=== PATIENT | female | born 1940 | race Caucasian/White ===

== ENCOUNTER → 2018-08-28 13:03 | Outpatient (CLI) | payer MEDICARE, OTHER, SELFPAY ==
--- NOTE | 2018-08-28 13:07 | CDU_ITS ---
Reason For Study: Carotid stenosis Rt. Velocities/BP Lt. Velocities/BP Prox CCA 117.0/12.3 cm/sec. Prox CCA 101.0/19.3 cm/sec. Mid CCA 93.8/12.3 cm/sec. Mid CCA 93.8/16.4 cm/sec. Dist CCA 95.0/16.4 cm/sec. Dist CCA 89.7/12.9 cm/sec. Prox ICA 122.0/19.9 cm/sec. Prox ICA 112.0/18.9 cm/sec. Mid ICA 104.0/21.1 cm/sec. Mid ICA 193.0/35.4 cm/sec. Dist ICA 95.0/15.8 cm/sec. Dist ICA 166.0/28.5 cm/sec. Rt. ICA/CCA = 1.3. Lt. ICA/CCA = 2.1. Prox ECA 105.0/7.0 cm/sec. Prox ECA 166.0/12.8 cm/sec. Lt. Vert. 68.0/14.1 cm/sec. Right Extracranial There is heterogeneous, irregular atherosclerotic plaque noted in the right common carotid artery. There is heterogeneous, irregular atherosclerotic plaque noted in the right internal carotid artery. There is heterogeneous, irregular atherosclerotic plaque noted in the right external carotid artery. Flow could not be demonstrated in the right vertebral artery. Left Extracranial There is heterogeneous, irregular atherosclerotic plaque noted in the left common carotid artery. There is heterogeneous, irregular atherosclerotic plaque noted in the left internal carotid artery. The atherosclerotic plaque causes acoustic shadowing. There is heterogeneous, irregular atherosclerotic plaque noted in the left external carotid artery. Interpretation Summary Irregular calcific plague right common carotid Post operative changes right carotid bulb and proximal internal carotid with <50% stenosis but close to this range. Normal flow right external carotid No flow identified within the right vertebral Irregular calcific plague left common carotid Irregular calcific plague proximal internal carotid with 50-69% stenosis. Irregular calcific plague left proximal external carotid with <50% stenosis Patent and antegrade left vertebral No change on the left from 04/23/2010 with improvement noted on the right Ordering Physician: Ze Goff Referring Physician: Ze Goff Performed By: Sarah Solares RVT
--- NOTE | 2018-08-28 13:07 | ART_ITS ---
Reason For Study: PVD Procedure A bilateral lower extremity continuous wave Doppler with analog waveform analysis,segmental pressures,and ankle brachial indexes without exercise. Left Segmental Pressures Left brachial= 188mmHg. Left posterior tibial artery = 182mmHg. Left dorsalis pedis artery = 164mmHg. Left digit = 110 mmHg. The left dorsalis pedis waveforms are triphasic. The left posterior tibial artery waveforms are triphasic. Right Segmental Pressures Right brachial= 190mmHg. Right posterior tibial artery = 171mmHg. Right dorsalis pedis artery = 156mmHg. Right digit = 112 mmHg. The right dorsalis pedis waveforms are triphasic. The right posterior tibial artery waveforms are triphasic. Indices The right ankle brachial index by the dorsalis pedis is .82. The right ankle brachial index by the posterior tibial artery is .90. The right digital-brachial index is .59. The left ankle brachial index by the posterior tibial artery is .96. The left ankle brachial index by the dorsalis pedis is .86. The left digital-brachial index is .58. Interpretation Summary Abnormal resting ABIs bilaterally in the range of vascular claudication. Triphasic DP and PT doppler waveforms bilaterally Digital volume pulse recordings slightly dampened but maintained. Critical ischemia is not identified. Ordering Physician: Ze Goff Referring Physician: Sg Brown Performed By: Sarah Solares Justice
--- NOTE | 2018-08-28 13:15 | LEAS_ITS ---
Reason For Study: PVD Fem-Fem bypass graft Right Velocities Left Velocities Supf Femoral Artery, prox = 172 cm./sec. Supf. Femoral Artery, prox = 164 cm./sec. Supf Femoral Artery, mid = 109 cm./sec. Supf. Femoral Artery, mid = 135 cm./sec. Supf Femoral Artery, dist. = 70.9 cm./sec. Supf. Femoral Artery, dist = 126 cm./sec. Profunda Femoral Artery = 62.7 cm./sec. Popliteal Artery, proximal, = 60.9 cm./sec. Popliteal Artery, prox. = 71.5 cm./sec. Popliteal Artery, mid = 57 cm./sec. Popliteal Artery, mid = 61.0 cm./sec. Popliteal Artery, distal = 57.4 cm./sec. Popliteal Artery, dist = 64.5 cm./sec. Post. Tibial Artery, prox = 64 cm./sec. Post. Tibial Artery, prox = 59.8 cm./sec. Post Tibial Artery, mid = 65.1 cm./sec. Post. Tibial Artery, mid = 87.9 cm./sec. Post Tibial Artery, dist. = 58.0 cm./sec. Post. Tibial Artery, dist = 82.1 cm./sec. Peroneal Artery,dist. = 58 cm./sec. Peroneal Artery,dist = 49.2 cm./sec. Ant.Tibial Artery, prox = 47.5 cm./sec. Ant. Tibial Artery, prox = 56.3 cm./sec. Ant Tibial Artery, mid = 51 cm./sec. Ant. Tibial Artery, mid = 56.9 cm./sec. Ant. Tibial Artery, distal = 58.6 cm./sec. Ant. Tibial Artery, dist = 66.8 cm./sec. GRAFT Rt [place] artery - 186 cm/s Rt Anastomosis -200 cm/s Prox graft - 85 cm/s Mid graft - 67.4 cm/s Lt anastomosis - 53.9 cm/s Lt [place] artery- 147 cm/s. Procedure Exam performed in department. Interpretation Summary Patient with patent femoral-femoral crossover graft Possible >50% stenosis [place] vessel graft anastomosis on the left at origin of superficial femoral artery as well--possible graft related flow changes. Patent bilateral lower extremity SFA, popliteal, and infrageniculate arteries. Ordering Physician: Ze Goff Referring Physician: Sg Brown Performed By: Sarah Solares RVT
== END ==
PROVIDERS: Family Provider Family Medicine; PCP Family Medicine; Referring Provider Surgery; Visit Provider Surgery
DX: I65.23 Occlusion and stenosis of bilateral carotid arteries (principal); I73.9 Peripheral vascular disease, unspecified
CPT/HCPCS: 93880; 93923; 93925

== ENCOUNTER → 2019-07-24 14:45 | Outpatient (CLI) | payer OTHER, SELFPAY ==
[2017-07-19 15:13] VITALS: BMI 32.2
--- NOTE | 2019-07-24 14:57 | CT_ITS ---
STUDY: CT ABDOMEN WITH AND WITHOUT CONTRAST REASON FOR EXAM: Female, 78 years old. SCREEN FOR HEPATITIS RADIATION DOSAGE (If Supplied By Facility): CTDIvol = ( 14.95 ) mGy, DLP = ( 1504.70 ) mGycm TECHNIQUE: Transaxial images were obtained pre and post I.V. administration of IV 100mL Isovue-300, and with oral contrast. Sagittal and coronal images were reconstructed. Individualized dose optimization techniques were used for this CT. COMPARISON: None. FINDINGS: The visualized lung bases are unremarkable. Prosthetic mitral valve. Dual chamber pacemaker is seen. Normal liver. There are surgical clips in the gallbladder fossa consistent with a prior cholecystectomy. Normal spleen. Normal pancreas. Normal bilateral adrenal glands. Normal right kidney. Normal left kidney. There is a small hiatal hernia. Normal small intestine. Normal colon. The appendix is visualized and appears normal. There is diffuse atherosclerotic calcification of the abdominal aorta, without a demonstrated aneurysm. Normal inferior vena cava. Normal retroperitoneum. Normal abdominal wall. There are diffuse degenerative changes of the visualized lumbar spine. CT/Abdomen W/WO IV Contrast IMPRESSION: Status post cholecystectomy. Electronically Signed: Shukri Benavidez, at 11:19 EST , Service support ,
[2019-07-25 07:12] LABS: EGFR FINGERSTICK 51 mL/min (>60)
== END ==
PROVIDERS: PCP Family Medicine
DX: K75.4 Autoimmune hepatitis (principal)
CPT/HCPCS: 74170; Q9967

== ENCOUNTER → 2019-08-24 12:47 | Outpatient (CLI) | payer MEDICARE, OTHER, SELFPAY ==
[2019-08-20 13:30] VITALS: BMI 32.2
--- NOTE | 2019-08-24 12:54 | CDU_ITS ---
Reason For Study: BILAT CAROTID STENOSIS Rt. Velocities/BP Lt. Velocities/BP Prox CCA 77/12 cm/sec. Prox CCA 67/13 cm/sec. Mid CCA 80/14 cm/sec. Mid CCA 151/25 cm/sec. Dist CCA 62/13 cm/sec. Dist CCA 129/16 cm/sec. Prox ICA 94/23 cm/sec. Prox ICA 155/34 cm/sec. Mid ICA 78/25 cm/sec. Mid ICA 251/38 cm/sec. Dist ICA 92/23 cm/sec. Dist ICA 238/34 cm/sec. Rt. ICA/CCA = 1.2. Lt. ICA/CCA = 1.7. Prox ECA 78/9 cm/sec. Prox ECA 175/0 cm/sec. Rt. Vert. 39/0 cm/sec. Lt. Vert. 99/18 cm/sec. Right Extracranial There is heterogeneous, irregular atherosclerotic plaque noted in the right common carotid artery. The right common carotid artery is tortuous. There is heterogeneous, irregular atherosclerotic plaque noted in the right internal carotid artery. There is heterogeneous, irregular atherosclerotic plaque noted in the right external carotid artery. Antegrade flow is noted in the right vertebral artery. Left Extracranial There is heterogeneous, irregular atherosclerotic plaque noted in the left common carotid artery. There is heterogeneous, irregular atherosclerotic plaque noted in the left internal carotid artery. There is heterogeneous, irregular atherosclerotic plaque noted in the left external carotid artery. Antegrade flow is noted in the left vertebral artery. Procedure Carotid Duplex [id number]. Exam performed in department. Interpretation Summary Minimal carotid plague right common carotid Smooth plague at the proximal right internal carotid with <50% stenosis <50% stenosis right external carotid Significant echophytic irregular plague at the distal left common carotid. Large plague at the proximal left internal carotid with >70% stenosis <50% stenosis left external carotid Patent, antegrade bilateral vertebrals Progression of stenosis left internal carotid since 08/28/18 Ordering Physician: Ze Goff Referring Physician: YARELIS MARISCAL Performed By: Najma Fuentes, SALAZAR, RVT
== END ==
PROVIDERS: PCP Family Medicine; Referring Provider Surgery; Visit Provider Surgery
DX: I65.23 Occlusion and stenosis of bilateral carotid arteries (principal)
CPT/HCPCS: 93880

== ENCOUNTER → 2019-09-13 10:13 | Outpatient (CLI) | payer OTHER, SELFPAY ==
[2019-09-07 14:29] VITALS: BMI 32.2
[2019-09-13 10:33] LABS: Absolute Lymphocyte Count 1.24 X10^3/uL (0.83-4.51); Absolute Neutrophil Count 4.6 X10^3/uL (2.0-7.7); Basophil# 0.02 X10^3/uL; Basophil% 0.3 % (0-1); Eosinophil# 0.08 X10^3/uL; Eosinophils% 1.2 % (0-5); Hematocrit 35.3 % (37-47); Hemoglobin 10.9 g/dL (12.0-15.0); Lymphocyte # 1.24 X10^3/ul (4.0); Lymphocyte % 19.1 % (19-41); Mean Corp Hgb Conc 30.9 g/dL (32-36); Mean Corpuscular Hgb 25.8 pg (27.0-32.0); Mean Corpuscular Volume 83.5 fL (81-99); Mean Platelet Vol. 9.5 fl (6.2-12.0); Monocyte# 0.57 X10^3/uL; Monocyte% 8.8 % (0-10); NRBC Flagged by Analyzer 0 % (0-5); Neutrophil # 4.55 X10^3/uL (2.7-7.7); Neutrophil % 70.1 % (47-70); Platelet Count 136 K/mm3 (150-450); RBC Distribution Width CV 15.8 % (11.6-14.6); RBC Distribution Width SD 47.5 fl (35.1-43.9); Red Blood Count 4.23 M/mm3 (4.2-5.4); White Blood Count 6.5 K/mm3 (4.4-11.0)
== END ==
PROVIDERS: PCP Family Medicine; Referring Provider Surgery; Visit Provider Surgery
DX: D64.9 Anemia, unspecified (principal)
CPT/HCPCS: 36415; 85025

== ENCOUNTER 2020-01-01 07:31 | Day surgery (SDC) | payer MEDICARE, OTHER, SELFPAY ==
--- NOTE | 2019-08-20 03:48 | HP_ITS ---
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 Is patient in pain?: No Allergies Sulfa (Sulfonamide Antibiotics) Allergy (Verified 08/20/19 13:29) Unknown Rgreobk-Qwc-Zha Reductase Inhibitor Adverse Reaction (Intermediate, Verified 08/20/19 13:29) Unknown Medications Ferrous Sulfate 325 mg PO DAILY@0800 04/17/15 [History Confirmed 08/20/19] Lisinopril [Zestril] 20 mg PO BID 04/17/15 [History Confirmed 08/20/19] Clopidogrel Bisulfate [Plavix] 75 mg PO DAILY #90 tab 08/16/15 [Rx Confirmed 08/20/19] cholecalciferol (vitamin D3) 125 mcg (5,000 unit) capsule 5,000 unit PO ONCE 07/19/17 [History Confirmed 08/20/19] hydrochlorothiazide 25 mg tablet 12.5 mg PO DAILY tab 07/19/17 [History Confirmed 08/20/19] metoprolol tartrate 50 mg tablet 100 mg PO BID tab 07/19/17 [History Confirmed 08/20/19] nitroglycerin 0.4 mg sublingual tablet 0.4 mg SUBLINGUAL Q5M PRN 07/19/17 [History Confirmed 08/20/19] amlodipine 10 mg tablet 10 mg PO DAILY 09/07/18 [History Confirmed 08/20/19] budesonide 3 mg capsule,delayed,extended release 3 mg PO BID ea 09/07/18 [History Confirmed 08/20/19] [facility] Medical History (Updated 08/20/19 @ 15:[address] 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 Ze Goff MD) Smoking Status: Former smoker second hand exposure: No alcohol intake: current alcohol intake frequency: holidays/special occasions only substance use type: does not use caffeine: Yes what type of physical activity do you participate in: none frequency: does not exercise seatbelt use: always HPI HPI HPI: MIKE MENDOZA, is a 78 F who presents to the office today for HPI HPI Surgical H&P: Yes HPI: MIKE MENDOZA, is a 78 F who presents to the office today for surgical consultation regarding undiagnosed anemia. The patient shares her primary care visit via Dr. Brown and [facility] Salma Dickens. It is of note that at the [facility] on July 24, [address] scan of the abdomen with and without contrast. This showed a small hiatal hernia. Evidence of previous cholecystectomy. As of June 12, 2019 her hemoglobin was 10.8 with a hematocrit of 35.7 and a platelet count of 163,000. Previously on April 26, 2019 her hemoglobin was 11.9 and hematocrit 37.7 with a platelet count of 166,000. I had previously assisted her May 2007 with an anal fissurectomy. It is likely that her colonoscopy was around that time but we do not have records of it. She does have medical comorbidities. She has had history of coronary bypass grafting. Bilateral carotid endarterectomies. Femoral-femoral crossover graft. Aortic valve replacement with a bioprosthetic valve. She currently is denying any chest pain. No shortness of breath. She always has dark stools but she says that she is on iron supplementation. She has not any bright red blood per rectum. Her most recent carotid duplex exam was August 2018. She was awaiting our contact to reschedule further update. ROS General General: No weight change, appetite, fatigue, colon cancer, breast cancer or weakness HEENT HEENT: No difficulty swallowing, eye injury, eye surgery, swollen glands or hoarseness Endo Endocrine: No thyroid disease, diabetes mellitus, thyroid cancer, Hair loss, heat intolerance or cold intolerance Skin Skin: No rash or changing moles Breast Breast: No left breast lump, right breast lump, nipple discharge, breast pain, abnormal mammogram, abnormal US or breast enlargement Musc Musculoskeletal: Yes arthritis and rheumatoid arthritis; no back problems, gout or joint pain Cardio Cardiovascular: Yes heart disease and high blood pressure; no murmur, pacemaker, atrial fibrillation, heart attack, heart stent, palpitations, shortness of breat with exertion or chest pain Psych Psychiatric: No depression, anxiety or hearing voices Resp Respiratory: No shortness of breath, Yes sleep apnea, No cough, No COPD, No asthma, No emphysema, No wheezing Gastro Gastrointestinal: No abdominal pain, No nausea or vomiting, No diarrhea, No constipation, No blood in stool, No acid reflux, No hemorrhoids, No ulcers, No gallbladder problem, No black,tarry stools Giuliano Hematologic: Yes blood thinners, No blood disorders, No bleeding, Yes anemia, No blood clots Neuro Neurologic: No system reviewed and no additional complaints, except as docu, No as per HPI, No abnormal walking, No abnormal hearing, No abnormal movements, No abnormal speech, No behavioral changes, No burning sensations, No confusion, No seizure-like activity, No unsteadiness, No dizziness, No localized weakness, No frequent falls, No headache(s), No lack of coordination, No loss of vision, No memory loss, No numbness, No other visual disturbances, No radiating pain, No restless legs, No sensory deficit, No fainting, No tingling, No tremor(s), No weakness, No other Exam Const General: cooperative Nutritional Appearance: average body habitus Orientation: alert, awake Chest Breast Palpation: No nipple discharge Resp Effort & Inspection: normal respiratory effort Auscultation: clear to auscultation bilaterally Cardio Rate: regular rate Rhythm: regular rhythm Heart Sounds: no murmurs GI Palpation: soft, no hepatosplenomegaly Auscultation: normal bowel sounds Neuro General: alert Extrem General: no calf tenderness bilaterally Psych Affect: normal affect Assessment & Plan Problems 1. Iron deficiency anemia, unspecified iron deficiency anemia type D50.9 Plan Unspecified iron deficiency anemia. I propose for the patient a esophagogastroduodenoscopy with possible biopsy as well as colonoscopy with possible biopsy or polypectomy as indicated. She is aware of the technique, benefit, risk, alternatives. She has had an opportunity to ask and have questions answered. I will provide antibiotic coverage because of her bioprosthetic aortic valve. We will provide monitored anesthesia care as she is higher risk. We will continue the patient's clopidogrel therapy. She has had an opportunity to ask and have questions answered. Great care will be taken to pursuing her endoscopic evaluation. I very much appreciate the kind opportunity of assisting with her surgical care. Prior to proceeding with endoscopy we will recheck bilateral carotid duplex imaging. Cc: Dr. Sg Brown and Dr.Christine Chrissie Goff M.D., F.A.C.S. Orders Orders: Carotid Duplex Ultrasound Today I77.9 Coding Level of Care Code 98541 Diagnoses Iron deficiency anemia, unspecified iron deficiency anemia type D50.9 ??Anemia type: iron deficiency ??Iron deficiency anemia type: unspecified iron deficiency 08/20/19 1548 <Electronically signed by Ze cole MD> Date _ Ze Goff MD As a result of the September 04, 2019 order by the [facility] director Becca Palafox MD to cancel nonessential surgeries that would use PPE, and less special criteria are met, I have reviewed the clinical record for this patient and have determined that the schedule procedure does not meet criteria to go forward and should be canceled pursuant to director Javy's order. The procedure will be rescheduled as soon as possible after the September 04, 2019 emergency order has been lifted
[2019-08-20 13:30] VITALS: BMI 32.2
[2019-09-07 14:29] VITALS: BMI 32.2
[2020-01-01] VITALS (8 sets, daily range): BP systolic 109–158; BP diastolic 41–54; PULSE 55–71; RESP 14–16; TEMP 36.4–36.9; O2SAT 95–98; BMI 30.9
--- NOTE | 2020-01-01 07:54 | HP.PCM_ITS ---
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: No Is patient in pain?: No Allergies Sulfa (Sulfonamide Antibiotics) Allergy (Verified 09/07/19 14:29) Unknown Ygjwtxz-Neh-Kfu Reductase Inhibitor Adverse Reaction (Intermediate, Verified 09/07/19 14:29) Unknown Is last menstrual period known: No Post menopausal: Yes Patient : No PFSH Medical History Anemia (Acute) Carotid art occ w/o infarc (Acute) Cholecystitis (Acute) Autoimmune hepatitis (Acute) Coronary artery disease (Chronic) Hypertension (Chronic) Hyperlipidemia (Chronic) Diplopia (Acute) 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 Ze Goff MD) Smoking Status: Former smoker second hand exposure: No alcohol intake: current alcohol intake frequency: holidays/special occasions only substance use type: does not use caffeine: Yes what type of physical activity do you participate in: none frequency: does not exercise seatbelt use: always HPI HPI HPI: MIKE MENDOZA, is a 78 F who presents to the office today for ongoing surgical consultation regarding seemingly progressive stenosis of her left extracranial internal carotid. I just saw her August 20, 2019. That point I was asked to evaluated her for anemia. We had anticipated doing an upper and lower endoscopy. However the Covid19 pandemic has caused cancellation of on non- murmur emergency procedures. Because the patient has bilateral extracranial carotid artery occlusive disease and has had bilateral carotid endarterectomies on August 24, 2019 I did pursue a bilateral carotid duplex exam. The right side is not remarkable with less than 50% stenosis. The left side has elevation of velocities in the left mid common carotid at 151 cm/s and within the left mid internal carotid at 251 cm/s peak systolic flow with an end-diastolic velocity of 38 cm/s. This was felt to be greater than 70% stenosis of the left internal carotid with plaque noted. This was felt to have progressed from the previous examination of August 28, 2018. Curiously at that time the peak systolic velocity within the right internal carotid was 122 cm/s flow it is now less. The previous peak systolic velocity within the left mid internal carotid was 193 cm/s now 251. Fortunately the patient remains asymptomatic. No visual changes. No motor or sensory loss. No orthostasis. HPI HPI HPI: MKIE MENDOZA, is a 78 F who presents to the office today for Exam Neck Other: Well-healed bilateral carotid incisions. 3+ bilateral carotid pulses. 2/6 bilateral carotid bruits. Neuro Cognition: normal cognition Psych Affect: normal affect Assessment & Plan Problems 1. Bilateral carotid artery stenosis I65.23 Plan 78-year-old female. She is asymptomatic from an extracranial carotid standpoint. Neurologic status remains stable. She does seem to have progression of disease now into the category of greater than 70% stenosis of her left internal carotid. She is previously had bilateral carotid endarterectomies. It is of note that she is maintained on antihypertensive and clopidogrel. She is intolerant to statin medications. Because of the pandemic we are not able to proceed with investigation of her anemia at this standpoint. I believe from her carotid occlusive disease this would be reasonable to pursue once we may resume elective procedures. The patient has been placed on a waiting list. She also has been instructed to recontact us when feasible. I anticipate a future esophagogastroduodenoscopy and colonoscopy and evaluation of her iron deficiency anemia. I anticipate a future carotid duplex imaging exam in 1 year. I appreciate the ongoing opportunity of assisting with surgical care. Cc: Dr. Sg Goff M.D., F.A.C.S. Coding Level of Care Code Off vis,est,level 2 Diagnoses Bilateral carotid artery stenosis I65.23 ??Carotid artery disease type: stenosis Since her office visit she otherwise has had a stable feeling of wellbeing. As far she is aware she has not been exposed to anyone with COVID-19. She always has dark stools. She is not had any updated laboratory by primary care since her visit to me. She currently denies any chest pain or shortness of breath no productive cough no loss of taste. Her chest today was clear to auscultation. Her cardiac exam was regular. She does have 1+ bilateral extremity pitting edema. Her abdomen was soft and nontender. I propose for her a combined esophagogastroduodenoscopy and colonoscopy with possible biopsy or polypectomy is indicated. She is aware of the technique, benefit, risk, alternatives. She has remained on her clopidogrel therapy. She will need antibiotic coverage for her aortic valve. She has had an opportunity to ask and have questions answered. We will proceed as noted. She states that she is to have blood work drawn tomorrow by Dr. Brown. Ze Goff M.D., F.A.C.S. Procedure Criteria Procedure Type: Elective COVID Risk Discussion: The surgeon/proceduralist and patient have discussed in detail the risk of exposure to and/or potential harm posed by the COVID-19 virus with having a surgery/procedure at this time versus the risk of delaying the surgery/procedure. It is not possible to know either the risk of delaying the surgery or procedure or chance of getting an infection with perfect accuracy, but a joint decision was made between the patient and the surgeon/proceduralist to proceed at this time with the scheduled surgery/procedure as indicated on the consent form.
[2020-01-01] MEDS: Lactated Ringers 1,000 ML 100 ML IV (08:30)
--- NOTE | 2020-01-01 08:45 | EGD_PTH ---
PATIENT: MIKE MENDOZA LOC: EN U#:[id number] AGE/SX: 79/F ROOM: RE01/01/[address]: Dr. Ze Goff MD : 1940 BED: DIS: 01/01/2020 SPEC #: [id number] RECD: 01/01/20 12:25 STATUS: CLOVIS PABLO #: [id number] AYDIN: 01/01/20 08:[address]: Ze Goff DEPT: SURGICAL PATHOLOGY RECD BY: Hilda Burnette ENTERED: 01/01/20 13:24 SP TYPE: EGD BIOPSY OT DR: Dr. Sg Brown MD Tissues: A - Duodenum, NOS B - Gastric mucous membrane C - Esophagus, NOS D - Rectum, NOS Procedures: Surgery Specimen Level IV HEADER OPERATION: Colonoscopy, EGD ([facility] [place]) PRE-OP DIAGNOSIS: Iron deficiency anemia TISSUE SUBMITTED: A - Duodenum biopsy, B - Antrum biopsy for histo and H. pylori, C - Distal esophagus biopsy, D - Rectum polyp biopsy MICROSCOPIC DIAGNOSIS A. Duodenum, biopsy: Mild Angel's gland hyperplasia. B. Gastric antrum, biopsy: Mild chronic gastritis. C. Distal esophagus, biopsy: Fragment of benign squamous mucosa with no evidence of inflammation. D. Rectal polyp, biopsy: Hyperplastic polyp. AM:denae 01/02/20 COMMENT B. The results of immunohistochemistry for Helicobacter pylori will be reported separately ([id number]). MICROSCOPIC DESCRIPTION Slides are reviewed. GROSS DESCRIPTION A - Received in fixative is one container labeled with the patient's name and designated duodenum biopsy. The specimen consists of multiple irregular fragments of light hoyt soft tissue that in aggregate measure 0.5 x 0.3 x 0.1 cm. The specimen is totally submitted in one cassette. B - Received in fixative is one container labeled with the patient's name and designated antrum biopsy. The specimen consists of one irregular fragment of light hoyt soft tissue that measures 0.7 x 0.3 x 0.1 cm. The specimen is totally submitted in one cassette. C - Received in fixative is one container labeled with the patient's name and designated distal esophagus biopsy. The specimen consists of two irregular fragments of light hoyt soft tissue that in aggregate measure 0.5 x 0.3 x 0.1 cm. The specimen is totally submitted in one cassette. D - Received in fixative is one container labeled with the patient's name and designated rectum polyp biopsy. The specimen consists of one irregular fragment of light hoyt soft tissue that measures 0.4 x 0.2 x 0.1 cm. The specimen is totally submitted in one cassette. / SJ:rg 01/01/20 TC:3 CPT: 62896 x4
--- NOTE | 2020-01-01 08:45 | IMM_PTH ---
PATIENT: MIKE MENDOZA LOC: EN U#:[id number] AGE/SX: 79/F ROOM: RE01/01/[address]: Dr. Ze Goff MD : 1940 BED: DIS: 01/01/2020 SPEC #: [id number] RECD: 01/01/20 14:17 STATUS: CLOVIS REQ #: [id number] AYDIN: 01/01/20 08:[address]: Ze Goff DEPT: IMMUNOHISTOCHEMISTRY RECD BY: Claire Rivera ENTERED: 01/01/20 14:17 SP TYPE: IMMUNO OTHR DR: Dr. Sg Brown MD Tissues: B - Stomach, NOS Procedures: H Pylori (initial) PHYSICIAN & INSTITUTION [place] [id number] SPECIMEN INFORMATION: Tissue Source: B - Antrum biopsy Clinical Info: Iron deficiency anemia Specimen Number: [id number] CPT code: 95856 METHODOLOGY: Deparaffinized sections of prefer/formalin-fixed tissue or PAP/DQ stained slides are incubated with monoclonal/polyclonal antibodies/oligonucleotide probes. Localization is made via biotin free immunoperoxidase method. Appropriate controls are performed and reacted as expected. Results on target cell population are indicated in the following table: RESULTS: ANTIBODY / CLONE RESULT Block B H Pylori (polyclonal) negative These tests were developed and their performance characteristics determined by [facility]. They may not have been cleared or approved by the U.S. Food and Drug Administration. The FDA has determined that such clearance or approval is not necessary. INTERPRETATION: B. Antrum biopsy: Negative for Helicobacter pylori organisms. AM:denae 01/02/20
--- NOTE | 2020-01-01 09:43 | OP.CCLET_ITS ---
01/01/2020 Sg Brown Re : Upper GI endoscopy procedure for Anita Ramirez Dear Kevin This procedure was performed on Wednesday, January 01, 2020. My impressions and recommendations are as follows: Impressions : - Medium-sized hiatal hernia. - Z-line variable, 37 cm from the incisors. Biopsied. - Acute chronic gastritis. Biopsied. - Erythematous duodenopathy. Biopsied. Active gastritis is likely source of blood loss anemia and will initiate [id number] Recommendations : - Discharge patient to home. - Resume previous diet. - Continue present medications. - Use Pepcid (famotidine) 20 mg PO daily. - Telephone my office for pathology results in 1 week. My findings are described in the full procedure note, which is enclosed. If I can be of further assistance, please feel free to contact me at Doctor phone number(s): Work: . Sincerely, Ze Goff MD 01/01/2020 9:42:52 AM This report has been signed electronically.
--- NOTE | 2020-01-01 09:43 | OP.EGD_ITS ---
Patient Name: Anita Ramirez Procedure Date: 01/01/2020 9:05 AM Date of : 1940 Age: 79 Procedure: Upper GI endoscopy Indications: Iron deficiency anemia Providers: Ze Goff MD Referring MD: Sg Brown Medicines: See the Anesthesia note for documentation of the administered medications Complications: No immediate complications. Procedure: Pre-Anesthesia Assessment: - Prior to the procedure, a History and Physical was performed, and patient medications and allergies were reviewed. The patient's tolerance of previous anesthesia was also reviewed. The risks and benefits of the procedure and the sedation options and risks were discussed with the patient. All questions were answered, and informed consent was obtained. Prior Anticoagulants: The patient has taken Plavix (clopidogrel). ASA Grade Assessment: III - A patient with severe systemic disease. After reviewing the risks and benefits, the patient was deemed in satisfactory condition to undergo the procedure. After obtaining informed consent, the endoscope was passed under direct vision. Throughout the procedure, the patient's blood pressure, pulse, and oxygen saturations were monitored continuously. The gastroscope was introduced through the mouth, and advanced to the second part of duodenum. The upper GI endoscopy was accomplished with ease. The patient tolerated the procedure well. Scope In: 9:15:53 AM Scope Out: 9:19:39 AM Total Procedure Duration Time 0 hours 3 minutes 46 seconds Findings: A medium-sized hiatal hernia was present. The Z-line was variable and was found 37 cm from the incisors. Biopsies were taken with a cold forceps for histology. Diffuse moderate inflammation characterized by erosions was found in the gastric antrum. Biopsies were taken with a cold forceps for histology. Diffuse mildly erythematous mucosa without active bleeding and with no stigmata of bleeding was found in the duodenal bulb. Biopsies were taken with a cold forceps for histology. Impression: - Medium-sized hiatal hernia. - Z-line variable, 37 cm from the incisors. Biopsied. - Acute chronic gastritis. Biopsied. - Erythematous duodenopathy. Biopsied. Active gastritis is likely source of blood loss anemia and will initiate [id number] Recommendation: - Discharge patient to home. - Resume previous diet. - Continue present medications. - Use Pepcid (famotidine) 20 mg PO daily. - Telephone my office for pathology results in 1 week. Procedure Code(s): --- Professional --- 31037, Esophagogastroduodenoscopy, flexible, transoral; with biopsy, single or multiple Diagnosis Code(s): --- Professional --- K44.9, Diaphragmatic hernia without obstruction or gangrene K22.8, Other specified diseases of esophagus K29.00, Acute gastritis without bleeding K29.50, Unspecified chronic gastritis without bleeding K31.89, Other diseases of stomach and duodenum D50.9, Iron deficiency anemia, unspecified CPT copyright 2017 [employer]. All rights reserved. The codes documented in this report are preliminary and upon police captain review may be revised to meet current compliance requirements. Ze Goff MD 01/01/2020 9:42:52 AM This report has been signed electronically. Number of Addenda: 0 Note Initiated On: 01/01/2020 9:05 AM
--- NOTE | 2020-01-01 09:46 | OP.COLON_ITS ---
Patient Name: Anita Ramirez Procedure Date: 01/01/2020 9:20 AM Date of : 1940 Age: 79 Procedure: Colonoscopy Indications: Iron deficiency anemia Providers: Ze Goff MD Referring MD: Sg Brown Medicines: See the Anesthesia note for documentation of the administered medications Patient Profile: Last Colonoscopy: 2006. Complications: No immediate complications. Procedure: Pre-Anesthesia Assessment: - Prior to the procedure, a History and Physical was performed, and patient medications and allergies were reviewed. The patient's tolerance of previous anesthesia was also reviewed. The risks and benefits of the procedure and the sedation options and risks were discussed with the patient. All questions were answered, and informed consent was obtained. Prior Anticoagulants: The patient has taken Plavix (clopidogrel). ASA Grade Assessment: III - A patient with severe systemic disease. After reviewing the risks and benefits, the patient was deemed in satisfactory condition to undergo the procedure. After I obtained informed consent, the scope was passed under direct vision. Throughout the procedure, the patient's blood pressure, pulse, and oxygen saturations were monitored continuously. The Colonoscope was introduced through the anus and advanced to the cecum, identified by appendiceal orifice and ileocecal valve. The colonoscopy was performed without difficulty. The patient tolerated the procedure well. The quality of the bowel preparation was adequate to identify polyps. The ileocecal valve and the appendiceal orifice were photographed. Scope In: 9:22:17 AM Scope Withdrawal Time 0 hours 6 minutes 31 seconds Scope Out: 9:33:55 AM Total Procedure Duration Time 0 hours 11 minutes 38 seconds Findings: The digital rectal exam findings include non-thrombosed external hemorrhoids, non-thrombosed internal hemorrhoids and internal hemorrhoids that prolapse with straining, but spontaneously regress to the resting position (Grade II). Multiple diverticula were found in the sigmoid colon and descending colon. The exam was otherwise without abnormality. A 7 mm polyp was found in the rectum. The polyp was sessile. The polyp was removed with a cold biopsy forceps. Resection and retrieval were complete. Impression: - Non-thrombosed external hemorrhoids, non-thrombosed internal hemorrhoids and internal hemorrhoids that prolapse with straining, but spontaneously regress to the resting position (Grade II) found on digital rectal exam. - Diverticulosis in the sigmoid colon and in the descending colon. - The examination was otherwise normal. - No specimens collected. Recommendation: - Discharge patient to home. - Resume previous diet. - Continue present medications. - Repeat colonoscopy is not recommended due to current age (66 years or older) for screening purposes. Procedure Code(s): --- Professional --- 47879, Colonoscopy, flexible; with biopsy, single or multiple Diagnosis Code(s): --- Professional --- K64.1, Second degree hemorrhoids K64.4, Residual hemorrhoidal skin tags D50.9, Iron deficiency anemia, unspecified K57.30, Diverticulosis of large intestine without perforation or abscess without bleeding CPT copyright 2017 [employer]. All rights reserved. The codes documented in this report are preliminary and upon qa tech review may be revised to meet current compliance requirements. Ze Goff MD 01/01/2020 9:46:43 AM This report has been signed electronically. Number of Addenda: 0 Note Initiated On: 01/01/2020 9:20 AM
--- NOTE | 2020-01-01 09:47 | OP.CCLET_ITS ---
01/01/2020 Sg Brown Re : Colonoscopy procedure for Anita Ramirez Dear Kevin This procedure was performed on Wednesday, January 01, 2020. My impressions and recommendations are as follows: Impressions : - Non-thrombosed external hemorrhoids, non-thrombosed internal hemorrhoids and internal hemorrhoids that prolapse with straining, but spontaneously regress to the resting position (Grade II) found on digital rectal exam. - Diverticulosis in the sigmoid colon and in the descending colon. - The examination was otherwise normal. - No specimens collected. Recommendations : - Discharge patient to home. - Resume previous diet. - Continue present medications. - Repeat colonoscopy is not recommended due to current age (66 years or older) for screening purposes. My findings are described in the full procedure note, which is enclosed. If I can be of further assistance, please feel free to contact me at Doctor phone number(s): Work: . Sincerely, Ze Goff MD 01/01/2020 9:46:43 AM This report has been signed electronically.
== END 2020-01-01 10:57 | disposition home or self-care (01) ==
LOC: EN 07:39 → AC 07:40
PROVIDERS: Anesthesiology; PCP Family Medicine; Referring Provider Family Medicine; Visit Provider Surgery
PROC: 0DJD8ZZ Inspection of Lower Intestinal Tract, Via Natural or Artificial Opening Endoscopic (ICD-10-PCS; CPT 45378; principal; 2020-01-01 08:40)
DX: K29.50 Unspecified chronic gastritis without bleeding (principal); K44.9 Diaphragmatic hernia without obstruction or gangrene; D50.9 Iron deficiency anemia, unspecified; K64.1 Second degree hemorrhoids; K62.1 Rectal polyp; K64.4 Residual hemorrhoidal skin tags; K57.30 Diverticulosis of large intestine without perforation or abscess without bleeding; Z11.59 Encounter for screening for other viral diseases; I10 Essential (primary) hypertension; G47.30 Sleep apnea, unspecified; E78.00 Pure hypercholesterolemia, unspecified; I25.10 Atherosclerotic heart disease of native coronary artery without angina pectoris; I65.23 Occlusion and stenosis of bilateral carotid arteries; Z78.0 Asymptomatic menopausal state; Z87.442 Personal history of urinary calculi; Z95.1 Presence of aortocoronary bypass graft; Z79.02 Long term (current) use of antithrombotics/antiplatelets; Z79.899 Other long term (current) drug therapy; Z87.891 Personal history of nicotine dependence
CPT/HCPCS: 43239; 45380; 87635; 88305; 88342; G2023; J7120; J2405; U0003

== ENCOUNTER → 2020-03-19 09:56 | Outpatient (CLI) | payer OTHER, MEDICARE, SELFPAY ==
[2020-01-01 08:08] VITALS: BMI 30.9
--- NOTE | 2020-03-19 10:05 | US_ITS ---
STUDY: ABDOMINAL ULTRASOUND - RIGHT UPPER QUADRANT REASON FOR VISIT: Female, 79 years old AUTOIMMUNE HEPATITIS TECHNIQUE: Ultrasound evaluation of the right upper quadrant was performed with real-time and static rivera-scale imaging. TECHNICAL QUALITY: Adequate. COMPARISON: Comparison is made with prior study dated 04/22/2010. FINDINGS: Liver: The liver measures 15.7 cm. There is a heterogeneous echogenicity of the liver. The bile ducts are within normal limits. There is hepatic color flow. The direction of portal flow is hepatopetal. There is no demonstrated mass lesion. Gallbladder: The patient is status post cholecystectomy. Common Bile Duct (C.B.D.): The common bile duct measures 4.0 mm. Pancreas: Normal size of the head, body and tail of the pancreas. There is normal echogenicity of the pancreas. There is no demonstrated pancreatic mass or cyst. Right Kidney: Normal size of the right kidney. The right kidney measures 8.8 cm x 4 cm x 3.9 cm. Normal renal cortex. The right cortex measures 1.1 cm. There is no demonstrated renal mass or cyst. There is no right hydronephrosis. US/Liver IMPRESSION: Heterogeneous echotexture of the hepatic parenchyma. The patient is status post cholecystectomy. Electronically Signed: Shukri Benavidez, at 15:24 EDT , Service support ,
--- NOTE | 2020-03-19 13:04 | ADU_ITS ---
Reason For Study: PVD, Fem-Fem bypass graft Right Velocities Left Velocities Supf Femoral Artery, prox = 144.9 cm./sec. Supf. Femoral Artery, prox = 175 cm./sec. Supf Femoral Artery, mid = 149.1 cm./sec. Supf. Femoral Artery, mid = 190.6 cm./sec. Supf Femoral Artery, dist. = 110.3 cm./sec. Supf. Femoral Artery, dist = 113.3 cm./sec. Profunda Femoral Artery = 75.6 cm./sec. Profunda Femoral Artery = 54.4 cm./sec. Popliteal Artery, prox. = 81.5 cm./sec. Popliteal Artery, proximal, = 104.5 cm./sec. Popliteal Artery, mid = 77.8 cm./sec. Popliteal Artery, mid = 88.8 cm./sec. Popliteal Artery, dist = 85.1 cm./sec. Popliteal Artery, distal = 72.3 cm./sec. Post. Tibial Artery, prox = 68.8 cm./sec. Post. Tibial Artery, prox = 77.8 cm./sec. Post. Tibial Artery, mid = 128.6 cm./sec. Post Tibial Artery, mid = 99.7 cm./sec. Post. Tibial Artery, dist = 85.1 cm./sec. Post Tibial Artery, dist. = 63.1 cm./sec. Peroneal Artery, prox = 47.9 cm./sec. Peroneal Artery, prox = 67.7 cm./sec. Peroneal Artery, mid = 79.8 cm./sec. Peroneal Artery, mid = 50.1 cm./sec. Peroneal Artery,dist = 31.1 cm./sec. Peroneal Artery,dist. = 43.5 cm./sec. Ant. Tibial Artery, prox = 63.3 cm./sec. Ant.Tibial Artery, prox = 67.7 cm./sec. Ant. Tibial Artery, mid = 112.5 cm./sec. Ant Tibial Artery, mid = 94.1 cm./sec. Ant. Tibial Artery, dist = 85.1 cm./sec. Ant. Tibial Artery, distal = 85.5 cm./sec. GRAFT Rt [place] artery, 228.3 cm/sec. Rt Anastomosis, 202.3 cm/sec. Prox graft, 65.8 cm/sec. Mid graft, 63.4 cm/sec. Distal graft, 52.3 cm/sec. Lt anastomosis, 81.8 cm/sec. Lt [place] artery, 63.4 cm/sec. Procedure Exam performed in department. Interpretation Summary Patient with patent femoral-femoral crossover graft Increased velocity and turbulant flow noted at the right common femoral to femoral-femoral bypass graft anastomosis. Bilateral superficial femoral and popliteal and posterior tibial and peroneal and anterior tibial arteries appear patent Ordering Physician: Ze Goff Referring Physician: Sg Brown Performed By: Ritu Basilio RVT
--- NOTE | 2020-03-19 13:04 | ART_ITS ---
Reason For Study: PVD Procedure A bilateral lower extremity continuous wave Doppler with analog waveform analysis,segmental pressures,and ankle brachial indexes with exercise. Left Segmental Pressures Left brachial= 182mmHg. Left posterior tibial artery = 175mmHg. Left dorsalis pedis artery = 110mmHg. The left dorsalis pedis waveforms are triphasic. The left posterior tibial artery waveforms are triphasic. Right Segmental Pressures Right brachial= 133mmHg. Right posterior tibial artery = 169mmHg. Right dorsalis pedis artery = 150mmHg. Right digit = 122 mmHg. The right dorsalis pedis waveforms are triphasic. The right posterior tibial artery waveforms are triphasic. Indices The right ankle brachial index by the dorsalis pedis is 0.82. The right ankle brachial index by the posterior tibial artery is 0.93. The right digital-brachial index is 0.67. The right post exercise ankle brachial index is 0.96. The left ankle brachial index by the dorsalis pedis is 1.02. The left ankle brachial index by the posterior tibial artery is 0.96. The left digital-brachial index is 0.60. The left post exercise ankle brachial index is 1.02. 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 Abnormal right digital brachial index at rest. Mild left lower extremity arterial occlusive disease. Abnormal left digital brachial index at rest. Normal exercise indices response bilaterally No significant change from August 28, 2018 Ordering Physician: Ze Goff Referring Physician: Sg Brown Performed By: Ritu Basilio RVT and Student
== END ==
PROVIDERS: PCP Family Medicine
DX: K75.4 Autoimmune hepatitis (principal); I73.9 Peripheral vascular disease, unspecified
CPT/HCPCS: 76705; 93924; 93925

== ENCOUNTER → 2020-07-23 13:27 | Outpatient (CLI) | payer MEDICARE, OTHER, SELFPAY ==
--- NOTE | 2020-07-23 13:37 | VDLE_ITS ---
Reason For Study: Edema Procedure LEFT This is a venous duplex using B-mode, color GSV is normal. flow and spectral Doppler. CFV is compressible, spontaneous, phasic, Exam performed in department. competent, and demonstrates normal A preliminary report was called and/or faxed augmentation. to Kevin. FV is patent, visualized with color only, pt unable to tolerate compression. Normal venous flow noted. POP V is compressible, spontaneous, phasic, competent and demonstrates normal augmentation. T/P Trunk is compressible. PTV is compressible. LT PerV is compressible. Interpretation Summary There is no evidence of left lower extremity deep vein thrombosis. Left great saphenous vein appears patent and compressible segmentally. Patient was unable to tolerate compression of the left femoral vein but normal venous flow was noted. Ordering Physician: Sg Brown Referring Physician: Sg Brown Performed By: Ritu Basilio RVT
== END ==
PROVIDERS: PCP Family Medicine; Referring Provider Family Medicine; Visit Provider Family Medicine
DX: R60.0 Localized edema (principal)
CPT/HCPCS: 93971

== ENCOUNTER → 2020-09-10 13:37 | Outpatient (CLI) | payer MEDICARE, OTHER, SELFPAY ==
[2020-01-01 08:08] VITALS: BMI 30.9
--- NOTE | 2020-09-10 13:41 | CDU_ITS ---
Reason For Study: CAROTID STENOSIS Rt. Velocities/BP Lt. Velocities/BP Prox CCA 37.0/14.4 cm/sec. Prox CCA 160.4/17.9 cm/sec. Mid CCA 35.1/14.4 cm/sec. Mid CCA 137.1/10.1 cm/sec. Dist CCA 33.3./14.4 cm/sec. Dist CCA 142.2/12.7 cm/sec. Prox ICA 45.3/24.5 cm/sec. Prox ICA 181.1/23.1 cm/sec. Mid ICA 40.5/16.9 cm/sec. Mid ICA 234.8/31.0 cm/sec. Dist ICA 46.2/16.0 cm/sec. Dist ICA 218.5/14.9 cm/sec. Rt. ICA/CCA = 46.2/35.1=1.3. Lt. ICA/CCA = 234.8/137.1=1.7. Prox ECA 24.8/0.0 cm/sec. Prox ECA 175.9/0.0 cm/sec. Rt. Vert. 28.5/0.0 cm/sec. Lt. Vert. 102.1/25.4 cm/sec. Right Extracranial There is heterogeneous, irregular atherosclerotic plaque noted in the right common carotid artery. The right common carotid artery is tortuous. There is heterogeneous, irregular atherosclerotic plaque noted in the right internal carotid artery. There is heterogeneous, irregular atherosclerotic plaque noted in the right external carotid artery. Antegrade flow is noted in the right vertebral artery. Left Extracranial There is heterogeneous, irregular atherosclerotic plaque noted in the left common carotid artery. There is heterogeneous, irregular atherosclerotic plaque noted in the left internal carotid artery. There is heterogeneous, irregular atherosclerotic plaque noted in the left external carotid artery. Antegrade flow is noted in the left vertebral artery. Procedure Carotid Duplex 22158. The study was technically difficult. Exam performed in department. Interpretation Summary Low flow throughout the right common carotid internal and external carotid arteries with <50% stenosis.Plague noted. 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 <50% stenosis left external carotid Antegrade bilateral vertebrals No change from 08/24/19 Ordering Physician: Ze Goff Referring Physician: Sg Brown Performed By: Cuca Benoit, SALAZAR, RVT
== END ==
PROVIDERS: PCP Family Medicine; Referring Provider Surgery; Visit Provider Surgery
DX: H53.2 Diplopia (principal)
CPT/HCPCS: 93880

== ENCOUNTER → 2020-10-15 08:26 | Outpatient (CLI) | payer OTHER, SELFPAY ==
--- NOTE | 2020-10-15 08:31 | US_ITS ---
STUDY: ABDOMINAL ULTRASOUND - RIGHT UPPER QUADRANT REASON FOR VISIT: Female, 79 years old H/O AUTOIMMUNE HEPATITIS TECHNIQUE: Ultrasound evaluation of the right upper quadrant was performed with real-time and static rivera-scale imaging. TECHNICAL QUALITY: Adequate. COMPARISON: Comparison is made with prior study dated 03/19/2020 and 04/22/2010. FINDINGS: Liver: The liver measures 15.6 cm. There is a heterogeneous echogenicity of the liver. The bile ducts are within normal limits. There is hepatic color flow. The direction of portal flow is hepatopetal. There is no demonstrated mass lesion. Gallbladder: The patient is status post cholecystectomy. Common Bile Duct (C.B.D.): The common bile duct measures 4 mm. Pancreas: Normal size of the head, body and tail of the pancreas. There is normal echogenicity of the pancreas. There is no demonstrated pancreatic mass or cyst. Right Kidney: Normal size of the right kidney. The right kidney measures 8.4 cm x 3.7 cm x 3.3 cm. There is thinning of the renal cortex. The right cortex measures 1 cm. There is no demonstrated renal mass or cyst. There is no right hydronephrosis. US/Abdomen Limited IMPRESSION: Heterogeneous appearance of the hepatic parenchyma. This is unchanged. Electronically Signed: Shukri Benavidez MD at 13:38 EDT , Service support ,
== END ==
PROVIDERS: PCP Family Medicine
DX: K75.4 Autoimmune hepatitis (principal)
CPT/HCPCS: 76705

== ENCOUNTER → 2021-03-17 08:43 | Outpatient (CLI) | payer OTHER, MEDICARE, SELFPAY ==
--- NOTE | 2021-03-17 08:47 | US_ITS ---
STUDY: ABDOMINAL ULTRASOUND - RIGHT UPPER QUADRANT REASON FOR VISIT: Female, 80 years old autoimmune hepatitis. TECHNIQUE: Ultrasound evaluation of the right upper quadrant was performed with real-time and static rivera-scale imaging. TECHNICAL QUALITY: Adequate. COMPARISON: Comparison is made with prior sonogram dated 10/15/2020. FINDINGS: Liver: The liver measures 16.2 cm. There is a heterogeneous echogenicity of the liver. The bile ducts are within normal limits. There is hepatic color flow. The direction of portal flow is hepatopetal. There is no demonstrated mass lesion. Gallbladder: The patient is status post cholecystectomy. Common Bile Duct (C.B.D.): The common bile duct measures 3.6 mm. Pancreas: Normal size of the head, body and tail of the pancreas. There is normal echogenicity of the pancreas. There is no demonstrated pancreatic mass or cyst. Right Kidney: Normal size of the right kidney. The right kidney measures 8.2 cm x 3.9 cm x 3.6 cm. There is thinning of the renal cortex. The right cortex measures 0.9 cm. There is no demonstrated renal mass or cyst. There is no right hydronephrosis. US/Liver IMPRESSION: Heterogeneous echotexture of the liver. This is unchanged. Mild right cortical thinning. Electronically Signed: Shukri Benavidez MD at 11:15 EDT , Service support ,
== END ==
PROVIDERS: PCP Family Medicine
DX: K75.4 Autoimmune hepatitis (principal)
CPT/HCPCS: 76705

== ENCOUNTER → 2021-04-21 12:41 | Outpatient (CLI) | payer MEDICARE, OTHER, SELFPAY ==
--- NOTE | 2021-04-21 12:44 | ART_ITS ---
Reason For Study: PVD Procedure A bilateral lower extremity continuous wave Doppler with analog waveform analysis,segmental pressures,and ankle brachial indexes without exercise. Left Segmental Pressures Left brachial= 171mmHg. Left digit = 89 mmHg. AIRPORT OPERATIONS SUPERVISOR and DPA are noncompressible. Right Segmental Pressures Right brachial= 46mmHg. Right dorsalis pedis artery = 143mmHg. Right digit = 101 mmHg. The right dorsalis pedis waveforms are triphasic. The right posterior tibial artery waveforms are triphasic. AIRPORT OPERATIONS SUPERVISOR is noncompressible. Indices The right ankle brachial index by the dorsalis pedis is .84. The right digital-brachial index is .59. AIRPORT OPERATIONS SUPERVISOR is noncompressible. The left digital-brachial index is .52. AIRPORT OPERATIONS SUPERVISOR and DP A are noncompressible. VL/Lower Ext Art Exam w/ Exercise Interpretation Summary Noncalculable right PT ankle-brachial index Abnormal right DP ankle-brachial index consistent with moderately severe diseas e Right posterior tibial and dorsalis pedis Doppler waveforms however are triphas ic suggesting a closer to normal flow pattern. Left PT and DP ankle-brachial indices are not calculable due to noncompressibil ity Left PT and DP Doppler waveforms are triphasic suggesting a more normal pattern Bilateral digital brachial indices are abnormal suggesting possible distal smal l vessel disease Ordering Physician: Ze Goff Performed By: Omer Flowers RVJustice
== END ==
PROVIDERS: PCP Family Medicine; Referring Provider Surgery; Visit Provider Surgery
DX: I73.9 Peripheral vascular disease, unspecified (principal)
CPT/HCPCS: 93924

== ENCOUNTER 2021-09-14 12:42 | Outpatient (CLI) | payer MEDICARE, OTHER, SELFPAY ==
--- NOTE | 2021-09-14 12:45 | CDU_ITS ---
Reason For Study: CAROTID STENOSIS Rt. Velocities/BP Lt. Velocities/BP Prox CCA 27.0/8.5 cm/sec. Prox CCA 166.3/23.8 cm/sec. Mid CCA 28.4/7.0 cm/sec. Mid CCA 174.1/18.6 cm/sec. Dist CCA 29.8/8.5 cm/sec. Dist CCA 234.6/14.9 cm/sec. Prox ICA 48.1/21.1 cm/sec. Prox ICA 174.3/25.5 cm/sec. Mid ICA 49.4/18.7 cm/sec. Mid ICA 209.9/38.5 cm/sec. Dist ICA 45.7/17.4 cm/sec. Dist ICA 313.4/46.7 cm/sec. Rt. ICA/CCA = 49.4/28.4=1.7. Lt. ICA/CCA = 313.4/174.1=1.8. Prox ECA 133.6/19.5 cm/sec. Prox ECA 183.9/0.0 cm/sec. Rt. Vert. 38.3/10.1 cm/sec. Lt. Vert. 127.7/30.9 cm/sec. Right Extracranial There is heterogeneous, irregular atherosclerotic plaque noted in the right common carotid artery. There is heterogeneous, irregular atherosclerotic plaque noted in the right internal carotid artery. There is heterogeneous, irregular atherosclerotic plaque noted in the right external carotid artery. Antegrade flow is noted in the right vertebral artery. Left Extracranial There is heterogeneous, irregular atherosclerotic plaque noted in the left common carotid artery. There is heterogeneous, irregular atherosclerotic plaque noted in the left internal carotid artery. There is heterogeneous, irregular atherosclerotic plaque noted in the left external carotid artery. Antegrade flow is noted in the left vertebral artery. Procedure Carotid Duplex [id number]. This is a Carotid Duplex examination using B-mode, color flow and specral Doppler. The study was technically difficult. Exam performed in department. VL/Carotid Duplex Ultrasound Interpretation Summary Irregular calcific plague bilateral internal carotids with <50% stenosis on the right and >70% stenosis on the left <50% stenosis bilateral external carotids Patent, antegrade vertebrals bilaterally with >70% stenosis on the left Ordering Physician: Ze Goff Referring Physician: Sg Brown Performed By: Cuca Benoit RDCS, RVT
== END 2021-09-14 23:59 | disposition home or self-care (01) ==
LOC: CVS 12:44
PROVIDERS: PCP Family Medicine; Referring Provider Surgery; Visit Provider Surgery
DX: H53.2 Diplopia (principal); I77.9 Disorder of arteries and arterioles, unspecified
CPT/HCPCS: 93880

== ENCOUNTER → 2021-12-31 | Outpatient (CLI) | payer OTHER, SELFPAY ==
--- NOTE | 2021-12-31 08:36 | US_ITS ---
STUDY: ABDOMINAL ULTRASOUND - RIGHT UPPER QUADRANT REASON FOR VISIT: Female, 81 years old auto immune hepatitis TECHNIQUE: Ultrasound evaluation of the right upper quadrant was performed with real-time and static rivera-scale imaging. TECHNICAL QUALITY: Adequate. COMPARISON: Comparison is made with prior study dated 03/17/2012 FINDINGS: Liver: The liver measures 13.3 cm. There is a heterogeneous echogenicity of the liver. The bile ducts are within normal limits. There is hepatic color flow. The direction of portal flow is hepatopetal. There is no demonstrated mass lesion. Gallbladder: The patient is status post cholecystectomy. Common Bile Duct (C.B.D.): The common bile duct measures 5.6 mm. Pancreas: Normal size of the head, body and tail of the pancreas. There is normal echogenicity of the pancreas. There is no demonstrated pancreatic mass or cyst. Right Kidney: There is atrophy of the right kidney. The right kidney measures 7 cm x 3.7 cm x 4 cm. There is thinning of the renal cortex. The right cortex measures 0.9 cm. There is no demonstrated renal mass or cyst. There is no right hydronephrosis. US/Abdomen Limited IMPRESSION: Heterogeneous echotexture of the liver. This is unchanged. Stable right renal atrophy. Electronically Signed: Shukri Benavidez MD at 10:08 EDT ,
== END | disposition home or self-care (01) ==
LOC: US 08:33
PROVIDERS: PCP Family Medicine
DX: K75.4 Autoimmune hepatitis (principal)
CPT/HCPCS: 76705

== ENCOUNTER → 2022-03-17 | Outpatient (CLI) | payer MEDICARE, OTHER, SELFPAY ==
--- NOTE | 2022-03-17 13:01 | CDU_ITS ---
Reason For Study: CAROTID STENOSIS Rt. Velocities/BP Lt. Velocities/BP Prox CCA 20.1/11.5 cm/sec. Prox CCA 164.4/21.7 cm/sec. Mid CCA 14.2/8.3 cm/sec. Mid CCA 168.8/15.1 cm/sec. Dist CCA 14.4/9.4 cm/sec. Dist CCA 186.4/8.6 cm/sec. Prox ICA 38.0/14.4 cm/sec. Prox ICA 133.7/17.3 cm/sec. Mid ICA 35.1/13.4 cm/sec. Mid ICA 263.8/37.5 cm/sec. Dist ICA 35.1/12.5 cm/sec. Dist ICA 247.6/40.7 cm/sec. Rt. ICA/CCA = 38.0/20.8=1.8. Lt. ICA/CCA = 263.8/168.8=1.6. Prox ECA 85.6/13.1 cm/sec. Prox ECA 283.2/0.0 cm/sec. Rt. Vert. 51.2/8.7 cm/sec. Lt. Vert. 130.8/32.0 cm/sec. Right Extracranial There is heterogeneous, irregular atherosclerotic plaque noted in the right common carotid artery. There is heterogeneous, irregular atherosclerotic plaque noted in the right internal carotid artery. The atherosclerotic plaque causes acoustic shadowing. There is heterogeneous, irregular atherosclerotic plaque noted in the right external carotid artery. Antegrade flow is noted in the right vertebral artery. Left Extracranial There is heterogeneous, irregular atherosclerotic plaque noted in the left common carotid artery. There is heterogeneous, irregular atherosclerotic plaque noted in the left internal carotid artery. The atherosclerotic plaque causes acoustic shadowing. There is heterogeneous, irregular atherosclerotic plaque noted in the left external carotid artery. Procedure Carotid Duplex [id number]. This is a Carotid Duplex examination using B-mode, color flow and specral Doppler. The study was technically difficult. Exam performed in department. VL/Carotid Duplex Ultrasound Interpretation Summary Irregular calcific plaque with shadowing at the proximal right internal carotid artery with notably diminished flow rates within the distal right common carotid artery with less t hernandez 50% stenosis of the right proximal internal carotid artery based upon flow. Less than 50% stenosis right external carotid artery Irregular calcific plaque within the left common carotid artery and internal ca rotid artery with increased velocities noted within the left proximal mid and distal common carot id artery. Velocities elevated within the left mid internal carotid artery consistent with greater than 70% stenosis Greater than 70% stenosis left external carotid artery Patent and antegrade right vertebral Greater than 50% stenosis left vertebral Findings appear to be similar to the previous examination of September 14, 2021 Ordering Physician: Ze Goff Referring Physician: Sg Brown Performed By: Cuca Benoit, SALAZAR, RVT
== END | disposition home or self-care (01) ==
LOC: CVS 13:00
PROVIDERS: PCP Family Medicine; Referring Provider Surgery; Visit Provider Surgery
DX: I65.23 Occlusion and stenosis of bilateral carotid arteries (principal)
CPT/HCPCS: 93880

== ENCOUNTER → 2022-04-27 | Outpatient (CLI) | payer MEDICARE, OTHER, SELFPAY ==
--- NOTE | 2022-04-27 10:50 | ART_ITS ---
Reason For Study: PVD Procedure A bilateral lower extremity continuous wave Doppler with analog waveform analysis,segmental pressures,and ankle brachial indexes without exercise. Left Segmental Pressures Left brachial= 151mmHg. Left posterior tibial artery = >254mmHg. Left dorsalis pedis artery = 211mmHg. Left digit = 103 mmHg. The left dorsalis pedis waveforms are triphasic. The left posterior tibial artery waveforms are triphasic. Right Segmental Pressures Right brachial= 43mmHg. Right posterior tibial artery = 209mmHg. Right dorsalis pedis artery = 154mmHg. Right digit = 125 mmHg. The right dorsalis pedis waveforms are triphasic. The right posterior tibial artery waveforms are triphasic. Indices The right ankle brachial index by the dorsalis pedis is 1.02. The right ankle brachial index by the posterior tibial artery is 1.38. The right digital-brachial index is 0.83. The left ankle brachial index by the dorsalis pedis is 1.40. The left ankle brachial index by the posterior tibial artery is NC. The left digital-brachial index is 0.68. VL/Lower Ext Art Exam w/o Exercis Interpretation Summary Normal right lower extremity PT and DP ankle-brachial index at rest of 1.38 and 1.02 respectively with triphasic Doppler waveforms. Normal right digital brachial index of 0.83 Normal left lower extremity DP ankle-brachial index of 1.4 with a 9 calculable left PT index. Normal triphasic Doppler waveforms from the left posterior tibial and dorsalis pedis. Abnormal left digital brachial index of 0.68 consistent with small vessel disease. Clinical correlati on would be appropriate Endings seem improved from the previous study of April 21, 2021 Ordering Physician: Ze Goff Referring Physician: Sg Brown Performed By: Ritu Basilio RVT
== END | disposition home or self-care (01) ==
LOC: CVS 10:49
PROVIDERS: PCP Family Medicine; Referring Provider Surgery; Visit Provider Surgery
DX: I73.9 Peripheral vascular disease, unspecified (principal)
CPT/HCPCS: 93923

== ENCOUNTER 2022-10-20 15:10 | Inpatient (IN) | payer MEDICARE, SELFPAY ==
[2022-10-20] VITALS (9 sets, daily range): BP systolic 119–154; BP diastolic 59–90; PULSE 111–134; RESP 16–25; TEMP 36.2–36.5; O2SAT 94–100; BMI 26.6; BMI 27.4
--- NOTE | 2022-10-20 15:27 | VDLE_ITS ---
Reason For Study: Swelling RIGHT CFV is compressible, spontaneous, competent and demonstrates pulsatile venous flow. FV is compressible, spontaneous, competent and demonstrates pulsatile venous flow. POP V is compressible, spontaneous, competent and demonstrates pulsatile venous flow. T/P Trunk is compressible. PTV is compressible. RT PerV is compressible. Procedure This is a venous duplex using B-mode, color flow and spectral Doppler. Exam performed portable in ED. The exam was diagnostic. A preliminary report was called and/or faxed to Dr. Toth. VL/Venous Duplex US, Unilateral Interpretation Summary There is no evidence of right lower extremity deep vein thrombosis. Right great saphenous vein appears patent and compressible segmentally. Pulsatile venous flow is noted inv olving the right lower extremity consistent with proximal venous hypertension or obstruction. Cl inical correlation would be appropriate. Ordering Physician: Carmen Toth Referring Physician: Sg Brown Performed By: Stew Dillard RVT
--- NOTE | 2022-10-20 15:29 | EX.ED.DYSGE1 ---
HPI History of Present Illness Chief Complaint: Edema Detail of Chief Complaint: Right leg edema Informant: patient Onset/Context/Timing Onset: Days (3 days) Context: Gradual Onset Timing: Waxes and wanes Current Severity: Moderate Maximum Severity: Moderate Narrative Narrative: Patient presents secondary to right leg edema. She states she noted her right leg swelling about 3 days ago. She recently moved and states last evening she was in the garage arranging some boxes. She developed pain to the lateral portion of her right calf. She came in and elevated her leg and the pain subsided. When she got this morning she still had some edema and called her PCP who referred her to the ER. She denies chest pain or shortness of breath. It was noted that the patient's heart rate was 134 on arrival to triage. She believes this was secondary to walking up the hill from the parking area to get into the ER. She denies history of blood clot and is not currently on blood thinners. She does report a history of autoimmune hepatitis. [facility] Medical History (Updated 10/20/22 @ 19:[address] 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 Anemia Autoimmune hepatitis Carotid art occ w/o infarc Cholecystitis Coronary artery disease Diplopia Hyperlipidemia Hypertension Home Medications lisinopril 20 mg tablet 20 mg PO BID 04/17/15 [History Last Taken 01/01/20 06:00 20 MG] clopidogrel 75 mg tablet 75 mg PO DAILY #90 tabs 08/16/15 [Rx Last Taken 01/01/20 06:00 75 MG] cholecalciferol (vitamin D3) 125 mcg (5,000 unit) capsule 5,000 unit PO ONCE 07/19/17 [History Last Taken Unknown] hydrochlorothiazide 25 mg tablet 12.5 mg PO QODAY 07/19/17 [History Last Taken Unknown] metoprolol tartrate 50 mg tablet 100 mg PO BID 07/19/17 [History Last Taken 01/01/20 06:00 100 MG] amlodipine 10 mg tablet 10 mg PO DAILY 09/07/18 [History Last Taken Unknown] budesonide 3 mg capsule,delayed,extended release 3 mg PO BID 09/07/18 [History Last Taken 01/01/20 06:00 3 MG] famotidine 20 mg tablet (Pepcid) 20 mg PO DAILY 10/22/20 [History Last Taken Unknown] atorvastatin 20 mg tablet 20 mg PO DAILY 04/30/22 [History Last Taken Unknown] ferrous sulfate 325 mg (65 mg iron) tablet 325 mg PO QODAY 10/20/22 [History Last Taken Unknown] Allergy/AdvReac Type Severity Reaction Status Date / Time Sulfa (Sulfonamide Allergy Unknown Verified 10/20/22 15:14 Antibiotics) Family History Father Prostate cancer Mother CVA (cerebral vascular accident) Breast cancer Heart disease Surgical History Bilateral carotid artery disease History of aortic valve replacement with bioprosthetic valve Peripheral vascular disease S/P anal fissurectomy S/P cholecystectomy S/P colonoscopy S/P lumpectomy, left breast Status post coronary artery bypass graft Social History Smoking Status: Former smoker second hand exposure: No alcohol intake: current alcohol intake frequency: holidays/special occasions only substance use type: does not use caffeine: Yes what type of physical activity do you participate in: none frequency: does not exercise seatbelt use: always ROS ROS ED Constitutional Constitutional ED: Denies chills or fever(s) Eyes Eyes: Denies change in vision or discharge from eye(s) ENT ENT ED: Denies discharge from eye(s), rhinorrhea or sore throat Cardiovascular Cardiovascular: Denies chest pain or palpitations Respiratory/Chest Respiratory/Chest: Denies cough or dyspnea Gastrointestinal Gastrointestinal: Denies abdominal pain, nausea or vomiting Genitourinary Genitourinary ED: Denies dysuria Musculoskeletal Musculoskeletal: Reports extremity pain; Denies back pain Integumentary Denies Abrasions or rash Neurologic Neurologic: Denies headache(s) or weakness Psychiatric Psychiatric: Denies anxiety or depression Allergic/Immunologic Allergic/Immunologic ED: Denies lip swelling or urticaria EXAM Physical Exam Const Vital Signs: 10/20/22 15:11 10/20/22 15:36 10/20/22 18:47 Temperature 97.2 F L Temperature Source Temporal Pulse Rate 134 H 131 H Respiratory Rate 16 18 Respiratory Effort Normal Non-Labored Respiratory Pattern Normal Blood Pressure 119/59 L 150/79 H Blood Pressure Mean 79 102 Pulse Ox 94 Oxygen Delivery Method Room Air Room Air Positive well nourished and well developed General Appearance ED: well developed HEENT Reports normocephalic and head/scalp atraumatic Eyes PERRL and EOMs intact bilaterally Neck supple Chest Wall inspection of chest normal and palpation of chest normal Resp normal respiratory effort and clear to auscultation bilaterally Cardio Rate: tachycardic GI normal to inspection, nondistended, normoactive bowel sounds Palpation: soft Extremity Extremity Narrative: Bilateral lower extremity edema, 3-4+. No focal calf tenderness in either leg. Neuro oriented x3 and no sensory deficits noted Sensorium / Orientation: alert Motor Exam: strength 5/5 throughout Psych mental status grossly normal Skin no rashes or lesions noted MDM MDM MDM Narrative Medical decision making narrative: Given the patient's tachycardia on arrival she is placed on environmental monitoring specialist. EKG obtained to evaluate for cardiac arrhythmia/ischemia. Labwork obtained to evaluate for leukocytosis, anemia, and electrolyte derangement. Chest x-ray obtained to evaluate for acute lung pathology, cardiac size, or mediastinal abnormality. Venous ultrasound of the right lower extremity obtained to evaluate for DVT. Lab Data Attestation: I reviewed the patient's lab results. Labs: Laboratory Results - last 24 hr 10/20/22 10/20/22 10/20/22 15:55 15:55 15:55 WBC 8.5 RBC 3.89 L Hgb 10.1 L Hct 33.7 L MCV 86.6 MCH 26.0 L MCHC 30.0 L RDW Std Deviation 51.9 H RDW Coeff of Gypsy 16.6 H Plt Count 210 MPV 10.4 Immature Gran % (Auto) 0.500 Neut % (Auto) 83.0 H Lymph % (Auto) 8.8 L [place]on % (Auto) 5.9 Eos % (Auto) 1.3 Baso % (Auto) 0.5 Absolute Neuts (auto) 7.1 Absolute Lymphs (auto) 0.75 L Nucleated RBC % 0 PT Cancelled INR Cancelled APTT Cancelled D-Dimer Quant (PE/DVT) Cancelled Sodium 142 Potassium 4.7 Chloride 111 H Carbon Dioxide 22.0 Anion Gap 9 BUN 36 H Creatinine 1.71 H Estim Creat Clear Calc 20.06 Est GFR (MDRD) Af Amer 37 L Est GFR (MDRD) Non-Af 30 L BUN/Creatinine Ratio 21.1 H Glucose 124 H Calcium 9.0 Total Bilirubin 0.50 Direct Bilirubin 0.08 AST 63 H ALT 50 Alkaline Phosphatase 77 Troponin I High Sens 66 H Total Protein 7.2 Albumin 3.5 Globulin 3.7 10/20/22 10/20/22 16:30 18:10 WBC RBC Hgb Hct MCV MCH MCHC RDW Std Deviation RDW Coeff of Gypsy Plt Count MPV Immature Gran % (Auto) Neut % (Auto) Lymph % (Auto) [place] % (Auto) Eos % (Auto) Baso % (Auto) Absolute Neuts (auto) Absolute Lymphs (auto) Nucleated RBC % PT 14.2 INR 1.1 APTT 27.7 D-Dimer Quant (PE/DVT) 2.37 H* Sodium Potassium Chloride Carbon Dioxide Anion Gap BUN Creatinine Estim Creat Clear Calc Est GFR (MDRD) Af Amer Est GFR (MDRD) Non-Af BUN/Creatinine Ratio Glucose Calcium Total Bilirubin Direct Bilirubin AST ALT Alkaline Phosphatase Troponin I High Sens 56 H Total Protein Albumin Globulin Radiography Chest X-Ray - ED: 1 View, Read by ED Physician and Chronic Changes Diagnostic Testing: Clinical Impression(s) from Imaging Studies Chest X-Ray 10/20/22 16:06 IMPRESSION: No acute cardiopulmonary disease or major interval change. Electronically Signed: Diego Fox DO at 16:17 EDT Reading Location ID and State: [address] [place] [address] Tel [phone], Service support , EKG Initial EKG: Attestation: I personally reviewed and interpreted this EKG as follows: Interpretation: Atrial Fibrillation (A-fib RVR with ventricular rate of 125.) Treatment and Re-Evaluation :: EKG reveals A-fib RVR. Patient has no known history of atrial fibrillation. She is on metoprolol at baseline so 5 mg of IV metoprolol are ordered to help control heart rate. CBC reveals normal white count 8.5 with a hemoglobin of 10.1. Chemistry studies reveal a BUN of 36 and a creatinine of 1.71. Glucose is 124. LFTs significant for an AST of 66. PT and PTT are normal. Initial troponin is 66 with 2-hour repeat 56. D-dimer is slightly elevated at 2.37. Venous ultrasound of the right lower extremity reveals no evidence of DVT. Patient's creatinine clearance is not high enough to undergo a CTA of the chest, and given her new onset atrial fibrillation will likely require anticoagulation anyway. After being given metoprolol heart rate remained elevated in the 120s. She is given a dose of Cardizem and heart rate is currently around 105-110. She is given a dose of Lovenox. Given she has new onset atrial fibrillation with elevated heart rate I will speak with hospitalist regarding admission for medication adjustment and further evaluation. Discharge Plan Triage Chief Complaint: Edema ED Provider: Carmen Toth Dx/Rx/DC Orders Clinical Impression: Atrial fibrillation, new onset, Atrial fibrillation with rapid ventricular response Prescriptions: No Action metoprolol tartrate 50 MG tablet 100 mg PO BID Label Comments: heart rate/blood pressure cholecalciferol (vitamin D3) 5,000 unit capsule 5,000 unit PO ONCE amlodipine 10 mg tablet 10 mg PO DAILY budesonide 3 mg capsule,delayed,extend.release 3 mg PO BID Label Comments: FOR LIVER PROBLEM-PER PT famotidine [Pepcid] 20 mg tablet 20 mg PO DAILY atorvastatin 20 mg tablet 20 mg PO DAILY lisinopril 20 MG tablet 20 mg PO BID Label Comments: blood pressure clopidogrel 75 MG tablet 75 mg PO DAILY Qty: 90 0RF Label Comments: blood thinner hydrochlorothiazide 25 MG tablet 12.5 mg PO QODAY ferrous sulfate 325 mg (65 mg iron) tablet 325 mg PO QODAY Label Comments: TAKE ONE TABLET BY MOUTH TWICE DAILY Primary Care Provider: Sg Brown Referrals: Sg Brown MD [Primary Care Provider] - Disposition Disposition: Acute Care Hospital [facility]
--- NOTE | 2022-10-20 16:06 | RAD_ITS ---
STUDY: X-RAY CHEST REASON FOR EXAM: Female, 81 years old. Shortness of breath. Increased swelling of the right knee and lower leg over several days. Patient on Plavix and Lasix. No pain but had pain last night. TECHNIQUE: Single AP portable view of the chest. COMPARISON: August 15, 2015. FINDINGS: The lungs are clear and expanded. There is no demonstrated pleural abnormality. Sternal cerclage wires are present from a prior sternotomy. The heart is normal in size. Normal mediastinum and dulce. Normal visualized pulmonary arteries. There is atherosclerotic calcification of the aortic arch with tortuosity. No osseous changes. There is no demonstrated abnormality of the visualized soft tissue structures of the upper abdomen. RAD/Chest 1 View (Portable) IMPRESSION: No acute cardiopulmonary disease or major interval change. Electronically Signed: Diego Fox DO at 16:17 EDT ,
[2022-10-20 16:11] LABS: Absolute Lymphocyte Count 0.75 X10^3/uL (0.83-4.51); Absolute Neutrophil Count 7.1 X10^3/uL (2.0-7.7); Basophil# 0.04 X10^3/uL; Basophil% 0.5 % (0-1); Eosinophil# 0.11 X10^3/uL; Eosinophils% 1.3 % (0-5); Hematocrit 33.7 % (37-47); Hemoglobin 10.1 g/dL (12.0-15.0); Lymphocyte # 0.75 X10^3/ul (0.83-4.51); Lymphocyte % 8.8 % (19-41); Mean Corpuscular Volume 86.6 fL (81-99); Mean Platelet Vol. 10.4 fl (6.2-12.0); Monocyte% 5.9 % (0-10); NRBC Flagged by Analyzer 0 % (0-5); Neutrophil # 7.09 X10^3/uL (2.7-7.7); Platelet Count 210 K/mm3 (150-450); RBC Distribution Width CV 16.6 % (11.6-14.6); RBC Distribution Width SD 51.9 fl (35.1-43.9); Red Blood Count 3.89 M/mm3 (4.2-5.4); White Blood Count 8.5 K/mm3 (4.4-11.0)
--- NOTE | 2022-10-20 16:16 | NURSING ---
PT,PTT NOT FULL ENOUGH. NEEDS REDRAWN
[2022-10-20] MEDS: Metoprolol Tartrate 5 MG/5 ML Vial IV (16:28)
[2022-10-20 16:32] LABS: AST(SGOT) 63 U/L (15-37); Alanine Aminotransfer ALT/SGPT 50 U/L (13-56); Albumin, Serum 3.5 g/dL (3.2-5.0); Alkaline Phosphatase 77 U/L (45-117); Anion Gap 9 (5-15); BUN 36 mg/dL (7-18); BUN/Creat Ratio 21.1 RATIO (10-20); Bilirubin, Direct 0.08 mg/dL (0.00-0.30); Chloride 111 mmol/L (98-107); Creatinine, Serum 1.71 mg/dL (0.55-1.02); EST Glomerular Filtration Rate 30 mL/min (>60); Est Glom Filt Rate - Afr Amer 37 mL/min (>60); Estimated Creatinine Clearance 20.06 ml/min; Globulin 3.7 g/dL (2.2-4.2); Glucose 124 mg/dL (74-106); Potassium 4.7 mmol/L (3.5-5.1); Protein, Total 7.2 g/dL (6.4-8.2); Sodium Level 142 mmol/L (136-145); Troponin-I HS 66 pg/mL (3.0-54.0)
[2022-10-20 17:11] LABS: International Normalized Ratio 1.1; Prothrombin Time (Protime)PT. 14.2 SECONDS (11.7-14.9)
[2022-10-20 17:12] LABS: Partial Thromboplast Time 27.7 Seconds (24.1-36.2)
[2022-10-20 17:40] LABS: D-Dimer Quantitative (DVT/PE) 2.37 FEU/ug/m (0.27-0.49)
[2022-10-20 18:39] LABS: Troponin-I HS 56 pg/mL (3.0-54.0)
[2022-10-20] MEDS: dilTIAZem 25 MG/5 ML Vial 10 MG IV BOLUS (18:48)
[2022-10-20] MEDS: Heparin Injection (Vial) 5,000 UNIT/ML VIAL 4500 UNIT IV (20:12)
[2022-10-20] MEDS: HEPARIN/D5w 25,000 UNITS 25,000 UNITS/250 ML IV.SOLN. 10 UNITS CONT INF (20:26)
--- NOTE | 2022-10-20 20:47 | PCM.HP.STD ---
HPI - General General Date of Admission: 10/20/22 Date of Service: 10/20/22 Chief Complaint: BL LE edema. HPI Narrative The patient is an 81 y/o F w/ PMHx: Carotid disease, Valvular Heart Disease s/p AVR bioprosthetic, PVD/PAD s/p carotid BL CEA and BL common femoral artery endarterectomies with a right to left femoral-femoral crossover graft, Chronic normocytic anemia/iron deficiency anemia, Hx Autoimmune hepatitis, HTN, HLD, Former tobacco use who presents to the [facility] ED on 10/20/22 with history of increased lower extremity swelling more so over right lower extremity over the last 3 days reportedly recently moving in the evening prior was in the garage arranging boxes with onset of discomfort to the lateral portion of her right calf prompting her to go in and elevate her leg with improvement of the pain however on morning reassessment she had some swelling prompting PCP evaluation who recommended ER evaluation with no recent associated chest discomfort or marked dyspnea however upon ED arrival heart rate was in the 130s with no specific palpitation report. Patient does report that she has bilateral lower extremity chronic swelling and her right is worse than her left since her valvular heart intervention work-up in the ED included T97.2, heart rate 134, BP 119/59, respiratory rate 16, 94% on room air, CBC with WBC 8.5, hemoglobin 10.1, MCV 86.6, platelet 210 with lymphopenia, coags with PT 14.2, INR 1.1, PTT 27.7, D-dimer 2.37, chloride 111, BUN/creatinine 36/1.71, glucose 124, hepatic profile with AST 63 otherwise not marked appearing, troponin initial 66 with most recent repeat 56, EKG with new onset atrial fibrillation with RVR. In the ED patient administered metoprolol 5 mg IV x 1 without effect, administered cardizem 10 mg IV x 1, heparin bolus with drip and eventually placed on cardizem drip. COUNT INCLUDES THE [facility] Medical History (Updated 10/20/22 @ 20:[address] 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 Anemia Autoimmune hepatitis Carotid art occ w/o infarc Cholecystitis Coronary artery disease Diplopia Hyperlipidemia Hypertension PAD (peripheral artery disease) Home Medications lisinopril 20 mg tablet 20 mg PO BID 04/17/15 [History Last Taken 01/01/20 06:00 20 MG] clopidogrel 75 mg tablet 75 mg PO DAILY #90 tabs 08/16/15 [Rx Last Taken 01/01/20 06:00 75 MG] cholecalciferol (vitamin D3) 125 mcg (5,000 unit) capsule 5,000 unit PO ONCE 07/19/17 [History Last Taken Unknown] hydrochlorothiazide 25 mg tablet 12.5 mg PO QODAY 07/19/17 [History Last Taken Unknown] metoprolol tartrate 50 mg tablet 100 mg PO BID 07/19/17 [History Last Taken 01/01/20 06:00 100 MG] amlodipine 10 mg tablet 10 mg PO DAILY 09/07/18 [History Last Taken Unknown] budesonide 3 mg capsule,delayed,extended release 3 mg PO BID 09/07/18 [History Last Taken 01/01/20 06:00 3 MG] famotidine 20 mg tablet (Pepcid) 20 mg PO DAILY 04/10/20 [History Last Taken Unknown] atorvastatin 20 mg tablet 20 mg PO DAILY 04/30/22 [History Last Taken Unknown] ferrous sulfate 325 mg (65 mg iron) tablet 325 mg PO QODAY 10/20/22 [History Last Taken Unknown] Allergy/AdvReac Type Severity Reaction Status Date / Time Sulfa (Sulfonamide Allergy Unknown Verified 10/20/22 15:14 Antibiotics) Family History Father Prostate cancer Mother CVA (cerebral vascular accident) Breast cancer Heart disease Surgical History Bilateral carotid artery disease History of aortic valve replacement with bioprosthetic valve History of vascular surgery Peripheral vascular disease S/P anal fissurectomy S/P cholecystectomy S/P colonoscopy S/P lumpectomy, left breast Status post coronary artery bypass graft Social History Smoking Status: Former smoker second hand exposure: No alcohol intake: current alcohol intake frequency: holidays/special occasions only substance use type: does not use caffeine: Yes what type of physical activity do you participate in: none frequency: does not exercise seatbelt use: always ROS ROS Narrative Admission Review of Systems: CONSTITUTIONAL: No weight loss, fever, + chills, weakness or fatigue. HEENT: Eyes: No visual loss, blurred vision, double vision or yellow sclerae. Ears, Nose, Throat: No hearing loss, sneezing, congestion, runny nose or sore throat. SKIN: No rash or itching, lesions, wounds. CARDIOVASCULAR: + Edema. No chest pain, chest pressure or chest discomfort, palpitations, orthopnea, syncopal events. RESPIRATORY: No shortness of breath, cough or sputum, wheezing, hemoptysis. GASTROINTESTINAL: No anorexia, nausea, vomiting or diarrhea, abdominal pain, melena, BRBPR. GENITOURINARY: No dysuria, frequency, urgency or retention. NEUROLOGICAL: No headache, dizziness, syncope, paralysis, ataxia, numbness or tingling in the extremities, focal weakness, change in bowel or bladder control, seizure. MUSCULOSKELETAL: + muscle, back pain, joint pain or stiffness. HEMATOLOGIC: + anemia, bleeding or bruising. LYMPHATICS: No enlarged nodes. No history of splenectomy. PSYCHIATRIC: No history of depression or anxiety. ENDOCRINOLOGIC: + reports of sweating, cold or heat intolerance. No polyuria or polydipsia. ALLERGIES: No history of asthma, hives, eczema or rhinitis. Vital Signs Vital Signs Vital Signs: 10/20/22 15:11 10/20/22 15:36 10/20/22 18:47 Temperature 97.2 F L Temperature Source Temporal Pulse Rate 134 H 131 H Respiratory Rate 16 18 Respiratory Effort Normal Non-Labored Respiratory Pattern Normal Blood Pressure 119/59 L 150/79 H Blood Pressure Mean 79 102 Pulse Ox 94 Oxygen Delivery Method Room Air Room Air 10/20/22 19:30 Temperature Temperature Source Pulse Rate 111 H Respiratory Rate Respiratory Effort Respiratory Pattern Blood Pressure 148/82 H Blood Pressure Mean 104 Pulse Ox Oxygen Delivery Method Weight Weight: 145 lb 9.6 oz Body Mass Index (BMI) 26.6 Physical Exam Narrative Physical Examination: General: Awake, alert, oriented x 3 and cooperative, seated upright in the ED bed in no apparent distress but fatigued appearing. Skin: Normal color, normal turgor, no icterus, no cyanosis except occasional staged ecchymoses especially to the upper extremities and hands. HEENT: AT/NC, EOMI, PERRLA, MMM, no carotid bruits or JVD noted. Lungs: Diminished, greater bases, proper effort, no rales, ronchi or wheezing. Heart: Irregular irregular; no gallop, rub audible, + SM status post AVR. Abdomen: Soft, NTTP, ND, hyperactive BS, no HSM. Extremities: No cyanosis, no clubbing, significant bilateral lower extremity pedal to mid alba 2-3+ pitting edema which she reports is chronic, right greater than left which is also baseline and she notes this is been since she had her heart valve. Neurological: Patient awake, alert, oriented as noted, cognitive function intact; pupils equally reactive to light and accommodation, cranial nerves grossly normal, moving all 4 extremities, no focal deficits, strength moderately to severely global decrease secondary to acute presentation. Psychiatric: Affect appears fatigued, no acute evidence of depressive or anxiety feelings. Results Lab / Micro Data Result Diagrams: 10/20/22 15:55 10/20/22 15:55 Labs: Laboratory Results - last 24 hr 10/20/22 15:55: WBC 8.5, RBC 3.89 L, Hgb 10.1 L, Hct 33.7 L, MCV 86.6, MCH 26.0 L, MCHC 30.0 L, RDW Std Deviation 51.9 H, RDW Coeff of Gypsy 16.6 H, Plt Count 210, MPV 10.4, Immature Gran % (Auto) 0.500, Neut % (Auto) 83.0 H, Lymph % (Auto) 8.8 L, [place] % (Auto) 5.9, Eos % (Auto) 1.3, Baso % (Auto) 0.5, Absolute Neuts (auto) 7.1, Absolute Lymphs (auto) 0.75 L, Nucleated RBC % 0 10/20/22 15:55: PT Cancelled, INR Cancelled, APTT Cancelled, D-Dimer Quant (PE/DVT) Cancelled 10/20/22 15:55: Sodium 142, Potassium 4.7, Chloride 111 H, Carbon Dioxide 22.0, Anion Gap 9, BUN 36 H, Creatinine 1.71 H, Estim Creat Clear Calc 20.06, Est GFR (MDRD) Af Amer 37 L, Est GFR (MDRD) Non-Af 30 L, BUN/Creatinine Ratio 21.1 H, Glucose 124 H, Calcium 9.0, Total Bilirubin 0.50, Direct Bilirubin 0.08, AST 63 H, ALT 50, Alkaline Phosphatase 77, Troponin I High Sens 66 H, Total Protein 7.2, Albumin 3.5, Globulin 3.7 10/20/22 16:30: PT 14.2, INR 1.1, APTT 27.7, D-Dimer Quant (PE/DVT) 2.37 H* 10/20/22 18:10: Troponin I High Sens 56 H Radiology Impression Chest X-Ray 10/20/22 16:06 IMPRESSION: No acute cardiopulmonary disease or major interval change. Electronically Signed: Diego Fox, at 16:17 EDT Reading Location ID and State: [facility] / [place] Tel [phone], Service support , Assessment & Plan Assessment/Plan (1) Atrial fibrillation, new onset: PLAN: Plan The patient is an 81 y/o F w/ PMHx: Carotid disease, Valvular Heart Disease s/p AVR bioprosthetic, PVD/PAD s/p carotid BL CEA and BL common femoral artery endarterectomies with a right to left femoral-femoral crossover graft, Chronic normocytic anemia/iron deficiency anemia, Hx Autoimmune hepatitis, HTN, HLD, Former tobacco use who presents to the [facility] ED on 10/20/22 with history of increased lower extremity swelling more so over right lower extremity over the last 3 days reportedly recently moving in the evening prior was in the garage arranging boxes with onset of discomfort to the lateral portion of her right calf prompting her to go in and elevate her leg with improvement of the pain however on morning reassessment she had some swelling prompting PCP evaluation who recommended ER evaluation with no recent associated chest discomfort or marked dyspnea however upon ED arrival heart rate was in the 130s with no specific palpitation report. #1. New onset, Paroxsymal atrial fibrillation: EKG in ED w/ atrial fibrillation w/ RVR. Patient administered Cardizem in ED. she of note was also given a dose of therapeutic Lovenox but given her renal function plan to transition to Eliquis dose at next dose due. Will admit to PCU, maintain on telemetry, obtain cardiac enzyme serial set, obtain magnesium level, obtain ECHO, obtain TSH level. CHADs scoring appropriate for anticoagulation start at this time w/ start on heparin drip with bolus in case of intervention needs with oral anticoagulation investigation with case management/social work in the interim. Patient currently on metoprolol 50 mg twice daily. Improved in the ED with Cardizem bolus however rate did increase again up to the 120-130s therefore per discussion with ED physician initiated on Cardizem drip which will be continued at this time. Cardizem regimen or addition of this given good response. Cardiology consultation requested per discussion with patient and family #2. Elevated D-dimer with right lower extremity swelling and associated pain, initially concern for acute DVT however ruled out: DVT ultrasound in the ED with no acute DVT per venous ultrasound, given renal function unable to pursue any CTPA at this time but given no marked findings in the legs lower suspicion, as noted given atrial fibrillation presentation however regardless placing on heparin drip in the interim pending insurance investigation for oral options. #3. Possible ARIAN versus progressed chronic kidney disease stage III, unclear subtype: Admission BUN/creatinine 36/1.71 however last creatinine noted since 04/26/2016 1.08 with baseline at that time primarily 0.9-1.2, given unclear if acute or chronic component will hold nephrotoxic regimen as able, given chronic BL LE edema loathe to aggressive hydrate especially given #1, will very judiciously hydrate, obtain urine FeNa, renal US and if worsening further low threshold to involve nephrology. #4. PAD: s/p prior BL LE bypass interventions but known to Dr. Goff, common femoral artery endarterectomies with a right to left femoral-femoral crossover graft 02/18/2016, will continue Plavix, heparin drip initiated as noted as well, continue hypertensive regimen with adjustments as needed, continue statin therapy. #5. Carotid disease: s/p BL CEA 2002, 2010, will continue Plavix, heparin drip initiated as noted as well, continue hypertensive regimen with adjustments as needed, continue statin therapy. #6. Valvular heart disease: No recent echocardiogram noted in the system although patient does report that this was recently done, given presentation #1 echocardiogram requested. Patient per report does have history of AVR bioprosthetic. #7. Chronic anemia, normocytic/iron deficiency anemia: Admission hemoglobin 10.1, MCV 86.6, baseline more recently since 2016 appears 10 range, stable, continue to trend, continue iron supplementation. #8. History of autoimmune hepatitis: Admission CMP with only notable hepatic profile finding AST 63 otherwise unremarkable, most recent previous to this 04/25/2015 AST 33, will repeat CMP in AM, following with [facility], continue home oral budesonide regimen. #9. Hypertension: We will continue home metoprolol with further adjustments as noted, amlodipine, holding both hydrochlorothiazide and lisinopril given possible ARIAN as noted, resume if appropriate, as needed IV hydralazine in interim. #10. Hyperlipidemia: Continue home statin regimen. AM FLP. #11. Former tobacco use: Encourage continued tobacco cessation. #12. DVT prophylaxis: Heparin bolus with drip being initiated in the ED. #13. CODE status: Patient notes that her healthcare power of attorneys are her daughter she believes and living will is currently in place but it is been sometime since she is reviewed this and she recently moved it is unsure where these items are. Encouraged her to strongly review these items and also discussed CODE STATUS as this is never been discussed either. Discussed CODE status at length including difference between FULL code, DNR-CCA and DNR-CC status. Following discussions about the differences in these status, requested Full Code status at this time but she is unsure and plans to review these items and discuss it with her daughters. Advanced Care Planning Face to Face Time: 16 minutes. Admission Evaluation Time spent evaluating chart, patient history, patient evaluation, care planning and discussion with specialists: 75 minutes. Charges/Coding Visit Charges Inpatient E&M: 96764 Init Hosp L3 Procedures Hospitalists Procedures: 10255 Advncd Care Plan 30 Min
[2022-10-20 20:56] LABS: Magnesium 2.3 mg/dL (1.6-2.6)
[2022-10-20] MEDS: 0.9% Normal Saline 1,000 ML 75 ML IV (23:00)
[2022-10-20] MEDS: Budesonide 3 MG CAPSULE.EC PO (23:37)
[2022-10-20] MEDS: Metoprolol Tartrate 100 MG Tablet PO (23:37)
[2022-10-20 23:51] LABS: Troponin-I HS 52 pg/mL (3.0-54.0)
[2022-10-21] VITALS (30 sets, daily range): BP systolic 113–148; BP diastolic 52–92; PULSE 78–120; RESP 15–28; TEMP 36.6–37.1; O2SAT 21–96; BMI 27.7
[2022-10-21 02:45] LABS: Absolute Lymphocyte Count 0.89 X10^3/uL (0.83-4.51); Absolute Neutrophil Count 4.2 X10^3/uL (2.0-7.7); Basophil# 0.03 X10^3/uL; Basophil% 0.5 % (0-1); Eosinophil# 0.06 X10^3/uL; Eosinophils% 1.1 % (0-5); Hematocrit 29.5 % (37-47); Lymphocyte # 0.89 X10^3/ul (0.83-4.51); Lymphocyte % 16.1 % (19-41); Mean Corp Hgb Conc 30.5 g/dL (32-36); Mean Corpuscular Hgb 25.9 pg (27.0-32.0); Mean Platelet Vol. 9.6 fl (6.2-12.0); Monocyte# 0.34 X10^3/uL; Monocyte% 6.2 % (0-10); NRBC Flagged by Analyzer 0 % (0-5); Neutrophil # 4.17 X10^3/uL (2.7-7.7); Neutrophil % 75.6 % (47-70); Platelet Count 142 K/mm3 (150-450); RBC Distribution Width CV 16.6 % (11.6-14.6); Red Blood Count 3.47 M/mm3 (4.2-5.4); White Blood Count 5.5 K/mm3 (4.4-11.0)
[2022-10-21 02:58] LABS: Partial Thromboplast Time 186.2 Seconds (24.1-36.2)
[2022-10-21 03:16] LABS: BUN 33 mg/dL (7-18); EST Glomerular Filtration Rate 38 mL/min (>60); Estimated Creatinine Clearance 22.25 ml/min; Glucose 94 mg/dL (74-106)
[2022-10-21 03:17] LABS: ALB/GLOB Ratio 0.9 RATIO (0.9-2.4); AST(SGOT) 42 U/L (15-37); Alanine Aminotransfer ALT/SGPT 42 U/L (13-56); Alkaline Phosphatase 65 U/L (45-117); Anion Gap 8 (5-15); BUN/Creat Ratio 23.6 RATIO (10-20); Calcium,Total 8.7 mg/dL (8.5-10.1); Chloride 112 mmol/L (98-107); Cholesterol 110 mg/dL (200); Est Glom Filt Rate - Afr Amer 46 mL/min (>60); Globulin 3.3 g/dL (2.2-4.2); High Density Lipoprotein 46 mg/dL; Potassium 3.8 mmol/L (3.5-5.1); Protein, Total 6.3 g/dL (6.4-8.2); Sodium Level 143 mmol/L (136-145); Thyroid Stim Hormone (TSH) 3.08 uIU/mL (0.358-3.74); Triglycerides 47 mg/dL; Very Low Density Lipoprotein 9 mg/dL (5-40)
--- NOTE | 2022-10-21 05:55 | US_ITS ---
STUDY: RENAL ULTRASOUND - COMPLETE REASON FOR EXAM: Female, 81 years old. ? ARIAN versus progressed renal disease TECHNIQUE: Ultrasound evaluation of the kidneys was performed with real-time and static arriola-scale imaging. COMPARISON: None. FINDINGS: RIGHT KIDNEY: with mild renal atrophy. The right kidney measures 6.9 cm x 4.17 x 3.5 cm. There is diffuse thinning of the renal cortex. The renal cortex measures 0.7 cm. There is no right renal mass or cyst. There are no right renal calculi. There is no right hydronephrosis. DISTAL RIGHT URETER: There is non-visualization of the distal right ureter. There is no demonstrated right ureterovesical junction calculus. There is a visualized right ureteral jet. LEFT KIDNEY: Normal location of the left kidney, which is normal in size. The left kidney measures 9 cm x 3.9 cm x 4 cm. There is diffuse thinning of the renal cortex. The renal cortex measures 0.8 cm. There is a 0.9 cm x 0.9 cm x 1 cm cyst. There are no left renal calculi. There is no left hydronephrosis. DISTAL LEFT URETER: There is non-visualization of the distal left ureter. There is no demonstrated left ureterovesical junction calculus. There is a visualized left ureteral jet. BLADDER: The distended urinary bladder has a volume of 111 ml. There is a normal wall thickness of the distended urinary bladder. There is no demonstrated mass within the urinary bladder. There are no demonstrated bladder calculi. US/Kidney and Bladder IMPRESSION: Mild atrophy of the right kidney. Small left renal cyst. Electronically Signed: Shukri Benavidez MD at 15:13 EDT ,
[2022-10-21] MEDS: 0.9% Saline Lock 10 ML Syringe IV (10:28)
[2022-10-21] MEDS: Clopidogrel Bisulfate 75 MG Tablet PO (10:29)
[2022-10-21] MEDS: Budesonide 3 MG CAPSULE.EC PO ×2 (10:29→22:12)
[2022-10-21] MEDS: Famotidine 20 MG Tablet PO (10:29)
[2022-10-21] MEDS: amLODIPine 10 MG Tablet PO (10:29)
[2022-10-21] MEDS: Metoprolol Tartrate 100 MG Tablet PO ×2 (10:43→22:13)
--- NOTE | 2022-10-21 11:06 | CON.PCM.CA_ITS ---
Assessment & Plan Assessment/Plan (1) Atrial fibrillation with rapid ventricular response: PLAN: Chronic oral anticoagulation discussed with patient. Risks and benefits explained. She understands these and wishes to proceed. Start on Eliquis. Continue metoprolol. Continue diltiazem for rate control. Switch to p.o. Check 2D echo with Doppler. (2) History of aortic valve replacement with bioprosthetic valve: PLAN: Check echo as noted above. (3) Carotid artery disease: PLAN: Follows with vascular surgery. (4) Hypertension: PLAN: Controlled. (5) Lower extremity edema: PLAN: Check 2D echocardiogram with Doppler. Check BNP. Stop amlodipine. Start on furosemide (6) Anemia: QUALIFIERS: Anemia type: iron deficiency Iron deficiency anemia type: unspecified iron deficiency Qualified Code(s): D50.9 - Iron deficiency anemia, unspecified PLAN: Monitor. Follow as per internal medicine. HPI Consult Data Date of Consult: 10/21/22 HPI Narrative Reason for Consultation: Atrial fibrillation HPI Narrative: Patient has past medical history significant for aortic valve disease status post aortic valve replacement with a bioprosthetic valve in 2011. She also has history of carotid artery disease status post bilateral carotid endarterectomy. History of peripheral arterial disease. She presented to the emergency room with complaints of swelling and tenderness of her lower extremities. No orthopnea. No PND. No chest pain or tightness. In the emergency room, she was noted to be in atrial fibrillation with rapid ventricular response. Doppler examination of lower extremity is negative for DVT. [facility] Medical History (Updated 10/21/22 @ 11:[address] 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 Anemia Autoimmune hepatitis Carotid art occ w/o infarc Cholecystitis Coronary artery disease Diplopia Hyperlipidemia Hypertension PAD (peripheral artery disease) Home Medications lisinopril 20 mg tablet 20 mg PO BID 04/17/15 [History Last Taken 01/01/20 06:00 20 MG] clopidogrel 75 mg tablet 75 mg PO DAILY #90 tabs 08/16/15 [Rx Last Taken 01/01/20 06:00 75 MG] cholecalciferol (vitamin D3) 125 mcg (5,000 unit) capsule 5,000 unit PO ONCE 07/19/17 [History Last Taken Unknown] hydrochlorothiazide 25 mg tablet 12.5 mg PO QODAY 07/19/17 [History Last Taken Unknown] metoprolol tartrate 50 mg tablet 100 mg PO BID 07/19/17 [History Last Taken 01/01/20 06:00 100 MG] amlodipine 10 mg tablet 10 mg PO DAILY 09/07/18 [History Last Taken Unknown] budesonide 3 mg capsule,delayed,extended release 3 mg PO BID 09/07/18 [History Last Taken 01/01/20 06:00 3 MG] famotidine 20 mg tablet (Pepcid) 20 mg PO DAILY 04/10/20 [History Last Taken Unknown] atorvastatin 20 mg tablet 20 mg PO DAILY 04/30/22 [History Last Taken Unknown] ferrous sulfate 325 mg (65 mg iron) tablet 325 mg PO QODAY 10/20/22 [History Last Taken Unknown] Allergy/AdvReac Type Severity Reaction Status Date / Time Sulfa (Sulfonamide Allergy Unknown Verified 10/20/22 15:14 Antibiotics) Family History Father Prostate cancer Mother CVA (cerebral vascular accident) Breast cancer Heart disease Surgical History Bilateral carotid artery disease History of aortic valve replacement with bioprosthetic valve History of vascular surgery Peripheral vascular disease S/P anal fissurectomy S/P cholecystectomy S/P colonoscopy S/P lumpectomy, left breast Status post coronary artery bypass graft Social History (Updated 10/20/22 @ 22:24 by Caprice Mendoza) housing: apartment Smoking Status: Former smoker second hand exposure: No alcohol intake: current alcohol intake frequency: holidays/special occasions only substance use type: does not use caffeine: Yes what type of physical activity do you participate in: none frequency: does not exercise seatbelt use: always Physical Exam Narrative Comfortable. No apparent distress. Left carotid bruit. Heart sounds 1 and 2 are noted. Irregularly irregular. Chest is clear to auscultation bilaterally. Abdomen soft. Alert oriented x3. 2+ bilateral ankle edema is noted. Risk Stratification Risk Stratification Applicable: No Objective Data Vital Signs: Vital Signs Temp Pulse Resp BP Pulse Ox O2 Del Method 97.9 F 101 H 19 H 138/75 H 93 Room Air 10/21/22 05:55 10/21/22 10:43 10/21/22 07:00 10/21/22 10:43 10/21/22 09:30 10/21/22 09:30 Oxygen Delivery Method Room Air Weight: 141 lb 1.533 oz Body Mass Index (BMI) 27.7 Intake & Output: Intake and Output for Last 24 Hours 10/19/22 10/20/22 10/21/22 23:59 23:59 23:59 Intake Total 34.08 / 39.08 303.91 / 303.91 Balance 34.08 / 39.08 303.91 / 303.91 Lab / Micro Data Result Diagrams: 10/21/22 02:35 10/21/22 02:35 Labs: Laboratory Results - last 24 hr 10/20/22 15:55: WBC 8.5, RBC 3.89 L, Hgb 10.1 L, Hct 33.7 L, MCV 86.6, MCH 26.0 L, MCHC 30.0 L, RDW Std Deviation 51.9 H, RDW Coeff of Gypsy 16.6 H, Plt Count 210, MPV 10.4, Immature Gran % (Auto) 0.500, Neut % (Auto) 83.0 H, Lymph % (Auto) 8.8 L, [place] % (Auto) 5.9, Eos % (Auto) 1.3, Baso % (Auto) 0.5, Absolute Neuts (auto) 7.1, Absolute Lymphs (auto) 0.75 L, Nucleated RBC % 0 10/20/22 15:55: PT Cancelled, INR Cancelled, APTT Cancelled, D-Dimer Quant (PE/DVT) Cancelled 10/20/22 15:55: Sodium 142, Potassium 4.7, Chloride 111 H, Carbon Dioxide 22.0, Anion Gap 9, BUN 36 H, Creatinine 1.71 H, Estim Creat Clear Calc 20.06, Est GFR (MDRD) Af Amer 37 L, Est GFR (MDRD) Non-Af 30 L, BUN/Creatinine Ratio 21.1 H, Glucose 124 H, Calcium 9.0, Total Bilirubin 0.50, Direct Bilirubin 0.08, AST 63 H, ALT 50, Alkaline Phosphatase 77, Troponin I High Sens 66 H, Total Protein 7.2, Albumin 3.5, Globulin 3.7 10/20/22 16:30: PT 14.2, INR 1.1, APTT 27.7, D-Dimer Quant (PE/DVT) 2.37 H* 10/20/22 18:10: Troponin I High Sens 56 H 10/20/22 18:10: Magnesium 2.3 10/20/22 23:11: Troponin I High Sens 52 10/21/22 02:35: WBC 5.5, RBC 3.47 L, Hgb 9.0 L, Hct 29.5 L, MCV 85.0, MCH 25.9 L , MCHC 30.5 L, RDW Std Deviation 52.0 H, RDW Coeff of Gypsy 16.6 H, Plt Count 142 L, MPV 9.6, Immature Gran % (Auto) 0.500, Neut % (Auto) 75.6 H, Lymph % (Auto) 16.1 L, [place] % (Auto) 6.2, Eos % (Auto) 1.1, Baso % (Auto) 0.5, Absolute Neuts (auto) 4.2, Absolute Lymphs (auto) 0.89, Nucleated RBC % 0 10/21/22 02:35: Sodium 143, Potassium 3.8, Chloride 112 H, Carbon Dioxide 23.0, Anion Gap 8, BUN 33 H, Creatinine 1.40 H, Estim Creat Clear Calc 22.25, Est GFR (MDRD) Af Amer 46 L, Est GFR (MDRD) Non-Af 38 L, BUN/Creatinine Ratio 23.6 H, Glucose 94, Calcium 8.7, Total Bilirubin 0.40, AST 42 H, ALT 42, Alkaline Phosphatase 65, Total Protein 6.3 L, Albumin 3.0 L, Globulin 3.3, Albumin/Globulin Ratio 0.9, Triglycerides 47, Cholesterol 110, LDL Cholesterol 55, VLDL Cholesterol 9, HDL Cholesterol 46, TSH 3.08 10/21/22 02:35: APTT 186.2 H* Cardiology Labs/Tests 10/20/22 15:55: WBC 8.5, RBC 3.89 L, Hgb 10.1 L, Hct 33.7 L, MCV 86.6, MCH 26.0 L, MCHC 30.0 L, Plt Count 210, MPV 10.4, Immature Gran % (Auto) 0.500, Neut % (Auto) 83.0 H, Lymph % (Auto) 8.8 L, [place] % (Auto) 5.9, Eos % (Auto) 1.3, Baso % (Auto) 0.5, Absolute Neuts (auto) 7.1, Nucleated RBC % 0 10/20/22 15:55: PT Cancelled, INR Cancelled, APTT Cancelled, D-Dimer Quant (PE/DVT) Cancelled 10/20/22 15:55: Sodium 142, Potassium 4.7, Chloride 111 H, Carbon Dioxide 22.0, Anion Gap 9, BUN 36 H, Creatinine 1.71 H, Est GFR (MDRD) Af Amer 37 L, Est GFR (MDRD) Non-Af 30 L, BUN/Creatinine Ratio 21.1 H, Glucose 124 H, Calcium 9.0, Total Bilirubin 0.50, Direct Bilirubin 0.08 10/20/22 16:30: PT 14.2, INR 1.1, APTT 27.7, D-Dimer Quant (PE/DVT) 2.37 H* 10/20/22 18:10: Magnesium 2.3 10/21/22 02:35: WBC 5.5, RBC 3.47 L, Hgb 9.0 L, Hct 29.5 L, MCV 85.0, MCH 25.9 L , MCHC 30.5 L, Plt Count 142 L, MPV 9.6, Immature Gran % (Auto) 0.500, Neut % (A uto) 75.6 H, Lymph % (Auto) 16.1 L, [place] % (Auto) 6.2, Eos % (Auto) 1.1, Baso % (Auto) 0.5, Absolute Neuts (auto) 4.2, Nucleated RBC % 0 10/21/22 02:35: Sodium 143, Potassium 3.8, Chloride 112 H, Carbon Dioxide 23.0, Anion Gap 8, BUN 33 H, Creatinine 1.40 H, Est GFR (MDRD) Af Amer 46 L, Est GFR (MDRD) Non-Af 38 L, BUN/Creatinine Ratio 23.6 H, Glucose 94, Calcium 8.7, Total Bilirubin 0.40, Triglycerides 47, Cholesterol 110, LDL Cholesterol 55, VLDL Cholesterol 9, HDL Cholesterol 46 10/21/22 02:35: APTT 186.2 H* Rhythm: EKG: ECHO: Stress Test: Cardiac Cath: PCI: CT Surgery: Holter monitor: EPS: PPM: CXR: Chest CT Scan: Radiography Diagnostic Testing: Radiology Impression Venous Doppler Study 10/20/22 15:27 Interpretation Summary There is no evidence of right lower extremity deep vein thrombosis. Right great saphenous vein appears patent and compressible segmentally. Pulsatile venous flow is noted i nvolving the right lower extremity consistent with proximal venous hypertension or obstruction. Clinical correlation would be appropriate. Ordering Physician: Carmen Toth Referring Physician: Sg Brown Performed By: Stew Dillard Justice Chest X-Ray 10/20/22 16:06 IMPRESSION: No acute cardiopulmonary disease or major interval change. Electronically Signed: Diego Fox DO at 16:17 EDT ,
--- NOTE | 2022-10-21 11:40 | CASEMGMT ---
RN CM Face to Face with patient for initial transition planning/care coordination assessment. RN CM introduced self and role at [facility]. Patient lying in bed, alert and oriented. Patient willing to participate in assessment and is able to answer all questions appropriately. Care providers, pharmacy, and demographics verified. Patient wishes to discharge home, denies need for home health at this time. Patient states he has no further needs or concerns at this time. CM to follow for discharge planning needs that may arise. PCP: Kevin Specialists: Liver specialitst at [facility] Preferred Pharmacy: [facility] Insurance: [facility] Prescription Benefit: yes Living Will/HPOA: yes, both nieces Cecilia and Susi LNOK: nieces Living Arrangements: Patient lives alone in a first floor apartment with no step to enter. Patient states she is independent at home. Transportation: self, nieces DME/HHC: Patient has raised toilet, cane, and grab bars at home. No previous HHC. Patient has been to [facility] in the past. Disposition Plan: Patient to discharge home with family support and follow-up plans in place. Ritu DOSHI, RN, CM
[2022-10-21 11:41] LABS: Partial Thromboplast Time 62.6 Seconds (24.1-36.2)
[2022-10-21] MEDS: dilTIAZem 60 MG Tablet PO ×2 (12:30→17:47)
--- NOTE | 2022-10-21 16:16 | PCM.PN.HOSP ---
Reason for Visit Reason for Visit: Diagnoses Iron deficiency anemia, unspecified (10/20/22) Essential (primary) hypertension (10/20/22) Unspecified atrial fibrillation (10/20/22) Disorder of arteries and arterioles, unspecified (10/20/22) Localized edema (10/20/22) Presence of other heart-valve replacement (10/20/22) Subjective Subjective Follow-up for A-fib RVR along with right leg swelling about 3 days ago. Objective Data Objective Data Vital Signs: Vital Signs Temp Pulse Resp BP Pulse Ox O2 Del Method 98.7 F 92 22 H 123/64 H 93 Room Air 10/21/22 14:00 10/21/22 14:00 10/21/22 14:00 10/21/22 14:00 10/21/22 14:00 10/21/22 14:00 Oxygen Delivery Method Room Air Weight: 141 lb 1.533 oz Body Mass Index (BMI) 27.7 Intake & Output: Intake and Output for Last 24 Hours 10/19/22 10/20/22 10/21/22 23:59 23:59 23:59 Intake Total 34.08 / 39.08 1395.24 / 1395.24 Balance 34.08 / 39.08 1395.24 / 1395.24 Lab / Micro Data Result Diagrams: 10/21/22 02:35 10/21/22 02:35 Labs: Laboratory Results - last 24 hr 10/20/22 15:55: PT Cancelled, INR Cancelled, APTT Cancelled, D-Dimer Quant (PE/DVT) Cancelled 10/20/22 15:55: Sodium 142, Potassium 4.7, Chloride 111 H, Carbon Dioxide 22.0, Anion Gap 9, BUN 36 H, Creatinine 1.71 H, Estim Creat Clear Calc 20.06, Est GFR (MDRD) Af Amer 37 L, Est GFR (MDRD) Non-Af 30 L, BUN/Creatinine Ratio 21.1 H, Glucose 124 H, Calcium 9.0, Total Bilirubin 0.50, Direct Bilirubin 0.08, AST 63 H, ALT 50, Alkaline Phosphatase 77, Troponin I High Sens 66 H, Total Protein 7.2, Albumin 3.5, Globulin 3.7 10/20/22 16:30: PT 14.2, INR 1.1, APTT 27.7, D-Dimer Quant (PE/DVT) 2.37 H* 10/20/22 18:10: Troponin I High Sens 56 H 10/20/22 18:10: Magnesium 2.3 10/20/22 23:11: Troponin I High Sens 52 10/21/22 02:35: WBC 5.5, RBC 3.47 L, Hgb 9.0 L, Hct 29.5 L, MCV 85.0, MCH 25.9 L, MCHC 30.5 L, RDW Std Deviation 52.0 H, RDW Coeff of Gypsy 16.6 H, Plt Count 142 L, MPV 9.6, Immature Gran % (Auto) 0.500, Neut % (Auto) 75.6 H, Lymph % (Auto) 16.1 L, [place] % (Auto) 6.2, Eos % (Auto) 1.1, Baso % (Auto) 0.5, Absolute Neuts (auto) 4.2, Absolute Lymphs (auto) 0.89, Nucleated RBC % 0 10/21/22 02:35: Sodium 143, Potassium 3.8, Chloride 112 H, Carbon Dioxide 23.0, Anion Gap 8, BUN 33 H, Creatinine 1.40 H, Estim Creat Clear Calc 22.25, Est GFR (MDRD) Af Amer 46 L, Est GFR (MDRD) Non-Af 38 L, BUN/Creatinine Ratio 23.6 H, Glucose 94, Calcium 8.7, Total Bilirubin 0.40, AST 42 H, ALT 42, Alkaline Phosphatase 65, Total Protein 6.3 L, Albumin 3.0 L, Globulin 3.3, Albumin/Globulin Ratio 0.9, Triglycerides 47, Cholesterol 110, LDL Cholesterol 55, VLDL Cholesterol 9, HDL Cholesterol 46, TSH 3.08 10/21/22 02:35: APTT 186.2 H* 10/21/22 02:35: B-Natriuretic Peptide 265.0 H 10/21/22 11:19: APTT 62.6 H Radiography Diagnostic Testing: Radiology Impression Venous Doppler Study 10/20/22 15:27 Interpretation Summary There is no evidence of right lower extremity deep vein thrombosis. Right great saphenous vein appears patent and compressible segmentally. Pulsatile venous flow is noted involving the right lower extremity consistent with proximal venous hypertension or obstruction. Clinical correlation would be appropriate. Ordering Physician: Carmen Toth Referring Physician: Sg Brown Performed By: Stew Dillard, RVT Chest X-Ray 10/20/22 16:06 IMPRESSION: No acute cardiopulmonary disease or major interval change. Electronically Signed: Diego Fox DO at 16:17 EDT , Renal Ultrasound 10/21/22 05:55 IMPRESSION: Mild atrophy of the right kidney. Small left renal cyst. Electronically Signed: Shukri Benavidez MD at 15:13 EDT , Physical Exam Narrative Patient had right leg swelling and pain over lateral aspect 3 days ago. Pain has improved. Denies history of DVT/PE. Patient did not notice chest pain tightness pressure or shortness of breath. She also did not had palpitation but found to be in A-fib with RVR new onset. In triage her heart rate was 134/min. Patient states she has chronic leg swelling for more than 1 or 2 years and has not changed. Physical exam General: Alert, Oriented x3, Cooperative HEENT: Atraumatic, PERRLA, EOMI, Normocephalic Oral: No Gingival or Mucosal Lesions/ Ulcerations Neck: Supple, No JVD, Negative Carotid Bruits. Bilateral carotid endarterectomy scar Lungs: Air entry diminished in bilateral lung bases. No crepitation/rhonchi Cardiovascular: Irregular rate and rhythm normal S1, Normal S2, artificial valve click on right second ICS and cardiac apex and LLSB. Abdomen: Bowel Sounds Present, Soft, Non Tender, Non-Distended : No renal angle tenderness. No suprapubic tenderness. Extremities: Mild chronic lower extremity 2+ edema, Capillary Refill Less than 3 Seconds Skin: No rashes, No breakdown Musculoskeletal: No Tenderness to Palpation of Joints or Extremities. ROM full. Neurological: Cranial nerves II-XII grossly intact, DTR 2+/4 and Symmetrical, Neuro grossly intact Psych/Mental Status: Flat affect. Assessment & Plan Assessment/Plan (1) Atrial fibrillation, new onset: PLAN: Plan The patient is an 81 y/o F was admitted with discomfort and swelling of lateral aspect of right calf and found to be new onset A-fib RVR. #1. New onset, Paroxsymal atrial fibrillation: Patient is being admitted in PCU. In ED found to have A-fib with RVR. Patient was admitted with Cardizem 10 mg IV bolus and started on Cardizem drip. Later on heart rate was controlled and IV drip was changed to Cardizem oral 60 mg every 6 hourly. Patient on IV heparin drip which is changed to Eliquis. 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 2D echo is ordered. #2. DVT ruled out: Patient has a right calf swelling. Venous duplex was negative for acute DVT. #3. Unclear either acute kidney injury/ARIAN on CKD or worsening chronic kidney disease: Admission BUN/creatinine 36/1.71 however last creatinine noted since 04/26/2016 1.08 with baseline at that time primarily 0.9-1.2. Repeat BUN/creatinine shows improvement 33/1.40. Hold nephrotoxic medications. #4. Bilateral carotid status post bilateral CEA in 2002 and 2010 PAD: s/p prior LE bypass interventions but known to Dr. Goff, common femoral artery endarterectomies with a right to left femoral-femoral crossover graft 02/18/2016. Continue Plavix, and anticoagulant. Continue statin for 5. Aortic stenosis status post bioprosthetic AVR.: No recent echocardiogram noted in the system although patient does report that this was recently done, given presentation #1 echocardiogram requested. Patient per report does have history of AVR bioprosthetic. 6. Chronic anemia, normocytic/iron deficiency anemia: Admission hemoglobin 10.1, MCV 86.6, baseline more recently since 2016 appears 10 range, stable, continue to trend, continue iron supplementation. 7. History of autoimmune hepatitis: Patient follows [facility] analytical strategist. She does not have right upper quadrant tenderness or hepatomegaly. AST 63 on admission. 8. Hypertension: continue home metoprolol with further adjustments as noted, amlodipine, HCTZ and lisinopril on hold. 9.. Hyperlipidemia: Continue home statin regimen. LDL 55, HDL 46. TSH 3.08. 10. Former tobacco use: Encourage continued tobacco cessation. CODE status: Patient notes that her healthcare power of attorneys are her daughter she believes and living will is currently in place but it is been sometime since she is reviewed this and she recently moved it is unsure where these items are. Encouraged her to strongly review these items and also discussed CODE STATUS as this is never been discussed either. Discussed CODE status at length including difference between FULL code, DNR-CCA and DNR-CC status. Following discussions about the differences in these status, requested Full Code status at this time but she is unsure and plans to review these items and discuss it with her daughters. Laboratory Results 10/20/22 15:55: Sodium 142, Potassium 4.7, Chloride 111 H, Carbon Dioxide 22.0, Anion Gap 9, BUN 36 H, Creatinine 1.71 H, Estim Creat Clear Calc 20.06, Est GFR (MDRD) Af Amer 37 L, Est GFR (MDRD) Non-Af 30 L, BUN/Creatinine Ratio 21.1 H, Glucose 124 H, Calcium 9.0, Total Bilirubin 0.50, Direct Bilirubin 0.08, AST 63 H, ALT 50, Alkaline Phosphatase 77, Troponin I High Sens 66 H, Total Protein 7.2, Albumin 3.5, Globulin 3.7 10/20/22 16:30: PT 14.2, INR 1.1, APTT 27.7, D-Dimer Quant (PE/DVT) 2.37 H* 10/20/22 18:10: Troponin I High Sens 56 H 10/20/22 18:10: Magnesium 2.3 10/20/22 23:11: Troponin I High Sens 52 10/21/22 02:35: WBC 5.5, RBC 3.47 L, Hgb 9.0 L, Hct 29.5 L, MCV 85.0, MCH 25.9 L, MCHC 30.5 L, RDW Std Deviation 52.0 H, RDW Coeff of Gypsy 16.6 H, Plt Count 142 L, MPV 9.6, Immature Gran % (Auto) 0.500, Neut % (Auto) 75.6 H, Lymph % (Auto) 16.1 L, [place] % (Auto) 6.2, Eos % (Auto) 1.1, Baso % (Auto) 0.5, Absolute Neuts (auto) 4.2, Absolute Lymphs (auto) 0.89, Nucleated RBC % 0 10/21/22 02:35: Sodium 143, Potassium 3.8, Chloride 112 H, Carbon Dioxide 23.0, Anion Gap 8, BUN 33 H, Creatinine 1.40 H, Estim Creat Clear Calc 22.25, Est GFR (MDRD) Af Amer 46 L, Est GFR (MDRD) Non-Af 38 L, BUN/Creatinine Ratio 23.6 H, Glucose 94, Calcium 8.7, Total Bilirubin 0.40, AST 42 H, ALT 42, Alkaline Phosphatase 65, Total Protein 6.3 L, Albumin 3.0 L, Globulin 3.3, Albumin/Globulin Ratio 0.9, Triglycerides 47, Cholesterol 110, LDL Cholesterol 55, VLDL Cholesterol 9, HDL Cholesterol 46, TSH 3.08 10/21/22 02:35: APTT 186.2 H* 10/21/22 02:35: B-Natriuretic Peptide 265.0 H 10/21/22 11:19: APTT 62.6 H Charges/Coding Visit Charges Inpatient E&M: 77147 Subs Hosp L2
--- NOTE | 2022-10-21 16:23 | CHAPLAIN ---
Type of Pastoral Visit _x__ Initial Visit ___ Follow-up Visit ___ On-call Visit ___ General Patient Visit ___ Spiritual Assessment ___ Family Conference ___ Bereavement ___ Rapid Response ___ Code Blue ___ Other (describe below) Pastoral Care Referral From _x__ Patient ___ Family ___ Nurse ___ Physician ___ Manager Corporate Communications ___ Home Health Billing Specialist ___ Other (describe below) Sacrament/Intervention _x__ Active listening ___ Anointing ___ Yarsani ___ Bereavement ___ Communion _x__ Angélica exploration ___ ___ Life review _x__ Prayer ___ Reconciliation ___ Sacrament of Sick ___ Supportive presence ___ Wedding ___ Other (describe below) Pastoral Comments
[2022-10-21] MEDS: Furosemide 40 MG Tablet PO (16:29)
[2022-10-21] MEDS: Atorvastatin Calcium 20 MG Tablet PO (22:12)
[2022-10-21] MEDS: APIXABAN 2.5 MG TABLET (WCH) PO (22:18)
[2022-10-22] MEDS: dilTIAZem 60 MG Tablet PO ×2 (01:04→05:42)
[2022-10-22 05:40] VITALS: BP 98/85; PULSE 95; RESP 16; TEMP 36.6; O2SAT 93
[2022-10-22 06:00] VITALS: BMI 27.9
[2022-10-22 06:59] LABS: Absolute Lymphocyte Count 0.61 X10^3/uL (0.83-4.51); Absolute Neutrophil Count 6.3 X10^3/uL (2.0-7.7); Basophil# 0.02 X10^3/uL; Basophil% 0.3 % (0-1); Eosinophil# 0.02 X10^3/uL; Eosinophils% 0.3 % (0-5); Hematocrit 30.1 % (37-47); Hemoglobin 9.3 g/dL (12.0-15.0); Lymphocyte # 0.61 X10^3/ul (0.83-4.51); Lymphocyte % 8.3 % (19-41); Mean Corp Hgb Conc 30.9 g/dL (32-36); Mean Corpuscular Hgb 26.1 pg (27.0-32.0); Mean Corpuscular Volume 84.3 fL (81-99); Mean Platelet Vol. 9.8 fl (6.2-12.0); Monocyte# 0.35 X10^3/uL; Monocyte% 4.8 % (0-10); NRBC Flagged by Analyzer 0 % (0-5); Neutrophil # 6.31 X10^3/uL (2.7-7.7); Neutrophil % 85.8 % (47-70); Platelet Count 180 K/mm3 (150-450); RBC Distribution Width CV 16.4 % (11.6-14.6); RBC Distribution Width SD 50.7 fl (35.1-43.9); Red Blood Count 3.57 M/mm3 (4.2-5.4); White Blood Count 7.4 K/mm3 (4.4-11.0)
[2022-10-22 07:30] LABS: Anion Gap 10 (5-15); BUN 32 mg/dL (7-18); BUN/Creat Ratio 20.8 RATIO (10-20); Chloride 108 mmol/L (98-107); Creatinine, Serum 1.54 mg/dL (0.55-1.02); EST Glomerular Filtration Rate 34 mL/min (>60); Est Glom Filt Rate - Afr Amer 41 mL/min (>60); Estimated Creatinine Clearance 20.23 ml/min; Glucose 112 mg/dL (74-106); Potassium 3.9 mmol/L (3.5-5.1); Sodium Level 140 mmol/L (136-145)
[2022-10-22 07:37] VITALS: O2SAT 95
[2022-10-22 07:57] LABS: Creatinine, Urine (random) < 13.00 mg/dL (NO RANGE EST.); Urine Sodium 118 mmol/L (Not Establ.)
[2022-10-22 08:00] VITALS: BP 115/69; PULSE 64; RESP 16; TEMP 36.6; O2SAT 96
[2022-10-22] MEDS: Ferrous Sulfate 325 MG Tablet PO (08:28)
[2022-10-22 08:29] VITALS: BP 115/69; PULSE 64
[2022-10-22] MEDS: Clopidogrel Bisulfate 75 MG Tablet PO (08:29)
[2022-10-22] MEDS: Metoprolol Tartrate 100 MG Tablet PO (08:29)
[2022-10-22] MEDS: Furosemide 40 MG Tablet PO (08:29)
[2022-10-22] MEDS: Famotidine 20 MG Tablet PO (08:29)
[2022-10-22] MEDS: Budesonide 3 MG CAPSULE.EC PO (08:29)
[2022-10-22] MEDS: APIXABAN 2.5 MG TABLET (WCH) PO (08:29)
--- NOTE | 2022-10-22 09:55 | DCINST_ITS ---
Discharge Instructions Diet Discharge Diet: 8 Cup Fluid Restriction and 2000 mg Sodium Diet Activity Discharge Activity: Return to Normal Activity Weight Bearing Status: Weight bearing as tolerated Dressing / Incision Call your doctor if you observe: Fever of 101 or Higher, Coldness, Increased Pain, Numbness or Tingling, Change in Color, Inability to urinate, Inability to have a bowel movement, Using more than 1 pad per hour, Shortness of breath, Dizziness, Fainting spells, Swelling in the ankles, Chest pain, Prolonged hiccupping, Increased palpitations (irregular heartbeat) and Calf discomfort Follow Up Care When: IN 2 WEEKS Test Results: Test results from this visit will be discussed in further detail at your follow- up appointment, if applicable. Discharge Plan Admission Admit Date/Time: 10/20/22 19:36 Primary Reason for Your Visit: New onset A-fib RVR Attending Provider: Sharath Odom Primary Care Provider: Sg Brown Consulting Providers: Chito Vail ; Eliza Herrmann Discharge Orders/Prescriptions Prescriptions: New metoprolol tartrate 100 mg Tablet 100 mg PO BID 30 Days Qty: 60 2RF furosemide 40 mg Tablet 40 mg PO DAILY 30 Days Qty: 30 2RF Rx Instructions: Take additional 40 mg dose at 5 PM for increased leg swelling or weight gain 5 pounds in 1 week. sennosides-docusate sodium [Stool Softener-Stimulant Laxat] 8.6-50 mg Tablet 2 tab PO BID PRN PRN (Reason: Constipation) Qty: 0 0RF Eliquis 2.5 mg tablet 2.5 mg PO BID 30 Days Qty: 60 1RF pantoprazole [Protonix] 40 mg tablet,delayed release (DR/EC) 40 mg PO DAILY Qty: 30 2RF diltiazem HCl [Cardizem CD] 240 mg capsule,extended release 24hr 240 mg PO DAILY Qty: 30 2RF Rx Instructions: Hold for heart less than 60 or systolic blood pressure less than 110 mmHg. Continued cholecalciferol (vitamin D3) 5,000 unit capsule 5,000 unit PO ONCE amlodipine 10 mg tablet 10 mg PO DAILY budesonide 3 mg capsule,delayed,extend.release 3 mg PO BID Label Comments: FOR LIVER PROBLEM-PER PT atorvastatin 20 mg tablet 20 mg PO DAILY clopidogrel 75 MG tablet 75 mg PO DAILY Qty: 90 0RF Label Comments: blood thinner ferrous sulfate 325 mg (65 mg iron) tablet 325 mg PO QODAY Label Comments: TAKE ONE TABLET BY MOUTH TWICE DAILY Held lisinopril 20 MG tablet 20 mg PO BID Hold Instructions: Hold for 7 days. Label Comments: blood pressure Discontinued metoprolol tartrate 50 MG tablet 100 mg PO BID Label Comments: heart rate/blood pressure famotidine [Pepcid] 20 mg tablet 20 mg PO DAILY hydrochlorothiazide 25 MG tablet 12.5 mg PO QODAY Referrals / Follow Up: Chito Vail MD [Med Staff - Active Staff] - Within 1 Month Sg Brown MD [Primary Care Provider] - Within 2 Weeks Disposition Disposition (needs filled in before D/C Order can be placed): Home, Self Care
--- NOTE | 2022-10-22 12:30 | CASEMGMT ---
RN GHADA updated that patient is discharging today. RN GHADA reviewed medications, patient will be discharging on Eliquis. LORENZO CM in to patient's room to discuss needs at discharge. Patient denies needs at discharge. Patient provided with Eliquis savings card. Patient had no further questions or concerns at this time.
--- NOTE | 2022-10-22 12:35 | DS.PCM_ITS ---
Providers Date of Admission: 10/20/22 Date of Discharge: 10/22/22 Primary Care Physician: Dr. Sg Brown MD Consultations 10/20/22 22:10 Consult: Cardiology Routine Consulting Provider: Chito Vail Reason for Consult: New onset atrial fibrillation RVR EMERGENT Consult: No MD Notified: Yes Date Notified: 10/20/22 Time Notified: 20:41 Method of Notification: Text Reason For Visit: PAF WITH RVR Diagnosis Discharge Diagnosis (1) Atrial fibrillation, new onset: Status: Acute Code(s): I48.91 - Unspecified atrial fibrillation Plan The patient is an 81 y/o F was admitted with discomfort and swelling of lateral aspect of right calf and found to be new onset A-fib RVR. She also did not had palpitation but found to be in A-fib with RVR new onset. #1. New onset, Paroxsymal atrial fibrillation: Patient is being admitted in PCU. In ED found to have A-fib with RVR. Patient was admitted with Cardizem 10 mg IV bolus and started on Cardizem drip. Later on heart rate was controlled and IV drip was changed to Cardizem oral 60 mg every 6 hourly. Patient on IV heparin drip which is changed to Eliquis. 10/22: Prescription given for Eliquis 2.5 mg twice daily. Cardizem changed to to 40 mg daily. Rest as mentioned below. Follows mangle press catcher Dr. Vail in 1 month. 2. Chronic HFpEF probably due to valvular heart disease: Patient states she has chronic leg swelling for more than 1 or 2 years and has not changed. Denies history of DVT/PE. Patient did not notice chest pain tightness pressure or shortness of breath. Echo shows EF 55%, grade 2 diastolic dysfunction. LA severely enlarged. Moderate 2+ MR, severe mitral annular calcification, 2+ TR RVSP 49 mmHg. Bioprosthetic AV functioning normally. Patient BNP is elevated.Patient not short of breath or pulmonary and normal chest x-ray and therefore no acute heart failure. #2. DVT ruled out: Patient has a right calf swelling. Venous duplex was negative for acute DVT. #3. 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 Repeat BUN/creatinine shows improvement 33/1.40. Hold nephrotoxic medications. : HCTZ discontinued. Furosemide was restarted for leg swelling decreased to 40 mg daily. Monitor kidney function electrolytes. Advised follow-up with human resources office assistant in 2 weeks. Hold lisinopril for 1 week and follow with BMP in 1 week. Renal ultrasound was done shows mild atrophy of right kidney. Small left renal cyst. #4. Bilateral carotid status post bilateral CEA in 2002 and 2010 PAD: s/p prior BL LE bypass interventions but known to Dr. Goff, common femoral artery endarterectomies with a right to left femoral-femoral crossover graft 02/18/2016. Continue Plavix, and anticoagulant. Continue statin for 5. Aortic stenosis status post bioprosthetic AVR.: No recent echocardiogram noted in the system although patient does report that this was recently done, given presentation #1 echocardiogram requested. Patient per report does have history of AVR bioprosthetic. 6. Chronic anemia, normocytic/iron deficiency anemia: Admission hemoglobin 10.1, MCV 86.6, baseline more recently since 2016 appears 10 range, stable, continue to trend, continue iron supplementation. Patient started on PPI as anemia is expected to get worse as patient is on Plavix and low-dose Eliquis added 2.5 mg twice daily. 7. History of autoimmune hepatitis: Patient follows [facility] hep atologist. She does not have right upper quadrant tenderness or hepatomegaly. AST 63 on admission. 8. Hypertension: continue home metoprolol with further adjustments as noted, amlodipine, HCTZ and lisinopril on hold. 9.. Hyperlipidemia: Continue home statin regimen. LDL 55, HDL 46. TSH 3.08. 10. Former tobacco use: Encourage continued tobacco cessation. CODE status: Patient notes that her healthcare power of attorneys are her daughter she believes and living will is currently in place but it is been sometime since she is reviewed this and she recently moved it is unsure where these items are. Encouraged her to strongly review these items and also discussed CODE STATUS as this is never been discussed either. Discussed CODE status at length including difference between FULL code, DNR-CCA and DNR-CC status. Following discussions about the differences in these status, requested Full Code status at this time but she is unsure and plans to review these items and discuss it with her daughters. Laboratory Results 10/21/22 20:33: Ur Random Sodium 118, Urine Creatinine < 13.00 10/22/22 06:25: WBC 7.4, RBC 3.57 L, Hgb 9.3 L, Hct 30.1 L, MCV 84.3, MCH 26.1 L , MCHC 30.9 L, RDW Std Deviation 50.7 H, RDW Coeff of Gypsy 16.4 H, Plt Count 180, MPV 9.8, Immature Gran % (Auto) 0.500, Neut % (Auto) 85.8 H, Lymph % (Auto) 8.3 L, Clayton % (Auto) 4.8, Eos % (Auto) 0.3, Baso % (Auto) 0.3, Absolute Neuts (auto) 6.3, Absolute Lymphs (auto) 0.61 L, Nucleated RBC % 0 10/22/22 06:25: Sodium 140, Potassium 3.9, Chloride 108 H, Carbon Dioxide 22.0, Anion Gap 10, BUN 32 H, Creatinine 1.54 H, Estim Creat Clear Calc 20.23, Est GFR (MDRD) Af Amer 41 L, Est GFR (MDRD) Non-Af 34 L, BUN/Creatinine Ratio 20.8 H, Glucose 112 H, Calcium 9.0 Medications at Discharge Home Medications lisinopril 20 mg tablet 20 mg PO BID blood pressure 04/17/15 clopidogrel 75 mg tablet 75 mg PO DAILY #90 tabs 08/16/15 cholecalciferol (vitamin D3) 125 mcg (5,000 unit) capsule 5,000 unit PO ONCE vitamin 07/19/17 amlodipine 10 mg tablet 10 mg PO DAILY blood pressure 09/07/18 budesonide 3 mg capsule,delayed,extended release 3 mg PO BID breathing 09/07/18 atorvastatin 20 mg tablet 20 mg PO DAILY cholesterol 04/30/22 ferrous sulfate 325 mg (65 mg iron) tablet 325 mg PO QODAY vitamin 10/20/22 apixaban 2.5 mg tablet (Eliquis) 2.5 mg PO BID 30 days #60 tabs 10/22/22 diltiazem HCl 240 mg capsule,extended release 24 hr (Cardizem CD) 240 mg PO DAILY #30 caps 10/22/22 furosemide 40 mg tablet 40 mg PO DAILY 30 days #30 tabs 10/22/22 metoprolol tartrate 100 mg tablet 100 mg PO BID 30 days #60 tabs 10/22/22 pantoprazole 40 mg tablet,delayed release (Protonix) 40 mg PO DAILY #30 tabs 10/22/22 sennosides 8.6 mg-docusate sodium 50 mg tablet (Stool Softener-Stimulant Laxative) 2 tab PO BID PRN PRN Constipation #0 tabs 10/22/22 Physical Exam Narrative Patient had right leg swelling and pain over lateral aspect 3 days ago. Pain has improved. Leg swelling is improved Physical exam General: Alert, Oriented x3, Cooperative HEENT: Atraumatic, PERRLA, EOMI, Normocephalic Oral: No Gingival or Mucosal Lesions/ Ulcerations Neck: Supple, No JVD, Negative Carotid Bruits. Bilateral carotid endarterectomy scar Lungs: Air entry diminished in bilateral lung bases. No crepitation/rhonchi Cardiovascular: Irregular rate and rhythm, heart rate controlled. Artificial valve click on right second ICS and cardiac apex and LLSB. Abdomen: Bowel Sounds Present, Soft, Non Tender, Non-Distended : No renal angle tenderness. No suprapubic tenderness. Extremities: Mild chronic lower extremity 2+ edema, Capillary Refill Less than 3 Seconds Skin: No rashes, No breakdown Musculoskeletal: No Tenderness to Palpation of Joints or Extremities. ROM full. Neurological: Cranial nerves II-XII grossly intact, DTR 2+/4 and Symmetrical, Neuro grossly intact Psych/Mental Status: Flat affect. Weight / BMI Weight Weight: 142 lb 3.17 oz Body Mass Index (BMI) 27.9 ABG / Lab / Microbiology Data Result Diagrams: 10/22/22 06:25 10/22/22 06:25 Laboratory: Laboratory Results - last 24 hr 10/21/22 20:33: Ur Random Sodium 118, Urine Creatinine < 13.00 10/22/22 06:25: WBC 7.4, RBC 3.57 L, Hgb 9.3 L, Hct 30.1 L, MCV 84.3, MCH 26.1 L , MCHC 30.9 L, RDW Std Deviation 50.7 H, RDW Coeff of Gypsy 16.4 H, Plt Count 180, MPV 9.8, Immature Gran % (Auto) 0.500, Neut % (Auto) 85.8 H, Lymph % (Auto) 8.3 L, Clayton % (Auto) 4.8, Eos % (Auto) 0.3, Baso % (Auto) 0.3, Absolute Neuts (auto) 6.3, Absolute Lymphs (auto) 0.61 L, Nucleated RBC % 0 10/22/22 06:25: Sodium 140, Potassium 3.9, Chloride 108 H, Carbon Dioxide 22.0, Anion Gap 10, BUN 32 H, Creatinine 1.54 H, Estim Creat Clear Calc 20.23, Est GFR (MDRD) Af Amer 41 L, Est GFR (MDRD) Non-Af 34 L, BUN/Creatinine Ratio 20.8 H, Glucose 112 H, Calcium 9.0 Radiography Diagnostic Testing: Radiology Impression Renal Ultrasound 10/21/22 05:55 IMPRESSION: Mild atrophy of the right kidney. Small left renal cyst. Electronically Signed: Shukri Benavidez MD at 15:13 EDT , D/C Instructions Discharge Diet: 8 Cup Fluid Restriction and 2000 mg Sodium Diet Weight Bearing Status: Weight bearing as tolerated Call your doctor if you observe: Fever of 101 or Higher, Coldness, Increased Pain, Numbness or Tingling, Change in Color, Inability to urinate, Inability to have a bowel movement, Using more than 1 pad per hour, Shortness of breath, Dizziness, Fainting spells, Swelling in the ankles, Chest pain, Prolonged hiccupping, Increased palpitations (irregular heartbeat) and Calf discomfort When: IN 2 WEEKS Meaningful Use Info Meaningful Use Diagnoses (Choose all that apply): None applicable Discharge Plan Admission Admit Date/Time: 10/20/22 19:36 Primary Reason for Your Visit: New onset A-fib RVR Attending Provider: Sharath Odom Primary Care Provider: Sg Brown Consulting Providers: Chito Vail ; Eliza Herrmann Discharge Orders/Prescriptions Prescriptions: New metoprolol tartrate 100 mg Tablet 100 mg PO BID 30 Days Qty: 60 2RF furosemide 40 mg Tablet 40 mg PO DAILY 30 Days Qty: 30 2RF Rx Instructions: Take additional 40 mg dose at 5 PM for increased leg swelling or weight gain 5 pounds in 1 week. sennosides-docusate sodium [Stool Softener-Stimulant Laxat] 8.6-50 mg Tablet 2 tab PO BID PRN PRN (Reason: Constipation) Qty: 0 0RF Eliquis 2.5 mg tablet 2.5 mg PO BID 30 Days Qty: 60 1RF pantoprazole [Protonix] 40 mg tablet,delayed release (DR/EC) 40 mg PO DAILY Qty: 30 2RF diltiazem HCl [Cardizem CD] 240 mg capsule,extended release 24hr 240 mg PO DAILY Qty: 30 2RF Rx Instructions: Hold for heart less than 60 or systolic blood pressure less than 110 mmHg. Continued cholecalciferol (vitamin D3) 5,000 unit capsule 5,000 unit PO ONCE amlodipine 10 mg tablet 10 mg PO DAILY budesonide 3 mg capsule,delayed,extend.release 3 mg PO BID Label Comments: FOR LIVER PROBLEM-PER PT atorvastatin 20 mg tablet 20 mg PO DAILY clopidogrel 75 MG tablet 75 mg PO DAILY Qty: 90 0RF Label Comments: blood thinner ferrous sulfate 325 mg (65 mg iron) tablet 325 mg PO QODAY Label Comments: TAKE ONE TABLET BY MOUTH TWICE DAILY Held lisinopril 20 MG tablet 20 mg PO BID Hold Instructions: Hold for 7 days. Label Comments: blood pressure Discontinued metoprolol tartrate 50 MG tablet 100 mg PO BID Label Comments: heart rate/blood pressure famotidine [Pepcid] 20 mg tablet 20 mg PO DAILY hydrochlorothiazide 25 MG tablet 12.5 mg PO QODAY Referrals / Follow Up: Chito Vail MD [Med Staff - Active Staff] - Within 1 Month Sg Brown MD [Primary Care Provider] - Within 2 Weeks Disposition Disposition (needs filled in before D/C Order can be placed): Home, Self Care Charges/Coding Visit Charges Inpatient E&M: 89724 Disch Hosp >30min
[2022-10-22 14:20] VITALS: BP 128/70; PULSE 108
--- NOTE | 2022-10-22 15:16 | PCM.PN.CARD ---
Subjective Subjective Denies any complaints. Objective Data Vital Signs: Vital Signs Temp Pulse Resp BP Pulse Ox O2 Del Method 97.9 F 108 H 16 128/70 H 96 Room Air 10/22/22 08:00 10/22/22 14:20 10/22/22 08:00 10/22/22 14:20 10/22/22 08:00 10/22/22 08:00 Oxygen Delivery Method Room Air Weight: 142 lb 3.17 oz Body Mass Index (BMI) 27.9 Intake & Output: Intake and Output for Last 24 Hours 10/20/22 10/21/22 10/22/22 23:59 23:59 23:59 Intake Total 34.08 / 39.08 1734.57 / 1974.57 360 / 360 Output Total 900 / 900 Balance 34.08 / 39.08 1734.57 / 1074.57 -540 / -540 Lab / Micro Data Result Diagrams: 10/22/22 06:25 10/22/22 06:25 Labs: Laboratory Results - last 24 hr 10/21/22 20:33: Ur Random Sodium 118, Urine Creatinine < 13.00 10/22/22 06:25: WBC 7.4, RBC 3.57 L, Hgb 9.3 L, Hct 30.1 L, MCV 84.3, MCH 26.1 L, MCHC 30.9 L, RDW Std Deviation 50.7 H, RDW Coeff of Gypsy 16.4 H, Plt Count 180, MPV 9.8, Immature Gran % (Auto) 0.500, Neut % (Auto) 85.8 H, Lymph % (Auto) 8.3 L, Brooke % (Auto) 4.8, Eos % (Auto) 0.3, Baso % (Auto) 0.3, Absolute Neuts (auto) 6.3, Absolute Lymphs (auto) 0.61 L, Nucleated RBC % 0 10/22/22 06:25: Sodium 140, Potassium 3.9, Chloride 108 H, Carbon Dioxide 22.0, Anion Gap 10, BUN 32 H, Creatinine 1.54 H, Estim Creat Clear Calc 20.23, Est GFR (MDRD) Af Amer 41 L, Est GFR (MDRD) Non-Af 34 L, BUN/Creatinine Ratio 20.8 H, Glucose 112 H, Calcium 9.0 Cardiology Labs/Tests 10/22/22 06:25: WBC 7.4, RBC 3.57 L, Hgb 9.3 L, Hct 30.1 L, MCV 84.3, MCH 26.1 L, MCHC 30.9 L, Plt Count 180, MPV 9.8, Immature Gran % (Auto) 0.500, Neut % (Auto) 85.8 H, Lymph % (Auto) 8.3 L, Brooke % (Auto) 4.8, Eos % (Auto) 0.3, Baso % (Auto) 0.3, Absolute Neuts (auto) 6.3, Nucleated RBC % 0 10/22/22 06:25: Sodium 140, Potassium 3.9, Chloride 108 H, Carbon Dioxide 22.0, Anion Gap 10, BUN 32 H, Creatinine 1.54 H, Est GFR (MDRD) Af Amer 41 L, Est GFR (MDRD) Non-Af 34 L, BUN/Creatinine Ratio 20.8 H, Glucose 112 H, Calcium 9.0 Rhythm: EKG: ECHO: Stress Test: Cardiac Cath: PCI: CT Surgery: Holter monitor: EPS: PPM: CXR: Chest CT Scan: Physical Exam Narrative Comfortable. No apparent distress. Left carotid bruit. Heart sounds 1 and 2 are noted. Irregularly irregular. Chest is clear to auscultation bilaterally. Abdomen soft. Alert oriented x3. 2+ bilateral ankle edema is noted. Assessment & Plan Assessment/Plan (1) Atrial fibrillation with rapid ventricular response: PLAN: Started on Eliquis. Rate improved with diltiazem and metoprolol. (2) (HFpEF) heart failure with preserved ejection fraction: PLAN: Continue furosemide. (3) History of aortic valve replacement with bioprosthetic valve: PLAN: Bioprosthetic valve functioning normally. (4) Carotid artery disease: PLAN: Follows with vascular surgery. (5) Hypertension: PLAN: Controlled. (6) Lower extremity edema: PLAN: Heart failure with preserved ejection fraction. Continue furosemide. (7) Anemia: QUALIFIERS: Anemia type: iron deficiency Iron deficiency anemia type: unspecified iron deficiency Qualified Code(s): D50.9 - Iron deficiency anemia, unspecified PLAN: Monitor. Follow as per internal medicine.
== END 2022-10-22 14:42 | disposition home or self-care (01) | DRG 309 ==
LOC: ED 19:50 → PCU 20:00
PROVIDERS: Internal Medicine Cardiovascular Disease; Admitting Provider Family Medicine; Emergency Provider Emergency Medicine; PCP Family Medicine; Visit Provider Internal Medicine
DX: I48.0 Paroxysmal atrial fibrillation (principal); I50.30 Unspecified diastolic (congestive) heart failure; I13.0 Hypertensive heart and chronic kidney disease with heart failure and stage 1 through stage 4 chronic kidney disease, or unspecified chronic kidney disease; K75.4 Autoimmune hepatitis; D50.9 Iron deficiency anemia, unspecified; E78.5 Hyperlipidemia, unspecified; I25.10 Atherosclerotic heart disease of native coronary artery without angina pectoris; N18.2 Chronic kidney disease, stage 2 (mild); I35.0 Nonrheumatic aortic (valve) stenosis; M79.89 Other specified soft tissue disorders; Z87.891 Personal history of nicotine dependence; Z79.02 Long term (current) use of antithrombotics/antiplatelets; Z79.01 Long term (current) use of anticoagulants; Z82.3 Family history of stroke; N26.1 Atrophy of kidney (terminal); N28.1 Cyst of kidney, acquired; I34.81 Nonrheumatic mitral (valve) annulus calcification
CPT/HCPCS: 36415; 71045; 76770; 80048; 80053; 80061; 80076; 82570; 83735; 83880; 84300; 84443; 84484; 85025; 85379; 85610; 85730; 93005; 93306; 93971; 94668; 97162; 97166; 99285; J7030; J7050; A4216

== ENCOUNTER → 2022-11-04 | Outpatient (CLI) | payer MEDICARE, SELFPAY ==
[2022-11-04 11:33] LABS: Anion Gap 8 (5-15); BUN 51 mg/dL (7-18); BUN/Creat Ratio 28.8 RATIO (10-20); Calcium,Total 8.8 mg/dL (8.5-10.1); Chloride 103 mmol/L (98-107); Creatinine, Serum 1.77 mg/dL (0.55-1.02); EST Glomerular Filtration Rate 29 mL/min (>60); Est Glom Filt Rate - Afr Amer 35 mL/min (>60); Glucose 96 mg/dL (74-106); Potassium 3.7 mmol/L (3.5-5.1); Sodium Level 141 mmol/L (136-145)
== END | disposition home or self-care (01) ==
LOC: LAB 10:15
PROVIDERS: PCP Family Medicine; Referring Provider Nurse Practitioner Family; Visit Provider Nurse Practitioner Family
DX: I50.30 Unspecified diastolic (congestive) heart failure (principal)
CPT/HCPCS: 36415; 80048

== ENCOUNTER 2022-11-12 16:01 | Inpatient (IN) | payer MEDICARE, SELFPAY ==
[2022-11-12] VITALS (8 sets, daily range): BP systolic 126–150; BP diastolic 49–84; PULSE 80–112; RESP 15–22; TEMP 35.9–36.6; O2SAT 96–100; BMI 26.4; BMI 26.3
--- NOTE | 2022-11-12 16:05 | ED.RN ---
Spoke with Dr. Vazquez- order to not call stroke alert at this time, d/t symptoms resolved.
--- NOTE | 2022-11-12 16:51 | CT_ITS ---
We are attempting to reach an attending provider to discuss findings. An addendum with communication details will be sent when the communication is complete. INDICATION: Neuro deficit, acute, stroke suspected EXAMINATION: CT BRAIN - CT Head Stroke Protocol W/O Contrast Injection TECHNIQUE: Multiple axial images were obtained of the head without intravenous contrast. A radiation dose optimization technique was used for this scan. IV Contrast dosage and agent: None. RADIATION DOSAGE (If Supplied By Facility): CTDIvol = ( 44.99 ) mGy, DLP = ( 829.85 ) mGycm COMPARISON: 08/20/2015 FINDINGS: BRAIN PARENCHYMA: No intra- or extra-axial hemorrhage. No evidence of acute infarct. No intracranial mass or mass effect. There is preservation of the rivera/white matter interface. Posterior fossa structures are unremarkable. CSF SPACES: Ex vacuo ventricular dilation is proportionate to global cerebral volume loss. Basal cisterns are patent. CALVARIUM, SKULL BASE, PARANASAL SINUSES AND MASTOID AIR CELLS: Clear. No discrete lytic or blastic abnormalities. ORBITS: Bilateral ocular lens replacements. ASPECTS Score for Acute Strokes: 10 CT/STROKE Brain/Head without Cont IMPRESSION: No acute abnormal intracranial finding. Electronically Signed: Mau Main MD at 17:42 EDT ,
--- NOTE | 2022-11-12 16:51 | EKG12_ITS ---
Test Reason : Blood Pressure : / mmHG Vent. Rate : 083 BPM Atrial Rate : 000 BPM P-R Int : 000 ms QRS Dur : 076 ms QT Int : 374 ms P-R-T Axes : 000 -07 146 degrees QTc Int : [address] & T wave abnormality, consider lateral ischemia Abnormal ECG Confirmed by NYASIA NOWAK, FERNANDA ([id number]), news editor OCHOA HA ([id number]) on 11/16/2022 10:09:33 AM Referred By: Confirmed By:FERNANDA MURRELL MD
--- NOTE | 2022-11-12 16:51 | ED.VIS.STROK ---
HPI History of Present Illness Chief Complaint: Neuro S/Sx Informant: patient and family Narrative Narrative: Patient seen here around 1645 after waiting in the waiting room for a while, she had symptoms of a TIA this morning that have been gone since she has been here in the emergency department. She states around 1115, she started having slurred speech, left facial droop, weakness in left arm and weakness in left leg. She was able to walk but had trouble. She did not fall or injure herself. Prior to this around 1000, she felt her heart racing, and just happened to be time to check her blood pressure before she took her medications which she did and her heart rate was 150s. This self-resolved after may be 30 minutes or so. She did not feel near syncopal, have any chest discomfort, dyspnea, or other symptoms during that. She recently was diagnosed with atrial fibrillation, within the last 3 or 4 weeks, placed on Eliquis and some other medications and has just been feeling poorly and fatigued since then, so she has been discontinuing some of those new medications after discussing with staff at the [facility] office where she is establishing her care but has not been seen yet, here in [place]. She states she is still taking aspirin and clopidogrel since she was placed on Eliquis because she has not been told otherwise, however she has a bag of medications that she has discontinued, and clopidogrel is in that bag in addition to being in the bag of medicines that she currently is taking and she confirms that she took it this morning. She has had no cardiac stents placed in the last 12 months. Has had edema in her legs about the same time that she started having A-fib, about a month. She states they are heavy but not weak right now and she is otherwise asymptomatic. Denies bleeding from anywhere. 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 Cholecystitis Coronary artery disease Diplopia Essential hypertension History of breast cancer Hyperlipidemia Lower extremity edema Non-rheumatic mitral regurgitation Non-rheumatic tricuspid valve insufficiency PAD (peripheral artery disease) Home Medications lisinopril 20 mg tablet 20 mg PO BID blood pressure 04/17/15 [History Last Taken 01/01/20 06:00 20 MG] clopidogrel 75 mg tablet 75 mg PO DAILY #90 tabs 08/16/15 [Rx Last Taken 01/01/20 06:00 75 MG] amlodipine 10 mg tablet 10 mg PO DAILY blood pressure 09/07/18 [History Last Taken Unknown] budesonide 3 mg capsule,delayed,extended release 3 mg PO BID breathing 09/07/18 [History Last Taken 01/01/20 06:00 3 MG] atorvastatin 20 mg tablet 20 mg PO DAILY cholesterol 04/30/22 [History Last Taken Unknown] ferrous sulfate 325 mg (65 mg iron) tablet 325 mg PO QODAY vitamin 10/20/22 [History Last Taken Unknown] apixaban 2.5 mg tablet (Eliquis) 2.5 mg PO BID 30 days #60 tabs 10/22/22 [Rx Last Taken Unknown] diltiazem HCl 240 mg capsule,extended release 24 hr (Cardizem CD) 240 mg PO DAILY #30 caps 10/22/22 [Rx Last Taken Unknown] metoprolol tartrate 100 mg tablet 100 mg PO BID 30 days #60 tabs 10/22/22 [Rx Last Taken Unknown] pantoprazole 40 mg tablet,delayed release (Protonix) 40 mg PO DAILY #30 tabs 10/22/22 [Rx Last Taken Unknown] dronedarone 400 mg tablet (Multaq) 400 mg PO BID 11/05/22 [History Last Taken Unknown] Allergy/AdvReac Type Severity Reaction Status Date / Time Sulfa (Sulfonamide Allergy Unknown Verified 11/12/22 16:03 Antibiotics) Family History Father Prostate cancer Mother CVA (cerebral vascular accident) Breast cancer Heart disease Other Anemia Surgical History Bilateral carotid artery disease History of aortic valve replacement with bioprosthetic valve (~09/18/11) History of coronary artery bypass surgery (~09/18/11) History of vascular surgery Peripheral vascular disease S/P anal fissurectomy S/P cholecystectomy S/P colonoscopy S/P lumpectomy, left breast Social History housing: apartment Smoking Status: Former smoker second hand exposure: No alcohol intake: current alcohol intake frequency: holidays/special occasions only substance use type: does not use caffeine: Yes what type of physical activity do you participate in: none frequency: does not exercise seatbelt use: always ROS ROS ED Constitutional Constitutional ED: Denies chills or fever(s) Eyes Eyes: Denies change in vision or diplopia ENT ENT ED: Denies rhinorrhea or sore throat Cardiovascular Cardiovascular: Reports as per HPI, leg edema and racing heartbeat; Denies chest pain or palpitations Respiratory/Chest Respiratory/Chest: Denies cough or dyspnea Gastrointestinal Gastrointestinal: Reports other Details: Dark stools since starting iron earlier this month ; Denies abdominal pain, diarrhea, nausea or vomiting Genitourinary Genitourinary ED: Denies dysuria or hematuria Musculoskeletal Musculoskeletal: Denies back pain or neck pain Integumentary Denies abscess or rash Neurologic Neurologic: Reports as per HPI; Denies headache(s), paresthesias or weakness Psychiatric Psychiatric: Denies anxiety or suicidal thoughts EXAM Physical Exam Const Vital Signs: 11/12/22 16:03 11/12/22 16:55 11/12/22 16:58 Temperature 96.6 F L Temperature Source Temporal Pulse Rate 83 90 Respiratory Rate 18 22 H Blood Pressure 132/49 H 135/52 H Blood Pressure Mean 76 79 Pulse Ox 98 98 Oxygen Delivery Method Room Air Room Air Room Air 11/12/22 17:31 11/12/22 17:30 Temperature Temperature Source Pulse Rate 97 97 Respiratory Rate 15 15 Blood Pressure 139/64 H 139/64 H Blood Pressure Mean 89 89 Pulse Ox 100 100 Oxygen Delivery Method Room Air Room Air Positive well nourished and well developed General Appearance ED: well developed and NAD HEENT Reports moist mucous membranes normocephalic and atraumatic Eyes PERRL and EOMs intact bilaterally Neck full ROM, no lymphadenopathy, supple and no JVD Resp normal respiratory effort and clear to auscultation bilaterally Cardio no murmurs Rate: Negative for tachycardic Rhythm: abnormal rhythm irregularly irregular GI non-tender and non-distended Auscultation: normoactive bowel sounds Palpation: soft Back/Spine no CVA tenderness General Back: other FROM Extremity normal to inspection General Extremety ED: Yes edema; Negative for pulses abnormal or tenderness General Extremity: edema bilateral lower extremity Details: moderate; Negative for pulses abnormal Neuro oriented x3, CN's II-XII intact bilaterally and no sensory deficits noted Sensorium / Orientation: awake and alert Motor Exam: strength 5/5 throughout Psych mental status grossly normal Skin no rashes or lesions noted and no wounds NIHSS NIHSS Initial: 1a Level of Consciousness: 0 1b LOC Questions (Score 2 if aphasic/stupor): 0 1c LOC Commands (Only score 1st attempt): 0 2 Best Gaze (If aphasic, use reflexive mvmts.): 0 3 Visual: 0 4 Facial Palsy: 0 5 Motor Arm Right (UN = amputation/fusion): 0 5 Motor Arm Left: 0 6 Motor Leg Right: 0 6 Motor Leg Left: 0 7 Limb ataxia (Only + if out of proportion): 0 8 Sensory (Aphasia/stupor=0 or 1, coma=2): 0 9 Best Language: 0 10 Dysarthria (mute, coma=2, intubated=UN): 0 11 Extinction and Inattention (only scored if +): 0 Total Score: 0 MDM MDM MDM Narrative Medical decision making narrative: Patient remained well with stable blood pressures and no recurrent stroke symptoms while in the emergency department. She does not need emergent angiography since she is asymptomatic, she can get vessel imaging when she has her MRI, plan is for admission. ABCD2 score is 5, supporting admission. Patient very anemic, more so than usual old labs reviewed. Her hemoglobin is 7.4. This may be related to why she had a TIA while fully anticoagulated. I typed and screened her and sent a Hemoccult and discussed with hospitalist. History & Record Review Additional record(s) reviewed:: Prior ED visit and Prior labs Lab Data Attestation: I reviewed the patient's lab results. Labs: Laboratory Results - last 24 hr 11/12/22 11/12/22 11/12/22 17:00 17:00 17:00 WBC 7.3 RBC 2.86 L Hgb 7.4 L Hct 24.1 L MCV 84.3 MCH 25.9 L MCHC 30.7 L RDW Std Deviation 52.7 H RDW Coeff of Gypsy 17.4 H Plt Count 166 MPV 10.0 Immature Gran % (Auto) 0.500 Neut % (Auto) 82.4 H Lymph % (Auto) 8.4 L [place] % (Auto) 6.7 Eos % (Auto) 1.6 Baso % (Auto) 0.4 Absolute Neuts (auto) 6.0 Absolute Lymphs (auto) 0.61 L Nucleated RBC % 0 PT 19.0 H INR 1.6 APTT 31.0 Sodium 143 Potassium 4.2 Chloride 107 Carbon Dioxide 29.0 Anion Gap 7 BUN 30 H Creatinine 1.54 H Estim Creat Clear Calc 20.23 Est GFR (MDRD) Af Amer 41 L Est GFR (MDRD) Non-Af 34 L BUN/Creatinine Ratio 19.5 Glucose 100 Calcium 8.5 Troponin I High Sens 41 POC Glucose 11/12/22 17:30 WBC RBC Hgb Hct MCV MCH MCHC RDW Std Deviation RDW Coeff of Gypsy Plt Count MPV Immature Gran % (Auto) Neut % (Auto) Lymph % (Auto) [place] % (Auto) Eos % (Auto) Baso % (Auto) Absolute Neuts (auto) Absolute Lymphs (auto) Nucleated RBC % PT INR APTT Sodium Potassium Chloride Carbon Dioxide Anion Gap BUN Creatinine Estim Creat Clear Calc Est GFR (MDRD) Af Amer Est GFR (MDRD) Non-Af BUN/Creatinine Ratio Glucose Calcium Troponin I High Sens POC Glucose 110 H Radiography Chest X-Ray - ED: 1 View, Read by ED Physician, No Acute Disease and No Infiltrates Diagnostic Testing: Clinical Impression(s) from Imaging Studies Brain CT 11/12/22 16:51 IMPRESSION: No acute abnormal intracranial finding. Electronically Signed: Mau Main MD at 17:42 EDT , ADDENDUM: 11/12/22 1751 IMPRESSION: No acute abnormal intracranial finding. N.B. : The above Results were Read Back by Mau Main MD to Renaldo Leyva MD, , and understanding confirmed on 11/12/2022 17:44:35 (ET). Electronically Signed: Mau Main MD at 17:42 EDT , Chest X-Ray 11/12/22 17:31 IMPRESSION: No radiographic evidence of acute cardiopulmonary disease. Electronically Signed: Mau Main MD at 17:46 EDT , Rhythm Strip Rhythm Strip: A-fib Rate: 85 Ectopy: None EKG Initial EKG: Attestation: I personally reviewed and interpreted this EKG as follows: Interpretation: No Acute Injury Pattern and Atrial Fibrillation (83) Prior EKG tracings: available for review Prior: Unchanged Management Discussion w/another healthcare provider: Hospitalist Stroke Documentation Questions Stroke Team Activated: No (Due to symptoms resolved and asymptomatic upon arrival) Was Patient considered for Endovascular Intervention?: No-CTA not indicated (Due to symptoms completely resolved) IV Thrombolytic Administered: No (Symptoms resolved NIHSS 0 no neurologic deficits) Discharge Plan Dx/Rx/DC Orders Clinical Impression: Brain TIA, Atrial fibrillation Disposition Disposition: Acute Care Hospital [facility]
[2022-11-12 17:14] LABS: Absolute Lymphocyte Count 0.61 X10^3/uL (0.83-4.51); Basophil# 0.03 X10^3/uL; Basophil% 0.4 % (0-1); Eosinophil# 0.12 X10^3/uL; Eosinophils% 1.6 % (0-5); Hematocrit 24.1 % (37-47); Hemoglobin 7.4 g/dL (12.0-15.0); Lymphocyte # 0.61 X10^3/ul (0.83-4.51); Lymphocyte % 8.4 % (19-41); Mean Corp Hgb Conc 30.7 g/dL (32-36); Mean Corpuscular Hgb 25.9 pg (27.0-32.0); Mean Corpuscular Volume 84.3 fL (81-99); Monocyte# 0.49 X10^3/uL; Monocyte% 6.7 % (0-10); NRBC Flagged by Analyzer 0 % (0-5); Neutrophil % 82.4 % (47-70); Platelet Count 166 K/mm3 (150-450); RBC Distribution Width CV 17.4 % (11.6-14.6); RBC Distribution Width SD 52.7 fl (35.1-43.9); Red Blood Count 2.86 M/mm3 (4.2-5.4); White Blood Count 7.3 K/mm3 (4.4-11.0)
[2022-11-12 17:22] LABS: International Normalized Ratio 1.6
--- NOTE | 2022-11-12 17:31 | RAD_ITS ---
INDICATION: Neuro deficit, acute, stroke suspected EXAMINATION/TECHNIQUE: X-RAY - XR Chest 1 View COMPARISON: 10/20/2022 FINDINGS: LUNGS: No consolidation, edema or effusion. No pneumothorax. MEDIASTINUM AND CARDIOVASCULAR STRUCTURES: Cardiac silhouette not enlarged. Central airways and mediastinal contour are unremarkable. RAD/Chest 1 View IMPRESSION: No radiographic evidence of acute cardiopulmonary disease. Electronically Signed: Mau Main MD at 17:46 EDT ,
[2022-11-12 17:36] LABS: Anion Gap 7 (5-15); BUN 30 mg/dL (7-18); BUN/Creat Ratio 19.5 RATIO (10-20); Calcium,Total 8.5 mg/dL (8.5-10.1); Chloride 107 mmol/L (98-107); Creatinine, Serum 1.54 mg/dL (0.55-1.02); EST Glomerular Filtration Rate 34 mL/min (>60); Est Glom Filt Rate - Afr Amer 41 mL/min (>60); Estimated Creatinine Clearance 20.23 ml/min; Glucose 100 mg/dL (74-106); Potassium 4.2 mmol/L (3.5-5.1); Sodium Level 143 mmol/L (136-145); Troponin-I HS 41 pg/mL (3.0-54.0)
[2022-11-12 17:47] LABS: Bedside Glucose 110 mg/dL (74-106)
--- NOTE | 2022-11-12 18:31 | NURSING ---
PCU TAZ TIA, ANEMIA, AFIB
--- NOTE | 2022-11-12 19:50 | PCM.HP.STD ---
HPI - General General Date of Admission: 11/12/22 Date of Service: 11/12/22 Chief Complaint: Slurred speech, left-sided weakness HPI Narrative MIKE MENDOZA, is a 81 F who presents to the emergency room at [facility] today with complaints of slurred speech and left-sided weakness that started approximately 11 AM today, patient was not seen in the emergency room till several hours later, she states that it takes a while to get going to come to the ER. Patient's symptoms lasted approximately 45 minutes to an hour. Daughter is here during the time of my examination. Work-up in the ER included a CT of the brain which revealed no acute abnormality, patient's NIH score was 0, labs were obtained, patient's hemoglobin was low at 7.4, creatinine was elevated at 1.54, and her chest x-ray was unremarkable. Patient will be admitted to PCU for TIA and acute anemia, patient denies any rectal bleeding or any hematemesis. Patient is on Eliquis chronically for A-fib. Patient may need upper endoscopy to rule out blood loss anemia. Patient's H&H will be repeated tonight, CBC will be repeated in the morning and the patient will be placed on IV Protonix. Serum iron and TIBC will be obtained. Hemoccult of the patient's stool was sent down to the lab by ER. 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 Cholecystitis Coronary artery disease Diplopia Essential hypertension History of breast cancer Hyperlipidemia Lower extremity edema Non-rheumatic mitral regurgitation Non-rheumatic tricuspid valve insufficiency PAD (peripheral artery disease) Home Medications lisinopril 20 mg tablet 20 mg PO BID blood pressure 04/17/15 [History Last Taken 01/01/20 06:00 20 MG] clopidogrel 75 mg tablet 75 mg PO DAILY #90 tabs 08/16/15 [Rx Last Taken 01/01/20 06:00 75 MG] amlodipine 10 mg tablet 10 mg PO DAILY blood pressure 09/07/18 [History Last Taken Unknown] budesonide 3 mg capsule,delayed,extended release 3 mg PO BID breathing 09/07/18 [History Last Taken 01/01/20 06:00 3 MG] atorvastatin 20 mg tablet 20 mg PO DAILY cholesterol 11/11/22 [History Last Taken Unknown] ferrous sulfate 325 mg (65 mg iron) tablet 325 mg PO QODAY vitamin 10/20/22 [History Last Taken Unknown] apixaban 2.5 mg tablet (Eliquis) 2.5 mg PO BID 30 days #60 tabs 10/22/22 [Rx Last Taken Unknown] diltiazem HCl 240 mg capsule,extended release 24 hr (Cardizem CD) 240 mg PO DAILY #30 caps 10/22/22 [Rx Last Taken Unknown] metoprolol tartrate 100 mg tablet 100 mg PO BID 30 days #60 tabs 10/22/22 [Rx Last Taken Unknown] pantoprazole 40 mg tablet,delayed release (Protonix) 40 mg PO DAILY #30 tabs 10/22/22 [Rx Last Taken Unknown] dronedarone 400 mg tablet (Multaq) 400 mg PO BID 11/05/22 [History Last Taken Unknown] Allergy/AdvReac Type Severity Reaction Status Date / Time Sulfa (Sulfonamide Allergy Unknown Verified 11/12/22 16:03 Antibiotics) Family History Father Prostate cancer Mother CVA (cerebral vascular accident) Breast cancer Heart disease Other Anemia Surgical History Bilateral carotid artery disease History of aortic valve replacement with bioprosthetic valve (~09/18/11) History of coronary artery bypass surgery (~09/18/11) History of vascular surgery Peripheral vascular disease S/P anal fissurectomy S/P cholecystectomy S/P colonoscopy S/P lumpectomy, left breast Social History housing: apartment Smoking Status: Former smoker second hand exposure: No alcohol intake: current alcohol intake frequency: holidays/special occasions only substance use type: does not use caffeine: Yes what type of physical activity do you participate in: none frequency: does not exercise seatbelt use: always ROS Constitutional Constitutional: Denies anorexia, change in weight, chills, fatigue, fever(s), night sweats or weakness Eyes Eyes: Denies blurry vision, change in vision, discharge from eye(s) or eye pain Cardiovascular Cardiovascular: Reports palpitations; Denies chest pain, claudication, dyspnea on exertion, edema or lightheadedness Respiratory/Chest Respiratory/Chest: Denies cough, hemoptysis, shortness of breath at rest or shortness of breath with exertion Gastrointestinal Gastrointestinal: Denies abdominal pain, constipation, diarrhea, hematemesis, hematochezia, melena, nausea or vomiting Genitourinary Genitourinary: Denies dysuria, hematuria, urinary frequency, urinary hesitancy, urinary incontinence or urinary urgency Musculoskeletal Musculoskeletal: Denies back pain, joint pain, joint stiffness, joint swelling, myalgias or neck pain Neurologic Neurologic: Reports abnormal speech and focal weakness; Denies abnormal gait, dizziness, headache(s), loss of vision, numbness, other visual disturbances, paresthesias, syncope or tingling Psychiatric Psychiatric: Denies anxiety, cognitive impairment, depression, irritability, mood swings or suicidal ideation Endocrine Endocrinology: Denies change in body appearance, cold intolerance, excessive sweating, heat intolerance, polydipsia or polyuria Hematologic/Lymphatic Hematologic/Lymphatic: Denies none, anemia, easy bleeding, easy bruising or lymphadenopathy Allergic/Immunologic Allergic/Immunologic: Denies rhinitis, urticaria, eczemia or asthma Vital Signs Vital Signs Vital Signs: 11/12/22 16:03 11/12/22 16:55 11/12/22 16:58 Temperature 96.6 F L Temperature Source Temporal Pulse Rate 83 90 Respiratory Rate 18 22 H Blood Pressure 132/49 H 135/52 H Blood Pressure Mean 76 79 Blood Pressure Source Blood Pressure Position Blood Pressure Location Pulse Ox 98 98 Oxygen Delivery Method Room Air Room Air Room Air 11/12/22 17:31 11/12/22 17:30 11/12/22 19:29 Temperature 97.9 F Temperature Source Oral Pulse Rate 97 97 91 Respiratory Rate 15 15 18 Blood Pressure 139/64 H 139/64 H 150/61 H Blood Pressure Mean 89 89 90 Blood Pressure Source Monitor Blood Pressure Position Semi-Fowlers Blood Pressure Location Left Arm Pulse Ox 100 100 100 Oxygen Delivery Method Room Air Room Air Room Air 11/12/22 19:42 Temperature 98 F Temperature Source Temporal Pulse Rate 80 Respiratory Rate 18 Blood Pressure 126/84 H Blood Pressure Mean 98 Blood Pressure Source Blood Pressure Position Blood Pressure Location Pulse Ox 100 Oxygen Delivery Method Room Air Weight Weight: 61.2 kg Body Mass Index (BMI) 26.3 Physical Exam Const alert, oriented x3, no apparent distress, average body habitus and healthy appearing General Appearance: cooperative, well kempt and well developed Orientation / Consciousness: awake, oriented to person, oriented to place and oriented to time HEENT normocephalic, head/scalp atraumatic, hearing grossly normal bilaterally and moist oral mucous membranes Eyes PERRL, EOMs intact bilaterally and conjunctivae normal Neck supple, no JVD and thyroid normal Neck Narrative: Patient has left carotid bruit General: trachea midline Resp normal respiratory effort, no retractions, no use of accessory muscles and clear to auscultation bilaterally Auscultation: Negative for rales, rhonchi or wheezes Cardio S1 normal heart sound, S2 normal heart sound, no murmurs, no rub, no gallops, no clicks and no JVD Cardio Narrative: Heart rate and rhythm is irregular GI normal to inspection, nondistended, normoactive bowel sounds, soft to palpation, non-tender and non-distended Extremity Extremity Narrative: Patient has generalized edema of both lower extremities noted which is +2 mm Skin no rashes or lesions noted General Skin Exam: no breakdown Neuro oriented x3, CN's II-XII intact bilaterally, moves all extremities, no focal motor deficits and no sensory deficits noted Sensorium / Orientation: awake, alert, oriented to person, oriented to place and oriented to time Speech: speech normal Psych affect normal Results Lab / Micro Data Result Diagrams: 11/12/22 17:00 11/12/22 17:00 Labs: Laboratory Results - last 24 hr 11/12/22 17:00: WBC 7.3, RBC 2.86 L, Hgb 7.4 L, Hct 24.1 L, MCV 84.3, MCH 25.9 L, MCHC 30.7 L, RDW Std Deviation 52.7 H, RDW Coeff of Gypsy 17.4 H, Plt Count 166, MPV 10.0, Immature Gran % (Auto) 0.500, Neut % (Auto) 82.4 H, Lymph % (Auto) 8.4 L, [place] % (Auto) 6.7, Eos % (Auto) 1.6, Baso % (Auto) 0.4, Absolute Neuts (auto) 6.0, Absolute Lymphs (auto) 0.61 L, Nucleated RBC % 0 11/12/22 17:00: PT 19.0 H, INR 1.6, APTT 31.0 11/12/22 17:00: Sodium 143, Potassium 4.2, Chloride 107, Carbon Dioxide 29.0, Anion Gap 7, BUN 30 H, Creatinine 1.54 H, Estim Creat Clear Calc 20.23, Est GFR (MDRD) Af Amer 41 L, Est GFR (MDRD) Non-Af 34 L, BUN/Creatinine Ratio 19.5, Glucose 100, Calcium 8.5, Troponin I High Sens 41 11/12/22 17:30: POC Glucose 110 H 11/12/22 18:02: Blood Type O NEGATIVE, Antibody Screen NEGATIVE Micro: Microbiology 11/12/22 17:55 Stool Stool Occult Blood (KARLO) - Final Occult Blood Positive Rhythm Strip Rhythm Strip: A-fib Rate: 85 Ectopy: None Radiology Impression Brain CT 11/12/22 16:51 IMPRESSION: No acute abnormal intracranial finding. Electronically Signed: Mau Main MD at 17:42 EDT Reading Location ID and State: [address] [place] [address] Tel , Service support , ADDENDUM: 11/12/22 1751 IMPRESSION: No acute abnormal intracranial finding. N.B. : The above Results were Read Back by Mau Main MD to Renaldo Leyva MD, , and understanding confirmed on 11/12/2022 17:44:35 (ET). Electronically Signed: Mau Main MD at 17:42 EDT , Chest X-Ray 11/12/22 17:31 IMPRESSION: No radiographic evidence of acute cardiopulmonary disease. Electronically Signed: Mau Main MD at 17:46 EDT , Assessment & Plan Assessment/Plan (1) Brain TIA: PLAN: Plan 1. TIA-patient will be admitted to PCU, NIH scores will be monitored, she will undergo an MRI of the brain tomorrow to rule out CVA. Patient will also have an echocardiogram ordered to rule out PFO, there is not an echocardiogram here on record at this hospital. Unfortunately due to the patient's anemia, she will be taken off her Plavix and Eliquis. #2 acute on chronic anemia-etiology unclear, gastroenterology may need to see the patient in consultation #3 permanent atrial fibrillation-patient is on rate control medications, she will not be able to take Eliquis for now because we are not sure she is having GI bleeding. #4 stage IIIb chronic kidney disease-labs will be monitored, complicates care, medical course, recovery, and prognosis #5 coronary artery disease-patient will remain on her current medications, she appears stable at this time #6 hyperlipidemia-patient is on atorvastatin #6 essential hypertension-patient will remain on her home medications #7 valvular heart disease-patient has a bioprosthetic aortic valve Total clinical time spent by myself addressing the patient's medical issues, reviewing all of her data, and collaborating with patient's care team: 75 minutes Charges/Coding Visit Charges Inpatient E&M: 51629 Init Hosp L3
[2022-11-12] MEDS: 0.9% Saline Lock 10 ML Syringe IV (20:35)
[2022-11-12] MEDS: Metoprolol Tartrate 100 MG Tablet PO (20:47)
[2022-11-12] MEDS: Atorvastatin Calcium 20 MG Tablet PO (20:47)
[2022-11-12] MEDS: Budesonide 3 MG CAPSULE.EC PO (20:47)
[2022-11-12] MEDS: Lisinopril 20 MG Tablet PO (20:47)
[2022-11-12 21:08] LABS: Iron 25 ug/dL (50-170); Iron Binding Capacity,Total 325 ug/dL (250-450); PERCENT IRON SATURATION 7.7 % (15.0-55.0)
[2022-11-12 22:58] LABS: Hematocrit 21.8 % (37-47); Hemoglobin 6.6 g/dL (12.0-15.0)
[2022-11-13] VITALS (10 sets, daily range): BP systolic 120–153; BP diastolic 46–85; PULSE 88–103; RESP 18; TEMP 36.4–36.8; O2SAT 95–98
[2022-11-13] MEDS: 0.9% Saline Lock 10 ML Syringe IV ×2 (00:32→03:15)
[2022-11-13 06:06] LABS: Absolute Lymphocyte Count 0.67 X10^3/uL (0.83-4.51); Absolute Neutrophil Count 4.5 X10^3/uL (2.0-7.7); Basophil# 0.03 X10^3/uL; Basophil% 0.5 % (0-1); Eosinophils% 1.8 % (0-5); Hematocrit 27.3 % (37-47); Hemoglobin 8.5 g/dL (12.0-15.0); Lymphocyte # 0.67 X10^3/ul (0.83-4.51); Lymphocyte % 11.8 % (19-41); Mean Corp Hgb Conc 31.1 g/dL (32-36); Mean Corpuscular Hgb 26.3 pg (27.0-32.0); Mean Corpuscular Volume 84.5 fL (81-99); Mean Platelet Vol. 10.2 fl (6.2-12.0); Monocyte# 0.32 X10^3/uL; Monocyte% 5.6 % (0-10); NRBC Flagged by Analyzer 0 % (0-5); Neutrophil # 4.54 X10^3/uL (2.7-7.7); Neutrophil % 79.6 % (47-70); Platelet Count 138 K/mm3 (150-450); RBC Distribution Width CV 16.3 % (11.6-14.6); RBC Distribution Width SD 49.1 fl (35.1-43.9); Red Blood Count 3.23 M/mm3 (4.2-5.4); White Blood Count 5.7 K/mm3 (4.4-11.0)
[2022-11-13 06:39] LABS: ALB/GLOB Ratio 0.9 RATIO (0.9-2.4); AST(SGOT) 50 U/L (15-37); Alanine Aminotransfer ALT/SGPT 51 U/L (13-56); Albumin, Serum 2.9 g/dL (3.2-5.0); Alkaline Phosphatase 70 U/L (45-117); Anion Gap 7 (5-15); BUN 26 mg/dL (7-18); BUN/Creat Ratio 20.5 RATIO (10-20); Calcium,Total 8.3 mg/dL (8.5-10.1); Chloride 109 mmol/L (98-107); Creatinine, Serum 1.27 mg/dL (0.55-1.02); EST Glomerular Filtration Rate 43 mL/min (>60); Est Glom Filt Rate - Afr Amer 52 mL/min (>60); Estimated Creatinine Clearance 24.53 ml/min; Globulin 3.1 g/dL (2.2-4.2); Glucose 99 mg/dL (74-106); Potassium 4.2 mmol/L (3.5-5.1); Sodium Level 142 mmol/L (136-145)
--- NOTE | 2022-11-13 09:37 | CASEMGMT ---
RN GHADA Assessment: Face to Face with pt for initial transition planning/care coordination assessment. RN GHADA introduced self and role at [facility], pt voices understanding and consents to assessment. Pt is A/O x4 and answers all questions appropriately at this time. Pt sitting up in chair with niece at bedside. Pt agreeable to assessment with niece present. Care providers, pharmacy, and demographics verified/updated. Admitting Dx: TIA, Anemia PCP:Kevin Specialists:[facility] Fox; [facility], cardio Preferred Pharmacy: [facility] Retail Insurance: [facility] Prescription Benefit: yes LNOK: Susi Cook, niece; Cecilia Ramon, niece Living Arrangements: Pt lives alone in a single story home with no steps to enter. 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 Pt denies concerns at home. Transportation: Pt drives self and denies concerns with transportation. DME/HHC/SNF: Pt has a FWW that she just started using last week as well as canes. Pt denies hx of HHC and has been to [facility]. Pt states no concerns with going home at time of dc. She is interested in outpt therapy at [facility] for PT and OT. She is aware this RN CM will leave a rx on the chart and she will be given at time of dc. Pt states no further concerns/needs. CM to follow. Advised pt to ask CM if any further question/concerns/needs arise, voices understanding. Pt Goal: Home with outpt therapy Plan: Home with outpt therapy, green sheet on chart
[2022-11-13] MEDS: LORazepam 1 MG Tablet 2 MG PO (09:52)
[2022-11-13] MEDS: Budesonide 3 MG CAPSULE.EC PO (09:53)
[2022-11-13] MEDS: Ferrous Sulfate 325 MG Tablet PO (09:53)
[2022-11-13] MEDS: dilTIAZem CD 240 MG Capsule PO (09:53)
[2022-11-13] MEDS: Lisinopril 20 MG Tablet PO (09:54)
[2022-11-13] MEDS: Metoprolol Tartrate 100 MG Tablet PO (09:54)
--- NOTE | 2022-11-13 10:00 | MRI_ITS ---
STUDY: MR Brain W/O Contrast 11/13/2022 3:18 PM REASON FOR EXAM: Female, 81 years old. slurred speech, left sided weakness COMPARISON: CT head done yesterday TECHNIQUE: Standardized multiplanar fat and water weighted pulse sequences were obtained. MR Brain W/O Contrast FINDINGS: There is mild cerebral atrophy with widening of the extra-axial spaces and ventricular dilatation. There are a limited number of small white matter hyperintensities, distributed throughout the deep white matter tracts of the cerebral hemispheres, consistent with mild chronic white matter ischemic changes. There is mild prominence of the vermian folia, consistent with atrophy of the vermis. The cerebellar hemispheres are normal. Normal bilateral basal ganglia. Normal thalami. There is no extra-axial fluid accumulation. Normal flow voids within the major intracranial circulation suggesting patency by spin echo criteria. Normal sella turcica, pituitary gland, infundibular stalk, optic chiasm and hypothalamus. Normal tectal plate and pineal gland. Normal midbrain, julissa and medulla. Normal basal cisterns. Normal bilateral temporal bones. Normal bilateral internal auditory canals. No demonstrated orbital abnormality, within the constraints of a routine brain study. Normal visualized paranasal sinuses. Normal calvarium and skull base. Normal visualized soft tissue structures. Normal visualized upper cervical spine. Aspect score 10 MRI/Brain without Contrast IMPRESSION: (NOT LISTED IN ORDER OF SIGNIFICANCE) There are no acute intracranial findings. Electronically Signed: Landen Choudhary MD at 15:20 EDT ,
--- NOTE | 2022-11-13 12:05 | CT_ITS ---
STUDY: CTA HEAD AND NECK WITH CONTRAST REASON FOR EXAM: Female, 81 years old. slurred speech, left sided weakness Hx afib, hypertension, carotid occlusion, breast cancer with left lumpectomy. RADIATION DOSAGE (If Supplied By Facility): CTDIvol = ( 20.25 ) mGy, DLP = ( 554.97 ) mGycm TECHNIQUE: CT angiography was performed with a multi-detector CT scanner. Data acquisition was obtained from the skull base through the vertex following intravenous administration of IV 75mL [id number]-[id number]. MIP images were reconstructed from the axial data set. Post-processing of the angiographic images was performed, with multiplanar reformation and 3D reconstruction. Individualized dose optimization techniques were used for this CT. COMPARISON: Noncontrast head CT dated November 12, 2022 FINDINGS: Normal bilateral petrous carotid arteries. There is calcified plaque formation of the right cavernous carotid artery, with a moderate stenosis (50-75%). There is calcified plaque formation of the left cavernous carotid artery, with a moderate stenosis (50-75%). Normal right A1 segments of the anterior cerebral artery. Normal left A1 segments of the anterior cerebral artery. Normal intact anterior communicating artery (ACOM). Normal bilateral A2 segments of the anterior cerebral arteries. Normal right M1 and M2 segments of the middle cerebral arteries, with a normal M1 bifurcation. Normal left M1 and M2 segments of the middle cerebral arteries, with a normal M1 bifurcation. Normal right posterior communicating artery (PCOM). Normal left posterior communicating artery (PCOM). There is a small atretic right vertebral artery with a dominant left vertebral artery. Normal basilar artery with a normal basilar bifurcation. The visualized bilateral superior cerebellar (SCA) arteries are normal. Normal bilateral P1, P2 and visualized P3 segments of the posterior cerebral arteries. There is no demonstrated aneurysm of the [place]. AORTIC ARCH: There is atherosclerotic calcific plaque formation of the aortic arch and great vessels arising from the aortic arch, without a hemodynamically significant stenosis. There is a normal origin of the brachiocephalic, left common carotid, and left subclavian arteries. Moderate atherosclerotic plaque and narrowing origins of the brachiocephalic, left common carotid, and left subclavian arteries. RIGHT CAROTID ARTERIES: There is atherosclerotic plaque formation of the common carotid artery, with moderate to severe atherosclerotic stenosis (70% stenosis) in the middle to distal one third aspect of the right common carotid artery where evidence of prior endarterectomy has occurred with surgical clips at the periphery. There is extensive atherosclerotic plaque formation with severe narrowing of the right carotid bulb with a hemodynamically significant stenosis. There is moderate atherosclerotic plaque formation of the origin of the right internal carotid artery with an estimated stenosis of 50-69% stenosis. Normal visualized cervical portion of the right internal carotid artery. There is severe atherosclerotic plaque formation of the origin of the right external carotid artery with a near complete occlusion. LEFT CAROTID ARTERIES: There is atherosclerotic plaque formation of the common carotid artery, with 50% luminal stenosis in the distal one third aspect due to heavily calcified plaque. There is extensive atherosclerotic plaque formation with severe narrowing of the carotid bulb with a hemodynamically significant stenosis. There is extensive atherosclerotic plaque formation of the origin of the left internal carotid artery with an estimated stenosis of greater than 70%. Normal visualized cervical portion of the left internal carotid artery. Normal origin of the left external carotid artery (ECA). VERTEBRAL ARTERIES: There is enhancement within the bilateral vertebral arteries with a small right vertebral artery, and a dominant left vertebral artery. Mild to moderate atherosclerotic plaque with luminal stenosis noted of in the left vertebral artery within the vertebral foramina and at the origin with the subclavian artery. Small amount of air is seen in the left jugular vein related to the recent IV placement and contrast injection. Moderate groundglass edema is seen in the bilateral upper lobes. Small to moderate-sized bilateral pleural effusions are present. CABG clips are also visualized. IMPRESSION: 1. No demonstrated aneurysm or hemodynamically significant stenosis or thrombotic occlusion of the [place] or major intracranial arteries 2. There is calcified plaque formation of the right cavernous carotid artery, with a moderate stenosis (50-75%). There is calcified plaque formation of the left cavernous carotid artery, with a moderate stenosis (50-75%). 3. Right carotid artery of the neck = severe atherosclerotic stenosis of the mid to distal aspect of the right common carotid artery. 50-69% luminal stenosis at the origin of the right internal carotid artery. 4. Left carotid artery of the neck There is atherosclerotic plaque formation of the common carotid artery, with 50% luminal stenosis in the distal one third aspect due to heavily calcified plaque. There is extensive atherosclerotic plaque formation with severe narrowing of the carotid bulb with a hemodynamically significant stenosis. 5. There is extensive atherosclerotic plaque formation of the origin of the left internal carotid artery with an estimated stenosis of greater than 70%. Electronically Signed: Tarik Goodwin MD at 14:10 EDT , STUDY: CT BRAIN WITHOUT CONTRAST REASON FOR EXAM: Female, 81 years old. slurred speech, left sided weakness patient not cooperative during scan, kept moving and lifting head. Hx afib, hypertension, carotid occlusion, breast cancer with left lumpectomy. RADIATION DOSAGE (If Supplied By Facility): CTDIvol = ( 44.99 ) mGy, DLP = ( 762.36 ) mGycm TECHNIQUE: Transaxial CT imaging of the brain was performed without administration of intravenous contrast material. Individualized dose optimization techniques were used for this CT. COMPARISON: Head CT dated November 12, 2022 FINDINGS: Normal soft tissue structures. There is hyperostosis frontalis internus. There is moderate cerebral atrophy with widening of the extra-axial spaces and ventricular dilatation. There are areas of decreased attenuation within the white matter tracts of the supratentorial brain, consistent with microvascular disease changes. 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 Normal brainstem. Normal cerebellum. There is no intracranial hemorrhage. There are no findings of an acute ischemic infarction. Normal visualized paranasal sinuses. CT/CTA Head AND Neck W/ Contrast IMPRESSION: Chronic ischemic and involutional changes of the brain. Electronically Signed: Tarik Goodwin MD at 14:12 EDT ,
--- NOTE | 2022-11-13 16:41 | DCINST_ITS ---
Discharge Instructions Diet Discharge Diet: No restrictions Activity Discharge Activity: Return to Normal Activity Weight Bearing Status: Full weight bearing Follow Up Care Test Results: Test results from this visit will be discussed in further detail at your follow- up appointment, if applicable. Discharge Plan Admission Admit Date/Time: 11/12/22 18:24 Primary Reason for Your Visit: TIA Attending Provider: Toi Morales Primary Care Provider: Sg Brown Instructions Additional Instructions / Restrictions: I recommend you undergo a colonoscopy and an upper endoscopy as soon as possible to rule out an ulcer, cancer, or a polyp If you do not have enough pantoprazole to increase to twice a day, obtain omeprazole 20 mg [id number] and take [address] of a 40 mg pantoprazole until you get a new prescription from Dr. Brown A prescription for a PT and OT evaluation and treatment was provided to you Reduce your amlodipine to 5 mg daily (1/2 amlodipine 10 mg) until you see Dr. Brown and discuss this with him You will have black stools with your oral iron therapy Discharge Orders/Prescriptions Prescriptions: Continued budesonide 3 mg capsule,delayed,extend.release 3 mg PO BID Label Comments: FOR LIVER PROBLEM-PER PT atorvastatin 20 mg tablet 20 mg PO DAILY lisinopril 20 MG tablet 20 mg PO BID Hold Instructions: Hold for 7 days. Label Comments: blood pressure metoprolol tartrate 100 mg Tablet 100 mg PO BID 30 Days Qty: 60 2RF Eliquis 2.5 mg tablet 2.5 mg PO BID 30 Days Qty: 60 1RF diltiazem HCl [Cardizem CD] 240 mg capsule,extended release 24hr 240 mg PO DAILY Qty: 30 2RF Rx Instructions: Hold for heart less than 60 or systolic blood pressure less than 110 mmHg. Changed amlodipine 10 mg tablet 5 mg PO DAILY Qty: 1 0RF pantoprazole [Protonix] 40 mg tablet,delayed release (DR/EC) 40 mg PO BID Qty: 30 2RF ferrous sulfate 325 mg (65 mg iron) tablet 325 mg PO BID Qty: 1 0RF Label Comments: TAKE ONE TABLET BY MOUTH TWICE DAILY Discontinued clopidogrel 75 MG tablet 75 mg PO DAILY Qty: 90 0RF Label Comments: blood thinner Referrals / Follow Up: Sg Brown MD [Primary Care Provider] - See Referral Note (At your next scheduled time) Disposition Disposition (needs filled in before D/C Order can be placed): Home, Self Care
--- NOTE | 2022-11-13 16:49 | DS.PCM_ITS ---
Providers Date of Admission: 11/12/22 Date of Discharge: 11/13/22 Primary Care Physician: Dr. Sg Brown MD Reason For Visit: TIA,ANEMIA Diagnosis Discharge Diagnosis (1) Brain TIA: Status: Acute Code(s): G45.9 - Transient cerebral ischemic attack, unspecified Plan 1. TIA-patient will be admitted to PCU, NIH scores will be monitored, she will undergo an MRI of the brain tomorrow to rule out CVA. Patient will also have an echocardiogram ordered to rule out PFO, there is not an echocardiogram here on record at this hospital. Unfortunately due to the patient's anemia, she will be taken off her Plavix and Eliquis. #2 acute on chronic iron deficiency anemia-etiology unclear, gastroenterology may need to see the patient in consultation #3 permanent atrial fibrillation-patient is on rate control medications, she will not be able to take Eliquis for now because we are not sure she is having GI bleeding. #4 stage IIIb chronic kidney disease-labs will be monitored, complicates care, medical course, recovery, and prognosis #5 coronary artery disease-patient will remain on her current medications, she appears stable at this time #6 hyperlipidemia-patient is on atorvastatin #6 essential hypertension-patient will remain on her home medications #7 valvular heart disease-patient has a bioprosthetic aortic valve Total clinical time spent by myself addressing the patient's medical issues, reviewing all of her data, and collaborating with patient's care team: 75 minutes Medications at Discharge Home Medications lisinopril 20 mg tablet 20 mg PO BID blood pressure 04/17/15 budesonide 3 mg capsule,delayed,extended release 3 mg PO BID breathing 09/07/18 atorvastatin 20 mg tablet 20 mg PO DAILY cholesterol 04/30/22 apixaban 2.5 mg tablet (Eliquis) 2.5 mg PO BID 30 days #60 tabs 10/22/22 diltiazem HCl 240 mg capsule,extended release 24 hr (Cardizem CD) 240 mg PO DAILY #30 caps 10/22/22 metoprolol tartrate 100 mg tablet 100 mg PO BID 30 days #60 tabs 10/22/22 amlodipine 10 mg tablet 5 mg PO DAILY blood pressure #1 TAB 11/13/22 ferrous sulfate 325 mg (65 mg iron) tablet 325 mg PO BID vitamin #1 TAB 11/13/22 pantoprazole 40 mg tablet,delayed release (Protonix) 40 mg PO BID #30 tabs 11/13/22 Hospital Course Operations None Procedures None Summary of Care Provided Minutes Spent on Discharge: 31 Hospital Course: This 81-year-old white female was seen in the emergency room at [facility] with complaints of slurred speech and left-sided weakness which started several hours before she was seen in the emergency room. Her symp toms lasted for approximately 45 minutes an hour, they were gone by the time she came to the emergency room for evaluation. Work-up in the emergency room included a CT of the brain which revealed no acute abnormality, patient's NIH stroke score was 0, patient's hemoglobin was noted to be low at 7.4, creatinine was elevated at 1.54. Patient was admitted to PCU for a TIA, she underwent imaging studies that showed no acute stroke, patient still specimen was positive for blood and she was instructed to follow-up as an outpatient for further endoscopic testing. I made the decision at the time of discharge to stop the patient's clopidogrel and keep the patient on Eliquis due to a high potential for stroke off this medication being that the patient was chronically in atrial fib. Patient was seen by PT and OT as well as speech therapy, a prescription for PT and OT evaluation and treatment was provided for her at the time of discharge from the hospital. Patient was given IV iron infusion during her hospital stay. She was also transfused 1 unit of packed red blood cells. On 11/13/2022, patient was seen and examined: On examination she appeared in good health and spirits, she does not appear to be in any distress. Vital signs as documented. Skin warm and dry and without overt rashes. Neck without JVD, thyroid appears normal, trachea is midline, neck is supple. Lungs clear, normal air movement was noted. Heart exam notable for irregular rhythm, normal sounds and absence of murmurs, rubs or gallops. Abdomen unremarkable and without evidence of organomegaly, masses, or abdominal aortic enlargement, bowel sounds are present in all 4 quadrants, no abdominal tenderness was noted. Extremities nonedematous, no cyanosis was noted, no clubbing was noted. Neuro: Cranial nerves II through XII are grossly intact, no focal motor deficits were noted, sensation to light touch and pinprick is intact, motor exam 5/5 throughout. Psych: Patient is alert and oriented x3, she does not appear anxious or depressed, she does not appear agitated. On 11/13/2022, patient was seen and examined and felt to be stable for discharge from the hospital. Weight / BMI Weight Weight: 61.2 kg Body Mass Index (BMI) 26.3 ABG / Lab / Microbiology Data Result Diagrams: 11/13/22 05:31 11/13/22 05:31 Laboratory: Laboratory Results - last 24 hr 11/12/22 17:00: WBC 7.3, RBC 2.86 L, Hgb 7.4 L, Hct 24.1 L, MCV 84.3, MCH 25.9 L , MCHC 30.7 L, RDW Std Deviation 52.7 H, RDW Coeff of Gypsy 17.4 H, Plt Count 166, MPV 10.0, Immature Gran % (Auto) 0.500, Neut % (Auto) 82.4 H, Lymph % (Auto) 8.4 L, [place] % (Auto) 6.7, Eos % (Auto) 1.6, Baso % (Auto) 0.4, Absolute Neuts (auto) 6.0, Absolute Lymphs (auto) 0.61 L, Nucleated RBC % 0 11/12/22 17:00: PT 19.0 H, INR 1.6, APTT 31.0 11/12/22 17:00: Sodium 143, Potassium 4.2, Chloride 107, Carbon Dioxide 29.0, Anion Gap 7, BUN 30 H, Creatinine 1.54 H, Estim Creat Clear Calc 20.23, Est GFR (MDRD) Af Amer 41 L, Est GFR (MDRD) Non-Af 34 L, BUN/Creatinine Ratio 19.5, Glucose 100, Calcium 8.5, Troponin I High Sens 41 11/12/22 17:00: Iron 25 L, TIBC 325, Iron Saturation 7.7 L 11/12/22 17:30: POC Glucose 110 H 11/12/22 18:02: Blood Type O NEGATIVE, Antibody Screen NEGATIVE 11/12/22 18:02: Crossmatch See Detail 11/12/22 22:46: Hgb 6.6 L, Hct 21.8 L 11/13/22 05:31: WBC 5.7, RBC 3.23 L, Hgb 8.5 L, Hct 27.3 L, MCV 84.5, MCH 26.3 L , MCHC 31.1 L, RDW Std Deviation 49.1 H, RDW Coeff of Gypsy 16.3 H, Plt Count 138 L, MPV 10.2, Immature Gran % (Auto) 0.700, Neut % (Auto) 79.6 H, Lymph % (Auto) 11.8 L, [place] % (Auto) 5.6, Eos % (Auto) 1.8, Baso % (Auto) 0.5, Absolute Neuts (auto) 4.5, Absolute Lymphs (auto) 0.67 L, Nucleated RBC % 0 11/13/22 05:31: Sodium 142, Potassium 4.2, Chloride 109 H, Carbon Dioxide 26.0, Anion Gap 7, BUN 26 H, Creatinine 1.27 H, Estim Creat Clear Calc 24.53, Est GFR (MDRD) Af Amer 52 L, Est GFR (MDRD) Non-Af 43 L, BUN/Creatinine Ratio 20.5 H, Glucose 99, Calcium 8.3 L, Total Bilirubin 1.40 H, AST 50 H, ALT 51, Alkaline Phosphatase 70, Total Protein 6.0 L, Albumin 2.9 L, Globulin 3.1, Albumin/Globulin Ratio 0.9 Microbiology: Microbiology 11/12/22 17:55 Stool Stool Occult Blood (KARLO) - Final Occult Blood Positive Radiography Diagnostic Testing: Radiology Impression Brain CT 11/12/22 16:51 IMPRESSION: No acute abnormal intracranial finding. Electronically Signed: Mau Main MD at 17:42 EDT Reading Location ID and State: [address] [place] [address] Tel , Service support , ADDENDUM: 11/12/22 1751 IMPRESSION: No acute abnormal intracranial finding. N.B. : The above Results were Read Back by Mau Main MD to Renaldo Leyva MD, , and understanding confirmed on 11/12/2022 17:44:35 (ET). Electronically Signed: Mau Main MD at 17:42 EDT , Chest X-Ray 11/12/22 17:31 IMPRESSION: No radiographic evidence of acute cardiopulmonary disease. Electronically Signed: Mau Main MD at 17:46 EDT , Brain MRI 11/13/22 10:00 IMPRESSION: (NOT LISTED IN ORDER OF SIGNIFICANCE) There are no acute intracranial findings. Electronically Signed: Landen Choudhary MD at 15:20 EDT , Head/Neck CTA 11/13/22 12:05 IMPRESSION: Chronic ischemic and involutional changes of the brain. Electronically Signed: Tarik Goodwin MD at 14:12 EDT , D/C Instructions Discharge Diet: No restrictions Weight Bearing Status: Full weight bearing Meaningful Use Info Meaningful Use Diagnoses (Choose all that apply): None applicable Discharge Plan Admission Admit Date/Time: 11/12/22 18:24 Primary Reason for Your Visit: TIA Attending Provider: Toi Morales Primary Care Provider: Sg Brown Instructions Additional Instructions / Restrictions: I recommend you undergo a colonoscopy and an upper endoscopy as soon as possible to rule out an ulcer, cancer, or a polyp If you do not have enough pantoprazole to increase to twice a day, obtain omeprazole 20 mg [id number] and take [address] of a 40 mg pantoprazole until you get a new prescription from Dr. Brown A prescription for a PT and OT evaluation and treatment was provided to you Reduce your amlodipine to 5 mg daily (1/2 amlodipine 10 mg) until you see Dr. Brown and discuss this with him You will have black stools with your oral iron therapy Discharge Orders/Prescriptions Prescriptions: Continued budesonide 3 mg capsule,delayed,extend.release 3 mg PO BID Label Comments: FOR LIVER PROBLEM-PER PT atorvastatin 20 mg tablet 20 mg PO DAILY lisinopril 20 MG tablet 20 mg PO BID Hold Instructions: Hold for 7 days. Label Comments: blood pressure metoprolol tartrate 100 mg Tablet 100 mg PO BID 30 Days Qty: 60 2RF Eliquis 2.5 mg tablet 2.5 mg PO BID 30 Days Qty: 60 1RF diltiazem HCl [Cardizem CD] 240 mg capsule,extended release 24hr 240 mg PO DAILY Qty: 30 2RF Rx Instructions: Hold for heart less than 60 or systolic blood pressure less than 110 mmHg. Changed amlodipine 10 mg tablet 5 mg PO DAILY Qty: 1 0RF pantoprazole [Protonix] 40 mg tablet,delayed release (DR/EC) 40 mg PO BID Qty: 30 2RF ferrous sulfate 325 mg (65 mg iron) tablet 325 mg PO BID Qty: 1 0RF Label Comments: TAKE ONE TABLET BY MOUTH TWICE DAILY Discontinued clopidogrel 75 MG tablet 75 mg PO DAILY Qty: 90 0RF Label Comments: blood thinner Referrals / Follow Up: Sg Brown MD [Primary Care Provider] - See Referral Note (At your next scheduled time) Disposition Disposition (needs filled in before D/C Order can be placed): Home, Self Care Charges/Coding Visit Charges Inpatient E&M: 52259 Disch Hosp >30min
== END 2022-11-13 19:30 | disposition home or self-care (01) | DRG 69 ==
LOC: ED 17:48 → PCU 18:54
PROVIDERS: Admitting Provider Internal Medicine; Emergency Provider Emergency Medicine; PCP Family Medicine; Visit Provider Internal Medicine
DX: G45.9 Transient cerebral ischemic attack, unspecified (principal); I48.21 Permanent atrial fibrillation; N18.32 Chronic kidney disease, stage 3b; D50.9 Iron deficiency anemia, unspecified; I25.10 Atherosclerotic heart disease of native coronary artery without angina pectoris; E78.5 Hyperlipidemia, unspecified; I12.9 Hypertensive chronic kidney disease with stage 1 through stage 4 chronic kidney disease, or unspecified chronic kidney disease; Z79.2 Long term (current) use of antibiotics; Z79.01 Long term (current) use of anticoagulants; Z87.891 Personal history of nicotine dependence; Z79.02 Long term (current) use of antithrombotics/antiplatelets; Z95.2 Presence of prosthetic heart valve
CPT/HCPCS: 36415; 70450; 70496; 70498; 70551; 71045; 80048; 80053; 82274; 82962; 83540; 83550; 84484; 85014; 85018; 85025; 85610; 85730; 86850; 86900; 86901; 86920; 93005; 99283; J7040; J7050; P9016; Q9967; A4216; J2916

== ENCOUNTER 2022-12-14 13:04 | Emergency (ER) | payer MEDICARE, SELFPAY ==
[2022-12-14 13:05] VITALS: BP 143/43; PULSE 120; RESP 14; TEMP 36.1; O2SAT 100
--- NOTE | 2022-12-14 13:14 | EKG12_ITS ---
Test Reason : PALPS Blood Pressure : / mmHG Vent. Rate : 107 BPM Atrial Rate : 000 BPM P-R Int : 000 ms QRS Dur : 078 ms QT Int : 364 ms P-R-T Axes : 000 -08 146 degrees QTc Int : 485 ms Atrial fibrillation with frequent and consecutive Premature ventricular complexes ST & T wave abnormality, consider lateral ischemia Abnormal ECG Confirmed by NYASIA NOWAK, FERNANDA ([id number]), commissioning editor OCHOA HA ([id number]) on 12/15/2022 10:00:45 AM Referred By: BRIDGER Confirmed By:FERNANDA MURRELL MD
--- NOTE | 2022-12-14 13:35 | RAD_ITS ---
STUDY: X-RAY CHEST REASON FOR EXAM: Female, 82 years old. chest pain TECHNIQUE: Single AP portable view of the chest. COMPARISON: 11/12/2022 FINDINGS: The lungs are clear and expanded. Minimal linear densities across the mid left lung consistent with discoid atelectasis. Mild blunting of the costophrenic angles. Cannot exclude trace effusions. Normal size heart. Previous CABG. Normal mediastinum and dulce. Normal visualized pulmonary arteries. There is atherosclerotic calcification of the aortic arch with tortuosity. Normal visualized thoracic spine. Normal visualized ribs, clavicles, and shoulders. There is no demonstrated abnormality of the visualized soft tissue structures of the upper abdomen. RAD/Chest 1 View (Portable) IMPRESSION: Possible trace bilateral pleural effusions. Minimal discoid atelectasis across the mid left lung. Electronically Signed: Angelito Castorena MD at 14:07 EDT ,
[2022-12-14 14:00] VITALS: BMI 29.7
[2022-12-14 14:11] VITALS: PULSE 124
[2022-12-14 14:18] LABS: Absolute Lymphocyte Count 0.67 X10^3/uL (0.83-4.51); Basophil# 0.02 X10^3/uL; Basophil% 0.3 % (0-1); Eosinophil# 0.07 X10^3/uL; Hematocrit 31.2 % (37-47); Hemoglobin 9.6 g/dL (12.0-15.0); Lymphocyte # 0.67 X10^3/ul (0.83-4.51); Lymphocyte % 9.2 % (19-41); Mean Corp Hgb Conc 30.8 g/dL (32-36); Mean Corpuscular Hgb 27.8 pg (27.0-32.0); Mean Corpuscular Volume 90.4 fL (81-99); Monocyte# 0.46 X10^3/uL; Monocyte% 6.3 % (0-10); NRBC Flagged by Analyzer 0 % (0-5); Neutrophil # 6.02 X10^3/uL (2.7-7.7); Neutrophil % 82.4 % (47-70); Platelet Count 165 K/mm3 (150-450); RBC Distribution Width CV 19.1 % (11.6-14.6); RBC Distribution Width SD 62.4 fl (35.1-43.9); Red Blood Count 3.45 M/mm3 (4.2-5.4); White Blood Count 7.3 K/mm3 (4.4-11.0)
[2022-12-14] MEDS: Metoprolol Tartrate 5 MG/5 ML Vial IV ×3 (14:19→14:46)
--- NOTE | 2022-12-14 14:22 | EX.ED.DYSGE1 ---
HPI History of Present Illness Chief Complaint: Palpitations Informant: patient and family Narrative Narrative: Increasing palpitations this morning. No chest pains or lightheadedness. Diagnosed atrial fibrillation last couple months she is on Eliquis. She is on Cardizem 240 mg daily. She is currently on metoprolol 100 mg twice daily. She took her medications this morning along with her Eliquis. She is followed by cardiology Dr. Vail. She follow-up 13 days ago in the office. Denies cough. Simply does not feel racing heart or abnormal rhythms however feels more symptoms today. History of TIA. 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 Cholecystitis Coronary artery disease Diplopia Essential hypertension History of breast cancer Hyperlipidemia Lower extremity edema Non-rheumatic mitral regurgitation Non-rheumatic tricuspid valve insufficiency PAD (peripheral artery disease) Home Medications lisinopril 20 mg tablet 20 mg PO BID blood pressure 04/17/15 [History Last Taken 01/01/20 06:00 20 MG] atorvastatin 20 mg tablet 20 mg PO DAILY cholesterol 04/30/22 [History Last Taken Unknown] apixaban 2.5 mg tablet (Eliquis) 2.5 mg PO BID 30 days #60 tabs 10/22/22 [Rx Last Taken Unknown] diltiazem HCl 240 mg capsule,extended release 24 hr (Cardizem CD) 240 mg PO DAILY #30 caps 10/22/22 [Rx Last Taken Unknown] metoprolol tartrate 100 mg tablet 100 mg PO BID 30 days #60 tabs 10/22/22 [Rx Last Taken Unknown] pantoprazole 40 mg tablet,delayed release (Protonix) 40 mg PO BID #30 tabs 11/13/22 [Rx Last Taken Unknown] budesonide 3 mg capsule,delayed,extended release 3 mg PO BID [facility] 11/17/22 [History Last Taken Unknown] cholecalciferol (vitamin D3) 125 mcg (5,000 unit) capsule 125 mcg PO DAILY 12/01/22 [History Last Taken Unknown] furosemide 40 mg tablet 40 mg PO DAILY #30 tabs 12/01/22 [Rx Last Taken Unknown] potassium chloride 20 mEq tablet,extended release 20 meq PO DAILY #30 tabs 12/01/22 [Rx Last Taken Unknown] digoxin 125 mcg (0.125 mg) tablet 125 mcg PO DAILY #30 tabs 12/14/22 [Rx Last Taken Unknown] Allergy/AdvReac Type Severity Reaction Status Date / Time Sulfa (Sulfonamide Allergy Unknown Verified 12/14/22 13:05 Antibiotics) Family History Father Prostate cancer Mother CVA (cerebral vascular accident) Breast cancer Heart disease Other Anemia Surgical History Bilateral carotid artery disease History of aortic valve replacement with bioprosthetic valve (~09/18/11) History of coronary artery bypass surgery (~09/18/11) History of vascular surgery Peripheral vascular disease S/P anal fissurectomy S/P cholecystectomy S/P colonoscopy S/P lumpectomy, left breast Social History housing: apartment Smoking Status: Former smoker second hand exposure: No alcohol intake: current alcohol intake frequency: holidays/special occasions only substance use type: does not use caffeine: Yes what type of physical activity do you participate in: none frequency: does not exercise seatbelt use: always ROS ROS ED Constitutional Constitutional ED: Denies chills, fever(s) or sweats Eyes Eyes: Denies change in vision ENT ENT ED: Denies dysphagia or sore throat Cardiovascular Cardiovascular: Reports palpitations; Denies chest pain, leg edema or racing heartbeat Respiratory/Chest Respiratory/Chest: Denies cough, dyspnea or dyspnea on exertion Gastrointestinal Gastrointestinal: Denies abdominal pain, diarrhea, nausea or vomiting Genitourinary Genitourinary ED: Denies dysuria, hematuria or urinary frequency Musculoskeletal Musculoskeletal: Denies back pain, extremity pain or neck pain Integumentary Denies rash or wounds Neurologic Neurologic: Denies headache(s), paresthesias or weakness EXAM Physical Exam Const Vital Signs: 12/14/22 13:05 12/14/22 14:11 12/14/22 14:11 Temperature 97 F L Temperature Source Temporal Pulse Rate 120 H 124 H Respiratory Rate 14 Respiratory Effort Blood Pressure 143/43 H Blood Pressure Mean 76 Pulse Ox 100 Oxygen Delivery Method Room Air Room Air 12/14/22 14:11 12/14/22 14:35 12/14/22 15:36 Temperature Temperature Source Pulse Rate 106 H 111 H Respiratory Rate 21 H Respiratory Effort Normal Non-Labored Blood Pressure 137/69 H 131/88 H Blood Pressure Mean 91 102 Pulse Ox 95 Oxygen Delivery Method Room Air Positive well nourished and well developed General Appearance ED: well developed and NAD HEENT Reports moist mucous membranes normocephalic and atraumatic Eyes PERRL, EOMs intact bilaterally and conjunctivae normal General Eye ED: Yes normal appearance of both eyes Neck no lymphadenopathy and supple General: Negative for tenderness Chest Wall Chest: Negative for tenderness Resp normal respiratory effort and normal air movement Effort and Inspection: symmetric chest movement; Negative for respiratory distress Cardio Rate: tachycardic Rhythm: abnormal rhythm Peripheral Pulses: pulses 2+ throughout GI normal to inspection, nondistended, normoactive bowel sounds and non-tender Palpation: Negative for guarding or rebound tenderness present Back/Spine no CVA tenderness and no thoracic nor lumbar tenderness Extremity normal to inspection Extremity Narrative: 1-2+ lower extremity swelling bilaterally. General Extremety ED: Yes edema; Negative for tenderness General Extremity: edema Neuro oriented x3 and no sensory deficits noted Sensorium / Orientation: awake and alert Skin no rashes or lesions noted and no wounds MDM MDM MDM Narrative Medical decision making narrative: Interventions / MDM: Differential diagnosis: Cardiac arrhythmia, atrial fibrillation Diagnosis considered but do not suspect: N/A My EKG interpretation: Atrial fibrillation rate of 107, no ST or T wave changes, PVCs noted, incomplete right bundle branch block. Imaging independently reviewed and interpreted by myself: 1 view chest x-ray: Trace bilateral pleural effusions. External documents reviewed: Hospitalization visits in the last couple months x2. Cardiology outpatient note from 13 days ago. Test considered but not ordered:N/A ED course: Patient Latoya Montes 240 metoprolol 100. She took it this morning. Heart rate fluctuating low 100s to 120s, systolic blood pressure in the 120s. Labs were sent and pending. We will give Lopressor IV. Re-evaluation: 1515: Status post 3 doses of IV Lopressor heart rate fluctuate high 90s to 100s. She is asymptomatic from this. Laboratory work potassium 3.2 orally replaced. Creatinine 1.8 up from 1.2. Hemoglobin stable 9.6. Negative. Review patient's cardiology note visit 13 days ago noted she is put back on Lasix due to leg swelling 40 mg daily. Potassium replacement. Likely for reason for her worsening renal insufficiency along with her hypokalemia. In addition noted her TIA work-up last month she had slight anemia positive occult stool she was given iron infusions 1 unit of blood. She reports since then 10 days [facility] with multiple polypectomies with no signs of bleeding. She does report she was in atrial fibrillation when she was evaluated the colonoscopy was 10 days ago. Patient currently asymptomatic with additional IV Lopressor doses. We will reach out discussed with cardiology on-call for disposition plans. Blood pressure systolic 130s. 1545: I spoke with composition stone applicator Dr. Lynn, discussed patient's history medications and work-up with labs in the ED. He recommends digoxin 125 mcg to be started daily. Continue her Lasix due to the leg swelling, she will follow-up with Dr. Vail as an outpatient. She currently on potassium twice daily with her Lasix 40 mg. Reports she has nephrology referral with her renal insufficiency. Return precaution discussed. All questions were answered. Disposition discussed with patient/family/significant other: Patient and family member Case discussed with consulting clinician: Cardiology, Dr. Lynn This note was generated with [employer] dictation software. It may contain incorrect words, spelling, and punctuation that were not noted in checking the note before signing. Lab Data Attestation: I reviewed the patient's lab results. Labs: Laboratory Results - last 24 hr 12/14/22 12/14/22 12/14/22 14:05 14:05 14:05 WBC 7.3 RBC 3.45 L Hgb 9.6 L Hct 31.2 L MCV 90.4 MCH 27.8 MCHC 30.8 L RDW Std Deviation 62.4 H RDW Coeff of Gypsy 19.1 H Plt Count 165 MPV 10.0 Immature Gran % (Auto) 0.800 Neut % (Auto) 82.4 H Lymph % (Auto) 9.2 L [place] % (Auto) 6.3 Eos % (Auto) 1.0 Baso % (Auto) 0.3 Absolute Neuts (auto) 6.0 Absolute Lymphs (auto) 0.67 L Nucleated RBC % 0 PT 18.7 H INR 1.6 Sodium 142 Potassium 3.2 L Chloride 107 Carbon Dioxide 26.0 Anion Gap 9 BUN 30 H Creatinine 1.87 H Estim Creat Clear Calc 22.53 Est GFR (MDRD) Af Amer 33 L Est GFR (MDRD) Non-Af 27 L BUN/Creatinine Ratio 16.0 Glucose 112 H Calcium 8.8 Troponin I High Sens 26 Radiography Diagnostic Testing: Clinical Impression(s) from Imaging Studies Chest X-Ray 12/14/22 13:35 IMPRESSION: Possible trace bilateral pleural effusions. Minimal discoid atelectasis across the mid left lung. Electronically Signed: Angelito Castorena MD at 14:07 EDT , Discharge Plan Triage Chief Complaint: Palpitations ED Provider: Carlitos Ascencio Dx/Rx/DC Orders Clinical Impression: Atrial fibrillation with RVR, Palpitations, Acute on chronic renal insufficiency, Acute hypokalemia Instructions: AFib Dc, CKD Dc, ED Hypokalemia Prescriptions: New digoxin 125 mcg (0.125 mg) tablet 125 mcg PO DAILY Qty: 30 0RF No Action atorvastatin 20 mg tablet 20 mg PO DAILY cholecalciferol (vitamin D3) 125 mcg (5,000 unit) capsule 125 mcg PO DAILY furosemide 40 mg tablet 40 mg PO DAILY Qty: 30 0RF potassium chloride 20 mEq tablet extended release 20 meq PO DAILY Qty: 30 0RF lisinopril 20 MG tablet 20 mg PO BID Hold Instructions: Hold for 7 days. Label Comments: blood pressure metoprolol tartrate 100 mg Tablet 100 mg PO BID 30 Days Qty: 60 2RF Eliquis 2.5 mg tablet 2.5 mg PO BID 30 Days Qty: 60 1RF diltiazem HCl [Cardizem CD] 240 mg capsule,extended release 24hr 240 mg PO DAILY Qty: 30 2RF Rx Instructions: Hold for heart less than 60 or systolic blood pressure less than 110 mmHg. pantoprazole [Protonix] 40 mg tablet,delayed release (DR/EC) 40 mg PO BID Qty: 30 2RF budesonide 3 mg capsule,delayed,extend.release 3 mg PO BID Primary Care Provider: Sg Brown Referrals: Chito Vail MD [Med Staff - Active Staff] - 1 Week Sg Brown MD [Primary Care Provider] - Activity Restrictions/Additional Instructions: Your work-up discussed with cardiology Dr. Lynn in the ED. We will add digoxin to take daily. Continue your Lasix. Continue diltiazem, metoprolol and Eliquis. Your creatinine today 1.8, your potassium 3.2. Continue Lasix due to your slight leg swelling, continue potassium replacement twice a day. Follow-up with Dr. Vail. Return if worsening symptoms. Disposition Disposition: Home, Self Care Discharge Date/Time: 12/14/22 16:32
[2022-12-14 14:30] LABS: International Normalized Ratio 1.6; Prothrombin Time (Protime)PT. 18.7 SECONDS (11.7-14.9)
[2022-12-14 14:35] VITALS: BP 137/69; PULSE 106
[2022-12-14 14:38] LABS: Anion Gap 9 (5-15); BUN 30 mg/dL (7-18); Calcium,Total 8.8 mg/dL (8.5-10.1); Chloride 107 mmol/L (98-107); Creatinine, Serum 1.87 mg/dL (0.55-1.02); EST Glomerular Filtration Rate 27 mL/min (>60); Est Glom Filt Rate - Afr Amer 33 mL/min (>60); Estimated Creatinine Clearance 22.53 ml/min; Glucose 112 mg/dL (74-106); Potassium 3.2 mmol/L (3.5-5.1); Sodium Level 142 mmol/L (136-145); Troponin-I HS 26 pg/mL (3.0-54.0)
[2022-12-14] MEDS: Potassium Chloride Oral Tablet 20 MEQ 40 MEQ PO (14:55)
[2022-12-14 15:36] VITALS: BP 131/88; PULSE 111; RESP 21; O2SAT 95
[2022-12-14] MEDS: Digoxin 125 MCG Tablet PO (16:09)
== END 2022-12-14 16:32 | disposition home or self-care (01) ==
PROVIDERS: Emergency Provider Emergency Medicine; PCP Family Medicine; Visit Provider Emergency Medicine
DX: I48.91 Unspecified atrial fibrillation (principal); I25.10 Atherosclerotic heart disease of native coronary artery without angina pectoris; Z87.891 Personal history of nicotine dependence; E78.5 Hyperlipidemia, unspecified; R00.2 Palpitations; E87.6 Hypokalemia; Z79.01 Long term (current) use of anticoagulants; Z79.899 Other long term (current) drug therapy; Z85.3 Personal history of malignant neoplasm of breast; Z95.3 Presence of xenogenic heart valve; Z90.49 Acquired absence of other specified parts of digestive tract; N18.9 Chronic kidney disease, unspecified; I12.9 Hypertensive chronic kidney disease with stage 1 through stage 4 chronic kidney disease, or unspecified chronic kidney disease
CPT/HCPCS: 71045; 80048; 84484; 85025; 85610; 93005; 96374; 99285; A4216

== ENCOUNTER → 2023-01-04 | Outpatient (CLI) | payer MEDICARE, SELFPAY | END | disposition home or self-care (01) | LOC: PSN 10:35 | PROVIDERS: PCP Family Medicine; Referring Provider Physician Assistant Medical; Visit Provider Physician Assistant Medical | DX: I48.0 Paroxysmal atrial fibrillation (principal) | CPT/HCPCS: 93225; 93226 ==

== ENCOUNTER 2023-01-12 11:30 | Outpatient (RCR) | payer MEDICARE, SELFPAY ==
[2022-12-22 10:43] VITALS: BP 149/69; PULSE 107; RESP 18; TEMP 36.1; BMI 25.9
--- NOTE | 2022-12-22 12:48 | PCM.WC.HP ---
History of Present Illness Date of Service: 12/22/22 Chief Complaint: Follow-up on a nonhealing ulcer on her left lower leg from trauma that started as a hematoma on November 16. History of Wound: This 82-year-old white female that dropped a watermelon on her left leg getting out of the car. Caused a huge hematoma because she is on Eliquis. On November 24 it opened and bled and became like a crater in her low left alba area. Was sent here by her family doctor and has just been using Neosporin and it. Bilateral lower legs are swollen from her A-fib. She states she usually wears compression stockings but has not been recently. She also states she has had stents put in femoral arteries by Dr. Goff for PAD of the left leg. Her last arterial flow study showed very good flow in the left leg in 2021. 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 Cholecystitis Coronary artery disease Diplopia Essential hypertension History of breast cancer Hyperlipidemia Lower extremity edema Non-rheumatic mitral regurgitation Non-rheumatic tricuspid valve insufficiency PAD (peripheral artery disease) Home Medications lisinopril 20 mg tablet 20 mg PO BID blood pressure 04/17/15 [History Last Taken 01/01/20 06:00 20 MG] atorvastatin 20 mg tablet 20 mg PO DAILY cholesterol 04/30/22 [History Last Taken Unknown] apixaban 2.5 mg tablet (Eliquis) 2.5 mg PO BID 30 days #60 tabs 10/22/22 [Rx Last Taken Unknown] diltiazem HCl 240 mg capsule,extended release 24 hr (Cardizem CD) 240 mg PO DAILY #30 caps 10/22/22 [Rx Last Taken Unknown] metoprolol tartrate 100 mg tablet 100 mg PO BID 30 days #60 tabs 10/22/22 [Rx Last Taken Unknown] pantoprazole 40 mg tablet,delayed release (Protonix) 40 mg PO BID #30 tabs 11/13/22 [Rx Last Taken Unknown] budesonide 3 mg capsule,delayed,extended release 3 mg PO BID [facility] 11/17/22 [History Last Taken Unknown] cholecalciferol (vitamin D3) 125 mcg (5,000 unit) capsule 125 mcg PO DAILY 12/01/22 [History Last Taken Unknown] furosemide 40 mg tablet 40 mg PO DAILY #30 tabs 12/01/22 [Rx Last Taken Unknown] potassium chloride 20 mEq tablet,extended release 20 meq PO DAILY #30 tabs 12/01/22 [Rx Last Taken Unknown] digoxin 125 mcg (0.125 mg) tablet 125 mcg PO DAILY #30 tabs 12/14/22 [Rx Last Taken Unknown] amlodipine 10 mg tablet 10 mg PO DAILY 12/22/22 [History Last Taken Unknown] clopidogrel 75 mg tablet 75 mg PO DAILY 12/22/22 [History Last Taken Unknown] ferrous sulfate 325 mg (65 mg iron) tablet (Feosol) 325 mg PO DAILY 12/22/22 [History Last Taken Unknown] furosemide 20 mg tablet (Lasix) 20 mg PO QODAY 12/22/22 [History Last Taken Unknown] hydrochlorothiazide 12.5 mg capsule 12.5 mg PO DAILY 12/22/22 [History Last Taken Unknown] sennosides 8.6 mg-docusate sodium 50 mg tablet (2-in-1 Laxative) 1 tab-cap PO DAILY 12/22/22 [History Last Taken Unknown] Allergy/AdvReac Type Severity Reaction Status Date / Time Sulfa (Sulfonamide Allergy Unknown Verified 12/14/22 13:05 Antibiotics) Family History Father Prostate cancer Mother CVA (cerebral vascular accident) Breast cancer Heart disease Other Anemia Surgical History Bilateral carotid artery disease History of aortic valve replacement with bioprosthetic valve (~09/18/11) History of coronary artery bypass surgery (~09/18/11) History of vascular surgery Peripheral vascular disease S/P anal fissurectomy S/P cholecystectomy S/P colonoscopy S/P lumpectomy, left breast Social History housing: apartment Smoking Status: Former smoker second hand exposure: No alcohol intake: current alcohol intake frequency: holidays/special occasions only substance use type: does not use caffeine: Yes what type of physical activity do you participate in: none frequency: does not exercise seatbelt use: always ROS Constitutional Constitutional: Reports systems reviewed and no addt'l complaints, except as documented Eyes Eyes: Reports systems reviewed and no addt'l complaints, except as documented ENT HEENT: Reports systems reviewed and no addt'l complaints, except as documented Cardiovascular Cardiovascular: Reports systems reviewed and no addt'l complaints, except as documented Respiratory/Chest Respiratory/Chest: Reports systems reviewed and no addt'l complaints, except as documented Gastrointestinal Gastrointestinal: Reports systems reviewed and no addt'l complaints, except as documented Genitourinary Genitourinary: Reports systems reviewed and no addt'l complaints, except as documented Musculoskeletal Musculoskeletal: Reports systems reviewed and no addt'l complaints, except as documented Integumentary Integumentary: Reports wounds and other Details: Open wound traumatic left lower alba Neurologic Neurologic: Reports systems reviewed and no addt'l complaints, except as documented Psychiatric Psychiatric: Reports systems reviewed and no addt'l complaints, except as documented Endocrine Endocrinology: Reports systems reviewed and no addt'l complaints, except as documented Hematologic/Lymphatic Hematologic/Lymphatic: Reports systems reviewed and no addt'l complaints, except as documented Allergic/Immunologic Allergic/Immunologic: Reports systems reviewed and no addt'l complaints, except as documented Vital Signs Vital Signs Vital Signs: 12/22/22 10:43 Temperature 97 F L Temperature Source Temporal Pulse Rate 107 H Respiratory Rate 18 Blood Pressure 149/69 H Blood Pressure Mean 95 Blood Pressure Source Monitor Blood Pressure Position Semi-Fowlers Blood Pressure Location Left Arm Weight Weight: 133 lb Body Mass Index (BMI) 25.9 Physical Exam Const oriented x3 General Appearance: cooperative Exam Limitations: no limitations HEENT normocephalic Head and Scalp: normal to inspection Face and Sinus: normal facial exam Nose: external nose normal General Ear: hearing grossly impaired External Ear: external ears normal Mouth: oral and palatal mucosa normal Eyes PERRL General Eye: normal appearance of both eyes Neck full ROM General: normal visual inspection Resp normal respiratory effort Effort and Inspection: able to speak in complete sentences Auscultation: clear to auscultation bilaterally Cardio regular rate and regular rhythm Palpation: normal PMI Rate: regular rate Rhythm: regular rhythm GI Auscultation: normoactive bowel sounds Palpation: soft and no hepatosplenomegaly external exam normal Back/Spine Cervical Spine: cervical ROM normal Thoracic Spine / Upper Back: normal to inspection Lumbar Spine / Lower Back: normal to inspection Extremity normal to inspection General Extremity: normal exam except as noted Skin Skin Narrative: Open wound that started as a hematoma opened about a month ago to a crater in her left lower leg Wounds: wounds noted Neuro oriented x3 Psych Appearance: grossly normal Speech: normal speech Thought Content: normal thought content Judgement: judgement good Debridement Note Debridement Note Wound debrided: Nonpressure open ulcer left lower leg Type of Debridement: Excisional debridement Anesthesia Used: 5% Lidocaine Gel Depth: Down to and including healthy tissue Percentage of wound debrided: 100 Instrument Used: 7mm curette Tissue Removed: Devitalized tissue fibrin Severity: Fat Layer Exposed Amount of bleeding with debridement: Mild Bleeding Controlled with: Compression and gauze Patient tolerated procedure: Patient tolerated procedure well Post-Debridement Measurements and Additional Note: Post-Debridement Measurements/Treatment - Nurse 1 - General Ulcer Assessment Start: 12/22/22 10:43 Freq: Status: Active Protocol: XIOMARA Activity Type Activity Date Activity User E-sign Co-sign Detail Recorded Client Recorded Date Recorded By Document 12/22/22 10:43 THERESA [id number] 12/22/22 10:47 RB 12/22/22 10:43 - Today's Visit Information Type of service Initial Visit Arrival Mode Ambulatory,Cane Transfer Assistance None Patient Identification Verified (Name & Yes ) Height and Weight Height 5 ft Weight 133 lb Weight in Pounds 133.0 lbs Body Mass Index (BMI) 25.9 BMI Classification Overweight BSA - Margot 1.57 Vital Signs Temperature (97.8 F-99.1 F) 97 F L Temperature Source Temporal Pulse Rate (60-100) 107 H Pulse Location Monitor Respiratory Rate (12-18) 18 Respiratory rate source Observation Blood Pressure (90/60-120/80) 149/69 H Blood Pressure Mean 95 Source Monitor Position Semi-Fowlers Blood Pressure Location Left Arm Pain Scale: 0-10 Numeric Is Patient Pain Free? Yes - Nurse 1 - General Ulcer Measurement Start: 12/22/22 10:43 Freq: Status: Active Protocol: Activity Type Activity Date Activity User E-sign Co-sign Detail Recorded Client Recorded Date Recorded By Document 12/22/22 10:43 THERESA [id number] 12/22/22 10:47 RB 12/22/22 10:43 Wound Center Nurse 1 1. LLE alba -Combined with other wound No -Current Size (cm) - Length 2.6 -Current Size (cm) - Width 3.7 -Current Size (cm) - Depth 0.5 -Total Square Cm 9.62 -Photo Taken Yes -Tunneling No -Undermining/Tunneling No -Circular Undermining No -Exudate Amt Large -Exudate Type Serosanguineous -Wound Margin Thickened & Rolled Under -Granulation Amt Medium (34-66%) -Granulation Quality [place] -Slough/Fibrin Yes -Necrosis Amt Medium (34-66%) -Necrotic Tissue Type Adherent Slough -Structure Exposed N/A -Texture (Mila-wound Skin Appearance) Assessed -Moisture (Mila-wound Skin Appearance) Assessed -Color (Mila-wound Skin Appearance) Assessed, Hemosiderin Staining -Temperature (Mila-wound Skin No Abnormality Appearance) (Pt Warm) -Ulcer Cleansing Wound Cleanser -Foul Odor after Cleansing No -Anesthetic Used 5% Lidocaine Gel Lower Limb Edema Present Yes Right Calf (cm) 44 Right Ankle (cm) 24.6 Left Calf (cm) 39.5 Left Ankle (cm) 25.5 WC - Nurse 2 - General Ulcer CM Notes Start: 12/22/22 10:43 Freq: Status: Active Protocol: Activity Type Activity Date Activity User E-sign Co-sign Detail Recorded Client Recorded Date Recorded By Document 12/22/22 10:53 MW [id number] 12/22/22 11:04 MW 12/22/22 10:53 Wound Center Nurse 2 1. LLE alba -Time 10:54 -Correct Patient Yes -Correct Side, Site, Position Yes -Correct Procedure Yes -Procedure Performed Yes -Type of Procedure Debridement -Clinical Debridement Subcutaneous -Tissue Removed Subcutaneous -Post Debridement (cm) - Length 3.0 -Post Debridement (cm) - Width 4.0 -Post Debridement (cm) - Depth 0.3 -Total Square (Post) (cm) 12.00 -Area of Debridement (cm) - Length 3.0 -Area of Debridement (cm) - Width 4.0 -Total Square (Area) (cm) 12.00 -Tunneling No -Undermining/Tunneling No -Circular Undermining No -Wound/Ulcer Outcome Not Healed -Ulcer Cleansing Rinsed/ Irrigated with Saline -Foul Odor after Cleansing No -Bioengineered Tissue No -Bleeding Controlled with Pressure -Treatment Response Procedure Tolerated Well -Offloading No -Debridement - Subq, 1st 20sq cm Yes Pain Scale: 0-10 Numeric Is Patient Pain Free? Yes WC - Nurse 3 - General Ulcer D/C NN Start: 12/22/22 10:43 Freq: Status: Active Protocol: Activity Type Activity Date Activity User E-sign Co-sign Detail Recorded Client Recorded Date Recorded By Document 12/22/22 11:14 RB [id number] 12/22/22 11:15 RB 12/22/22 11:14 Wound Care Center Nurse 3 1. LLE alba -Ulcer Cleansing Rinsed/ Irrigated with Saline -Primary Dressing Applied Fibracol Plus 4x4,Mepilex Border -Fibracol Plus 4x4 1 -Mepilex Border 1 Right -Tubular Bandage Double Layer -Size of Tubigrip Used Size E -Size E ($) 2 Left -Tubular Bandage Double Layer -Size of Tubigrip Used Size E -Size E ($) 2 Treatment Response Procedure Tolerated Well Pain Scale: 0-10 Numeric Is Patient Pain Free? No WC - Visit Discharge Discharge Condition Stable Ambulatory Status Ambulatory,Cane Transportation Private Auto Medication Reconcilliation completed & No provided to patient/care provider Clinical Summary of Care Provided Yes Assessment/Plan Assessment/Plan (1) Hx of usp use of blood thinners: CODE(S): Z92.29 - Personal history of other drug therapy (2) Non-pressure ulcer of left lower extremity: CODE(S): L97.929 - Non-pressure chronic ulcer of unspecified part of left lower leg with unspecified severity QUALIFIERS: Non-pressure ulcer stage: with fat layer exposed Qualified Code(s): L97.922 - Non-pressure chronic ulcer of unspecified part of left lower leg with fat layer exposed PLAN: Wash left lower leg with antibacterial soap apply fibrin call into wound base moistened cover with large absorbent dressing every day We will apply for an EpiFix Follow-up in 1 week (3) Traumatic open wound of left lower leg with infection: CODE(S): S81.802A - Unspecified open wound, left lower leg, initial encounter; L08.9 - Local infection of the skin and subcutaneous tissue, unspecified QUALIFIERS: Encounter type: initial encounter Qualified Code(s): S81.802A - Unspecified open wound, left lower leg, initial encounter; L08.9 - Local infection of the skin and subcutaneous tissue, unspecified
[2022-12-29 11:28] VITALS: BP 151/62; PULSE 96; RESP 18; TEMP 36.2; BMI 25.9
--- NOTE | 2022-12-29 12:54 | PN.PCM_ITS ---
History of Present Illness Date of Service: 12/29/22 Chief Complaint: Follow-up on a nonhealing ulcer on her left lower leg from trauma that started as a hematoma on November 16. History of Wound: This 82-year-old white female that dropped a watermelon on her left leg getting out of the car. Caused a huge hematoma because she is on Eliquis. On November 24 it opened and bled and became like a crater in her low left alba area. Was sent here by her family doctor and has just been using Neosporin and it. Bilateral lower legs are swollen from her A-fib. She states she usually wears compression stockings but has not been recently. She also states she has had stents put in femoral arteries by Dr. Goff for PAD of the left leg. Her last arterial flow study showed very good flow in the left leg in 2021. Progress of Wound: Major improvement on the leg patient will be started on EpiFix she was approved for EpiFix also so we will start that. She did have positive cultures and anaerobes so is on 2 antibiotics for that and she does have an odor to her wound but has been taking the antibiotics for at least 3 to 4 days. Subjective Subjective Patient is pleased with outcomes Objective Data Objective Data We will apply EpiFix #1 today patient is to continue taking ciprofloxacin twice a day and metronidazole 3 times a day. Vital Signs: Vital Signs Temp Pulse Resp BP 97.2 F L 96 18 151/62 H 12/29/22 11:28 12/29/22 11:28 12/29/22 11:28 12/29/22 11:28 Weight: 133 lb Body Mass Index (BMI) 25.9 Lab / Micro Data Attestation: I reviewed the patient's lab results. Micro: Microbiology 12/22/22 11:00 Wound - Leg, Left Gram Stain - Final 12/22/22 11:00 Wound - Leg, Left Wound Culture - Final Pseudomonas aeruginosa Enterococcus faecalis 12/22/22 11:00 Wound - Leg, Left Anaerobic Culture - Final Anaerobic cocci Clostridium perfringens Physical Exam Const oriented x3 General Appearance: cooperative Exam Limitations: no limitations HEENT normocephalic Head and Scalp: normal to inspection Face and Sinus: normal facial exam Nose: external nose normal General Ear: hearing grossly impaired External Ear: external ears normal Mouth: oral and palatal mucosa normal Eyes PERRL General Eye: normal appearance of both eyes Neck full ROM General: normal visual inspection Resp normal respiratory effort Effort and Inspection: able to speak in complete sentences Auscultation: clear to auscultation bilaterally Cardio regular rate and regular rhythm Palpation: normal PMI Rate: regular rate Rhythm: regular rhythm GI Auscultation: normoactive bowel sounds Palpation: soft and no hepatosplenomegaly external exam normal Back/Spine Cervical Spine: cervical ROM normal Thoracic Spine / Upper Back: normal to inspection Lumbar Spine / Lower Back: normal to inspection Extremity normal to inspection General Extremity: normal exam except as noted Skin Skin Narrative: Open wound that started as a hematoma opened about a month ago to a crater in her left lower leg Wounds: wounds noted Neuro oriented x3 Psych Appearance: grossly normal Speech: normal speech Thought Content: normal thought content Judgement: judgement good Debridement Note Debridement Note Wound debrided: Left lower leg alba area traumatic wound Type of Debridement: Excisional debridement Anesthesia Used: 5% Lidocaine Gel Depth: Down to and including healthy tissue Percentage of wound debrided: 100 Instrument Used: 7mm curette Tissue Removed: Fibrin and devitalized tissue Severity: Fat Layer Exposed Amount of bleeding with debridement: Mild Bleeding Controlled with: Compression and gauze Patient tolerated procedure: Patient tolerated procedure well Post-Debridement Measurements and Additional Note: Post-Debridement Measurements/Treatment - Nurse 1 - General Ulcer Assessment Start: 12/22/22 10:43 Freq: Status: Active Protocol: .[place] Activity Type Activity Date Activity User E-sign Co-sign Detail Recorded Client Recorded Date Recorded By Document 12/22/22 10:43 RB [id number] 12/22/22 10:47 RB Document 12/29/22 11:28 DL [id number] 12/29/22 11:36 DL 12/22/22 12/29/22 10:43 11:28 - Today's Visit Information Type of service Initial Visit Follow-up Visit (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[employer] 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 ) Arrival Mode Ambulatory,Cane Ambulatory Transfer Assistance None None Patient Identification Verified (Name & Yes Yes ) Patient Requires Transmission-Based No Precautions Height and Weight Height 5 ft Weight 133 lb Weight in Pounds 133.0 lbs Body Mass Index (BMI) 25.9 25.9 BMI Classification Overweight Overweight BSA - Margot 1.57 Vital Signs Temperature (97.8 F-99.1 F) 97 F L 97.2 F L Temperature Source Temporal Temporal Pulse Rate (60-100) 107 H 96 Pulse Location Monitor Monitor Respiratory Rate (12-18) 18 18 Respiratory rate source Observation Observation Blood Pressure (90/60-120/80) 149/69 H 151/62 H Blood Pressure Mean (mm Hg) 95 91 Source Monitor Monitor Position Semi-Fowlers Blood Pressure Location Left Arm History Since Last Visit- (Skip if this is Patient's initial visit) Have you changed medications since your No last visit? Any new allergies or adverse reactions No Had a fall/change in ADL's that may No increase risk of falls Signs or symptoms of abuse and/or No neglect since last visit Have you been in the hospital since your No last visit? Has dressing in place as prescribed Yes Has compression in place as prescribed Yes Has offloadiing in place as prescribed N/A Experienced any changes in pain level or No management Pain Scale: 0-10 Numeric Is Patient Pain Free? Yes Yes WC - Nurse 1 - General Ulcer Measurement Start: 12/22/22 10:43 Freq: Status: Active Protocol: Activity Type Activity Date Activity User E-sign Co-sign Detail Recorded Client Recorded Date Recorded By Document 12/22/22 10:43 RB [id number] 12/22/22 10:47 RB Document 12/29/22 11:28 DL [id number] 12/29/22 11:36 DL 12/22/22 12/29/22 10:43 11:28 Wound Center Nurse 1 1. LLE alba -Combined with other wound No -Current Size (cm) - Length 2.6 2.5 -Current Size (cm) - Width 3.7 3.5 -Current Size (cm) - Depth 0.5 0.5 -Total Square Cm 9.62 8.75 -Photo Taken Yes -Tunneling No -Undermining/Tunneling No -Circular Undermining No -Exudate Amt Large Medium -Exudate Type Serosanguineous Serosanguineous -Wound Margin Thickened & Distinct, Rolled Under Outline Attached -Granulation Amt Medium (34-66%) Medium (34-66%) -Granulation Quality [place] Red -Slough/Fibrin Yes -Necrosis Amt Medium (34-66%) Medium (34-66%) -Necrotic Tissue Type Adherent Slough Adherent Slough -Structure Exposed N/A N/A -Texture (Mila-wound Skin Appearance) Assessed Localized Edema ,Scarring -Moisture (Mila-wound Skin Appearance) Assessed Dry/Scaly -Color (Mila-wound Skin Appearance) Assessed, Erythema Hemosiderin Staining -Temperature (Mila-wound Skin No Abnormality No Abnormality Appearance) (Pt Warm) (Pt Warm) -Tenderness on Palpation (Mila-wound No Skin Appearance) -Ulcer Cleansing Wound Cleanser -Foul Odor after Cleansing No -Anesthetic Used 5% Lidocaine 5% Lidocaine Gel Gel Lower Limb Edema Present Yes Right Calf (cm) 44 Right Ankle (cm) 24.6 Left Calf (cm) 39.5 40.6 Left Ankle (cm) 25.5 27 WC - Nurse 2 - General Ulcer CM Notes Start: 12/22/22 10:43 Freq: Status: Active Protocol: Activity Type Activity Date Activity User E-sign Co-sign Detail Recorded Client Recorded Date Recorded By Document 12/22/22 10:53 MW [id number] 12/22/22 11:04 MW Document 12/29/22 11:59 MW [id number] 12/29/22 12:09 MW 12/22/22 12/29/22 10:53 11:59 Wound Center Nurse 2 1Wilbert SEN alba -Time 10:54 11:59 -Correct Patient Yes Yes -Correct Side, Site, Position Yes Yes -Correct Procedure Yes Yes -Procedure Performed Yes Yes -Type of Procedure Debridement Debridement -Clinical Debridement Subcutaneous Subcutaneous -Tissue Removed Subcutaneous Subcutaneous -Post Debridement (cm) - Length 3.0 3.0 -Post Debridement (cm) - Width 4.0 4.0 -Post Debridement (cm) - Depth 0.3 0.3 -Total Square (Post) (cm) 12.00 12.00 -Area of Debridement (cm) - Length 3.0 3.0 -Area of Debridement (cm) - Width 4.0 4.0 -Total Square (Area) (cm) 12.00 12.00 -Tunneling No No -Undermining/Tunneling No No -Circular Undermining No No -Wound/Ulcer Outcome Not Healed Not Healed -Ulcer Cleansing Rinsed/ Rinsed/ Irrigated with Irrigated with Saline Saline -Foul Odor after Cleansing No No -Bioengineered Tissue No Yes -Type of Bioengineered Tissue Epifix Mesh -Expiration Date 09/19/27 -Product Lot Number [id number] -Percent Used 100 -Lot number of Saline Used [id number] -Bleeding Controlled with Pressure Pressure -Treatment Response Procedure Procedure Tolerated Well Tolerated Well -Offloading No No -Debridement - Subq, 1st 20sq cm Yes No -Apply Skin Sub - 1st 25 sq cm - Legs 1 -Epifix Mesh (per sq cm) 11 Pain Scale: 0-10 Numeric Is Patient Pain Free? Yes Yes - Nurse 3 - General Ulcer D/C NN Start: 12/22/22 10:43 Freq: Status: Active Protocol: Activity Type Activity Date Activity User E-sign Co-sign Detail Recorded Client Recorded Date Recorded By Document 12/22/22 11:14 RB [id number] 12/22/22 11:15 RB Document 12/29/22 12:10 MW [id number] 12/29/22 12:12 MW 12/22/22 12/29/22 11:14 12:10 Wound Care Center Nurse 3 1. LLE alba -Ulcer Cleansing Rinsed/ Not Cleansed Irrigated with Saline -Foul Odor after Cleansing No -Negative Pressure Wound Therapy N/A -Primary Dressing Applied Fibracol Plus Aquacel Extra 4x4,Mepilex Border -Other Dressing ABD -Primary Dressing Covered/Secured with Dry Gauze & Roll Gauze, Secured with Tape -Aquacel Extra 1 -Fibracol Plus 4x4 1 -Mepilex Border 1 Right -Lotion applied to leg before No compression wrap -Tubular Bandage Double Layer Double Layer -Size of Tubigrip Used Size E Size E -Size E ($) 2 2 Left -Lotion applied to leg before No compression wrap -Tubular Bandage Double Layer Double Layer -Size of Tubigrip Used Size E Size E -Size E ($) 2 2 Treatment Response Procedure Procedure Tolerated Well Tolerated Well Pain Scale: 0-10 Numeric Is Patient Pain Free? No Yes Teaching: Wound Center Compression Wraps & Stockings -Person Taught Patient -Response to teaching Verbalize understanding Dressing Your Wound -Person Taught Patient -Teaching Method Discussion, Demonstration -Response to teaching Verbalize understanding WC - Visit Discharge Discharge Condition Stable Stable Ambulatory Status Ambulatory,Cane Ambulatory Transportation Private Auto Private Auto Accompanied by self Medication Reconcilliation completed & No No provided to patient/care provider Clinical Summary of Care Provided Yes Yes Notes: Dressing applied per Prashanth Ruffin RN. Patient tolerated well. 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 Continue taking ciprofloxacin and metronidazole as prescribed till done Follow-up in 1 week Patient instructed not to take a shower or get the dressing wet and she may clean the outer dressing but when she gets down to the Steri-Strips she is not to touch them any issues she is to call us with any problems she might encounter. (3) Traumatic open wound of left lower leg with infection: CODE(S): S81.802A - Unspecified open wound, left lower leg, initial encounter; L08.9 - Local infection of the skin and subcutaneous tissue, unspecified QUALIFIERS: Encounter type: initial encounter Qualified Code(s): S81.802A - Unspecified open wound, left lower leg, initial encounter; L08.9 - Local infection of the skin and subcutaneous tissue, unspecified
[2023-01-05 11:44] VITALS: BP 139/54; PULSE 82; RESP 16; TEMP 36.6; BMI 25.9
--- NOTE | 2023-01-05 12:31 | PCM.WC.PN ---
History of Present Illness Date of Service: 01/05/23 Chief Complaint: Follow-up on a nonhealing ulcer on her left lower leg from trauma that started as a hematoma on November 16. History of Wound: This 82-year-old white female that dropped a watermelon on her left leg getting out of the car. Caused a huge hematoma because she is on Eliquis. On November 24 it opened and bled and became like a crater in her low left alba area. Was sent here by her family doctor and has just been using Neosporin and it. Bilateral lower legs are swollen from her A-fib. She states she usually wears compression stockings but has not been recently. She also states she has had stents put in femoral arteries by Dr. Goff for PAD of the left leg. Her last arterial flow study showed very good flow in the left leg in 2021. Progress of Wound: Major improvement on the leg patient will be started on EpiFix she was approved for EpiFix also so we will start that. She did have positive cultures and anaerobes so is on 2 antibiotics for that and she does have an odor to her wound but has been taking the antibiotics for at least 3 to 4 days. Patient tolerated antibiotics well we will apply EpiFix #2 today doing well filled in nicely she is almost healed. Subjective Subjective She is very pleased with outcomes Objective Data Objective Data Doing well on everything no sign of infection pain is tolerable tolerating the EpiFix as well. Vital Signs: Vital Signs Temp Pulse Resp BP O2 Del Method 97.9 F 82 16 139/54 H Room Air 01/05/23 11:44 01/05/23 11:44 01/05/23 11:44 01/05/23 11:44 01/05/23 11:44 Oxygen Delivery Method Room Air Weight: 133 lb Body Mass Index (BMI) 25.9 Lab / Micro Data Attestation: I reviewed the patient's lab results. Micro: Microbiology 12/22/22 11:00 Wound - Leg, Left Gram Stain - Final 12/22/22 11:00 Wound - Leg, Left Wound Culture - Final Pseudomonas aeruginosa Enterococcus faecalis 12/22/22 11:00 Wound - Leg, Left Anaerobic Culture - Final Anaerobic cocci Clostridium perfringens Physical Exam Const oriented x3 General Appearance: cooperative Exam Limitations: no limitations HEENT normocephalic Head and Scalp: normal to inspection Face and Sinus: normal facial exam Nose: external nose normal General Ear: hearing grossly impaired External Ear: external ears normal Mouth: oral and palatal mucosa normal Eyes PERRL General Eye: normal appearance of both eyes Neck full ROM General: normal visual inspection Resp normal respiratory effort Effort and Inspection: able to speak in complete sentences Auscultation: clear to auscultation bilaterally Cardio regular rate and regular rhythm Palpation: normal PMI Rate: regular rate Rhythm: regular rhythm GI Auscultation: normoactive bowel sounds Palpation: soft and no hepatosplenomegaly external exam normal Back/Spine Cervical Spine: cervical ROM normal Thoracic Spine / Upper Back: normal to inspection Lumbar Spine / Lower Back: normal to inspection Extremity normal to inspection General Extremity: normal exam except as noted Skin Skin Narrative: Open wound that started as a hematoma opened about a month ago to a crater in her left lower leg Wounds: wounds noted Neuro oriented x3 Psych Appearance: grossly normal Speech: normal speech Thought Content: normal thought content Judgement: judgement good Debridement Note Debridement Note Wound debrided: Left lower leg traumatic wound from a watermelon Type of Debridement: Excisional debridement Anesthesia Used: 5% Lidocaine Gel Depth: Down to and including healthy tissue and in the subcutaneous layer Percentage of wound debrided: 100 Instrument Used: 5mm curette Tissue Removed: Fibrin and some product Severity: Fat Layer Exposed Amount of bleeding with debridement: Mild Bleeding Controlled with: Compression and gauze Patient tolerated procedure: Patient tolerated procedure well Post-Debridement Measurements and Additional Note: Post-Debridement Measurements/Treatment SHANIKA - Nurse 1 - General Ulcer Assessment Start: 12/22/22 10:43 Freq: Status: Active Protocol: XIOMARA Activity Type Activity Date Activity User E-sign Co-sign Detail Recorded Client Recorded Date Recorded By Document 12/22/22 10:43 RB [id number] 12/22/22 10:47 RB Document 12/29/22 11:28 DL [id number] 12/29/22 11:36 DL Document 01/05/23 11:44 [facility] [id number] 01/05/23 11:53 BMF 12/22/22 12/29/22 01/05/23 10:43 11:28 11:44 - Today's Visit Information Type of service Initial Visit Follow-up Visit Follow-up Visit (Physician/STAMPING OPERATOR (Physician/STAMPING OPERATOR ) ) Arrival Mode Ambulatory,Cane Ambulatory Ambulatory Transfer Assistance None None None Patient Identification Verified (Name & Yes Yes Yes ) Patient Requires Transmission-Based No No Precautions Height and Weight Height 5 ft Weight 133 lb Weight in Pounds 133.0 lbs Body Mass Index (BMI) 25.9 25.9 25.9 BMI Classification Overweight Overweight Overweight BSA - Margot 1.57 Vital Signs Temperature (97.8 F-99.1 F) 97 F L 97.2 F L 97.9 F Temperature Source Temporal Temporal Temporal Pulse Rate (60-100) 107 H 96 82 Pulse Location Monitor Monitor Monitor Respiratory Rate (12-18) 18 18 16 Respiratory rate source Observation Observation Observation Oxygen Delivery Method Room Air Blood Pressure (90/60-120/80) 149/69 H 151/62 H 139/54 H Blood Pressure Mean (mm Hg) 95 91 82 Source Monitor Monitor Monitor Position Semi-Fowlers Sitting Blood Pressure Location Left Arm Right Arm History Since Last Visit- (Skip if this is Patient's initial visit) Have you changed medications since your No No last visit? Any new allergies or adverse reactions No No Had a fall/change in ADL's that may No No increase risk of falls Signs or symptoms of abuse and/or No No neglect since last visit Have you been in the hospital since your No No last visit? Has dressing in place as prescribed Yes Yes Has compression in place as prescribed Yes Yes Has offloadiing in place as prescribed N/A N/A Experienced any changes in pain level or No No management Left Footwear Regular Shoe Right Footwear Regular Shoe Pain Scale: 0-10 Numeric Is Patient Pain Free? Yes Yes Yes WC - Nurse 1 - General Ulcer Measurement Start: 12/22/22 10:43 Freq: Status: Active Protocol: Activity Type Activity Date Activity User E-sign Co-sign Detail Recorded Client Recorded Date Recorded By Document 12/22/22 10:43 RB [id number] 12/22/22 10:47 RB Document 12/29/22 11:28 DL [id number] 12/29/22 11:36 DL Document 01/05/23 11:44 BMF [id number] 01/05/23 11:53 BMF 12/22/22 12/29/22 01/05/23 10:43 11:28 11:44 Wound Center Nurse 1 1. LLE alba -Combined with other wound No No -Current Size (cm) - Length 2.6 2.5 2.5 -Current Size (cm) - Width 3.7 3.5 3.1 -Current Size (cm) - Depth 0.5 0.5 0.3 -Total Square Cm 9.62 8.75 7.75 -Date of Last Picture (Recall this 01/05/23 field) -Photo Taken Yes Yes -Epithelialization Small 1-33% -Tunneling No No -Undermining/Tunneling No No -Circular Undermining No No -Exudate Amt Large Medium Large -Exudate Type Serosanguineous Serosanguineous Serosanguineous -Wound Margin Thickened & Distinct, Distinct, Rolled Under Outline Outline Attached Attached -Granulation Amt Medium (34-66%) Medium (34-66%) Medium (34-66%) -Granulation Quality Ignacio Red Ignacio -Slough/Fibrin Yes Yes -Necrosis Amt Medium (34-66%) Medium (34-66%) Large (67-100%) -Necrotic Tissue Type Adherent Slough Adherent Slough Adherent Slough -Structure Exposed N/A N/A -Texture (Mila-wound Skin Appearance) Assessed Localized Edema Assessed, ,Scarring Scarring -Moisture (Mila-wound Skin Appearance) Assessed Dry/Scaly Assessed,Dry/ Scaly -Color (Mila-wound Skin Appearance) Assessed, Erythema Assessed Hemosiderin Staining -Temperature (Mila-wound Skin No Abnormality No Abnormality No Abnormality Appearance) (Pt Warm) (Pt Warm) (Pt Warm) -Tenderness on Palpation (Mila-wound No Yes Skin Appearance) -Ulcer Cleansing Wound Cleanser Rinsed/ Irrigated with Saline -Foul Odor after Cleansing No No -Anesthetic Used 5% Lidocaine 5% Lidocaine 5% Lidocaine Gel Gel Gel Lower Limb Edema Present Yes Yes Right Calf (cm) 44 Right Ankle (cm) 24.6 Left Calf (cm) 39.5 40.6 40.9 Left Ankle (cm) 25.5 27 26.8 WC - Nurse 2 - General Ulcer CM Notes Start: 12/22/22 10:43 Freq: Status: Active Protocol: Activity Type Activity Date Activity User E-sign Co-sign Detail Recorded Client Recorded Date Recorded By Document 12/22/22 10:53 MW [id number] 12/22/22 11:04 MW Document 12/29/22 11:59 MW [id number] 12/29/22 12:09 MW Document 01/05/23 11:58 MW [id number] 01/05/23 12:05 MW 12/22/22 12/29/22 01/05/23 10:53 11:59 11:58 Wound Center Nurse 2 1Wilbert SEN alba -Time 10:54 11:59 11:59 -Correct Patient Yes Yes Yes -Correct Side, Site, Position Yes Yes Yes -Correct Procedure Yes Yes Yes -Procedure Performed Yes Yes Yes -Type of Procedure Debridement Debridement Debridement -Clinical Debridement Subcutaneous Subcutaneous Subcutaneous -Tissue Removed Subcutaneous Subcutaneous Subcutaneous -Post Debridement (cm) - Length 3.0 3.0 2.8 -Post Debridement (cm) - Width 4.0 4.0 3.7 -Post Debridement (cm) - Depth 0.3 0.3 0.2 -Total Square (Post) (cm) 12.00 12.00 10.36 -Area of Debridement (cm) - Length 3.0 3.0 2.8 -Area of Debridement (cm) - Width 4.0 4.0 3.7 -Total Square (Area) (cm) 12.00 12.00 10.36 -Tunneling No No No -Undermining/Tunneling No No No -Circular Undermining No No No -Wound/Ulcer Outcome Not Healed Not Healed Not Healed -Ulcer Cleansing Rinsed/ Rinsed/ Wound Cleanser Irrigated with Irrigated with Saline Saline -Foul Odor after Cleansing No No No -Bioengineered Tissue No Yes Yes -Type of Bioengineered Tissue Epifix Mesh Epifix Mesh -Expiration Date 09/19/27 09/19/27 -Product Lot Number [id number] -Percent Used 100 100 -Lot number of Saline Used [id number] -Bleeding Controlled with Pressure Pressure Pressure -Treatment Response Procedure Procedure Procedure Tolerated Well Tolerated Well Tolerated Well -Offloading No No No -Debridement - Subq, 1st 20sq cm Yes No No -Apply Skin Sub - 1st 25 sq cm - Legs 1 1 -Epifix Mesh (per sq cm) 11 11 Pain Scale: 0-10 Numeric Is Patient Pain Free? Yes Yes Yes WC - Nurse 3 - General Ulcer D/C NN Start: 12/22/22 10:43 Freq: Status: Active Protocol: Activity Type Activity Date Activity User E-sign Co-sign Detail Recorded Client Recorded Date Recorded By Document 12/22/22 11:14 RB [id number] 12/22/22 11:15 RB Document 12/29/22 12:10 MW [id number] 12/29/22 12:12 MW Document 01/05/23 12:05 MW [id number] 01/05/23 12:06 MW 12/22/22 12/29/22 01/05/23 11:14 12:10 12:05 Wound Care Center Nurse 3 1. LLE alba -Ulcer Cleansing Rinsed/ Not Cleansed Not Cleansed Irrigated with Saline -Foul Odor after Cleansing No No -Negative Pressure Wound Therapy N/A N/A -Primary Dressing Applied Fibracol Plus Aquacel Extra Aquacel Extra 4x4,Mepilex Border -Other Dressing ABD -Primary Dressing Covered/Secured with Dry Gauze & Dry Gauze & Roll Gauze, Roll Gauze, Secured with Secured with Tape Tape -Other Covering ABD -Aquacel Extra 1 1 -Fibracol Plus 4x4 1 -Mepilex Border 1 Right -Lotion applied to leg before No compression wrap -Tubular Bandage Double Layer Double Layer -Size of Tubigrip Used Size E Size E -Size E ($) 2 2 Left -Lotion applied to leg before No No compression wrap -Compression Wrap Ulises Wrap -Tubular Bandage Double Layer Double Layer -Size of Tubigrip Used Size E Size E -Size E ($) 2 2 Treatment Response Procedure Procedure Procedure Tolerated Well Tolerated Well Tolerated Well Pain Scale: 0-10 Numeric Is Patient Pain Free? No Yes Yes Teaching: Wound Center Compression Wraps & Stockings -Person Taught Patient Patient -Teaching Method Discussion, Demonstration -Response to teaching Verbalize Verbalize understanding understanding Dressing Your Wound -Person Taught Patient -Teaching Method Discussion, Demonstration -Response to teaching Verbalize understanding WC - Visit Discharge Discharge Condition Stable Stable Stable Ambulatory Status Ambulatory,Cane Ambulatory Ambulatory,Cane Transportation Private Auto Private Auto Private Auto Accompanied by self self Medication Reconcilliation completed & No No No provided to patient/care provider Clinical Summary of Care Provided Yes Yes Yes Notes: Dressing applied per Prashanth Ruffin RN. Patient tolerated well. Assessment/Plan Assessment/Plan (1) Hx of longterm use of blood thinners: CODE(S): Z92.29 - Personal history of other drug therapy (2) Non-pressure ulcer of left lower extremity: CODE(S): L97.929 - Non-pressure chronic ulcer of unspecified part of left lower leg with unspecified severity QUALIFIERS: Non-pressure ulcer stage: with fat layer exposed Qualified Code(s): L97.922 - Non-pressure chronic ulcer of unspecified part of left lower leg with fat layer exposed PLAN: EpiFix #2 applied with wound veil and Aquacel extra over top with a dry gauze dressing. Continue taking ciprofloxacin and metronidazole as prescribed till done Follow-up in 1 week Patient instructed not to take a shower or get the dressing wet and she may clean the outer dressing but when she gets down to the Steri-Strips she is not to touch them any issues she is to call us with any problems she might encounter. (3) Traumatic open wound of left lower leg with infection: CODE(S): S81.802A - Unspecified open wound, left lower leg, initial encounter; L08.9 - Local infection of the skin and subcutaneous tissue, unspecified QUALIFIERS: Encounter type: initial encounter Qualified Code(s): S81.802A - Unspecified open wound, left lower leg, initial encounter; L08.9 - Local infection of the skin and subcutaneous tissue, unspecified
[2023-01-12 11:34] VITALS: BP 173/62; PULSE 82; RESP 16; TEMP 36.3; BMI 25.9
--- NOTE | 2023-01-12 12:36 | PCM.WC.PN ---
History of Present Illness Date of Service: 01/12/23 Chief Complaint: Follow-up on a nonhealing ulcer on her left lower leg from trauma that started as a hematoma on November 16. History of Wound: This 82-year-old white female that dropped a watermelon on her left leg getting out of the car. Caused a huge hematoma because she is on Eliquis. On November 24 it opened and bled and became like a crater in her low left alba area. Was sent here by her family doctor and has just been using Neosporin and it. Bilateral lower legs are swollen from her A-fib. She states she usually wears compression stockings but has not been recently. She also states she has had stents put in femoral arteries by Dr. Goff for PAD of the left leg. Her last arterial flow study showed very good flow in the left leg in 2021. Progress of Wound: Major improvement on the leg patient will be started on EpiFix half of the wound is healed already. Finished with antibiotic therapy Patient tolerated antibiotics well we will apply EpiFix #3today doing well filled in nicely she is almost healed. Subjective Subjective She is very pleased with outcomes Objective Data Objective Data As stated above EpiFix #3 applied to her left alba wound tolerating well Vital Signs: Vital Signs Temp Pulse Resp BP O2 Del Method 97.3 F L 82 16 173/62 H Room Air 01/12/23 11:34 01/12/23 11:34 01/12/23 11:34 01/12/23 11:34 01/12/23 11:34 Oxygen Delivery Method Room Air Weight: 133 lb Body Mass Index (BMI) 25.9 Lab / Micro Data Micro: Microbiology 12/22/22 11:00 Wound - Leg, Left Gram Stain - Final 12/22/22 11:00 Wound - Leg, Left Wound Culture - Final Pseudomonas aeruginosa Enterococcus faecalis 12/22/22 11:00 Wound - Leg, Left Anaerobic Culture - Final Anaerobic cocci Clostridium perfringens Physical Exam Const oriented x3 General Appearance: cooperative Exam Limitations: no limitations HEENT normocephalic Head and Scalp: normal to inspection Face and Sinus: normal facial exam Nose: external nose normal General Ear: hearing grossly impaired External Ear: external ears normal Mouth: oral and palatal mucosa normal Eyes PERRL General Eye: normal appearance of both eyes Neck full ROM General: normal visual inspection Resp normal respiratory effort Effort and Inspection: able to speak in complete sentences Auscultation: clear to auscultation bilaterally Cardio regular rate and regular rhythm Palpation: normal PMI Rate: regular rate Rhythm: regular rhythm GI Auscultation: normoactive bowel sounds Palpation: soft and no hepatosplenomegaly external exam normal Back/Spine Cervical Spine: cervical ROM normal Thoracic Spine / Upper Back: normal to inspection Lumbar Spine / Lower Back: normal to inspection Extremity normal to inspection General Extremity: normal exam except as noted Skin Skin Narrative: Open wound that started as a hematoma opened about a month ago to a crater in her left lower leg Wounds: wounds noted Neuro oriented x3 Psych Appearance: grossly normal Speech: normal speech Thought Content: normal thought content Judgement: judgement good Debridement Note Debridement Note Wound debrided: Left alba traumatic wound Laterality: Left Type of Debridement: Excisional debridement Anesthesia Used: 5% Lidocaine Gel Depth: in the subcutaneous layer Percentage of wound debrided: 100 Instrument Used: 5mm curette Tissue Removed: Fibrin Severity: Limited To Skin Breakdown Amount of bleeding with debridement: Mild Bleeding Controlled with: Compression and gauze Patient tolerated procedure: Patient tolerated procedure well Post-Debridement Measurements and Additional Note: Post-Debridement Measurements/Treatment - Nurse 1 - General Ulcer Assessment Start: 12/22/22 10:43 Freq: Status: Active Protocol: XIOMARA Activity Type Activity Date Activity User E-sign Co-sign Detail Recorded Client Recorded Date Recorded By Document 12/22/22 10:43 RB [id number] 12/22/22 10:47 RB Document 12/29/22 11:28 DL [id number] 12/29/22 11:36 DL Document 01/05/23 11:44 [facility] [id number] 01/05/23 11:53 BM Document 01/12/23 11:34 [facility] [id number] 01/12/23 11:43 [facility] 12/22/22 12/29/22 01/05/23 10:43 11:28 11:44 - Today's Visit Information Type of service Initial Visit Follow-up Visit Follow-up Visit (Physician/AIR BAG STRIPPER (Physician/AIR BAG STRIPPER ) ) Arrival Mode Ambulatory,Cane Ambulatory Ambulatory Transfer Assistance None None None Patient Identification Verified (Name & Yes Yes Yes ) Patient Requires Transmission-Based No No Precautions Height and Weight Height 5 ft Weight 133 lb Weight in Pounds 133.0 lbs Body Mass Index (BMI) 25.9 25.9 25.9 BMI Classification Overweight Overweight Overweight BSA - Margot 1.57 Vital Signs Temperature (97.8 F-99.1 F) 97 F L 97.2 F L 97.9 F Temperature Source Temporal Temporal Temporal Pulse Rate (60-100) 107 H 96 82 Pulse Location Monitor Monitor Monitor Respiratory Rate (12-18) 18 18 16 Respiratory rate source Observation Observation Observation Oxygen Delivery Method Room Air Blood Pressure (90/60-120/80) 149/69 H 151/62 H 139/54 H Blood Pressure Mean (mm Hg) 95 91 82 Source Monitor Monitor Monitor Position Semi-Fowlers Sitting Blood Pressure Location Left Arm Right Arm History Since Last Visit- (Skip if this is Patient's initial visit) Have you changed medications since your No No last visit? Any new allergies or adverse reactions No No Had a fall/change in ADL's that may No No increase risk of falls Signs or symptoms of abuse and/or No No neglect since last visit Have you been in the hospital since your No No last visit? Has dressing in place as prescribed Yes Yes Has compression in place as prescribed Yes Yes Has offloadiing in place as prescribed N/A N/A Experienced any changes in pain level or No No management Left Footwear Regular Shoe Right Footwear Regular Shoe Pain Scale: 0-10 Numeric Is Patient Pain Free? Yes Yes Yes 01/12/23 11:34 WC - Today's Visit Information Type of service Follow-up Visit (Physician/AIR BAG STRIPPER ) Arrival Mode Ambulatory Transfer Assistance None Patient Identification Verified (Name & Yes ) Patient Requires Transmission-Based No Precautions Height and Weight Height Weight Weight in Pounds Body Mass Index (BMI) 25.9 BMI Classification Overweight BSA - Margot Vital Signs Temperature (97.8 F-99.1 F) 97.3 F L Temperature Source Temporal Pulse Rate (60-100) 82 Pulse Location Monitor Respiratory Rate (12-18) 16 Respiratory rate source Observation Oxygen Delivery Method Room Air Blood Pressure (90/60-120/80) 173/62 H Blood Pressure Mean (mm Hg) 99 Source Monitor Position Sitting Blood Pressure Location Left Arm History Since Last Visit- (Skip if this is Patient's initial visit) Have you changed medications since your No last visit? Any new allergies or adverse reactions No Had a fall/change in ADL's that may No increase risk of falls Signs or symptoms of abuse and/or No neglect since last visit Have you been in the hospital since your No last visit? Has dressing in place as prescribed Yes Has compression in place as prescribed Yes Has offloadiing in place as prescribed N/A Experienced any changes in pain level or No management Left Footwear Regular Shoe Right Footwear Regular Shoe Pain Scale: 0-10 Numeric Is Patient Pain Free? Yes WC - Nurse 1 - General Ulcer Measurement Start: 12/22/22 10:43 Freq: Status: Active Protocol: Activity Type Activity Date Activity User E-sign Co-sign Detail Recorded Client Recorded Date Recorded By Document 12/22/22 10:43 RB [id number] 12/22/22 10:47 RB Document 12/29/22 11:28 DL [id number] 12/29/22 11:36 DL Document 01/05/23 11:44 [facility] [id number] 01/05/23 11:53 BMF Document 01/12/23 11:34 BMF [id number] 01/12/23 11:43 BMF 12/22/22 12/29/22 01/05/23 10:43 11:28 11:44 Wound Center Nurse 1 1. LLE alba -Combined with other wound No No -Current Size (cm) - Length 2.6 2.5 2.5 -Current Size (cm) - Width 3.7 3.5 3.1 -Current Size (cm) - Depth 0.5 0.5 0.3 -Total Square Cm 9.62 8.75 7.75 -Date of Last Picture (Recall this 01/05/23 field) -Photo Taken Yes Yes -Epithelialization Small 1-33% -Tunneling No No -Undermining/Tunneling No No -Circular Undermining No No -Exudate Amt Large Medium Large -Exudate Type Serosanguineous Serosanguineous Serosanguineous -Wound Margin Thickened & Distinct, Distinct, Rolled Under Outline Outline Attached Attached -Granulation Amt Medium (34-66%) Medium (34-66%) Medium (34-66%) -Granulation Quality [place] Red [place] -Slough/Fibrin Yes Yes -Necrosis Amt Medium (34-66%) Medium (34-66%) Large (67-100%) -Necrotic Tissue Type Adherent Slough Adherent Slough Adherent Slough -Structure Exposed N/A N/A -Texture (Mila-wound Skin Appearance) Assessed Localized Edema Assessed, ,Scarring Scarring -Moisture (Mila-wound Skin Appearance) Assessed Dry/Scaly Assessed,Dry/ Scaly -Color (Mila-wound Skin Appearance) Assessed, Erythema Assessed Hemosiderin Staining -Temperature (Mila-wound Skin No Abnormality No Abnormality No Abnormality Appearance) (Pt Warm) (Pt Warm) (Pt Warm) -Tenderness on Palpation (Mila-wound No Yes Skin Appearance) -Ulcer Cleansing Wound Cleanser Rinsed/ Irrigated with Saline -Foul Odor after Cleansing No No -Anesthetic Used 5% Lidocaine 5% Lidocaine 5% Lidocaine Gel Gel Gel -Wound Comment(s) Lower Limb Edema Present Yes Yes Right Calf (cm) 44 Right Ankle (cm) 24.6 Left Calf (cm) 39.5 40.6 40.9 Left Ankle (cm) 25.5 27 26.8 01/12/23 11:34 Wound Center Nurse 1 1. LLE alba -Combined with other wound No -Current Size (cm) - Length -Current Size (cm) - Width -Current Size (cm) - Depth -Total Square Cm -Date of Last Picture (Recall this field) -Photo Taken -Epithelialization Small 1-33% -Tunneling No -Undermining/Tunneling No -Circular Undermining No -Exudate Amt Large -Exudate Type Serosanguineous -Wound Margin Distinct, Outline Attached -Granulation Amt Medium (34-66%) -Granulation Quality Red -Slough/Fibrin Yes -Necrosis Amt Medium (34-66%) -Necrotic Tissue Type Adherent Slough -Structure Exposed -Texture (Mila-wound Skin Appearance) Assessed, Scarring -Moisture (Mila-wound Skin Appearance) Assessed, Maceration -Color (Mila-wound Skin Appearance) Assessed, Erythema -Temperature (Mila-wound Skin No Abnormality Appearance) (Pt Warm) -Tenderness on Palpation (Mila-wound No Skin Appearance) -Ulcer Cleansing Soap and Water -Foul Odor after Cleansing No -Anesthetic Used 5% Lidocaine Gel -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 Lower Limb Edema Present Yes Right Calf (cm) Right Ankle (cm) Left Calf (cm) 40 Left Ankle (cm) 25.6 WC - Nurse 2 - General Ulcer CM Notes Start: 12/22/22 10:43 Freq: Status: Active Protocol: Activity Type Activity Date Activity User E-sign Co-sign Detail Recorded Client Recorded Date Recorded By Document 12/22/22 10:53 MW [id number] 12/22/22 11:04 MW Document 12/29/22 11:59 MW [id number] 12/29/22 12:09 MW Document 01/05/23 11:58 MW [id number] 01/05/23 12:05 MW Document 01/12/23 11:51 MW [id number] 01/12/23 11:57 MW 12/22/22 12/29/22 01/05/23 10:53 11:59 11:58 Wound Center Nurse 2 1. LLE alba -Time 10:54 11:59 11:59 -Correct Patient Yes Yes Yes -Correct Side, Site, Position Yes Yes Yes -Correct Procedure Yes Yes Yes -Procedure Performed Yes Yes Yes -Type of Procedure Debridement Debridement Debridement -Clinical Debridement Subcutaneous Subcutaneous Subcutaneous -Tissue Removed Subcutaneous Subcutaneous Subcutaneous -Post Debridement (cm) - Length 3.0 3.0 2.8 -Post Debridement (cm) - Width 4.0 4.0 3.7 -Post Debridement (cm) - Depth 0.3 0.3 0.2 -Total Square (Post) (cm) 12.00 12.00 10.36 -Area of Debridement (cm) - Length 3.0 3.0 2.8 -Area of Debridement (cm) - Width 4.0 4.0 3.7 -Total Square (Area) (cm) 12.00 12.00 10.36 -Tunneling No No No -Undermining/Tunneling No No No -Circular Undermining No No No -Wound/Ulcer Outcome Not Healed Not Healed Not Healed -Ulcer Cleansing Rinsed/ Rinsed/ Wound Cleanser Irrigated with Irrigated with Saline Saline -Foul Odor after Cleansing No No No -Bioengineered Tissue No Yes Yes -Type of Bioengineered Tissue Epifix Mesh Epifix Mesh -Expiration Date 09/19/27 09/19/27 -Product Lot Number [id number] -Percent Used 100 100 -Lot number of Saline Used [id number] -Bleeding Controlled with Pressure Pressure Pressure -Treatment Response Procedure Procedure Procedure Tolerated Well Tolerated Well Tolerated Well -Offloading No No No -Debridement - Subq, 1st 20sq cm Yes No No -Apply Skin Sub - 1st 25 sq cm - Legs 1 1 -Epifix (per sq cm) -Epifix Mesh (per sq cm) 11 11 Pain Scale: 0-10 Numeric Is Patient Pain Free? Yes Yes Yes 01/12/23 11:51 Wound Center Nurse 2 1. LLE alba -Time 11:51 -Correct Patient Yes -Correct Side, Site, Position Yes -Correct Procedure Yes -Procedure Performed Yes -Type of Procedure Debridement -Clinical Debridement Subcutaneous -Tissue Removed Subcutaneous -Post Debridement (cm) - Length 2.4 -Post Debridement (cm) - Width 1.5 -Post Debridement (cm) - Depth 0.2 -Total Square (Post) (cm) 3.60 -Area of Debridement (cm) - Length 2.4 -Area of Debridement (cm) - Width 1.5 -Total Square (Area) (cm) 3.60 -Tunneling No -Undermining/Tunneling No -Circular Undermining No -Wound/Ulcer Outcome Not Healed -Ulcer Cleansing Rinsed/ Irrigated with Saline -Foul Odor after Cleansing No -Bioengineered Tissue Yes -Type of Bioengineered Tissue Epifix -Expiration Date 09/19/27 -Product Lot Number [id number] -Percent Used 100 -Lot number of Saline Used [id number] -Bleeding Controlled with Pressure -Treatment Response Procedure Tolerated Well -Offloading No -Debridement - Subq, 1st 20sq cm No -Apply Skin Sub - 1st 25 sq cm - Legs 1 -Epifix (per sq cm) 4 -Epifix Mesh (per sq cm) Pain Scale: 0-10 Numeric Is Patient Pain Free? Yes - Nurse 3 - General Ulcer D/C NN Start: 12/22/22 10:43 Freq: Status: Active Protocol: Activity Type Activity Date Activity User E-sign Co-sign Detail Recorded Client Recorded Date Recorded By Document 12/22/22 11:14 RB [id number] 12/22/22 11:15 RB Document 12/29/22 12:10 MW [id number] 12/29/22 12:12 MW Document 01/05/23 12:05 MW [id number] 01/05/23 12:06 MW Document 01/12/23 11:58 MW [id number] 01/12/23 12:00 MW 12/22/22 12/29/22 01/05/23 11:14 12:10 12:05 Wound Care Center Nurse 3 1. LLE alba -Ulcer Cleansing Rinsed/ Not Cleansed Not Cleansed Irrigated with Saline -Foul Odor after Cleansing No No -Negative Pressure Wound Therapy N/A N/A -Primary Dressing Applied Fibracol Plus Aquacel Extra Aquacel Extra 4x4,Mepilex Border -Other Dressing ABD -Primary Dressing Covered/Secured with Dry Gauze & Dry Gauze & Roll Gauze, Roll Gauze, Secured with Secured with Tape Tape -Other Covering ABD -Aquacel Extra 1 1 -Fibracol Plus 4x4 1 -Mepilex Border 1 Right -Lotion applied to leg before No compression wrap -Tubular Bandage Double Layer Double Layer -Size of Tubigrip Used Size E Size E -Size E ($) 2 2 Left -Lotion applied to leg before No No compression wrap -Compression Wrap Ulises Wrap -Tubular Bandage Double Layer Double Layer -Size of Tubigrip Used Size E Size E -Size E ($) 2 2 Treatment Response Procedure Procedure Procedure Tolerated Well Tolerated Well Tolerated Well Pain Scale: 0-10 Numeric Is Patient Pain Free? No Yes Yes Teaching: Wound Center Compression Wraps & Stockings -Person Taught Patient Patient -Teaching Method Discussion, Demonstration -Response to teaching Verbalize Verbalize understanding understanding Dressing Your Wound -Person Taught Patient -Teaching Method Discussion, Demonstration -Response to teaching Verbalize understanding WC - Visit Discharge Discharge Condition Stable Stable Stable Ambulatory Status Ambulatory,Cane Ambulatory Ambulatory,Cane Transportation Private Auto Private Auto Private Auto Accompanied by self self Medication Reconcilliation completed & No No No provided to patient/care provider Clinical Summary of Care Provided Yes Yes Yes Notes: Dressing applied per Prashanth Ruffin RN. Patient tolerated well. 01/12/23 11:58 Wound Care Center Nurse 3 1. LLE alba -Ulcer Cleansing -Foul Odor after Cleansing No -Negative Pressure Wound Therapy N/A -Primary Dressing Applied Aquacel Extra, Mepilex Border -Other Dressing -Primary Dressing Covered/Secured with -Other Covering -Aquacel Extra 1 -Fibracol Plus 4x4 -Mepilex Border 1 Right -Lotion applied to leg before compression wrap -Tubular Bandage -Size of Tubigrip Used -Size E ($) Left -Lotion applied to leg before No compression wrap -Compression Wrap -Tubular Bandage Single Layer -Size of Tubigrip Used Size E -Size E ($) 1 Treatment Response Procedure Tolerated Well Pain Scale: 0-10 Numeric Is Patient Pain Free? Yes Teaching: Wound Center Compression Wraps & Stockings -Person Taught Patient -Teaching Method Discussion -Response to teaching Verbalize understanding Dressing Your Wound -Person Taught Patient -Teaching Method Discussion -Response to teaching Verbalize understanding WC - Visit Discharge Discharge Condition Stable Ambulatory Status Ambulatory Transportation Private Auto Accompanied by dylan Medication Reconcilliation completed & No provided to patient/care provider Clinical Summary of Care Provided Yes Notes: Assessment/Plan Assessment/Plan (1) Hx of fpc use of blood thinners: CODE(S): Z92.29 - Personal history of other drug therapy (2) Non-pressure ulcer of left lower extremity: CODE(S): L97.929 - Non-pressure chronic ulcer of unspecified part of left lower leg with unspecified severity QUALIFIERS: Non-pressure ulcer stage: with fat layer exposed Qualified Code(s): L97.922 - Non-pressure chronic ulcer of unspecified part of left lower leg with fat layer exposed PLAN: EpiFix #3 applied with wound veil and Aquacel extra over top with a dry gauze dressing. Follow-up in 1 week Patient instructed not to take a shower or get the dressing wet and she may clean the outer dressing but when she gets down to the Steri-Strips she is not to touch them any issues she is to call us with any problems she might encounter. (3) Traumatic open wound of left lower leg with infection: CODE(S): S81.802A - Unspecified open wound, left lower leg, initial encounter; L08.9 - Local infection of the skin and subcutaneous tissue, unspecified QUALIFIERS: Encounter type: initial encounter Qualified Code(s): S81.802A - Unspecified open wound, left lower leg, initial encounter; L08.9 - Local infection of the skin and subcutaneous tissue, unspecified
== END 2023-01-17 23:59 | disposition home or self-care (01) ==
LOC: WC 11:30
PROVIDERS: PCP Family Medicine; Referring Provider Family Medicine; Visit Provider Nurse Practitioner
DX: L97.822 Non-pressure chronic ulcer of other part of left lower leg with fat layer exposed (principal); I73.9 Peripheral vascular disease, unspecified; I48.91 Unspecified atrial fibrillation; L08.9 Local infection of the skin and subcutaneous tissue, unspecified; S80.12XS Contusion of left lower leg, sequela; W20.8XXS Other cause of strike by thrown, projected or falling object, sequela; I25.10 Atherosclerotic heart disease of native coronary artery without angina pectoris; I10 Essential (primary) hypertension; E78.5 Hyperlipidemia, unspecified; M79.89 Other specified soft tissue disorders; Z79.01 Long term (current) use of anticoagulants; Z79.899 Other long term (current) drug therapy; Z87.891 Personal history of nicotine dependence; Z95.820 Peripheral vascular angioplasty status with implants and grafts
CPT/HCPCS: 11042; 15271; 87070; 87075; 87077; 87186; 87205; 99203; Q4186; G0463

== ENCOUNTER 2023-01-26 11:15 | Outpatient (RCR) | payer MEDICARE, SELFPAY ==
[2023-01-18 00:23] VITALS: BP 173/62; PULSE 82; RESP 16; TEMP 36.3; BMI 25.9
[2023-01-19 11:31] VITALS: BP 170/75; PULSE 74; RESP 16; TEMP 36.2; BMI 25.9
--- NOTE | 2023-01-19 13:26 | PCM.WC.PN ---
History of Present Illness Date of Service: 01/19/23 Chief Complaint: Follow-up on a nonhealing ulcer on her left lower leg from trauma that started as a hematoma on November 16. History of Wound: This 82-year-old white female that dropped a watermelon on her left leg getting out of the car. Caused a huge hematoma because she is on Eliquis. On November 24 it opened and bled and became like a crater in her low left alba area. Was sent here by her family doctor and has just been using Neosporin and it. Bilateral lower legs are swollen from her A-fib. She states she usually wears compression stockings but has not been recently. She also states she has had stents put in femoral arteries by Dr. Goff for PAD of the left leg. Her last arterial flow study showed very good flow in the left leg in 2021. Progress of Wound: Progression of this wound is crazy better she is hardly got anything there is superficial opening. Still eligible for 1 more EpiFix to I think will help with migrating tissue there Subjective Subjective Family and patient are very happy with outcomes Objective Data Objective Data Wound is clean small flat slightly open area on the left lower leg alba area. Vital Signs: Vital Signs Temp Pulse Resp BP O2 Del Method 97.1 F L 74 16 170/75 H Room Air 01/19/23 11:31 01/19/23 11:31 01/19/23 11:31 01/19/23 11:31 01/19/23 11:31 Oxygen Delivery Method Room Air Weight: 133 lb Body Mass Index (BMI) 25.9 Debridement Note Debridement Note Wound debrided: Left lower leg alba Type of Debridement: Excisional debridement Anesthesia Used: 5% Lidocaine Gel Depth: Down to and including healthy tissue Percentage of wound debrided: 100 Instrument Used: 3mm curette Tissue Removed: Fibrin Severity: Limited To Skin Breakdown Amount of bleeding with debridement: None Bleeding Controlled with: Pressure Patient tolerated procedure: Patient tolerated procedure well Post-Debridement Measurements and Additional Note: Post-Debridement Measurements/Treatment WC - Nurse 1 - General Ulcer Assessment Start: 01/19/23 11:31 Freq: Status: Active Protocol: XIOMARA Activity Type Activity Date Activity User E-sign Co-sign Detail Recorded Client Recorded Date Recorded By Document 01/19/23 11:31 [facility] [id number] 01/19/23 11:34 [facility] 01/19/23 11:31 - Today's Visit Information Type of service Follow-up Visit (Physician/INFORMATION SYSTEMS TECHNICIAN ) Arrival Mode Ambulatory Transfer Assistance None Patient Identification Verified (Name & Yes ) Patient Requires Transmission-Based No Precautions Height and Weight Body Mass Index (BMI) 25.9 BMI Classification Overweight Vital Signs Temperature (97.8 F-99.1 F) 97.1 F L Temperature Source Temporal Pulse Rate (60-100) 74 Pulse Location Monitor Respiratory Rate (12-18) 16 Respiratory rate source Observation Oxygen Delivery Method Room Air Blood Pressure (90/60-120/80) 170/75 H Blood Pressure Mean (mm Hg) 106 Source Monitor Position Sitting Blood Pressure Location Left Arm History Since Last Visit- (Skip if this is Patient's initial visit) Have you changed medications since your No last visit? Any new allergies or adverse reactions No Had a fall/change in ADL's that may No increase risk of falls Signs or symptoms of abuse and/or No neglect since last visit Have you been in the hospital since your No last visit? Has dressing in place as prescribed Yes Has compression in place as prescribed Yes Has offloadiing in place as prescribed N/A Experienced any changes in pain level or No management Left Footwear Regular Shoe Right Footwear Regular Shoe Pain Scale: 0-10 Numeric Is Patient Pain Free? Yes - Nurse 1 - General Ulcer Measurement Start: 01/19/23 11:31 Freq: Status: Active Protocol: Activity Type Activity Date Activity User E-sign Co-sign Detail Recorded Client Recorded Date Recorded By Document 01/19/23 11:31 [facility] [id number] 01/19/23 11:34 [facility] 01/19/23 11:31 Wound Center Nurse 1 1. LLE alba -Combined with other wound No -Current Size (cm) - Length 2.2 -Current Size (cm) - Width 3 -Current Size (cm) - Depth 0.2 -Total Square Cm 6.6 -Epithelialization Medium 34-66% -Tunneling No -Undermining/Tunneling No -Circular Undermining No -Exudate Amt Small -Exudate Type Serosanguineous -Wound Margin Flat & Intact -Granulation Amt Medium (34-66%) -Granulation Quality [place] -Slough/Fibrin Yes -Necrosis Amt Medium (34-66%) -Necrotic Tissue Type Adherent Slough -Texture (Mila-wound Skin Appearance) Assessed, Scarring -Moisture (Mila-wound Skin Appearance) Assessed,Dry/ Scaly -Color (Mila-wound Skin Appearance) Assessed -Temperature (Mila-wound Skin No Abnormality Appearance) (Pt Warm) -Tenderness on Palpation (Mila-wound No Skin Appearance) -Ulcer Cleansing Soap and Water -Foul Odor after Cleansing No -Anesthetic Used 5% Lidocaine Gel Lower Limb Edema Present Yes Left Calf (cm) 37.5 Left Ankle (cm) 24.2 - Nurse 2 - General Ulcer CM Notes Start: 01/19/23 11:31 Freq: Status: Active Protocol: Activity Type Activity Date Activity User E-sign Co-sign Detail Recorded Client Recorded Date Recorded By Document 01/19/23 11:41 MW [id number] 01/19/23 11:46 MW 01/19/23 11:41 Wound Center Nurse 2 1. LLE alba -Time 11:41 -Correct Patient Yes -Correct Side, Site, Position Yes -Correct Procedure Yes -Procedure Performed Yes -Type of Procedure Debridement -Clinical Debridement Subcutaneous -Tissue Removed Subcutaneous -Post Debridement (cm) - Length 1.0 -Post Debridement (cm) - Width 1.0 -Post Debridement (cm) - Depth 0.1 -Total Square (Post) (cm) 1.00 -Area of Debridement (cm) - Length 1.0 -Area of Debridement (cm) - Width 1.0 -Total Square (Area) (cm) 1.00 -Tunneling No -Undermining/Tunneling No -Circular Undermining No -Wound/Ulcer Outcome Not Healed -Ulcer Cleansing Rinsed/ Irrigated with Saline -Foul Odor after Cleansing No -Bioengineered Tissue Yes -Type of Bioengineered Tissue Epifix -Expiration Date 09/19/27 -Product Lot Number [id number] -Percent Used 100 -Lot number of Saline Used [id number] -Bleeding Controlled with Pressure -Treatment Response Procedure Tolerated Well -Offloading No -Debridement - Subq, 1st 20sq cm No -Apply Skin Sub - 1st 25 sq cm - Legs 1 -Epifix (per sq cm) 4 Pain Scale: 0-10 Numeric Is Patient Pain Free? Yes - Nurse 3 - General Ulcer D/C NN Start: 01/19/23 11:31 Freq: Status: Active Protocol: Activity Type Activity Date Activity User E-sign Co-sign Detail Recorded Client Recorded Date Recorded By Document 01/19/23 11:52 [facility] [id number] 01/19/23 11:53 [facility] 01/19/23 11:52 Wound Care Center Nurse 3 1. LLE alba -Ulcer Cleansing Rinsed/ Irrigated with Saline -Foul Odor after Cleansing No -Primary Dressing Applied Aquacel Extra, Mepilex Border -Other Dressing epifix, drsg per rb rn -Aquacel Extra 1 -Mepilex Border 1 Left -Tubular Bandage Single Layer -Size of Tubigrip Used Size E -Size E ($) 1 Treatment Response Procedure Tolerated Well Pain Scale: 0-10 Numeric Is Patient Pain Free? Yes WC - Visit Discharge Discharge Condition Stable Ambulatory Status Ambulatory,Cane Transportation Private Auto Accompanied by niece Assessment/Plan Assessment/Plan (1) Hx of senior care use of blood thinners: CODE(S): Z92.29 - Personal history of other drug therapy (2) Non-pressure ulcer of left lower extremity: CODE(S): L97.929 - Non-pressure chronic ulcer of unspecified part of left lower leg with unspecified severity QUALIFIERS: Non-pressure ulcer stage: with fat layer exposed Qualified Code(s): L97.922 - Non-pressure chronic ulcer of unspecified part of left lower leg with fat layer exposed PLAN: EpiFix #4applied with wound veil and Aquacel extra over top with a dry gauze dressing. Follow-up in 1 week Patient instructed not to take a shower or get the dressing wet and she may clean the outer dressing but when she gets down to the Steri-Strips she is not to touch them any issues she is to call us with any problems she might encounter. (3) Traumatic open wound of left lower leg with infection: CODE(S): S81.802A - Unspecified open wound, left lower leg, initial encounter; L08.9 - Local infection of the skin and subcutaneous tissue, unspecified QUALIFIERS: Encounter type: subsequent encounter Qualified Code(s): S81.802D - Unspecified open wound, left lower leg, subsequent encounter; L08.9 - Local infection of the skin and subcutaneous tissue, unspecified
[2023-01-26 11:24] VITALS: BP 185/91; PULSE 114; RESP 22; TEMP 36.2; BMI 25.9
--- NOTE | 2023-01-26 12:08 | PN.PCM_ITS ---
History of Present Illness Date of Service: 01/26/23 Chief Complaint: Follow-up on a nonhealing ulcer on her left lower leg from trauma that started as a hematoma on November 16. History of Wound: This 82-year-old white female that dropped a watermelon on her left leg getting out of the car. Caused a huge hematoma because she is on Eliquis. On November 24 it opened and bled and became like a crater in her low left alba area. Was sent here by her family doctor and has just been using Neosporin and it. Bilateral lower legs are swollen from her A-fib. She states she usually wears compression stockings but has not been recently. She also states she has had stents put in femoral arteries by Dr. Goff for PAD of the left leg. Her last arterial flow study showed very good flow in the left leg in 2021. Progress of Wound: Patient is completely healed this week after only for EpiFix as she is doing very well patient be discharged from the wound center Subjective Subjective Patient is extremely happy with the outcome skin is new and smooth and flat like she says all from a watermelon Objective Data Objective Data Well-approximated skin no sign of infection healed well will discharge from the wound center follow-up as needed Vital Signs: Vital Signs Temp Pulse Resp BP O2 Del Method 97.1 F L 114 H 22 H 185/91 H Room Air 01/26/23 11:24 01/26/23 11:24 01/26/23 11:24 01/26/23 11:24 01/19/23 11:31 Oxygen Delivery Method Room Air Weight: 133 lb Body Mass Index (BMI) 25.9 Physical Exam Const oriented x3 General Appearance: cooperative Exam Limitations: no limitations HEENT normocephalic Head and Scalp: normal to inspection Face and Sinus: normal facial exam Nose: external nose normal General Ear: hearing grossly impaired External Ear: external ears normal Mouth: oral and palatal mucosa normal Eyes PERRL General Eye: normal appearance of both eyes Neck full ROM General: normal visual inspection Resp normal respiratory effort Effort and Inspection: able to speak in complete sentences Auscultation: clear to auscultation bilaterally Cardio regular rate and regular rhythm Palpation: normal PMI Rate: regular rate Rhythm: regular rhythm GI Auscultation: normoactive bowel sounds Palpation: soft and no hepatosplenomegaly external exam normal Back/Spine Cervical Spine: cervical ROM normal Thoracic Spine / Upper Back: normal to inspection Lumbar Spine / Lower Back: normal to inspection Extremity normal to inspection General Extremity: normal exam except as noted Skin Skin Narrative: Open wound that started as a hematoma opened about a month ago to a crater in her left lower leg Wounds: wounds noted Neuro oriented x3 Psych Appearance: grossly normal Speech: normal speech Thought Content: normal thought content Judgement: judgement good Debridement Note Debridement Note No debridement was completed: No debridement was completed today Post-Debridement Measurements and Additional Note: Post-Debridement Measurements/Treatment - Nurse 1 - General Ulcer Assessment Start: 01/19/23 11:31 Freq: Status: Active Protocol: .[email or web address] Activity Type Activity Date Activity User E-sign Co-sign Detail Recorded Client Recorded Date Recorded By Document 01/19/23 11:31 [facility] [id number] 01/19/23 11:34 [facility] Document 01/26/23 11:24 DL [id number] 01/26/23 11:31 DL 01/19/23 01/26/23 11:31 11:24 - Today's Visit Information Type of service Follow-up Visit Follow-up Visit (Physician/RESIDENTIAL SOLAR SALES CONSULTANT (Physician/RESIDENTIAL SOLAR SALES CONSULTANT ) ) Arrival Mode Ambulatory Ambulatory Transfer Assistance None None Patient Identification Verified (Name & Yes Yes ) Patient Requires Transmission-Based No No Precautions Height and Weight Body Mass Index (BMI) 25.9 25.9 BMI Classification Overweight Overweight Vital Signs Temperature (97.8 F-99.1 F) 97.1 F L 97.1 F L Temperature Source Temporal Temporal Pulse Rate (60-100) 74 114 H Pulse Location Monitor Monitor Respiratory Rate (12-18) 16 22 H Respiratory rate source Observation Observation Oxygen Delivery Method Room Air Blood Pressure (90/60-120/80) 170/75 H 185/91 H Blood Pressure Mean (mm Hg) 106 122 Source Monitor Monitor Position Sitting Blood Pressure Location Left Arm History Since Last Visit- (Skip if this is Patient's initial visit) Have you changed medications since your No last visit? Any new allergies or adverse reactions No No Had a fall/change in ADL's that may No No increase risk of falls Signs or symptoms of abuse and/or No No neglect since last visit Have you been in the hospital since your No No last visit? Has dressing in place as prescribed Yes Yes Has compression in place as prescribed Yes Yes Has offloadiing in place as prescribed N/A No Experienced any changes in pain level or No No management Left Footwear Regular Shoe Right Footwear Regular Shoe Pain Scale: 0-10 Numeric Is Patient Pain Free? Yes Yes - Nurse 1 - General Ulcer Measurement Start: 01/19/23 11:31 Freq: Status: Active Protocol: Activity Type Activity Date Activity User E-sign Co-sign Detail Recorded Client Recorded Date Recorded By Document 01/19/23 11:31 [facility] [id number] 01/19/23 11:34 [facility] Document 01/26/23 11:24 DL [id number] 01/26/23 11:31 DL 01/19/23 01/26/23 11:31 11:24 Wound Center Nurse 1 1. LLE alba -Combined with other wound No -Current Size (cm) - Length 2.2 0.1 -Current Size (cm) - Width 3 0.1 -Current Size (cm) - Depth 0.2 0.1 -Total Square Cm 6.6 0.01 -Epithelialization Medium 34-66% -Tunneling No -Undermining/Tunneling No -Circular Undermining No -Exudate Amt Small Small -Exudate Type Serosanguineous -Wound Margin Flat & Intact Indistinct, Non -Visible -Granulation Amt Medium (34-66%) Large (67-100%) -Granulation Quality [place] -Slough/Fibrin Yes -Necrosis Amt Medium (34-66%) Small (1-33%) -Necrotic Tissue Type Adherent Slough Adherent Slough -Structure Exposed N/A -Texture (Mila-wound Skin Appearance) Assessed, Scarring Scarring -Moisture (Mila-wound Skin Appearance) Assessed,Dry/ Dry/Scaly Scaly -Color (Mila-wound Skin Appearance) Assessed Hemosiderin Staining -Temperature (Mila-wound Skin No Abnormality No Abnormality Appearance) (Pt Warm) (Pt Warm) -Tenderness on Palpation (Mila-wound No Skin Appearance) -Ulcer Cleansing Soap and Water Soap and Water -Foul Odor after Cleansing No No -Anesthetic Used 5% Lidocaine 5% Lidocaine Gel Gel Lower Limb Edema Present Yes Left Calf (cm) 37.5 31.5 Left Ankle (cm) 24.2 23.5 - Nurse 2 - General Ulcer CM Notes Start: 01/19/23 11:31 Freq: Status: Active Protocol: Activity Type Activity Date Activity User E-sign Co-sign Detail Recorded Client Recorded Date Recorded By Document 01/19/23 11:41 MW [id number] 01/19/23 11:46 MW Document 01/26/23 11:36 MW [id number] 01/26/23 11:38 MW 01/19/23 01/26/23 11:41 11:36 Wound Center Nurse 2 1. FRANCY alba -Time 11:41 11:37 -Correct Patient Yes Yes -Correct Side, Site, Position Yes Yes -Correct Procedure Yes Yes -Procedure Performed Yes No -Type of Procedure Debridement -Clinical Debridement Subcutaneous -Tissue Removed Subcutaneous -Post Debridement (cm) - Length 1.0 0 -Post Debridement (cm) - Width 1.0 0 -Post Debridement (cm) - Depth 0.1 0 -Total Square (Post) (cm) 1.00 0 -Area of Debridement (cm) - Length 1.0 -Area of Debridement (cm) - Width 1.0 -Total Square (Area) (cm) 1.00 -Tunneling No -Undermining/Tunneling No -Circular Undermining No -Wound/Ulcer Outcome Not Healed Healed- Epithelialized -Ulcer Cleansing Rinsed/ Irrigated with Saline -Foul Odor after Cleansing No -Bioengineered Tissue Yes -Type of Bioengineered Tissue Epifix -Expiration Date 09/19/27 -Product Lot Number [id number] -Percent Used 100 -Lot number of Saline Used [id number] -Bleeding Controlled with Pressure -Treatment Response Procedure Tolerated Well -Offloading No -Debridement - Subq, 1st 20sq cm No -Apply Skin Sub - 1st 25 sq cm - Legs 1 -Epifix (per sq cm) 4 Pain Scale: 0-10 Numeric Is Patient Pain Free? Yes Yes - Nurse 3 - General Ulcer D/C NN Start: 01/19/23 11:31 Freq: Status: Active Protocol: Activity Type Activity Date Activity User E-sign Co-sign Detail Recorded Client Recorded Date Recorded By Document 01/19/23 11:52 [facility] [id number] 01/19/23 11:53 [facility] Document 01/26/23 11:39 MW [id number] 01/26/23 11:40 MW 01/19/23 01/26/23 11:52 11:39 Wound Care Center Nurse 3 1. LLE alba -Ulcer Cleansing Rinsed/ Not Cleansed Irrigated with Saline -Foul Odor after Cleansing No No -Negative Pressure Wound Therapy N/A -Primary Dressing Applied Aquacel Extra, Mepilex Border Mepilex Border -Other Dressing epifix, drsg per rb rn -Aquacel Extra 1 -Mepilex Border 1 1 Left -Tubular Bandage Single Layer -Size of Tubigrip Used Size E -Size E ($) 1 Treatment Response Procedure Procedure Tolerated Well Tolerated Well Pain Scale: 0-10 Numeric Is Patient Pain Free? Yes Yes Teaching: Wound Center Discharge Instructions -Person Taught Patient -Teaching Method Discussion -Response to teaching Verbalize understanding WC - Visit Discharge Discharge Condition Stable Stable Ambulatory Status Ambulatory,Cane Ambulatory Transportation Private Auto Private Auto Accompanied by niece Medication Reconcilliation completed & No provided to patient/care provider Clinical Summary of Care Provided Yes Assessment/Plan Assessment/Plan (1) Hx of [facility] use of blood thinners: CODE(S): Z92.29 - Personal history of other drug therapy (2) Non-pressure ulcer of left lower extremity: CODE(S): L97.929 - Non-pressure chronic ulcer of unspecified part of left lower leg with unspecified severity QUALIFIERS: Non-pressure ulcer stage: with fat layer exposed Qualified Code(s): L97.922 - Non-pressure chronic ulcer of unspecified part of left lower leg with fat layer exposed PLAN: Discharge from the wound center follow-up as needed (3) Traumatic open wound of left lower leg with infection: CODE(S): S81.802A - Unspecified open wound, left lower leg, initial encounter; L08.9 - Local infection of the skin and subcutaneous tissue, unspecified QUALIFIERS: Encounter type: subsequent encounter Qualified Code(s): S81.802D - Unspecified open wound, left lower leg, subsequent encounter; L08.9 - Local infection of the skin and subcutaneous tissue, unspecified
== END 2023-01-26 15:53 | disposition home or self-care (01) ==
LOC: WC 11:15
PROVIDERS: PCP Family Medicine; Referring Provider Family Medicine; Visit Provider Nurse Practitioner
DX: I73.9 Peripheral vascular disease, unspecified (principal); L97.821 Non-pressure chronic ulcer of other part of left lower leg limited to breakdown of skin; I48.91 Unspecified atrial fibrillation; S80.12XS Contusion of left lower leg, sequela; W20.8XXS Other cause of strike by thrown, projected or falling object, sequela
CPT/HCPCS: 15271; 99213; Q4186; G0463

== ENCOUNTER → 2023-02-08 | Outpatient (CLI) | payer MEDICARE, SELFPAY ==
[2023-02-08 12:16] LABS: Hematocrit 37.7 % (37-47); Hemoglobin 11.8 g/dL (12.0-15.0); Mean Corp Hgb Conc 31.3 g/dL (32-36); Mean Corpuscular Hgb 26.2 pg (27.0-32.0); Mean Corpuscular Volume 83.6 fL (81-99); Mean Platelet Vol. 10.4 fl (6.2-12.0); Platelet Count 152 K/mm3 (150-450); RBC Distribution Width CV 16.2 % (11.6-14.6); RBC Distribution Width SD 48.9 fl (35.1-43.9); Red Blood Count 4.51 M/mm3 (4.2-5.4); White Blood Count 10.8 K/mm3 (4.4-11.0)
[2023-02-08 12:41] LABS: PTHIN 136.9 pg/mL (18.4-80.1)
[2023-02-08 12:43] LABS: Albumin, Serum 3.4 g/dL (3.2-5.0); BUN 38 mg/dL (7-18); BUN/Creat Ratio 18.2 RATIO (10-20); Chloride 100 mmol/L (98-107); Creatinine, Serum 2.09 mg/dL (0.55-1.02); EST Glomerular Filtration Rate 24 mL/min (>60); Est Glom Filt Rate - Afr Amer 29 mL/min (>60); Glucose 99 mg/dL (74-106); Phosphorus 3.4 mg/dL (2.5-4.9); Potassium 3.2 mmol/L (3.5-5.1); Sodium Level 141 mmol/L (136-145)
== END | disposition home or self-care (01) ==
LOC: LAB.FUTURE 11:48 → POLAB3 12:06
PROVIDERS: PCP Family Medicine; Visit Provider Internal Medicine Nephrology
DX: N18.32 Chronic kidney disease, stage 3b (principal)
CPT/HCPCS: 36415; 80069; 83970; 85027

== ENCOUNTER 2023-03-14 10:58 | Inpatient (IN) | payer MEDICARE, SELFPAY ==
[2023-03-14] VITALS (12 sets, daily range): BP systolic 103–134; BP diastolic 58–93; PULSE 92–157; RESP 14–28; TEMP 36.1–36.7; O2SAT 89–98; BMI 22.7; BMI 24.7
--- NOTE | 2023-03-14 11:29 | ED.VIS.GI ---
HPI HPI - GI History of Present Illness Chief Complaint: GI Bleed Informant: patient Narrative Narrative: Presents with GI bleed and generalized weakness. Patient notes that about 2 days ago she had some black or stool. It then got a little bit red. It is now maroon. Slight increased frequency but no abdominal pain or cramping. She also just feels a little more weak and tired. She does feel that her heart rate is up a bit over the last couple days. But is trouble swallowing her pills. She did take her apixaban last night and her diltiazem. But she is not will to get it and metoprolol. Its more of a swallowing issue not vomiting. Patient states she was just recently started on iron for anemia. She states every time she starts on iron she has had GI bleed issues. She does not follow with a tripe scraper but believes she has seen them when she has been in the hospital. She is on Eliquis for atrial fibrillation. Although she has had a valve replaced it is evidently a porcine valve. She does not know which valve. 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 Cholecystitis Coronary artery disease Diplopia Essential hypertension History of breast cancer Hyperlipidemia Lower extremity edema Non-rheumatic mitral regurgitation Non-rheumatic tricuspid valve insufficiency PAD (peripheral artery disease) Home Medications atorvastatin 20 mg tablet 20 mg PO DAILY cholesterol 04/30/22 [History Last Taken Unknown] pantoprazole 40 mg tablet,delayed release (Protonix) 40 mg PO BID #30 tabs 11/13/22 [Rx Last Taken Unknown] budesonide 3 mg capsule,delayed,extended release 3 mg PO BID [facility] 11/17/22 [History Last Taken Unknown] cholecalciferol (vitamin D3) 125 mcg (5,000 unit) capsule 125 mcg PO DAILY 12/01/22 [History Last Taken Unknown] ferrous sulfate 325 mg (65 mg iron) tablet (Feosol) 325 mg PO DAILY 12/22/22 [History Last Taken Unknown] sennosides 8.6 mg-docusate sodium 50 mg tablet (2-in-1 Laxative) 1 tab-cap PO DAILY 12/22/22 [History Last Taken Unknown] apixaban 2.5 mg tablet (Eliquis) 2.5 mg PO BID #180 tabs 03/02/23 [Rx Last Taken Unknown] diltiazem HCl 240 mg capsule,extended release 24 hr (Cardizem CD) 240 mg PO DAILY #90 caps 03/02/23 [Rx Last Taken Unknown] furosemide 40 mg tablet 40 mg PO DAILY #90 tabs 03/02/23 [Rx Last Taken Unknown] lisinopril 20 mg tablet 20 mg PO DAILY Pt decreased to once a day #90 tabs 03/02/23 [Rx Last Taken Unknown] metoprolol succinate 100 mg tablet,extended release 24 hr 100 mg PO BID pt changed from Tartrate to Succinate #180 tabs 03/02/23 [Rx Last Taken Unknown] potassium chloride 20 mEq tablet,extended release 20 meq PO DAILY #90 tabs 03/02/23 [Rx Last Taken Unknown] digoxin 125 mcg (0.125 mg) tablet 125 mcg PO DAILY #90 tabs 03/03/23 [Rx Last Taken Unknown] Allergy/AdvReac Type Severity Reaction Status Date / Time Sulfa (Sulfonamide Allergy Hives Verified 03/14/23 10:58 Antibiotics) Family History Father Prostate cancer Mother CVA (cerebral vascular accident) Breast cancer Heart disease Other Anemia Surgical History Bilateral carotid artery disease History of aortic valve replacement with bioprosthetic valve (~09/18/11) History of coronary artery bypass surgery (~09/18/11) History of vascular surgery Peripheral vascular disease S/P anal fissurectomy S/P cholecystectomy S/P colonoscopy S/P lumpectomy, left breast Social History housing: apartment Smoking Status: Former smoker second hand exposure: No alcohol intake: current alcohol intake frequency: holidays/special occasions only substance use type: does not use caffeine: Yes what type of physical activity do you participate in: none frequency: does not exercise seatbelt use: always ROS ROS ED ROS Narrative A complete review of systems was performed and is negative except as documented in the history of present illness. Some specific details below. Constitutional: No recent fevers or chills. Some sense of malaise. EYE: No visual complaints ENT: Has some chronic problems swallowing pills but this is not new. CV: No chest pain can tell that her heart is going faster than normal at times. Respiratory: No dyspnea. No hemoptysis. No difficulty taking breaths. GI: Please see history of present illness. : No frequency dysuria or hematuria. Musculoskeletal: No recent trauma. No pains. Skin: No rash. Nondiaphoretic. Neuro: No weakness or numbness. Endocrine: No polyuria or polydipsia. EXAM Physical Exam Narrative Exam Narrative: CONSTITUTIONAL: Patient is nontoxic in appearance. The patient looks comfortable. Despite a heart rate of 140 she carries on a normal conversation and looks amazingly comfortable. HEENT: No notable trauma. Mucous membranes moist. No sinus tenderness. No indication of pain with swallowing. EYES: No conjunctival injection. No proptosis. Mild pallor but it is not marked. CARDIOVASCULAR: Tachycardic rate. Regularly irregular rhythm. No notable murmur. No JVD. classroom monitor shows atrial fibrillation with a heart rate that varies anywhere from about 130-150s. RESPIRATORY: No respiratory distress. Breathing is unlabored. No wheezes. No rhonchi. No rales. No pain with a deep breath. GASTROINTESTINAL: Not distended. Bowel sounds are normal. No tenderness. No guarding. No rebound. No palpable mass. No bruit. GENITOURINARY: No tenderness over the bladder. No CVA tenderness. MUSCULOSKELETAL: Atraumatic. No peripheral edema. No cord. No tenderness along the deep venous system. No asymmetry. NEUROLOGICAL: Patient is alert and appropriate. No focal deficit noted. SKIN: No noted rashes. No diaphoresis. She only has mild palmar pallor. PSYCHIATRIC: Patient is calm. Mood is appropriate. Const Vital Signs: 03/14/23 10:58 03/14/23 12:55 03/14/23 12:30 Temperature 97.6 F L Temperature Source Temporal Pulse Rate 92 130 H Respiratory Rate 14 18 Blood Pressure 103/85 H 134/78 H 134/78 H Blood Pressure Mean 91 96 96 Pulse Ox 94 Oxygen Delivery Method Room Air Oxygen Flow Rate (L/min) 03/14/23 13:27 03/14/23 13:27 Temperature Temperature Source Pulse Rate 116 H 111 H Respiratory Rate 28 H Blood Pressure 115/91 H Blood Pressure Mean 99 Pulse Ox 89 97 Oxygen Delivery Method Room Air Nasal Cannula Oxygen Flow Rate (L/min) 2 MDM MDM MDM Narrative Medical decision making narrative: Explained to the patient and her daughter the situation. She will likely need to come in. She does not look markedly pale. I think her tachycardia may be more from not getting her meds and then as a response to severe acute anemia. Although certainly both of these are contributing. I will give her a small dose of metoprolol. We will give her some IV fluids. We will check blood work. Patient CBC does show a drop in hemoglobin from her most recent level but similar to priors. Platelets are in the low normal range. White count is also mildly up. Electrolytes mild elevation of but much higher or elevation of the BUN which makes me think there may be upper GI bleed issue with nitrogen is absorption. Liver function test did show some elevation of AST ALT and total bilirubin. But she is not having any pain. Lactate was elevated. Likely due to her significant tachycardia. Patient was given 2 small doses of metoprolol. Her heart rate has come down to between about 90 and 105-110. Her blood pressure is actually holding well at anywhere 1 10-1 30. She feels well and in fact she feels better. Graph with her atrial fibrillation, rapid ventricular rate, anticoagulation on Eliquis, black bloody stools with hemoglobin loss and the above tachycardia with new acute anemia and elevation of BUN I think inpatient treatment is appropriate. This is not a patient safe to go home. Case was discussed with hospitalist. Lab Data Labs: Laboratory Results - last 24 hr 03/14/23 03/14/23 11:25 12:32 WBC 14.0 H RBC 3.54 L Hgb 9.6 L Hct 29.4 L MCV 83.1 MCH 27.1 MCHC 32.7 RDW Std Deviation 57.0 H RDW Coeff of Gypsy 18.8 H Plt Count 159 MPV 10.5 Immature Gran % (Auto) 0.900 Neut % (Auto) 89.0 H Lymph % (Auto) 4.7 L [place] % (Auto) 5.2 Eos % (Auto) 0.1 Baso % (Auto) 0.1 Absolute Neuts (auto) 12.5 H Absolute Lymphs (auto) 0.66 L Nucleated RBC % 0 PT 22.4 H INR 1.9 APTT 33.1 Sodium 138 Potassium 3.4 L Chloride 106 Carbon Dioxide 20.0 L Anion Gap 12 BUN 55 H Creatinine 2.33 H Estim Creat Clear Calc 13.14 Est GFR (MDRD) Af Amer 26 L Est GFR (MDRD) Non-Af 21 L BUN/Creatinine Ratio 23.6 H Glucose 102 Lactic Acid 2.8 H* Calcium 8.1 L Total Bilirubin 1.20 H AST 429 H ALT 213 H Alkaline Phosphatase 91 Total Protein 6.7 Albumin 2.9 L Globulin 3.8 Albumin/Globulin Ratio 0.8 L Blood Type O NEGATIVE Antibody Screen NEGATIVE Crossmatch See Detail Management Discussion w/another healthcare provider: Hospitalist Discharge Plan Triage Chief Complaint: GI Bleed ED Provider: Johnnie Hicks Dx/Rx/DC Orders Clinical Impression: Acute GI bleeding, Atrial fibrillation with rapid ventricular response, Acute anemia, Creatinine elevation, Medication induced coagulopathy Prescriptions: No Action atorvastatin 20 mg tablet 20 mg PO DAILY cholecalciferol (vitamin D3) 125 mcg (5,000 unit) capsule 125 mcg PO DAILY pantoprazole [Protonix] 40 mg tablet,delayed release (DR/EC) 40 mg PO BID Qty: 30 2RF sennosides-docusate sodium [2-in-1 Laxative] 8.6-50 mg tablet 1 tab-cap PO DAILY ferrous sulfate [Feosol] 325 mg (65 mg iron) tablet 325 mg PO DAILY budesonide 3 mg capsule,delayed,extend.release 3 mg PO BID diltiazem HCl [Cardizem CD] 240 mg capsule,extended release 24hr 240 mg PO DAILY Qty: 90 3RF metoprolol succinate 100 mg tablet extended release 24 hr 100 mg PO BID Qty: 180 3RF furosemide 40 mg tablet 40 mg PO DAILY Qty: 90 3RF Eliquis 2.5 mg tablet 2.5 mg PO BID Qty: 180 3RF lisinopril 20 mg tablet 20 mg PO DAILY Qty: 90 3RF Hold Instructions: Hold for 7 days. potassium chloride 20 mEq tablet extended release 20 meq PO DAILY Qty: 90 3RF digoxin 125 mcg (0.125 mg) tablet 125 mcg PO DAILY Qty: 90 3RF Primary Care Provider: Sg Brown Referrals: Sg Brown MD [Primary Care Provider] - Disposition Disposition: Acute Care [facility]
[2023-03-14 11:42] LABS: Absolute Lymphocyte Count 0.66 X10^3/uL (0.83-4.51); Absolute Neutrophil Count 12.5 X10^3/uL (2.0-7.7); Basophil# 0.02 X10^3/uL; Basophil% 0.1 % (0-1); Eosinophil# 0.01 X10^3/uL; Eosinophils% 0.1 % (0-5); Hematocrit 29.4 % (37-47); Hemoglobin 9.6 g/dL (12.0-15.0); Lymphocyte # 0.66 X10^3/ul (0.83-4.51); Lymphocyte % 4.7 % (19-41); Mean Corp Hgb Conc 32.7 g/dL (32-36); Mean Corpuscular Hgb 27.1 pg (27.0-32.0); Mean Corpuscular Volume 83.1 fL (81-99); Mean Platelet Vol. 10.5 fl (6.2-12.0); Monocyte# 0.73 X10^3/uL; Monocyte% 5.2 % (0-10); NRBC Flagged by Analyzer 0 % (0-5); Neutrophil # 12.48 X10^3/uL (2.7-7.7); Platelet Count 159 K/mm3 (150-450); RBC Distribution Width CV 18.8 % (11.6-14.6); Red Blood Count 3.54 M/mm3 (4.2-5.4)
[2023-03-14] MEDS: Metoprolol Tartrate 5 MG/5 ML Vial IV ×2 (11:48→13:19)
[2023-03-14] MEDS: 0.9% Normal Saline (1000mL) 500 ML 1000 ML IV (11:48)
[2023-03-14 11:58] LABS: ALB/GLOB Ratio 0.8 RATIO (0.9-2.4); AST(SGOT) 429 U/L (15-37); Alanine Aminotransfer ALT/SGPT 213 U/L (13-56); Albumin, Serum 2.9 g/dL (3.2-5.0); Alkaline Phosphatase 91 U/L (45-117); Anion Gap 12 (5-15); BUN 55 mg/dL (7-18); BUN/Creat Ratio 23.6 RATIO (10-20); Calcium,Total 8.1 mg/dL (8.5-10.1); Chloride 106 mmol/L (98-107); Creatinine, Serum 2.33 mg/dL (0.55-1.02); EST Glomerular Filtration Rate 21 mL/min (>60); Est Glom Filt Rate - Afr Amer 26 mL/min (>60); Estimated Creatinine Clearance 13.14 ml/min; Globulin 3.8 g/dL (2.2-4.2); Glucose 102 mg/dL (74-106); Potassium 3.4 mmol/L (3.5-5.1); Protein, Total 6.7 g/dL (6.4-8.2); Sodium Level 138 mmol/L (136-145)
[2023-03-14 12:03] LABS: International Normalized Ratio 1.9; Prothrombin Time (Protime)PT. 22.4 SECONDS (11.7-14.9)
[2023-03-14 12:04] LABS: Partial Thromboplast Time 33.1 Seconds (24.1-36.2)
[2023-03-14 13:10] LABS: Lactic Acid 2.8 mmol/L (0.4-1.9)
--- NOTE | 2023-03-14 14:18 | PCM.HP.STD ---
[facility] - General General Date of Admission: 03/14/23 Date of Service: 03/14/23 Chief Complaint: Melena HPI Narrative MIKE MENDOZA, is a 82 F who is on chronic anticoagulation for paroxysmal atrial fibrillation who presented to the emergency department at [facility] on 03/14/2023 for melena. Patient has also had associated shortness of breath, fatigue, and intermittent nausea which is chronic for her. She has chronic bilateral lower extremity edema as well but she states it is currently at her baseline. She has a history of autoimmune hepatitis and a colonoscopy and EGD were done at the [place] at [facility] earlier this summer. She is unclear of the date. She reports that her colonoscopy demonstrated multiple polyps but her EGD was unremarkable at that time. She sees a liver specialist at the [place] as well and appears that she is on chronic budesonide. She has had no vomiting and denies any hematochezia. She recently started on iron which she reports gets her constipated and she also then has trouble with hemorrhoidal bleeding when she starts iron however she denies any sick pacific bright red blood per rectum at this time. Vital signs on presentation demonstrated temperature of 97.6, heart rate has been anywhere between 90 and 130, blood pressure is 130/93, respiratory rate is between 14 and 28 and oxygen saturations were 89% on room air so she is been placed on 2 L and oxygen saturations are between 97 and 98%. CBC shows mild leukocytosis with a white count of 14,000 and an 89% neutrophilia. Her hemoglobin is 9.6 (most recent 02/08/2023 was 11.8), but it does appear that her hemoglobin does fluctuate quite a bit. Coags are elevated given her chronic apixaban use. Her chemistry panel shows mild hypokalemia with potassium of 3.4, and elevated BUN from baseline at 55 (baseline 30-40 and a serum creatinine of 2.33 which is very close to her baseline. Her lactic acid was 2.8. AST and ALT were elevated at 429 and 213 respectively however patient has chronic autoimmune hepatitis. EKG shows A-fib with RVR and a rate dependent right bundle branch block with no concerning ST-T wave changes and normal intervals. Blood type is O-. In the emergency department she was given IV fluids and a Protonix fluid bolus as well as IV metoprolol and her heart rate has improved from 130s to 115. 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 Anemia Aortic valve stenosis Atrial fibrillation, new onset Autoimmune hepatitis Carotid art occ w/o infarc Cholecystitis Coronary artery disease Diplopia Essential hypertension History of breast cancer Hyperlipidemia Lower extremity edema Non-rheumatic mitral regurgitation Non-rheumatic tricuspid valve insufficiency PAD (peripheral artery disease) Home Medications atorvastatin 20 mg tablet 20 mg PO DAILY cholesterol 04/30/22 [History Last Taken 03/12/23] pantoprazole 40 mg tablet,delayed release (Protonix) 40 mg PO BID GERD #30 tabs 11/13/22 [Rx Last Taken 03/12/23] budesonide 3 mg capsule,delayed,extended release 3 mg PO BID ordered by [place] specialist for liver issues 11/17/22 [History Last Taken 03/12/23] cholecalciferol (vitamin D3) 125 mcg (5,000 unit) capsule 125 mcg PO DAILY SUPP 12/01/22 [History Last Taken 03/12/23] ferrous sulfate 325 mg (65 mg iron) tablet (Feosol) 325 mg PO DAILY SUPPLEMENT 12/22/22 [History Last Taken 03/12/23] sennosides 8.6 mg-docusate sodium 50 mg tablet (2-in-1 Laxative) 1 tab-cap PO DAILY . 12/22/22 [History Last Taken 03/12/23] apixaban 2.5 mg tablet (Eliquis) 2.5 mg PO BID BLOOD THINN #180 tabs 03/02/23 [Rx Last Taken 03/13/23] diltiazem HCl 240 mg capsule,extended release 24 hr (Cardizem CD) 240 mg PO DAILY . #90 caps 03/02/23 [Rx Last Taken 03/13/23] furosemide 40 mg tablet 40 mg PO DAILY . #90 tabs 03/02/23 [Rx Last Taken 03/12/23] lisinopril 20 mg tablet 20 mg PO DAILY Pt decreased to once a day #90 tabs 03/02/23 [Rx Last Taken 03/12/23] potassium chloride 20 mEq tablet,extended release 20 meq PO DAILY SUPPLEMENT #90 tabs 03/02/23 [Rx Last Taken 03/12/23] digoxin 125 mcg (0.125 mg) tablet 125 mcg PO DAILY . #90 tabs 03/03/23 [Rx Last Taken 03/12/23] metoprolol tartrate 100 mg tablet 100 mg PO Q12H HTN 03/14/23 [History Last Taken 03/12/23] Allergy/AdvReac Type Severity Reaction Status Date / Time Sulfa (Sulfonamide Allergy Hives Verified 03/14/23 10:58 Antibiotics) Family History Father Prostate cancer Mother CVA (cerebral vascular accident) Breast cancer Heart disease Other Anemia Surgical History Bilateral carotid artery disease History of aortic valve replacement with bioprosthetic valve (~09/18/11) History of coronary artery bypass surgery (~09/18/11) History of vascular surgery Peripheral vascular disease S/P anal fissurectomy S/P cholecystectomy S/P colonoscopy S/P lumpectomy, left breast Social History housing: apartment Smoking Status: Former smoker second hand exposure: No alcohol intake: current alcohol intake frequency: holidays/special occasions only substance use type: does not use caffeine: Yes what type of physical activity do you participate in: none frequency: does not exercise seatbelt use: always ROS Review of Systems ROS Unobtainable: Denies due to encephalopathy, due to endotracheal tube, due to mental condition, due to mental status or other Constitutional Constitutional: Reports fatigue Eyes Eyes: Denies blurry vision, change in eye color, change in vision, discharge from eye(s), double vision, erythema, eye pain, loss of vision or other ENT HEENT: Denies abnormal hearing, dysphagia, ear pain, epistaxis, headache(s), hearing loss, nasal congestion, nasal discharge, post nasal drip, sinus pressure, sore throat or other Cardiovascular Cardiovascular: Reports edema and rapid heart rate; Denies chest pain, claudication, dyspnea on exertion, lightheadedness, orthopnea, palpitations, paroxysmal nocturnal dyspnea, syncope or other Respiratory/Chest Respiratory/Chest: Reports dyspnea and shortness of breath with exertion; Denies cough, excessive phlegm production, hemoptysis, productive cough, shortness of breath at rest, wheezing or other Gastrointestinal Gastrointestinal: Reports constipation, melena and nausea; Denies abdominal pain, coffee ground emesis, diarrhea, dyspepsia, hematemesis, hematochezia, loose stools, vomiting or other Genitourinary Genitourinary: Denies burning urination, difficulty urinating, dysuria, hematuria, nocturia, urinary frequency, urinary hesitancy, urinary incontinence, urinary urgency or other Musculoskeletal Musculoskeletal: Denies arthralgias, back pain, joint pain, joint stiffness, joint swelling, myalgias, neck pain or other Neurologic Neurologic: Denies abnormal gait, abnormal speech, confusion, disequilibrium, dizziness, focal weakness, headache(s), numbness, paresthesias, seizure-like activity, seizures, syncope, tingling, tremor(s) or other Psychiatric Psychiatric: Denies anxiety, depression, homicidal ideation, suicidal ideation or other Endocrine Endocrinology: Denies change in body appearance, cold intolerance, excessive sweating, heat intolerance, polydipsia, polyuria or other Hematologic/Lymphatic Hematologic/Lymphatic: Reports easy bruising; Denies anemia, easy bleeding, lymphadenopathy or other Allergic/Immunologic Allergic/Immunologic: Denies rhinitis, hives, eczemia, asthma or other Vital Signs Vital Signs Vital Signs: 03/14/23 10:58 03/14/23 12:55 03/14/23 12:30 Temperature 97.6 F L Temperature Source Temporal Pulse Rate 92 130 H Respiratory Rate 14 18 Blood Pressure 103/85 H 134/78 H 134/78 H Blood Pressure Mean 91 96 96 Pulse Ox 94 Oxygen Delivery Method Room Air Oxygen Flow Rate (L/min) 03/14/23 13:27 03/14/23 13:27 Temperature Temperature Source Pulse Rate 116 H 111 H Respiratory Rate 28 H Blood Pressure 115/91 H Blood Pressure Mean 99 Pulse Ox 89 97 Oxygen Delivery Method Room Air Nasal Cannula Oxygen Flow Rate (L/min) 2 Weight Weight: 52.753 kg Body Mass Index (BMI) 22.7 Physical Exam Const alert, oriented x3, no apparent distress and average body habitus; Negative for well nourished Constitutional Narrative: Thin, very pleasant elderly, white female, sitting up in bed, family at bedside, patient appears comfortable and nontoxic HEENT normocephalic, head/scalp atraumatic and moist oral mucous membranes HEENT Narrative: Mild hearing loss, edentulous but dentures in place, Mallampati 2, no thrush Eyes PERRL and EOMs intact bilaterally; Negative for conjunctivae normal Eyes Narrative: Conjunctiva are mildly pale bilaterally, no scleral icterus Neck no lymphadenopathy and supple Neck Narrative: Trachea midline, no thyroid Resp normal respiratory effort, no retractions, no use of accessory muscles and clear to auscultation bilaterally Auscultation: Negative for rales, rhonchi or wheezes Cardio S1 normal heart sound, S2 normal heart sound, no murmurs, no rub, no gallops and no clicks Cardio Narrative: Irregularly irregular rhythm with tachycardia GI normal to inspection, nondistended, normoactive bowel sounds, soft to palpation and non-tender Extremity Extremity Narrative: 2+ bilateral lower extremity pitting edema, no clubbing or cyanosis Skin no wounds, skin turgor normal and no mottling Skin Narrative: Skin is pale Neuro CN's II-XII intact bilaterally, moves all extremities and no focal motor deficits Psych affect normal Psych Narrative: Very pleasant, eye contact is good, patient interacts normally Results Lab / Micro Data Attestation: I reviewed the patient's lab results. 03/14/23 15:25 03/14/23 11:25 Labs: Laboratory Results - last 24 hr 03/14/23 11:25: WBC 14.0 H, RBC 3.54 L, Hgb 9.6 L, Hct 29.4 L, MCV 83.1, MCH 27.1, MCHC 32.7, RDW Std Deviation 57.0 H, RDW Coeff of Gypsy 18.8 H, Plt Count 159, MPV 10.5, Immature Gran % (Auto) 0.900, Neut % (Auto) 89.0 H, Lymph % (Auto) 4.7 L, [place] % (Auto) 5.2, Eos % (Auto) 0.1, Baso % (Auto) 0.1, Absolute Neuts (auto) 12.5 H, Absolute Lymphs (auto) 0.66 L, Nucleated RBC % 0, PT 22.4 H, INR 1.9, APTT 33.1, Sodium 138, Potassium 3.4 L, Chloride 106, Carbon Dioxide 20.0 L, Anion Gap 12, BUN 55 H, Creatinine 2.33 H, Estim Creat Clear Calc 13.14, Est GFR (MDRD) Af Amer 26 L, Est GFR (MDRD) Non-Af 21 L, BUN/Creatinine Ratio 23.6 H, Glucose 102, Calcium 8.1 L, Total Bilirubin 1.20 H, AST 429 H, ALT 213 H, Alkaline Phosphatase 91, Total Protein 6.7, Albumin 2.9 L, Globulin 3.8, Albumin/Globulin Ratio 0.8 L, Blood Type O NEGATIVE, Antibody Screen NEGATIVE, Crossmatch See Detail 03/14/23 12:32: Lactic Acid 2.8 H* EKG Initial EKG: Attestation: I personally reviewed and interpreted this EKG as follows: Prior EKG tracings: available for review EKG Rhythm Intrepretation: Atrial Fibrillation (With rapid ventricular rate, rate dependent bundle branch block with normal intervals and no ST-T wave changes concerning for acute ischemia) Assessment & Plan Assessment/Plan (1) GIB (gastrointestinal bleeding): (2) Acute on chronic anemia: (3) Tachycardia: (4) Hypokalemia: (5) Lactic acidosis: (6) Transaminitis: (7) Hypoxia: PLAN: Plan Melena with suspected upper GI bleed -Protonix bolus with drip -Hold home oral Protonix -Hold home apixaban -Every 6 hours H&H x3 -N.p.o. after midnight -Patient reports she had EGD and colonoscopy done within the last [address] [facility] ([facility]) -Reports colonoscopy had multiple polyps but EGD was unremarkable -GI consultation for probable EGD tomorrow Acute on chronic anemia -Baseline is unclear as it seems to fluctuate however most recent hemoglobin done here on 02/08/2023 was 11.8 -Hemoglobin on presentation was 9.6 -We will cycle hemoglobin -Type and screen performed -Transfuse for precipitous drop or hemoglobin less than 7 Lactic acidosis -Suspect related to GI bleed/A-fib with RVR/hypoxia -We will cycle per protocol -Should resolved with oxygen and gentle hydration/heart rate control Hypokalemia -P.o. potassium replacement -Recheck in a.m. -Check a.m. magnesium level Acute on chronic anemia -Baseline appears to fluctuate however her most recent hemoglobin was greater than 11 -Cycle every 6x3 -Transfuse for precipitous drop or hemoglobin less than 7 -Okay to continue home iron sulfate Hypoxia -Patient is not on oxygen at baseline -Desatted to 89% on room air in the emergency department and placed on 2 L with sats 97 to 98% since -Wean as able -We will check chest x-ray--> May be worsening heart failure with her RVR -If chest x-ray looks wet we will hold fluids and add IV Lasix as she does have lower extremity edema as well -Check BNP PAF -Patient is currently in A-fib with RVR -Hold Eliquis due to GI bleeding -Continue home digoxin, diltiazem, and metoprolol -Monitor on telemetry CAD/HTN/HPL -status post CABG in 2011 with a GANDHI to the obtuse marginal and an SVG to the right coronary artery -We will continue all of home antihypertensives for now -Continue home statin -Hold home oral Lasix -We will potentially start IV Lasix depending on chest x-ray and BNP ARIAN on CKD stage IIIb -Follows with Dr. Salma Finney -Renal atrophy noted on ultrasound -Serum creatinine is slowly trended up and is 2.33 today -May have some component of heart failure right now we will await follow-up lab -Most recent echocardiogram shows an EF of 55% with at least stage II diastolic dysfunction and severe left atrial enlargement with mild right atrial enlargement, moderate mitral valve insufficiency and moderate tricuspid valve insufficiency with a right ventricular systolic pressure 49 mmHg -If BNP is elevated will consider repeat echocardiogram Autoimmune hepatitis -I suspect this is the etiology of her transaminase elevation -No further work-up for now -Continue home budesonide encourage ongoing outpatient follow-up at [place] History of carotid artery stenosis/referral arterial disease -Continue ongoing medical therapy -Continue ongoing outpatient follow-up History of breast cancer -No current issues DVT prophylaxis -SCDs -Chemoprophylaxis contraindicated due to GI bleeding CODE STATUS -DNR CCA okay for short-term intubation per discussion on admission Charges/Coding Visit Charges Inpatient E&M: 27893 Init Hosp L3
--- NOTE | 2023-03-14 14:50 | ED.RN ---
CALLED PHARMACY FOR PROTONIX ORDER-STILL NOT IN ER
[2023-03-14] MEDS: Pantoprazole Sodium 80 MG in 0.9% Normal Saline (100mL Bag) 80 ML 10 MG CONT INF ×2 (14:55→19:39)
--- NOTE | 2023-03-14 15:00 | RAD_ITS ---
RAD/Chest 1 View (Portable) IMPRESSION: Findings may represent congestive heart failure exacerbation in the appropriate clinical setting. Electronically Signed: Willy Alegria MD at 17:05 EDT ,
[2023-03-14 15:32] LABS: Hemoglobin 9.2 g/dL (12.0-15.0)
[2023-03-14 16:37] LABS: Reflex Lactate? Y
[2023-03-14 18:18] LABS: BNP,B-Type NATRIURETIC PEPTIDE 845.1 pg/mL (0-100)
[2023-03-14] MEDS: Furosemide 40 MG/4 ML Vial IV (18:58)
[2023-03-14] MEDS: Pantoprazole Sodium 80 MG in 0.9% Normal Saline (50mL Bag) 15 ML 420 MG IV BOLUS (19:01)
[2023-03-14] MEDS: Potassium Chloride Oral Soln 20 MEQ/15 ML UDC 40 MEQ PO (19:39)
[2023-03-14] MEDS: dilTIAZem 30 MG Tablet PO (20:44)
[2023-03-14] MEDS: Metoprolol Tartrate 100 MG Tablet PO (20:55)
[2023-03-14] MEDS: Budesonide 3 MG CAPSULE.EC PO (20:56)
[2023-03-14 22:11] LABS: Hemoglobin 9.3 g/dL (12.0-15.0)
[2023-03-14] MEDS: dilTIAZem 25 MG/5 ML Vial 5 MG IV BOLUS (23:12)
[2023-03-14] MEDS: Acetaminophen 325 MG Tablet 650 MG PO (23:20)
[2023-03-15] VITALS (9 sets, daily range): BP systolic 99–117; BP diastolic 75–96; PULSE 88–121; RESP 16–18; TEMP 36.1–36.7; O2SAT 93–100
[2023-03-15 03:40] LABS: Absolute Lymphocyte Count 0.36 X10^3/uL (0.83-4.51); Absolute Neutrophil Count 7.4 X10^3/uL (2.0-7.7); Basophil# 0.01 X10^3/uL; Basophil% 0.1 % (0-1); Eosinophil# 0.01 X10^3/uL; Eosinophils% 0.1 % (0-5); Hematocrit 27.4 % (37-47); Hemoglobin 8.8 g/dL (12.0-15.0); Lymphocyte # 0.36 X10^3/ul (0.83-4.51); Lymphocyte % 4.4 % (19-41); Mean Corp Hgb Conc 32.1 g/dL (32-36); Mean Corpuscular Hgb 26.9 pg (27.0-32.0); Mean Corpuscular Volume 83.8 fL (81-99); Mean Platelet Vol. 9.9 fl (6.2-12.0); Monocyte# 0.41 X10^3/uL; NRBC Flagged by Analyzer 0.2 % (0-5); Neutrophil # 7.42 X10^3/uL (2.7-7.7); Neutrophil % 89.8 % (47-70); POSITIVE DIFFERENTIAL YES; Platelet Count 128 K/mm3 (150-450); RBC Distribution Width CV 18.9 % (11.6-14.6); Red Blood Count 3.27 M/mm3 (4.2-5.4); White Blood Count 8.3 K/mm3 (4.4-11.0)
[2023-03-15 04:58] LABS: Differential Comment SCANNED; Differential Indicated SCAN CRITERIA MET
[2023-03-15 05:12] LABS: ALB/GLOB Ratio 0.8 RATIO (0.9-2.4); AST(SGOT) 408 U/L (15-37); Alanine Aminotransfer ALT/SGPT 274 U/L (13-56); Albumin, Serum 2.7 g/dL (3.2-5.0); Alkaline Phosphatase 105 U/L (45-117); Anion Gap 9 (5-15); BUN 56 mg/dL (7-18); BUN/Creat Ratio 25.1 RATIO (10-20); Calcium,Total 7.9 mg/dL (8.5-10.1); Chloride 109 mmol/L (98-107); Creatinine, Serum 2.23 mg/dL (0.55-1.02); EST Glomerular Filtration Rate 22 mL/min (>60); Est Glom Filt Rate - Afr Amer 27 mL/min (>60); Estimated Creatinine Clearance 13.73 ml/min; Globulin 3.6 g/dL (2.2-4.2); Glucose 117 mg/dL (74-106); Magnesium 1.8 mg/dL (1.6-2.6); Phosphorus 3.2 mg/dL (2.5-4.9); Potassium 4.1 mmol/L (3.5-5.1); Protein, Total 6.3 g/dL (6.4-8.2); Sodium Level 139 mmol/L (136-145)
[2023-03-15] MEDS: Pantoprazole Sodium 80 MG in 0.9% Normal Saline (100mL Bag) 80 ML 10 MG CONT INF ×2 (05:27→15:38)
[2023-03-15] MEDS: Digoxin 125 MCG Tablet PO (07:58)
[2023-03-15] MEDS: dilTIAZem CD 240 MG Capsule PO (07:58)
[2023-03-15] MEDS: Metoprolol Tartrate 100 MG Tablet PO ×2 (07:58→21:50)
--- NOTE | 2023-03-15 08:06 | PCM.PN.HOSP ---
Reason for Visit Reason for Visit: Diagnoses Anemia, unspecified (03/14/23) Acidosis, unspecified (03/14/23) Hypokalemia (03/14/23) Gastrointestinal hemorrhage, unspecified (03/14/23) Tachycardia, unspecified (03/14/23) Hypoxemia (03/14/23) Diarrhea, unspecified (03/14/23) Elevation of levels of liver transaminase levels (03/14/23) Subjective Subjective Patient has had no further bowel movements, feeling less weak today, adamant that she wants to avoid scope if at all possible, still does not have a wonderful appetite but no nausea or vomiting, no abdominal pain. Objective Data Objective Data Vital Signs: Vital Signs Temp Pulse Resp BP Pulse Ox O2 Del Method O2 Flow Rate 97.9 F 121 H 18 112/75 95 Nasal Cannula 2 03/15/23 04:49 03/15/23 07:58 03/15/23 04:49 03/15/23 07:58 03/15/23 04:49 03/15/23 04:49 03/14/23 23:31 Oxygen Flow Rate (L/min) 2 Oxygen Delivery Method Nasal Cannula Weight: 57.4 kg Body Mass Index (BMI) 24.7 Intake & Output: Intake and Output for Last 24 Hours 03/13/23 03/14/23 03/15/23 23:59 23:59 23:59 Intake Total 921.33 / 921.33 98 / 98 Balance 921.33 / 921.33 98 / 98 Lab / Micro Data 03/15/23 03:27 03/15/23 03:27 Labs: Laboratory Results - last 24 hr 03/14/23 11:25: WBC 14.0 H, RBC 3.54 L, Hgb 9.6 L, Hct 29.4 L, MCV 83.1, MCH 27.1, MCHC 32.7, RDW Std Deviation 57.0 H, RDW Coeff of Gypsy 18.8 H, Plt Count 159, MPV 10.5, Immature Gran % (Auto) 0.900, Neut % (Auto) 89.0 H, Lymph % (Auto) 4.7 L, [place] % (Auto) 5.2, Eos % (Auto) 0.1, Baso % (Auto) 0.1, Absolute Neuts (auto) 12.5 H, Absolute Lymphs (auto) 0.66 L, Nucleated RBC % 0, PT 22.4 H, INR 1.9, APTT 33.1, Sodium 138, Potassium 3.4 L, Chloride 106, Carbon Dioxide 20.0 L, Anion Gap 12, BUN 55 H, Creatinine 2.33 H, Estim Creat Clear Calc 13.14, Est GFR (MDRD) Af Amer 26 L, Est GFR (MDRD) Non-Af 21 L, BUN/Creatinine Ratio 23.6 H, Glucose 102, Calcium 8.1 L, Total Bilirubin 1.20 H, AST 429 H, ALT 213 H, Alkaline Phosphatase 91, Total Protein 6.7, Albumin 2.9 L, Globulin 3.8, Albumin/Globulin Ratio 0.8 L, Blood Type O NEGATIVE, Antibody Screen NEGATIVE, Crossmatch See Detail 03/14/23 12:32: Lactic Acid 2.8 H* 03/14/23 15:25: Hgb 9.2 L, B-Natriuretic Peptide 845.1 H 03/14/23 17:29: Lactic Acid 2.0 03/14/23 21:15: Hgb 9.3 L 03/15/23 03:27: WBC 8.3, RBC 3.27 L, Hgb 8.8 L, Hct 27.4 L, MCV 83.8, MCH 26.9 L, MCHC 32.1, RDW Std Deviation 58.0 H, RDW Coeff of Gypsy 18.9 H, Plt Count 128 L, MPV 9.9, Immature Gran % (Auto) 0.600, Neut % (Auto) 89.8 H, Lymph % (Auto) 4.4 L, [place] % (Auto) 5.0, Eos % (Auto) 0.1, Baso % (Auto) 0.1, Absolute Neuts (auto) 7.4, Absolute Lymphs (auto) 0.36 L, Nucleated RBC % 0.2, Differential Comment SCANNED, Sodium 139, Potassium 4.1, Chloride 109 H, Carbon Dioxide 21.0, Anion Gap 9, BUN 56 H, Creatinine 2.23 H, Estim Creat Clear Calc 13.73, Est GFR (MDRD) Af Amer 27 L, Est GFR (MDRD) Non-Af 22 L, BUN/Creatinine Ratio 25.1 H, Glucose 117 H, Calcium 7.9 L, Phosphorus 3.2, Magnesium 1.8, Total Bilirubin 0.80, AST 408 H, ALT 274 H, Alkaline Phosphatase 105, Total Protein 6.3 L, Albumin 2.7 L, Globulin 3.6, Albumin/Globulin Ratio 0.8 L Micro: Microbiology 03/14/23 20:35 Stool C. difficile DNA Amplification - Final 03/14/23 20:35 Stool Stool Occult Blood (KARLO) - Final Radiography Diagnostic Testing: Radiology Impression Chest X-Ray 03/14/23 15:00 IMPRESSION: Findings may represent congestive heart failure exacerbation in the appropriate clinical setting. Electronically Signed: Willy Alegria MD at 17:05 EDT , Physical Exam Narrative General: Alert, oriented, no apparent distress HEENT: Atraumatic, normocephalic Eyes: Anicteric, normal conjunctiva, extraocular movements grossly intact Neck: Supple Respiratory: Somewhat diminished at the bases, normal respiratory effort Cardiovascular: Regular rate and irregular rhythm GI: Soft, nontender, nondistended Extremities: Bilateral lower extremities wrapped Musculoskeletal: Moving all extremities Neuro: No overt focal neurological deficits Skin: No rashes appreciated Psych: Overall cooperative Assessment & Plan Assessment/Plan (1) GIB (gastrointestinal bleeding): (2) Acute on chronic anemia: (3) Tachycardia: (4) Hypokalemia: (5) Lactic acidosis: (6) Transaminitis: (7) Hypoxia: PLAN: Plan Melena with suspected upper GI bleed -Protonix bolus with drip -Hold home oral Protonix -Hold home apixaban -Every 6 hours H&H x3 -N.p.o. after midnight -Patient reports she had EGD and colonoscopy done within the last 6 months at the [facility] ([facility]) -Reports colonoscopy had multiple polyps but EGD was unremarkable -GI consultation for probable EGD tomorrow -03/15: Hemoglobin 8.8, slightly down from presentation, continue PPI drip, continue iron, GI consult for patient would like to avoid repeat scopes if possible, order for diet was placed, monitoring hemoglobin Acute on chronic anemia -Baseline is unclear as it seems to fluctuate however most recent hemoglobin done here on 02/08/2023 was 11.8 -Hemoglobin on presentation was 9.6 -We will cycle hemoglobin -Type and screen performed -Transfuse for precipitous drop or hemoglobin less than 7 -03/15: As above, has not yet required transfusion Hypoxia secondary to acute exacerbation of chronic heart failure with preserved ejection fraction -Patient is not on oxygen at baseline -Desatted to 89% on room air in the emergency department and placed on 2 L with sats 97 to 98% since -Wean as able -We will check chest x-ray--> May be worsening heart failure with her RVR -If chest x-ray looks wet we will hold fluids and add IV Lasix as she does have lower extremity edema as well -Check BNP -03/15: BNP elevated, patient placed on IV Lasix, O2 saturations improved and doing well on 2 L of O2 at present, had recent echocardiogram 10/21/2022 with EF of 55% but grade 2 diastolic dysfunction, suspect that her A-fib with RVR is caused heart failure exacerbation, also of note her echo had severely enlarged left atrium with severe mitral annular calcifications and moderate 2+ mitral valve insufficiency, RVSP 49 and moderate tricuspid insufficiency, Continue Lasix PAF with RVR -Patient is currently in A-fib with RVR -Hold Eliquis due to GI bleeding -Continue home digoxin, diltiazem, and metoprolol -Monitor on telemetry -03/15: Required extra doses of diltiazem overnight, will get her metoprolol, diltiazem, digoxin this a.m., continue to hold anticoagulation, monitoring on telemetry ARIAN on CKD stage IIIb -Follows with Dr. Salma Finney -Renal atrophy noted on ultrasound -Serum creatinine is slowly trended up and is 2.33 today -May have some component of heart failure right now we will await follow-up lab -Most recent echocardiogram shows an EF of 55% with at least stage II diastolic dysfunction and severe left atrial enlargement with mild right atrial enlargement, moderate mitral valve insufficiency and moderate tricuspid valve insufficiency with a right ventricular systolic pressure 49 mmHg -If BNP is elevated will consider repeat echocardiogram -03/15: Slightly down today, continue supportive care, holding lisinopril given ARIAN, suspect patient volume overloaded so we will give Lasix Lactic acidosis -Suspect related to GI bleed/A-fib with RVR/hypoxia -We will cycle per protocol -Should resolved with oxygen and gentle hydration/heart rate control -03/15: Lactic normalized with supportive care Hypokalemia -P.o. potassium replacement -Recheck in a.m. -Check a.m. magnesium level -03/15: Stable today, mag 1.8 and goal is 2, will give magnesium CAD/HTN/HPL -status post CABG in 2011 with a GANDHI to the obtuse marginal and an SVG to the right coronary artery -We will continue all of home antihypertensives for now -Continue home statin -Hold home oral Lasix -We will potentially start IV Lasix depending on chest x-ray and BNP -03/15: Continue beta-sergey and Lasix Autoimmune hepatitis -I suspect this is the etiology of her transaminase elevation -No further work-up for now -Continue home budesonide encourage ongoing outpatient follow-up at [place] -03/15: Similar to yesterday, continue present management into the monitor, continue budesonide History of carotid artery stenosis/referral arterial disease -Continue ongoing medical therapy -Continue ongoing outpatient follow-up History of breast cancer -No current issues DVT prophylaxis -SCDs -Chemoprophylaxis contraindicated due to GI bleeding CODE STATUS -DNR CCA okay for short-term intubation per discussion on admission Time spent in the patient's overall evaluation,decision-making process, review of diagnostic data, adjustment of management, discussion with other providers, nursing nursing and ancillary staff involved in patient's care documentation, 51 minutes Charges/Coding Visit Charges Inpatient E&M: 75681 [place] [id number]
--- NOTE | 2023-03-15 10:25 | CASEMGMT ---
LORENZO URRUTIA Face to Face with patient for initial transition planning/care coordination assessment. LORENZO URRUTIA introduced self and role at [facility]. Patient lying in bed, alert and oriented, niece at bedside. Patient willing to participate in assessment and is able to answer all questions appropriately. Care providers, pharmacy, and demographics verified. Patient wishes to discharge home with possible outpatient therapy. Patient states she has no further needs or concerns at this time. CM to follow for discharge planning needs that may arise. 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 Patient is independent at home. Transportation: [employer] DME/HHC: Patient has raised toilet, cane, grab bars, walker, and pulse ox at home. No previous HHC. Patient has been to [facility] in the past. Disposition Plan: Patient to discharge home with family support and follow-up plans in place. Will monitor for outpatient therapy. Ritu DOSHI, RN, CM
[2023-03-15] MEDS: Potassium Chloride Oral Tablet 20 MEQ PO (11:29)
[2023-03-15] MEDS: Budesonide 3 MG CAPSULE.EC PO ×2 (11:30→21:50)
[2023-03-15] MEDS: Ferrous Sulfate 325 MG Tablet PO (11:30)
[2023-03-15] MEDS: Cholecalciferol (Vit D3) 125 MCG CAPSULE (5,000 UNITS) PO (11:30)
[2023-03-15] MEDS: Furosemide 40 MG/4 ML Vial IV (11:31)
[2023-03-15] MEDS: Magnesium Chloride 64 MG Delay Rel.Tablet 128 MG PO ×2 (11:34→21:51)
[2023-03-15] MEDS: Lidocaine 5% Patch 1 PATCH TOPICAL (17:15)
[2023-03-15] MEDS: Glucerna Shake 120 ML LIQUID PO ×2 (17:15→21:51)
--- NOTE | 2023-03-15 17:20 | CON.PCM.GI_ITS ---
HPI Consult Data Date of Consult: 03/15/23 HPI Narrative Reason for Consultation: GI bleed HPI Narrative: MIKE MENDOZA, is a 82 F who presents with fatigue and shortness of breath. She has a history of atrial fibrillation, coronary artery disease status post CABG in 2011 with a GANDHI to the obtuse marginal and an SVG to the right coronary artery. Intact left ventricular systolic function and stage II diastolic dysfunction. She had a subsequent hospitalization for TIA and anemia. She was seen in the ER 2 weeks ago for Afib with RVR. Patient was currently on Cardizem 240 mg metoprolol 100 mg. Her heart rates were fluctuating between the 110s to 120s. We added digoxin at 125 mcg daily. She does follow with the [facility] for chronic bilateral venous stasis. She also established with Dr. Finney for kidney disease. Patient notes that about 2 days ago she had some black or stool. It then got a little bit red. It is now maroon. Slight increased frequency but no abdominal pain or cramping. She also just feels a little more weak and tired. She does feel that her heart rate is up a bit over the last couple days. But is trouble swallowing her pills. She did take her apixaban last night and her diltiazem. But she is not will to get it and metoprolol. Its more of a swallowing issue not vomiting. Patient states she was just recently started on iron for anemia. She states every time she starts on iron she has had GI bleed issues. 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 She is on Eliquis for atrial fibrillation. Although she has had a valve replaced it is evidently a porcine valve. She does not know which valve. She also has a history of autoimmune hepatitis and is being maintained on budesonide 3 mg a day. When she came to the ED her AST was 240 and ALT of 420. Previously they were 40 and 50 respectively. 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 Anemia Aortic valve stenosis Atrial fibrillation, new onset Autoimmune hepatitis Carotid art occ w/o infarc Cholecystitis Chronic pain Cirrhosis Congestive heart failure (CHF) Coronary artery disease Diplopia Essential hypertension Former smoker Hepatitis History of breast cancer Hyperlipidemia Lower extremity edema Non-rheumatic mitral regurgitation Non-rheumatic tricuspid valve insufficiency Osteoporosis PAD (peripheral artery disease) Rheumatoid arthritis Sleep apnea Home Medications atorvastatin 20 mg tablet 20 mg PO DAILY cholesterol 04/30/22 [History Last Taken 03/12/23] pantoprazole 40 mg tablet,delayed release (Protonix) 40 mg PO BID GERD #30 tabs 11/13/22 [Rx Last Taken 03/12/23] budesonide 3 mg capsule,delayed,extended release 3 mg PO BID [facility] 11/17/22 [History Last Taken 03/12/23] cholecalciferol (vitamin D3) 125 mcg (5,000 unit) capsule 125 mcg PO DAILY SUPP 12/01/22 [History Last Taken 03/12/23] ferrous sulfate 325 mg (65 mg iron) tablet (Feosol) 325 mg PO DAILY SUPPLEMENT 12/22/22 [History Last Taken 03/12/23] sennosides 8.6 mg-docusate sodium 50 mg tablet (2-in-1 Laxative) 1 tab-cap PO DAILY . 12/22/22 [History Last Taken 03/12/23] apixaban 2.5 mg tablet (Eliquis) 2.5 mg PO BID BLOOD THINN #180 tabs 03/02/23 [Rx Last Taken 03/13/23] diltiazem HCl 240 mg capsule,extended release 24 hr (Cardizem CD) 240 mg PO DAILY . #90 caps 03/02/23 [Rx Last Taken 03/13/23] furosemide 40 mg tablet 40 mg PO DAILY . #90 tabs 03/02/23 [Rx Last Taken 03/12/23] lisinopril 20 mg tablet 20 mg PO DAILY Pt decreased to once a day #90 tabs 03/02/23 [Rx Last Taken 03/12/23] potassium chloride 20 mEq tablet,extended release 20 meq PO DAILY SUPPLEMENT #90 tabs 03/02/23 [Rx Last Taken 03/12/23] digoxin 125 mcg (0.125 mg) tablet 125 mcg PO DAILY . #90 tabs 03/03/23 [Rx Last Taken 03/12/23] metoprolol tartrate 100 mg tablet 100 mg PO Q12H HTN 03/14/23 [History Last Taken 03/12/23] Allergy/AdvReac Type Severity Reaction Status Date / Time Sulfa (Sulfonamide Allergy Hives Verified 03/14/23 10:58 Antibiotics) Family History Father Prostate cancer Mother CVA (cerebral vascular accident) Breast cancer Heart disease Other Anemia Surgical History (Updated 03/14/23 @ 16:42 by Alexa iVllalta) Bilateral carotid artery disease History of aortic valve replacement with bioprosthetic valve (~09/18/11) History of cholecystectomy History of coronary artery bypass surgery (~09/18/11) History of vascular surgery Peripheral vascular disease S/P anal fissurectomy S/P cholecystectomy S/P colonoscopy S/P lumpectomy, left breast Social History housing: apartment Smoking Status: Former smoker second hand exposure: No alcohol intake: current alcohol intake frequency: holidays/special occasions only substance use type: does not use caffeine: Yes what type of physical activity do you participate in: none frequency: does not exercise seatbelt use: always ROS Review of Systems ROS Unobtainable: Denies due to encephalopathy, due to endotracheal tube, due to mental condition, due to mental status or other Constitutional Constitutional: Reports fatigue Eyes Eyes: Denies blurry vision, change in eye color, change in vision, discharge fr om eye(s), double vision, erythema, eye pain, loss of vision or other ENT HEENT: Denies abnormal hearing, dysphagia, ear pain, epistaxis, headache(s), hearing loss, nasal congestion, nasal discharge, post nasal drip, sinus pressure, sore throat or other Cardiovascular Cardiovascular: Reports edema and rapid heart rate; Denies chest pain, claudication, dyspnea on exertion, lightheadedness, orthopnea, palpitations, paroxysmal nocturnal dyspnea, syncope or other Respiratory/Chest Respiratory/Chest: Reports dyspnea and shortness of breath with exertion; Denies cough, excessive phlegm production, hemoptysis, productive cough, shortness of breath at rest, wheezing or other Gastrointestinal Gastrointestinal: Reports constipation, melena and nausea; Denies abdominal pain, coffee ground emesis, diarrhea, dyspepsia, hematemesis, hematochezia, loose stools, vomiting or other Genitourinary Genitourinary: Denies burning urination, difficulty urinating, dysuria, hematuria, nocturia, urinary frequency, urinary hesitancy, urinary incontinence, urinary urgency or other Musculoskeletal Musculoskeletal: Denies arthralgias, back pain, joint pain, joint stiffness, joint swelling, myalgias, neck pain or other Neurologic Neurologic: Denies abnormal gait, abnormal speech, confusion, disequilibrium, dizziness, focal weakness, headache(s), numbness, paresthesias, seizure-like activity, seizures, syncope, tingling, tremor(s) or other Psychiatric Psychiatric: Denies anxiety, depression, homicidal ideation, suicidal ideation or other Endocrine Endocrinology: Denies change in body appearance, cold intolerance, excessive sweating, heat intolerance, polydipsia, polyuria or other Hematologic/Lymphatic Hematologic/Lymphatic: Reports easy bruising; Denies anemia, easy bleeding, lymphadenopathy or other Allergic/Immunologic Allergic/Immunologic: Denies rhinitis, hives, eczemia, asthma or other Physical Exam Narrative General: Alert, oriented, no apparent distress HEENT: Atraumatic, normocephalic Eyes: Anicteric, normal conjunctiva, extraocular movements grossly intact Neck: Supple Respiratory: Somewhat diminished at the bases, normal respiratory effort Cardiovascular: Regular rate and irregular rhythm GI: Soft, nontender, nondistended Extremities: Bilateral lower extremities wrapped Musculoskeletal: Moving all extremities Neuro: No overt focal neurological deficits Skin: No rashes appreciated Psych: Overall cooperative Lab / Micro Data 03/15/23 03:27 03/15/23 03:27 Labs: Laboratory Results - last 24 hr 03/14/23 15:25: B-Natriuretic Peptide 845.1 H 03/14/23 17:29: Lactic Acid 2.0 03/14/23 21:15: Hgb 9.3 L 03/15/23 03:27: WBC 8.3, RBC 3.27 L, Hgb 8.8 L, Hct 27.4 L, MCV 83.8, MCH 26.9 L , MCHC 32.1, RDW Std Deviation 58.0 H, RDW Coeff of Gyspy 18.9 H, Plt Count 128 L, MPV 9.9, Immature Gran % (Auto) 0.600, Neut % (Auto) 89.8 H, Lymph % (Auto) 4.4 L, Pitt % (Auto) 5.0, Eos % (Auto) 0.1, Baso % (Auto) 0.1, Absolute Neuts (auto) 7.4, Absolute Lymphs (auto) 0.36 L, Nucleated RBC % 0.2, Differential Comment SCANNED, Sodium 139, Potassium 4.1, Chloride 109 H, Carbon Dioxide 21.0, Anion Gap 9, BUN 56 H, Creatinine 2.23 H, Estim Creat Clear Calc 13.73, Est GFR (MDRD) Af Amer 27 L, Est GFR (MDRD) Non-Af 22 L, BUN/Creatinine Ratio 25.1 H, Glucose 117 H, Calcium 7.9 L, Phosphorus 3.2, Magnesium 1.8, Total Bilirubin 0.80, AST 408 H, ALT 274 H, Alkaline Phosphatase 105, Total Protein 6.3 L, Albumin 2.7 L, Globulin 3.6, Albumin/Globulin Ratio 0.8 L Micro: Microbiology 03/14/23 20:35 Stool C. difficile DNA Amplification - Final 03/14/23 20:35 Stool Stool Occult Blood (KARLO) - Final Assessment & Plan Assessment/Plan (1) GIB (gastrointestinal bleeding): (2) Acute on chronic anemia: (3) Tachycardia: (4) Hypokalemia: (5) Lactic acidosis: (6) Transaminitis: (7) Hypoxia: PLAN: Plan Melena with suspected upper GI bleed - She is on Protonix drip -Patient reports she had EGD and colonoscopy done within the last 6 months at the [facility] ([facility]) -Reports colonoscopy had multiple polyps but EGD was unremarkable -The differential diagnosis for her would be Eliquis to induce GI bleed, angiodysplasia associated with port hypertension in setting of thrombocytopenia and chronic autoimmune hepatitis. -Patient does not want endoscopy at this time. Acute on chronic anemia - 11.8 to 9.6 to 8.8 -We will cycle hemoglobin -Type and screen performed -Transfuse for precipitous drop or hemoglobin less than 7 Autoimmune hepatitis -Her liver enzymes are elevated. In the setting of bilateral venous stasis and atrial fibrillation with RVR recently I will check an aldolase and CPK to make sure was coming from the liver. Patient says she has been stable on budesonide 3 mg but cannot recall if she was ever induced with prednisone or offered azath ioprine. At this time it could be demand ischemic hepatitis because of her recent atrial fibrillation with RVR. I would not condon to put her on steroids at this time until we know more about her autoimmune hepatitis. Charges/Coding Visit Charges Inpatient E&M: 32847 Init Hosp L3
[2023-03-15 18:19] LABS: Erythrocyte Sedimentation Rate 25 mm/hr (0-30)
[2023-03-15 18:22] LABS: CPK Total, Creatine Kinase 252 U/L (26-192)
[2023-03-15] MEDS: 0.9% Normal Saline 250 ML IV.SOLN. IV (19:08)
[2023-03-15] MEDS: Acetaminophen 325 MG Tablet 650 MG PO (20:22)
[2023-03-15] MEDS: Atorvastatin Calcium 20 MG Tablet PO (21:50)
[2023-03-16] VITALS (12 sets, daily range): BP systolic 103–129; BP diastolic 60–87; PULSE 76–97; RESP 16; TEMP 36.3–36.8; O2SAT 89–98
[2023-03-16 05:37] LABS: Absolute Lymphocyte Count 0.41 X10^3/uL (0.83-4.51); Absolute Neutrophil Count 5.4 X10^3/uL (2.0-7.7); Eosinophil# 0.01 X10^3/uL; Eosinophils% 0.2 % (0-5); Hematocrit 30.5 % (37-47); Hemoglobin 9.2 g/dL (12.0-15.0); Lymphocyte # 0.41 X10^3/ul (0.83-4.51); Lymphocyte % 6.6 % (19-41); Mean Corp Hgb Conc 30.2 g/dL (32-36); Mean Corpuscular Hgb 25.8 pg (27.0-32.0); Mean Corpuscular Volume 85.7 fL (81-99); Mean Platelet Vol. 10.9 fl (6.2-12.0); Monocyte# 0.32 X10^3/uL; Monocyte% 5.2 % (0-10); NRBC Flagged by Analyzer 0.5 % (0-5); Neutrophil # 5.41 X10^3/uL (2.7-7.7); Neutrophil % 87.2 % (47-70); POSITIVE DIFFERENTIAL YES; Platelet Count 146 K/mm3 (150-450); RBC Distribution Width CV 18.8 % (11.6-14.6); RBC Distribution Width SD 59.1 fl (35.1-43.9); Red Blood Count 3.56 M/mm3 (4.2-5.4); White Blood Count 6.2 K/mm3 (4.4-11.0)
[2023-03-16 05:39] LABS: Differential Indicated SCAN CRITERIA MET
[2023-03-16 06:09] LABS: Differential Comment SCANNED
[2023-03-16 06:12] LABS: ALB/GLOB Ratio 0.7 RATIO (0.9-2.4); AST(SGOT) 165 U/L (15-37); Alanine Aminotransfer ALT/SGPT 211 U/L (13-56); Albumin, Serum 2.7 g/dL (3.2-5.0); Alkaline Phosphatase 107 U/L (45-117); Anion Gap 8 (5-15); BUN 59 mg/dL (7-18); BUN/Creat Ratio 23.5 RATIO (10-20); Calcium,Total 7.8 mg/dL (8.5-10.1); Chloride 110 mmol/L (98-107); Creatinine, Serum 2.51 mg/dL (0.55-1.02); EST Glomerular Filtration Rate 19 mL/min (>60); Est Glom Filt Rate - Afr Amer 24 mL/min (>60); Globulin 3.7 g/dL (2.2-4.2); Glucose 140 mg/dL (74-106); Potassium 4.3 mmol/L (3.5-5.1); Protein, Total 6.4 g/dL (6.4-8.2); Sodium Level 137 mmol/L (136-145)
[2023-03-16] MEDS: Cholecalciferol (Vit D3) 125 MCG CAPSULE (5,000 UNITS) PO (10:13)
[2023-03-16] MEDS: Budesonide 3 MG CAPSULE.EC PO ×2 (10:14→22:05)
[2023-03-16] MEDS: dilTIAZem CD 240 MG Capsule PO (10:14)
[2023-03-16] MEDS: Potassium Chloride Oral Tablet 20 MEQ PO (10:14)
[2023-03-16] MEDS: Ferrous Sulfate 325 MG Tablet PO (10:14)
[2023-03-16] MEDS: Digoxin 125 MCG Tablet PO (10:14)
[2023-03-16] MEDS: Metoprolol Tartrate 50 MG Tablet PO ×2 (10:26→22:05)
[2023-03-16] MEDS: Pantoprazole Sodium 40 MG Tablet PO ×2 (10:26→22:07)
[2023-03-16 13:16] LABS: Anion Gap 10 (5-15); BUN 63 mg/dL (7-18); BUN/Creat Ratio 22.9 RATIO (10-20); Calcium,Total 8.3 mg/dL (8.5-10.1); Chloride 108 mmol/L (98-107); Creatinine, Serum 2.75 mg/dL (0.55-1.02); EST Glomerular Filtration Rate 18 mL/min (>60); Est Glom Filt Rate - Afr Amer 21 mL/min (>60); Estimated Creatinine Clearance 11.13 ml/min; Glucose 133 mg/dL (74-106); Potassium 4.2 mmol/L (3.5-5.1); Sodium Level 136 mmol/L (136-145)
--- NOTE | 2023-03-16 13:40 | PCM.PN.HOSP ---
Reason for Visit Reason for Visit: Diagnoses Anemia, unspecified (03/14/23) Acidosis, unspecified (03/14/23) Hypokalemia (03/14/23) Gastrointestinal hemorrhage, unspecified (03/14/23) Tachycardia, unspecified (03/14/23) Hypoxemia (03/14/23) Diarrhea, unspecified (03/14/23) Elevation of levels of liver transaminase levels (03/14/23) Subjective Subjective Patient this morning reporting feeling better and adamant she would like to go home because she has an appointment in [place] tomorrow, IV placement had been successful overnight and this a.m. and patient very hesitant to proceed with further IV sticks as she reports it is making her very distressed and that in turn makes her short of breath. Discussed importance of trying another small fluid bolus given her worsening kidney function and she would like to try improving p.o. intake and holding Lasix first as she had not been eating or drinking most of the day yesterday, agreed to try this and recheck in the afternoon, afternoon recheck was worse and still not urinating very well. Discussed with patient need to get nephrology input and she was upset about having to stay and be evaluated but ultimately agreeable. Also when I went to discuss with her in the room she had been in the chair and trying to get back in bed add onto AM labs if possible was only partially on the bed, worked with physical therapy and aide to get her back in bed she denied any dizziness but said she felt diffusely weak and that is why it was hard for her to get back in bed herself Objective Data Objective Data Vital Signs: Vital Signs Temp Pulse Resp BP Pulse Ox O2 Del Method O2 Flow Rate 97.4 F L 91 16 129/87 H 97 Room Air 0 03/16/23 09:37 03/16/23 10:26 03/16/23 09:37 03/16/23 10:26 03/16/23 12:13 03/16/23 09:43 03/16/23 12:13 Oxygen Flow Rate (L/min) [ 0 AMBULATING on Room Air] Oxygen Flow Rate (L/min) [At 0 REST on Room Air] Oxygen Flow Rate (L/min) 2 Oxygen Delivery Method Room Air Weight: 57.4 kg Body Mass Index (BMI) 24.7 Intake & Output: Intake and Output for Last 24 Hours 03/14/23 03/15/23 03/16/23 23:59 23:59 23:59 Intake Total 921.33 / 921.33 558 / 558 500 / 500 Output Total 0 / 0 100 / 100 Balance 921.33 / 921.33 558 / 558 400 / 400 Lab / Micro Data 03/16/23 04:58 03/16/23 12:25 Labs: Laboratory Results - last 24 hr 03/15/23 03:27: ESR 25, Total Creatine Kinase 252 H, C-React Prot Ext Range 145.00 H 03/16/23 04:58: WBC 6.2, RBC 3.56 L, Hgb 9.2 L, Hct 30.5 L, MCV 85.7, MCH 25.8 L, MCHC 30.2 L D, RDW Std Deviation 59.1 H, RDW Coeff of Gypsy 18.8 H, Plt Count 146 L, MPV 10.9, Immature Gran % (Auto) 0.800, Neut % (Auto) 87.2 H, Lymph % (Auto) 6.6 L, Bullock % (Auto) 5.2, Eos % (Auto) 0.2, Baso % (Auto) 0.0, Absolute Neuts (auto) 5.4, Absolute Lymphs (auto) 0.41 L, Nucleated RBC % 0.5, Differential Comment SCANNED, Sodium 137, Potassium 4.3, Chloride 110 H, Carbon Dioxide 19.0 L, Anion Gap 8, BUN 59 H, Creatinine 2.51 H, Estim Creat Clear Calc 12.20, Est GFR (MDRD) Af Amer 24 L, Est GFR (MDRD) Non-Af 19 L, BUN/Creatinine Ratio 23.5 H, Glucose 140 H, Calcium 7.8 L, Total Bilirubin 0.70, AST 165 H, ALT 211 H, Alkaline Phosphatase 107, Total Protein 6.4, Albumin 2.7 L, Globulin 3.7, Albumin/Globulin Ratio 0.7 L 03/16/23 12:25: Sodium 136, Potassium 4.2, Chloride 108 H, Carbon Dioxide 18.0 L, Anion Gap 10, BUN 63 H, Creatinine 2.75 H, Estim Creat Clear Calc 11.13, Est GFR (MDRD) Af Amer 21 L, Est GFR (MDRD) Non-Af 18 L, BUN/Creatinine Ratio 22.9 H, Glucose 133 H, Calcium 8.3 L Micro: Microbiology 03/14/23 20:35 Stool C. difficile DNA Amplification - Final 03/14/23 20:35 Stool Stool Occult Blood (KARLO) - Final Physical Exam Narrative General: Alert, oriented, no apparent distress HEENT: Atraumatic, normocephalic Eyes: Anicteric, normal conjunctiva, extraocular movements grossly intact Neck: Supple Respiratory: Somewhat diminished at the bases, normal respiratory effort Cardiovascular: Regular rate and irregular rhythm GI: Soft, nontender, nondistended Extremities: Bilateral lower extremities wrapped Musculoskeletal: Moving all extremities Neuro: No overt focal neurological deficits Skin: No rashes appreciated Psych: Overall cooperative Assessment & Plan Assessment/Plan (1) GIB (gastrointestinal bleeding): (2) Acute on chronic anemia: (3) Tachycardia: (4) Hypokalemia: (5) Lactic acidosis: (6) Transaminitis: (7) Hypoxia: PLAN: Plan ARIAN on CKD stage IIIb -Follows with Dr. Salma Finney -Renal atrophy noted on ultrasound -Serum creatinine is slowly trended up and is 2.33 today -May have some component of heart failure right now we will await follow-up lab -Most recent echocardiogram shows an EF of 55% with at least stage II diastolic dysfunction and severe left atrial enlargement with mild right atrial enlargement, moderate mitral valve insufficiency and moderate tricuspid valve insufficiency with a right ventricular systolic pressure 49 mmHg -If BNP is elevated will consider repeat echocardiogram -03/15: Slightly down today, continue supportive care, holding lisinopril given ARIAN, suspect patient volume overloaded so we will give Lasix -03/16: Worsened this a.m., patient reluctant to be stuck again for IV so she was given the opportunity to increase p.o. but on repeat BUN and creatinine worsening and she still is not making good urine and is diffusely weak, will consult nephrology. Patient very resistant to the idea of dialysis since that this has been mentioned to her before however given worsening renal function appreciate nephrology input and evaluation Melena with suspected upper GI bleed -Protonix bolus with drip -Hold home oral Protonix -Hold home apixaban -Every 6 hours H&H x3 -N.p.o. after midnight -Patient reports she had EGD and colonoscopy done within the last 6 months at the [facility] ([facility]) -Reports colonoscopy had multiple polyps but EGD was unremarkable -GI consultation for probable EGD tomorrow -03/15: Hemoglobin 8.8, slightly down from presentation, continue PPI drip, continue iron, GI consult for patient would like to avoid repeat scopes if possible, order for diet was placed, monitoring hemoglobin -03/16: Hemoglobin has been stable, discussed with GI and given patient refusing scopes would plan to hold Eliquis at this time and patient can discuss with her physician she routinely follows with Acute on chronic anemia -Baseline is unclear as it seems to fluctuate however most recent hemoglobin done here on 02/08/2023 was 11.8 -Hemoglobin on presentation was 9.6 -We will cycle hemoglobin -Type and screen performed -Transfuse for precipitous drop or hemoglobin less than 7 -03/15: As above, has not yet required transfusion Hypoxia secondary to acute exacerbation of chronic heart failure with preserved ejection fraction -Patient is not on oxygen at baseline -Desatted to 89% on room air in the emergency department and placed on 2 L with sats 97 to 98% since -Wean as able -We will check chest x-ray--> May be worsening heart failure with her RVR -If chest x-ray looks wet we will hold fluids and add IV Lasix as she does have lower extremity edema as well -Check BNP -03/15: BNP elevated, patient placed on IV Lasix, O2 saturations improved and doing well on 2 L of O2 at present, had recent echocardiogram 10/21/2022 with EF of 55% but grade 2 diastolic dysfunction, suspect that her A-fib with RVR is caused heart failure exacerbation, also of note her echo had severely enlarged left atrium with severe mitral annular calcifications and moderate 2+ mitral valve insufficiency, RVSP 49 and moderate tricuspid insufficiency, Continue Lasix -03/16: Resolved, Lasix have been held, patient ambulated and did not need O2 PAF with RVR -Patient is currently in A-fib with RVR -Hold Eliquis due to GI bleeding -Continue home digoxin, diltiazem, and metoprolol -Monitor on telemetry -03/15: Required extra doses of diltiazem overnight, will get her metoprolol, diltiazem, digoxin this a.m., continue to hold anticoagulation, monitoring on telemetry -03/16: Rate controlled on telemetry, holding blood thinners Lactic acidosis -Suspect related to GI bleed/A-fib with RVR/hypoxia -We will cycle per protocol -Should resolved with oxygen and gentle hydration/heart rate control -03/15: Lactic normalized with supportive care Hypokalemia -P.o. potassium replacement -Recheck in a.m. -Check a.m. magnesium level -03/15: Stable today, mag 1.8 and goal is 2, will give magnesium CAD/HTN/HPL -status post CABG in 2011 with a GANDHI to the obtuse marginal and an SVG to the right coronary artery -We will continue all of home antihypertensives for now -Continue home statin -Hold home oral Lasix -We will potentially start IV Lasix depending on chest x-ray and BNP -03/15: Continue beta-sergey and Lasix Autoimmune hepatitis -I suspect this is the etiology of her transaminase elevation -No further work-up for now -Continue home budesonide encourage ongoing outpatient follow-up at [place] -03/15: Similar to yesterday, continue present management into the monitor, continue budesonide History of carotid artery stenosis/referral arterial disease -Continue ongoing medical therapy -Continue ongoing outpatient follow-up History of breast cancer -No current issues DVT prophylaxis -SCDs -Chemoprophylaxis contraindicated due to GI bleeding CODE STATUS -DNR CCA okay for short-term intubation per discussion on admission Time spent in the patient's overall evaluation,decision-making process, review of diagnostic data, adjustment of management, discussion with other providers, nursing nursing and ancillary staff involved in patient's care documentation, 51 minutes Charges/Coding Visit Charges Inpatient E&M: 07609 [facility] L3
[2023-03-16] MEDS: Glucerna Shake 120 ML LIQUID PO (22:04)
[2023-03-16] MEDS: Atorvastatin Calcium 20 MG Tablet PO (22:06)
--- NOTE | 2023-03-16 22:23 | PN.GI_ITS ---
Subjective Subjective Patient denies any amount of pain or signs of symptoms of G.I. bleeding, and states that she wants to go home. I offered her a upper endoscopy, but she still says she did not want anything done at this time. Objective Data Objective Data Vital Signs: Vital Signs Temp Pulse Resp BP Pulse Ox O2 Del Method O2 Flow Rate 97.8 F 80 16 109/60 92 Nasal Cannula 2 03/16/23 15:07 03/16/23 22:05 03/16/23 15:07 03/16/23 22:05 03/16/23 15:10 03/16/23 15:10 03/16/23 15:10 Oxygen Flow Rate (L/min) [ 0 AMBULATING on Room Air] Oxygen Flow Rate (L/min) [At 0 REST on Room Air] Oxygen Flow Rate (L/min) 2 Oxygen Delivery Method Nasal Cannula Weight: 126 lb 8.725 oz Body Mass Index (BMI) 24.7 Intake & Output: Intake and Output for Last 24 Hours 03/14/23 03/15/23 03/16/23 23:59 23:59 23:59 Intake Total 921.33 / 921.33 558 / 558 920 / 920 Output Total 0 / 0 100 / 100 Balance 921.33 / 921.33 558 / 558 820 / 820 Lab / Micro Data 03/16/23 04:58 03/16/23 12:25 Labs: Laboratory Results - last 24 hr 03/16/23 04:58: WBC 6.2, RBC 3.56 L, Hgb 9.2 L, Hct 30.5 L, MCV 85.7, MCH 25.8 L , MCHC 30.2 L D, RDW Std Deviation 59.1 H, RDW Coeff of Gypsy 18.8 H, Plt Count 146 L, MPV 10.9, Immature Gran % (Auto) 0.800, Neut % (Auto) 87.2 H, Lymph % (Auto) 6.6 L, Cherry % (Auto) 5.2, Eos % (Auto) 0.2, Baso % (Auto) 0.0, Absolute Neuts (auto) 5.4, Absolute Lymphs (auto) 0.41 L, Nucleated RBC % 0.5, Differential Comment SCANNED, Sodium 137, Potassium 4.3, Chloride 110 H, Carbon Dioxide 19.0 L, Anion Gap 8, BUN 59 H, Creatinine 2.51 H, Estim Creat Clear Calc 12.20, Est GFR (MDRD) Af Amer 24 L, Est GFR (MDRD) Non-Af 19 L, BUN/Creatinine Ratio 23.5 H, Glucose 140 H, Calcium 7.8 L, Total Bilirubin 0.70, AST 165 H, ALT 211 H, Alkaline Phosphatase 107, Total Protein 6.4, Albumin 2.7 L, Globulin 3.7, Albumin/Globulin Ratio 0.7 L 03/16/23 12:25: Sodium 136, Potassium 4.2, Chloride 108 H, Carbon Dioxide 18.0 L , Anion Gap 10, BUN 63 H, Creatinine 2.75 H, Estim Creat Clear Calc 11.13, Est GFR (MDRD) Af Amer 21 L, Est GFR (MDRD) Non-Af 18 L, BUN/Creatinine Ratio 22.9 H , Glucose 133 H, Calcium 8.3 L Micro: Microbiology 03/14/23 20:35 Stool C. difficile DNA Amplification - Final 03/14/23 20:35 Stool Stool Occult Blood (KARLO) - Final Physical Exam Narrative General: Alert, oriented, no apparent distress HEENT: Atraumatic, normocephalic Eyes: Anicteric, normal conjunctiva, extraocular movements grossly intact Neck: Supple Respiratory: Somewhat diminished at the bases, normal respiratory effort Cardiovascular: Regular rate and irregular rhythm GI: Soft, nontender, nondistended Extremities: Bilateral lower extremities wrapped Musculoskeletal: Moving all extremities Neuro: No overt focal neurological deficits Skin: No rashes appreciated Psych: Overall cooperative Assessment & Plan Assessment/Plan (1) GIB (gastrointestinal bleeding): (2) Acute on chronic anemia: (3) Tachycardia: (4) Hypokalemia: (5) Lactic acidosis: (6) Transaminitis: (7) Hypoxia: PLAN: Plan Melena with suspected upper GI bleed - She is on Protonix drip -Patient reports she had EGD and colonoscopy done within the last 6 months at the [facility] ([facility]) -Reports colonoscopy had multiple polyps but EGD was unremarkable -The differential diagnosis for her would be Eliquis to induce GI bleed, angiodysplasia associated with port hypertension in setting of thrombocytopenia and chronic autoimmune hepatitis. -Patient does not want endoscopy at this time. Acute on chronic anemia - 11.8 to 9.6 to 8.8 -We will cycle hemoglobin -Type and screen performed -Transfuse for precipitous drop or hemoglobin less than 7 03/16- Her hemoglobinher hemoglobin was down at 8.8, and his up to 9.2 off of anticoagulation. If she does not want to undergo endoscopy at this time, she really needs to see her huc ob as soon as possible. Autoimmune hepatitis -Her liver enzymes are elevated. In the setting of bilateral venous stasis and atrial fibrillation with RVR recently I will check an aldolase and CPK to make sure was coming from the liver. Patient says she has been stable on budesonide 3 mg but cannot recall if she was ever induced with prednisone or offered azathioprine. At this time it could be demand ischemic hepatitis because of her recent atrial fibrillation with RVR. I would not condon to put her on steroids at this time until we know more about her autoimmune hepatitis. 03/16- Her liver enzymes are improving. I am not sure if she had any local ischemic hepatitis versus an exacerbation a and induced cholestatic hepatitis. Continue to trend. Charges/Coding Visit Charges Inpatient E&M: 47652 Subs Hosp L3
--- NOTE | 2023-03-16 22:31 | NURSING ---
Called [employer] for update on midline insertion. Information given on address and phone number. States will have nurse call at 0900 with estimated time for insertion.
[2023-03-17] VITALS (8 sets, daily range): BP systolic 91–131; BP diastolic 55–68; PULSE 68–82; RESP 15–16; TEMP 36.6–36.7; O2SAT 94–98
[2023-03-17 06:13] LABS: Absolute Lymphocyte Count 0.45 X10^3/uL (0.83-4.51); Absolute Neutrophil Count 5.7 X10^3/uL (2.0-7.7); Basophil# 0.01 X10^3/uL; Basophil% 0.2 % (0-1); Differential Indicated SCAN CRITERIA MET; Hemoglobin 8.9 g/dL (12.0-15.0); Lymphocyte # 0.45 X10^3/ul (0.83-4.51); Lymphocyte % 6.8 % (19-41); Mean Corp Hgb Conc 30.7 g/dL (32-36); Mean Corpuscular Hgb 25.9 pg (27.0-32.0); Mean Corpuscular Volume 84.3 fL (81-99); Mean Platelet Vol. 10.8 fl (6.2-12.0); Monocyte# 0.31 X10^3/uL; Monocyte% 4.7 % (0-10); NRBC Flagged by Analyzer 0 % (0-5); Neutrophil # 5.71 X10^3/uL (2.7-7.7); Neutrophil % 86.8 % (47-70); POSITIVE DIFFERENTIAL YES; Platelet Count 124 K/mm3 (150-450); RBC Distribution Width CV 18.4 % (11.6-14.6); RBC Distribution Width SD 56.3 fl (35.1-43.9); Red Blood Count 3.44 M/mm3 (4.2-5.4); White Blood Count 6.6 K/mm3 (4.4-11.0)
[2023-03-17 06:21] LABS: Differential Comment SCANNED
[2023-03-17 06:35] LABS: ALB/GLOB Ratio 0.8 RATIO (0.9-2.4); AST(SGOT) 73 U/L (15-37); Alanine Aminotransfer ALT/SGPT 157 U/L (13-56); Albumin, Serum 2.8 g/dL (3.2-5.0); Alkaline Phosphatase 98 U/L (45-117); Anion Gap 9 (5-15); BUN 60 mg/dL (7-18); BUN/Creat Ratio 25.1 RATIO (10-20); Calcium,Total 8.1 mg/dL (8.5-10.1); Chloride 110 mmol/L (98-107); Creatinine, Serum 2.39 mg/dL (0.55-1.02); EST Glomerular Filtration Rate 21 mL/min (>60); Est Glom Filt Rate - Afr Amer 25 mL/min (>60); Estimated Creatinine Clearance 12.81 ml/min; Globulin 3.6 g/dL (2.2-4.2); Glucose 128 mg/dL (74-106); Potassium 4.4 mmol/L (3.5-5.1); Protein, Total 6.4 g/dL (6.4-8.2); Sodium Level 138 mmol/L (136-145)
--- NOTE | 2023-03-17 08:34 | CON.PCM.RE_ITS ---
Assessment & Plan Assessment/Plan (1) Acute on chronic kidney failure: PLAN: baseline creatinine 1.5 to 1.8. Creatinine up to 2.75 improved to 2.39 after hydration. Likely hemodynamic from poor intake, medications, anemia/GIB. No dialysis needed. Pt attended pre-dialysis education. Follow up with me in office in 1-2 weeks after discharge (2) Chronic kidney disease, stage 4 (severe): PLAN: baseline creatinine 1.5-1.8 from renal atrophy, nephrosclerosis. (3) Acute on chronic anemia: PLAN: chronic anticoagulation for afib (4) GIB (gastrointestinal bleeding): PLAN: GI following, hgb stable on oral iron. (5) Atrial fibrillation: PLAN: cautious use of digoxin in presence of severe CKD (6) Essential hypertension: PLAN: stable (7) Autoimmune hepatitis: PLAN: GI following HPI Consult Data Date of Consult: 03/18/23 HPI Narrative Reason for Consultation: acute on CKD, pt known to me HPI Narrative: MIKE MENDOZA, is a 82 F who presents to [facility] on 03/14/2023 for melena with weakness, frequent falls, fatigue. She had a poor appetite with poor intake at home prior to admission. Baseline creatinine 1.8 on 12/14/22, 2.3 on admit increased to 2.75 on 03/16/23 so renal was consulted. Creatinine improved to 2.39 eGFR 21cc/min today after iv hydration. IV access lost after iv fluids. Pt hungry today, tolerating oral liquiid and diet. She remains on lasix and lisinopril. I had advised her to stop lisinopril at her last office appt due to rise in creatinine. She has attended dialysis education but does not have dialysis access placed. Hgb stable at 8.9g. GI consulted. She has had no nausea or vomiting and denies any hematochezia. She complains of constipation from oral iron and has trouble with hemorrhoidal bleeding. AST and ALT were elevated at 429 and 213 respectively but patient has chronic autoimmune hepatitis. She has atrial fibrillation on chronic anticoagulation. She lives alone at home but niece lives next door who comes in to help. [facility] Medical History (Updated 03/18/23 @ 10:[address] 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 Anemia Aortic valve stenosis Atrial fibrillation, new onset Autoimmune hepatitis Carotid art occ w/o infarc Cholecystitis Chronic pain Cirrhosis Congestive heart failure (CHF) Coronary artery disease Diplopia Essential hypertension Former smoker Hepatitis History of breast cancer Hyperlipidemia Lower extremity edema Non-rheumatic mitral regurgitation Non-rheumatic tricuspid valve insufficiency Osteoporosis PAD (peripheral artery disease) Rheumatoid arthritis Sleep apnea Home Medications atorvastatin 20 mg tablet 20 mg PO DAILY cholesterol 04/30/22 [History Last Taken 03/12/23] pantoprazole 40 mg tablet,delayed release (Protonix) 40 mg PO BID GERD #30 tabs 11/13/22 [Rx Last Taken 03/12/23] budesonide 3 mg capsule,delayed,extended release 3 mg PO BID [facility] 11/17/22 [History Last Taken 03/12/23] cholecalciferol (vitamin D3) 125 mcg (5,000 unit) capsule 125 mcg PO DAILY SUPP 12/01/22 [History Last Taken 03/12/23] ferrous sulfate 325 mg (65 mg iron) tablet (Feosol) 325 mg PO DAILY SUPPLEMENT 12/22/22 [History Last Taken 03/12/23] sennosides 8.6 mg-docusate sodium 50 mg tablet (2-in-1 Laxative) 1 tab-cap PO DAILY . 12/22/22 [History Last Taken 03/12/23] apixaban 2.5 mg tablet (Eliquis) 2.5 mg PO BID BLOOD THINN #180 tabs 03/02/23 [Rx Last Taken 03/13/23] diltiazem HCl 240 mg capsule,extended release 24 hr (Cardizem CD) 240 mg PO DAILY . #90 caps 03/02/23 [Rx Last Taken 03/13/23] furosemide 40 mg tablet 40 mg PO DAILY . #90 tabs 03/02/23 [Rx Last Taken 03/12/23] potassium chloride 20 mEq tablet,extended release 20 meq PO DAILY SUPPLEMENT #90 tabs 03/02/23 [Rx Last Taken 03/12/23] digoxin 125 mcg (0.125 mg) tablet 125 mcg PO DAILY . #90 tabs 03/03/23 [Rx Last Taken 03/12/23] metoprolol tartrate 100 mg tablet 100 mg PO Q12H HTN 03/14/23 [History Last Taken 03/12/23] Allergy/AdvReac Type Severity Reaction Status Date / Time azathioprine Allergy Unknown PT UNSURE Verified 03/17/23 15:50 OF REACTION Sulfa (Sulfonamide Allergy Hives Verified 03/14/23 10:58 Antibiotics) Family History Father Prostate cancer Mother CVA (cerebral vascular accident) Breast cancer Heart disease Other Anemia Surgical History (Updated 03/14/23 @ 16:42 by Alexa Villalta) Bilateral carotid artery disease History of aortic valve replacement with bioprosthetic valve (~09/18/11) History of cholecystectomy History of coronary artery bypass surgery (~09/18/11) History of vascular surgery Peripheral vascular disease S/P anal fissurectomy S/P cholecystectomy S/P colonoscopy S/P lumpectomy, left breast Social History housing: apartment Smoking Status: Former smoker second hand exposure: No alcohol intake: current alcohol intake frequency: holidays/special occasions only substance use type: does not use caffeine: Yes what type of physical activity do you participate in: none frequency: does not exercise seatbelt use: always ROS Constitutional Constitutional: Reports weakness; Denies chills or fever(s) Eyes Eyes: Denies change in vision ENT HEENT: Denies nasal congestion Cardiovascular Cardiovascular: Reports leg edema; Denies chest pain Respiratory/Chest Respiratory/Chest: Denies dry cough Gastrointestinal Gastrointestinal: Reports anorexia, rectal bleeding and other Details: constipation, hemorroids ; Denies abdominal pain, diarrhea, hematemesis or hematochezia Genitourinary Genitourinary: Denies change in urinary stream or difficulty urinating Musculoskeletal Musculoskeletal: Reports muscle weakness and other Details: frequent falls, unable to walk Integumentary Integumentary: Denies rash Neurologic Neurologic: Reports abnormal gait Psychiatric Psychiatric: Denies anxiety, confusion or depression Hematologic/Lymphatic Hematologic/Lymphatic: Reports anemia, easy bleeding, easy bruising and other Details: on chronic anticoagulation Physical Exam Const alert, oriented x3 and no apparent distress Constitutional Narrative: short statured General Appearance: frail Resp clear to auscultation bilaterally Cardio Cardio Narrative: afib GI non-tender and non-distended Auscultation: normoactive bowel sounds Palpation: soft Extremity Extremity Narrative: legs wrapped Skin General Skin Exam: ecchymosis Neuro CN's II-XII intact bilaterally, moves all extremities and no focal motor deficits Neuro Narrative: gen weakness Sensorium / Orientation: awake and alert Psych cooperative Lab / Micro Data 03/18/23 05:40 03/18/23 05:40 Labs: Laboratory Results - last 24 hr 03/16/23 12:25: Sodium 136, Potassium 4.2, Chloride 108 H, Carbon Dioxide 18.0 L , Anion Gap 10, BUN 63 H, Creatinine 2.75 H, Estim Creat Clear Calc 11.13, Est GFR (MDRD) Af Amer 21 L, Est GFR (MDRD) Non-Af 18 L, BUN/Creatinine Ratio 22.9 H , Glucose 133 H, Calcium 8.3 L 03/17/23 05:54: WBC 6.6, RBC 3.44 L, Hgb 8.9 L, Hct 29.0 L, MCV 84.3, MCH 25.9 L , MCHC 30.7 L, RDW Std Deviation 56.3 H, RDW Coeff of Gypsy 18.4 H, Plt Count 124 L, MPV 10.8, Immature Gran % (Auto) 1.500 H, Neut % (Auto) 86.8 H, Lymph % (Auto) 6.8 L, Millard % (Auto) 4.7, Eos % (Auto) 0.0, Baso % (Auto) 0.2, Absolute Neuts (auto) 5.7, Absolute Lymphs (auto) 0.45 L, Nucleated RBC % 0, Differential Comment SCANNED, Sodium 138, Potassium 4.4, Chloride 110 H, Carbon Dioxide 19.0 L, Anion Gap 9, BUN 60 H, Creatinine 2.39 H, Estim Creat Clear Calc 12.81, Est GFR (MDRD) Af Amer 25 L, Est GFR (MDRD) Non-Af 21 L, BUN/Creatinine Ratio 25.1 H , Glucose 128 H, Calcium 8.1 L, Total Bilirubin 0.80, AST 73 H, ALT 157 H, Alkaline Phosphatase 98, Total Protein 6.4, Albumin 2.8 L, Globulin 3.6, Al bumin/Globulin Ratio 0.8 L
[2023-03-17] MEDS: Ferrous Sulfate 325 MG Tablet PO (08:44)
[2023-03-17] MEDS: Senna/Docusate Sodium 1 Tablet PO (08:45)
[2023-03-17] MEDS: Pantoprazole Sodium 40 MG Tablet PO ×2 (08:45→22:20)
[2023-03-17] MEDS: Potassium Chloride Oral Tablet 20 MEQ PO (08:45)
[2023-03-17] MEDS: Budesonide 3 MG CAPSULE.EC PO ×2 (08:45→22:19)
--- NOTE | 2023-03-17 08:45 | PCM.PN.HOSP ---
Reason for Visit Reason for Visit: Diagnoses Anemia, unspecified (03/14/23) Acidosis, unspecified (03/14/23) Hypokalemia (03/14/23) Gastrointestinal hemorrhage, unspecified (03/14/23) Tachycardia, unspecified (03/14/23) Hypoxemia (03/14/23) Diarrhea, unspecified (03/14/23) Elevation of levels of liver transaminase levels (03/14/23) Subjective Subjective Still feeling somewhat generally weak but is feeling better, no further blood per rectum, breathing doing okay Objective Data Objective Data Vital Signs: Vital Signs Temp Pulse Resp BP Pulse Ox O2 Del Method O2 Flow Rate 98 F 77 15 128/68 H 98 Room Air 2 03/17/23 08:38 03/17/23 08:38 03/17/23 08:38 03/17/23 08:38 03/17/23 08:38 03/17/23 08:38 03/16/23 15:10 Oxygen Flow Rate (L/min) [ 0 AMBULATING on Room Air] Oxygen Flow Rate (L/min) [At 0 REST on Room Air] Oxygen Flow Rate (L/min) 2 Oxygen Delivery Method Room Air Weight: 57.4 kg Body Mass Index (BMI) 24.7 Intake & Output: Intake and Output for Last 24 Hours 03/15/23 03/16/23 03/17/23 23:59 23:59 23:59 Intake Total 558 / 558 920 / 1280 460 / 460 Output Total 0 / 0 100 / 250 150 / 150 Balance 558 / 558 820 / 1030 310 / 310 Lab / Micro Data 03/17/23 05:54 03/17/23 05:54 Labs: Laboratory Results - last 24 hr 03/16/23 12:25: Sodium 136, Potassium 4.2, Chloride 108 H, Carbon Dioxide 18.0 L, Anion Gap 10, BUN 63 H, Creatinine 2.75 H, Estim Creat Clear Calc 11.13, Est GFR (MDRD) Af Amer 21 L, Est GFR (MDRD) Non-Af 18 L, BUN/Creatinine Ratio 22.9 H, Glucose 133 H, Calcium 8.3 L 03/17/23 05:54: WBC 6.6, RBC 3.44 L, Hgb 8.9 L, Hct 29.0 L, MCV 84.3, MCH 25.9 L, MCHC 30.7 L, RDW Std Deviation 56.3 H, RDW Coeff of Gypsy 18.4 H, Plt Count 124 L, MPV 10.8, Immature Gran % (Auto) 1.500 H, Neut % (Auto) 86.8 H, Lymph % (Auto) 6.8 L, Crowley % (Auto) 4.7, Eos % (Auto) 0.0, Baso % (Auto) 0.2, Absolute Neuts (auto) 5.7, Absolute Lymphs (auto) 0.45 L, Nucleated RBC % 0, Differential Comment SCANNED, Sodium 138, Potassium 4.4, Chloride 110 H, Carbon Dioxide 19.0 L, Anion Gap 9, BUN 60 H, Creatinine 2.39 H, Estim Creat Clear Calc 12.81, Est GFR (MDRD) Af Amer 25 L, Est GFR (MDRD) Non-Af 21 L, BUN/Creatinine Ratio 25.1 H, Glucose 128 H, Calcium 8.1 L, Total Bilirubin 0.80, AST 73 H, ALT 157 H, Alkaline Phosphatase 98, Total Protein 6.4, Albumin 2.8 L, Globulin 3.6, Albumin/Globulin Ratio 0.8 L Micro: Microbiology 03/14/23 20:35 Stool C. difficile DNA Amplification - Final 03/14/23 20:35 Stool Stool Occult Blood (KARLO) - Final Physical Exam Narrative General: Alert, oriented, no apparent distress HEENT: Atraumatic, normocephalic Eyes: Anicteric, normal conjunctiva, extraocular movements grossly intact Neck: Supple Respiratory: Somewhat diminished at the bases, normal respiratory effort Cardiovascular: Regular rate and irregular rhythm GI: Soft, nontender, nondistended Extremities: Bilateral lower extremities 1-2+ edema bilaterally Musculoskeletal: Moving all extremities Neuro: No overt focal neurological deficits Skin: No rashes appreciated Psych: Overall cooperative Assessment & Plan Assessment/Plan (1) GIB (gastrointestinal bleeding): (2) Acute on chronic anemia: (3) Tachycardia: (4) Hypokalemia: (5) Lactic acidosis: (6) Transaminitis: (7) Hypoxia: PLAN: Plan ARIAN on CKD stage IIIb -Follows with Dr. Salma Finney -Renal atrophy noted on ultrasound -Serum creatinine is slowly trended up and is 2.33 today -May have some component of heart failure right now we will await follow-up lab -Most recent echocardiogram shows an EF of 55% with at least stage II diastolic dysfunction and severe left atrial enlargement with mild right atrial enlargement, moderate mitral valve insufficiency and moderate tricuspid valve insufficiency with a right ventricular systolic pressure 49 mmHg -If BNP is elevated will consider repeat echocardiogram -03/15: Slightly down today, continue supportive care, holding lisinopril given ARIAN, suspect patient volume overloaded so we will give Lasix -03/16: Worsened this a.m., patient reluctant to be stuck again for IV so she was given the opportunity to increase p.o. but on repeat BUN and creatinine worsening and she still is not making good urine and is diffusely weak, will consult nephrology. Patient very resistant to the idea of dialysis since that this has been mentioned to her before however given worsening renal function appreciate nephrology input and evaluation -03/17: Midline placed with nephrology approval, still not significant urine output but creatinine did improve slightly today, nephrology consulted, encourage PO Melena with suspected upper GI bleed -Protonix bolus with drip -Hold home oral Protonix -Hold home apixaban -Every 6 hours H&H x3 -N.p.o. after midnight -Patient reports she had EGD and colonoscopy done within the last 6 months at the [facility] ([facility]) -Reports colonoscopy had multiple polyps but EGD was unremarkable -GI consultation for probable EGD tomorrow -03/15: Hemoglobin 8.8, slightly down from presentation, continue PPI drip, continue iron, GI consult for patient would like to avoid repeat scopes if possible, order for diet was placed, monitoring hemoglobin -03/16: Hemoglobin has been stable, discussed with GI and given patient refusing scopes would plan to hold Eliquis at this time and patient can discuss with her physician she routinely follows with -03/17: As she has refused endoscopy really needs to follow with her GI doctor and discuss AC moving forward Acute on chronic anemia -Baseline is unclear as it seems to fluctuate however most recent hemoglobin done here on 02/08/2023 was 11.8 -Hemoglobin on presentation was 9.6 -We will cycle hemoglobin -Type and screen performed -Transfuse for precipitous drop or hemoglobin less than 7 -03/15: As above, has not yet required transfusion -03/17: Stable today Hypoxia secondary to acute exacerbation of chronic heart failure with preserved ejection fraction -Patient is not on oxygen at baseline -Desatted to 89% on room air in the emergency department and placed on 2 L with sats 97 to 98% since -Wean as able -We will check chest x-ray--> May be worsening heart failure with her RVR -If chest x-ray looks wet we will hold fluids and add IV Lasix as she does have lower extremity edema as well -Check BNP -03/15: BNP elevated, patient placed on IV Lasix, O2 saturations improved and doing well on 2 L of O2 at present, had recent echocardiogram 10/21/2022 with EF of 55% but grade 2 diastolic dysfunction, suspect that her A-fib with RVR is caused heart failure exacerbation, also of note her echo had severely enlarged left atrium with severe mitral annular calcifications and moderate 2+ mitral valve insufficiency, RVSP 49 and moderate tricuspid insufficiency, Continue Lasix -03/16: Resolved, Lasix have been held, patient ambulated and did not need O2 -03/17: Resolved, Lasix held and patient given small amount of fluids, suspect the hypoxia and presumed pulm edema were due to her A-fib with RVR PAF with RVR -Patient is currently in A-fib with RVR -Hold Eliquis due to GI bleeding -Continue home digoxin, diltiazem, and metoprolol -Monitor on telemetry -03/15: Required extra doses of diltiazem overnight, will get her metoprolol, diltiazem, digoxin this a.m., continue to hold anticoagulation, monitoring on telemetry -03/16: Rate controlled on telemetry, holding blood thinners -03/17: Continue rate control, will check digoxin level Lactic acidosis -Suspect related to GI bleed/A-fib with RVR/hypoxia -We will cycle per protocol -Should resolved with oxygen and gentle hydration/heart rate control -03/15: Lactic normalized with supportive care Hypokalemia -P.o. potassium replacement -Recheck in a.m. -Check a.m. magnesium level -03/15: Stable today, mag 1.8 and goal is 2, will give magnesium -03/17: Stable today CAD/HTN/HPL -status post CABG in 2011 with a GANDHI to the obtuse marginal and an SVG to the right coronary artery -We will continue all of home antihypertensives for now -Continue home statin -Hold home oral Lasix -We will potentially start IV Lasix depending on chest x-ray and BNP -03/15: Continue beta-sergey and Lasix -03/17: Patient remains on digoxin and beta-sergey Autoimmune hepatitis -I suspect this is the etiology of her transaminase elevation -No further work-up for now -Continue home budesonide encourage ongoing outpatient follow-up at NH -03/15: Similar to yesterday, continue present management into the monitor, continue budesonide History of carotid artery stenosis/referral arterial disease -Continue ongoing medical therapy -Continue ongoing outpatient follow-up History of breast cancer -No current issues DVT prophylaxis -SCDs -Chemoprophylaxis contraindicated due to GI bleeding CODE STATUS -DNR CCA okay for short-term intubation per discussion on admission Time spent in the patient's overall evaluation,decision-making process, review of diagnostic data, adjustment of management, discussion with other providers, nursing nursing and ancillary staff involved in patient's care documentation, 51 minutes Charges/Coding Visit Charges Inpatient E&M: 80599 [facility] Hosp L3
[2023-03-17] MEDS: Metoprolol Tartrate 50 MG Tablet PO ×2 (08:46→22:19)
[2023-03-17] MEDS: dilTIAZem CD 240 MG Capsule PO (08:47)
[2023-03-17] MEDS: Digoxin 125 MCG Tablet PO (08:48)
[2023-03-17] MEDS: Glucerna Shake 120 ML LIQUID PO ×2 (09:00→18:15)
[2023-03-17] MEDS: Cholecalciferol (Vit D3) 125 MCG CAPSULE (5,000 UNITS) PO (09:22)
--- NOTE | 2023-03-17 12:30 | CASEMGMT ---
Addendum entered by Cricket Stephens 03/18/23 09:49: Addendums: 03/17/23 ( late entries) 12:30 PM (Order placed for HHC: SN, PT/OT. Call placed to [facility] and referral made. She was made aware pt may be ready for discharge either today or tomorrow. 1:45 PM Per therapy, pt is not safe to discharge home alone today, as she is tired and weak and needing assistance when up/OOB. Dr Ray made aware and informed pt is refusing SNF, but HHC is being set up. Dr Ray states she will not be discharging pt today and will re-evaluate pt tomorrow. 3:15 PM Per [facility], they are able to accept pt w/SOC slated for Tuesday. Pt made aware and voices appreciation. She denies having other discharge planning needs or concerns at this time. Pt made aware to ask for CM if anything further arises. She voices understanding. PT/OT to work with pt again tomorrow (Tuesday) to evaluate for safety of returning home alone. Original Note: LORENZO URRUTIA NOTE: Dr Ray states pt is amenable to HHC now. LORENZO URRUTIA to room to discuss discharge planning. Introduced self and role. Pt resting in bed. Discussed pt's weakness and concerns w/pt discharging home alone. Pt states she does not want to go to a SNF, that she wants to go home. She is agreeable to C and [facility]HC is her 1st preference and she declines a list of other HHC options. LORENZO URRUTIA explained HHC referral process. Pt made aware therapy would be working with her again today to ensure a safe discharge. Pt voices understanding. Walt DOSHI RN, CM
[2023-03-17 15:08] LABS: Aldolase 18.5 U/L (3.3-10.3)
--- NOTE | 2023-03-17 17:15 | EX.PCM.PN.GI ---
Objective Data Objective Data Vital Signs: Vital Signs Temp Pulse Resp BP Pulse Ox O2 Del Method O2 Flow Rate 97.9 F 68 15 91/60 97 Room Air 2 03/17/23 15:19 03/17/23 15:19 03/17/23 15:19 03/17/23 15:19 03/17/23 15:19 03/17/23 15:53 03/16/23 15:10 Oxygen Flow Rate (L/min) [ 0 AMBULATING on Room Air] Oxygen Flow Rate (L/min) [At 0 REST on Room Air] Oxygen Flow Rate (L/min) 2 Oxygen Delivery Method Room Air Weight: 126 lb 8.725 oz Body Mass Index (BMI) 24.7 Intake & Output: Intake and Output for Last 24 Hours 03/15/23 03/16/23 03/17/23 23:59 23:59 23:59 Intake Total 558 / 558 920 / 1280 1275 / 1275 Output Total 0 / 0 100 / 250 150 / 150 Balance 558 / 558 820 / 1030 1125 / 1125 Lab / Micro Data 03/17/23 05:54 03/17/23 05:54 Labs: Laboratory Results - last 24 hr 03/14/23 11:25: Crossmatch See Detail 03/15/23 03:27: Aldolase 18.5 H 03/17/23 05:54: WBC 6.6, RBC 3.44 L, Hgb 8.9 L, Hct 29.0 L, MCV 84.3, MCH 25.9 L, MCHC 30.7 L, RDW Std Deviation 56.3 H, RDW Coeff of Gypsy 18.4 H, Plt Count 124 L, MPV 10.8, Immature Gran % (Auto) 1.500 H, Neut % (Auto) 86.8 H, Lymph % (Auto) 6.8 L, Wolfe % (Auto) 4.7, Eos % (Auto) 0.0, Baso % (Auto) 0.2, Absolute Neuts (auto) 5.7, Absolute Lymphs (auto) 0.45 L, Nucleated RBC % 0, Differential Comment SCANNED, Sodium 138, Potassium 4.4, Chloride 110 H, Carbon Dioxide 19.0 L, Anion Gap 9, BUN 60 H, Creatinine 2.39 H, Estim Creat Clear Calc 12.81, Est GFR (MDRD) Af Amer 25 L, Est GFR (MDRD) Non-Af 21 L, BUN/Creatinine Ratio 25.1 H, Glucose 128 H, Calcium 8.1 L, Total Bilirubin 0.80, AST 73 H, ALT 157 H, Alkaline Phosphatase 98, Total Protein 6.4, Albumin 2.8 L, Globulin 3.6, Albumin/Globulin Ratio 0.8 L 03/17/23 09:25: Digoxin 1.20 Micro: Microbiology 03/14/23 20:35 Stool C. difficile DNA Amplification - Final 03/14/23 20:35 Stool Stool Occult Blood (KARLO) - Final Physical Exam Narrative General: Alert, oriented, no apparent distress HEENT: Atraumatic, normocephalic Eyes: Anicteric, normal conjunctiva, extraocular movements grossly intact Neck: Supple Respiratory: Somewhat diminished at the bases, normal respiratory effort Cardiovascular: Regular rate and irregular rhythm GI: Soft, nontender, nondistended Extremities: Bilateral lower extremities 1-2+ edema bilaterally Musculoskeletal: Moving all extremities Neuro: No overt focal neurological deficits Skin: No rashes appreciated Psych: Overall cooperative Assessment & Plan Assessment/Plan (1) GIB (gastrointestinal bleeding): (2) Acute on chronic anemia: (3) Tachycardia: (4) Hypokalemia: (5) Lactic acidosis: (6) Transaminitis: (7) Hypoxia: PLAN: Plan Melena with suspected upper GI bleed - She is on Protonix drip -Patient reports she had EGD and colonoscopy done within the last 6 months at the [facility] ([facility]) -Reports colonoscopy had multiple polyps but EGD was unremarkable -The differential diagnosis for her would be Eliquis to induce GI bleed, angiodysplasia associated with port hypertension in setting of thrombocytopenia and chronic autoimmune hepatitis. -Patient does not want endoscopy at this time. Acute on chronic anemia - 11.8 to 9.6 to 8.8 -We will cycle hemoglobin -Type and screen performed -Transfuse for precipitous drop or hemoglobin less than 7 03/16- Her hemoglobin was down at 8.8, and his up to 9.2 off of anticoagulation. If she does not want to undergo endoscopy at this time, she really needs to see her cook italian style food as soon as possible. 03/17- Her hemoglobin seems to be stable off anticoagulation. She still doesn't want endoscopy. Autoimmune hepatitis -Her liver enzymes are elevated. In the setting of bilateral venous stasis and atrial fibrillation with RVR recently I will check an aldolase and CPK to make sure was coming from the liver. Patient says she has been stable on budesonide 3 mg but cannot recall if she was ever induced with prednisone or offered azathioprine. At this time it could be demand ischemic hepatitis because of her recent atrial fibrillation with RVR. I would not condon to put her on steroids at this time until we know more about her autoimmune hepatitis. 03/16- Her liver enzymes are improving. I am not sure if she had any local ischemic hepatitis versus an exacerbation a and induced cholestatic hepatitis. Continue to trend. 03/17- Liver enzymes. I called her financial systems manager but I did not get a chance to talk to her today. I left a message for her to call me back so I can give her an update. Her liver enzymes continue to improve. That is more consistent with ischemic colitis secondary to worsening atrial fibrillation with RVR when she came into the hospital. Charges/Coding Visit Charges Inpatient E&M: 16328 Subs Hosp L3
[2023-03-17] MEDS: Atorvastatin Calcium 20 MG Tablet PO (22:20)
[2023-03-18 04:00] VITALS: BP 132/62; PULSE 81; RESP 16; TEMP 36.6; O2SAT 93
[2023-03-18 05:49] LABS: Absolute Lymphocyte Count 0.59 X10^3/uL (0.83-4.51); Absolute Neutrophil Count 8.9 X10^3/uL (2.0-7.7); Basophil# 0.01 X10^3/uL; Basophil% 0.1 % (0-1); Eosinophil# 0.01 X10^3/uL; Eosinophils% 0.1 % (0-5); Hematocrit 29.1 % (37-47); Hemoglobin 8.8 g/dL (12.0-15.0); Lymphocyte # 0.59 X10^3/ul (0.83-4.51); Lymphocyte % 5.9 % (19-41); Mean Corp Hgb Conc 30.2 g/dL (32-36); Mean Corpuscular Volume 85.8 fL (81-99); Mean Platelet Vol. 11.3 fl (6.2-12.0); Monocyte# 0.48 X10^3/uL; Monocyte% 4.8 % (0-10); NRBC Flagged by Analyzer 0 % (0-5); Neutrophil # 8.85 X10^3/uL (2.7-7.7); Neutrophil % 87.7 % (47-70); POSITIVE DIFFERENTIAL YES; Platelet Count 140 K/mm3 (150-450); RBC Distribution Width CV 18.4 % (11.6-14.6); RBC Distribution Width SD 57.6 fl (35.1-43.9); Red Blood Count 3.39 M/mm3 (4.2-5.4); White Blood Count 10.1 K/mm3 (4.4-11.0)
[2023-03-18 05:56] LABS: Differential Indicated SCAN CRITERIA MET
[2023-03-18 06:08] LABS: ALB/GLOB Ratio 0.9 RATIO (0.9-2.4); AST(SGOT) 41 U/L (15-37); Alanine Aminotransfer ALT/SGPT 122 U/L (13-56); Albumin, Serum 2.9 g/dL (3.2-5.0); Alkaline Phosphatase 96 U/L (45-117); Anion Gap 7 (5-15); BUN 59 mg/dL (7-18); BUN/Creat Ratio 28.1 RATIO (10-20); Calcium,Total 8.6 mg/dL (8.5-10.1); Chloride 111 mmol/L (98-107); EST Glomerular Filtration Rate 24 mL/min (>60); Est Glom Filt Rate - Afr Amer 29 mL/min (>60); Estimated Creatinine Clearance 14.58 ml/min; Globulin 3.4 g/dL (2.2-4.2); Glucose 119 mg/dL (74-106); Magnesium 2.2 mg/dL (1.6-2.6); Potassium 4.6 mmol/L (3.5-5.1); Protein, Total 6.3 g/dL (6.4-8.2); Sodium Level 138 mmol/L (136-145)
[2023-03-18 06:23] LABS: Differential Comment SCANNED
[2023-03-18 07:20] VITALS: O2SAT 96
[2023-03-18 10:08] VITALS: BP 143/54; PULSE 84; RESP 16; TEMP 36.3; O2SAT 100
[2023-03-18 10:13] VITALS: BP 143/54; PULSE 84
[2023-03-18] MEDS: Digoxin 125 MCG Tablet PO (10:13)
[2023-03-18] MEDS: Ferrous Sulfate 325 MG Tablet PO (10:13)
[2023-03-18] MEDS: Budesonide 3 MG CAPSULE.EC PO (10:13)
[2023-03-18] MEDS: Senna/Docusate Sodium 1 Tablet PO (10:13)
[2023-03-18] MEDS: Cholecalciferol (Vit D3) 125 MCG CAPSULE (5,000 UNITS) PO (10:13)
[2023-03-18] MEDS: Pantoprazole Sodium 40 MG Tablet PO (10:13)
[2023-03-18] MEDS: Potassium Chloride Oral Tablet 20 MEQ PO (10:13)
[2023-03-18] MEDS: Metoprolol Tartrate 50 MG Tablet PO (10:13)
[2023-03-18] MEDS: Glucerna Shake 120 ML LIQUID PO (10:27)
[2023-03-18] MEDS: dilTIAZem CD 180 MG Capsule PO (10:35)
--- NOTE | 2023-03-18 13:43 | PCM.DC ---
Discharge Instructions Diet Discharge Diet: Renal Diet and - (-DASH diet, 3000 mg sodium restriction, 2 L fluid restriction) Activity Discharge Activity: - (Increase activity as tolerated) Follow Up Care Test Results: Test results from this visit will be discussed in further detail at your follow-up appointment, if applicable. Discharge Plan Admission Admit Date/Time: 03/14/23 14:12 Primary Reason for Your Visit: Concern for GI bleed Attending Provider: Pia Ray Primary Care Provider: Sg Brown Consulting Providers: Nyla Finney; Salma Finney Instructions Patient Instructions: GI Bleeding Causes and Tests, ED Lower GI Bleeding (Stable), ED Upper GI Bleeding (Stable) Additional Instructions / Restrictions: DISCHARGE INSTRUCTIONS PLEASE READ *Please take this with you to your next doctors appointment* -It is recommended you hold your Eliquis until you are able to discuss with your GI doctor or primary care physician given the inability to perform repeat endoscopy during this admission -Please follow-up with your director of residential services in 1-2 weeks and your liver and GI doctor upon discharge. Please call their office to schedule hospital follow-up appointment upon discharge. -We will discontinue your lisinopril per nephrology recommendations -Due to low blood pressure and heart rate your metoprolol dose was decreased to 50 mg twice daily and your cardizem was also decreased to 180mg. Please take these doses and do not combine these with your previous doses -Would recommend resuming your Lasix on Tuesday -Would recommend lab work (BMP) to check your kidney function in 4 to 5 days through your primary care physician's office. Please call their office upon discharge to obtain order for lab work. -Weigh yourself every day. A sudden weight gain can mean you are retaining fluid. Weigh yourself at the same time of day and in the same kind of clothes. Ideally, weigh yourself first thing in the morning after you empty your bladder, but before you eat breakfast. -Please call your physician if your weight goes up by more than 2 pounds in 1 day or 5 pounds in 1 week. This can be a sign that you are retaining more fluid than you should be. Clues to weight gain include checking your ankles for swelling, or noticing you are short of breath when you lie down -Please limit your sodium intake to less than 3 g/day. Here are tips: Limit canned, dried, packaged, and fast foods. Don't add salt to your food at the table. Season foods with herbs instead of salt when you cook. When you eat out, ask that the executive chef assistant not add any salt to your dish. Don't eat fried or greasy foods. Be careful of bottled beverages. They can contain a lot of salt -Call 911 right away if you have: -Severe shortness of breath, such that you can't catch your breath even while resting -Severe chest pain that does not resolve with rest or nitroglycerin -[place], foamy mucus with cough and shortness of breath -An ongoing rapid or irregular heartbeat -Passing out or fainting -Stroke symptoms such as sudden numbness or weakness on one side of your face, arm, or leg or sudden confusion, trouble speaking or vision changes -Please call your primary care provider's office upon discharge to schedule a hospital follow up within 1 week. -For any concerning signs or symptoms please call 911 or proceed to the nearest emergency department Discharge Orders/Prescriptions Prescriptions: New diltiazem HCl 180 mg Capsule,Extended Release 24hr 180 mg PO DAILY 30 Days Qty: 30 0RF metoprolol tartrate 50 mg Tablet 50 mg PO BID 30 Days Qty: 60 0RF Continued atorvastatin 20 mg tablet 20 mg PO DAILY cholecalciferol (vitamin D3) 125 mcg (5,000 unit) capsule 125 mcg PO DAILY pantoprazole [Protonix] 40 mg tablet,delayed release (DR/EC) 40 mg PO BID Qty: 30 2RF sennosides-docusate sodium [2-in-1 Laxative] 8.6-50 mg tablet 1 tab-cap PO DAILY ferrous sulfate [Feosol] 325 mg (65 mg iron) tablet 325 mg PO DAILY budesonide 3 mg capsule,delayed,extend.release 3 mg PO BID potassium chloride 20 mEq tablet extended release 20 meq PO DAILY Qty: 90 3RF digoxin 125 mcg (0.125 mg) tablet 125 mcg PO DAILY Qty: 90 3RF Held furosemide 40 mg tablet 40 mg PO DAILY Qty: 90 3RF Hold Instructions: Resume on 03/20/23. Eliquis 2.5 mg tablet 2.5 mg PO BID Qty: 180 3RF Hold Instructions: Resume on 03/23/23. Until you discussed with your GI or primary care physician regarding next best steps Discontinued metoprolol tartrate 100 mg tablet 100 mg PO Q12H diltiazem HCl [Cardizem CD] 240 mg capsule,extended release 24hr 240 mg PO DAILY Qty: 90 3RF lisinopril 20 mg tablet 20 mg PO DAILY Qty: 90 3RF Hold Instructions: Hold for 7 days. Referrals / Follow Up: Salma Finney DO [Med Staff - Consulting] - Sg Brown MD [Primary Care Provider] - Within 1 Week Disposition Disposition (needs filled in before D/C Order can be placed): Home Health Service
--- NOTE | 2023-03-18 13:48 | DS.PCM_ITS ---
Providers Date of Admission: 03/14/23 Date of Discharge: 03/18/23 Primary Care Physician: Dr. Sg Brown MD Consultations 03/14/23 16:46 Consult: Gastroenterology Routine Consulting Provider: [facility] Reason for Consult: GIB EMERGENT Consult: No Notified: Yes Date Notified: 03/14/23 Time Notified: 14:13 Method of Notification: Text 03/16/23 13:53 Consult: Nephrology Routine Consulting Provider: Salma Finney Reason for Consult: Worsening kidney function, hx ckd follows outpt basis EMERGENT Consult: No Notified: Yes Date Notified: 03/16/23 Time Notified: 13:54 Method of Notification: Text Reason For Visit: GI BLEED Diagnosis Discharge Diagnosis (1) Acute on chronic kidney failure: Status: Chronic Code(s): N17.9 - Acute kidney failure, unspecified; N18.9 - Chronic kidney disease, unspecified (2) Chronic kidney disease, stage 4 (severe): Status: Chronic Code(s): N18.4 - Chronic kidney disease, stage 4 (severe) (3) Acute on chronic anemia: Status: Chronic Code(s): D64.9 - Anemia, unspecified (4) GIB (gastrointestinal bleeding): Status: Acute Code(s): K92.2 - Gastrointestinal hemorrhage, unspecified (5) Atrial fibrillation: Status: Acute Code(s): I48.91 - Unspecified atrial fibrillation (6) Essential hypertension: Status: Chronic Code(s): I10 - Essential (primary) hypertension (7) Autoimmune hepatitis: Status: Acute Code(s): K75.4 - Autoimmune hepatitis Plan #ARIAN on CKD stage IIIb- improving #Melena with suspected upper GI bleed- resolved #Acute on chronic anemia #Hypoxia secondary to acute exacerbation of chronic heart failure with preserved ejection fraction- resolved #PAF with RVR- rvr resolved #Lactic acidosis- resolved #Hypokalemia- resolved #CAD #HTN #Autoimmune hepatitis #History of carotid artery stenosis/peripheral arterial disease #History of breast cancer Medications at Discharge Home Medications atorvastatin 20 mg tablet 20 mg PO DAILY cholesterol 04/30/22 pantoprazole 40 mg tablet,delayed release (Protonix) 40 mg PO BID GERD #30 tabs 11/13/22 budesonide 3 mg capsule,delayed,extended release 3 mg PO BID [facility] 11/17/22 cholecalciferol (vitamin D3) 125 mcg (5,000 unit) capsule 125 mcg PO DAILY SUPP 12/01/22 ferrous sulfate 325 mg (65 mg iron) tablet (Feosol) 325 mg PO DAILY SUPPLEMENT 12/22/22 sennosides 8.6 mg-docusate sodium 50 mg tablet (2-in-1 Laxative) 1 tab-cap PO DAILY . 12/22/22 apixaban 2.5 mg tablet (Eliquis) 2.5 mg PO BID BLOOD THINN #180 tabs 03/02/23 furosemide 40 mg tablet 40 mg PO DAILY . #90 tabs 03/02/23 potassium chloride 20 mEq tablet,extended release 20 meq PO DAILY SUPPLEMENT #90 tabs 03/02/23 digoxin 125 mcg (0.125 mg) tablet 125 mcg PO DAILY . #90 tabs 03/03/23 diltiazem HCl 180 mg capsule,extended release 24 hr 180 mg PO DAILY 30 days #30 caps 03/18/23 metoprolol tartrate 50 mg tablet 50 mg PO BID 30 days #60 tabs 03/18/23 Hospital Course Summary of Care Provided Minutes Spent on Discharge: 45 Hospital Course: MIKE MENDOZA, is a 82 F who is on chronic anticoagulation for paroxysmal atrial fibrillation presented to the emergency department at [facility] on 03/14/2023 for melena. She admitted for possible GI bleed and started on Protonix drip and her apixaban was held and GI consulted. Bleeding resolved once apixaban was held, she was offered repeat endoscopies but patient refused despite discussing risks and benefits. Patient was also somewhat weak so worked with physical therapy and ultimately it was felt she was safe to go home with home health. Hospitalization was complicated by A-fib with RVR causing fluid overload and subsequent hypoxia. She was given IV Lasix and this resolved her hypoxia however resulted in and ARIAN which was likely worsened by aggressive diuresis as well as n.p.o. for scopes that patient ultimately refused. Nephro logy consulted but patient began improving with holding Lasix and continuing adequate oral hydration. She worked with physical therapy and ultimately was agreeable to home health. I discussed with GI regarding her Eliquis and it was determined due to not being able to do endoscopies it would be best for this to be held and for her to follow closely with her GI physician to discuss optimal timing of resuming this given she blood when she was taking it but it resolved when it was held. On day of discharge patient with no acute complaints. DISCHARGE INSTRUCTIONS PLEASE READ *Please take this with you to your next doctors appointment* -It is recommended you hold your Eliquis until you are able to discuss with your GI doctor or primary care physician given the inability to perform repeat endoscopy during this admission -Please follow-up with your environmental epidemiologist in 1-2 weeks and your liver and GI doctor upon discharge. Please call their office to schedule hospital follow-up appointment upon discharge. -We will discontinue your lisinopril per nephrology recommendations -Due to low blood pressure and heart rate your metoprolol dose was decreased to 50 mg twice daily and your cardizem was also decreased to 180mg. Please take these doses and do not combine these with your previous doses -Would recommend resuming your Lasix on Tuesday -Would recommend lab work (BMP) to check your kidney function in 4 to 5 days through your primary care physician's office. Please call their office upon discharge to obtain order for lab work. -Weigh yourself every day. A sudden weight gain can mean you are retaining fluid. Weigh yourself at the same time of day and in the same kind of clothes. Ideally, weigh yourself first thing in the morning after you empty your bladder, but before you eat breakfast. -Please call your physician if your weight goes up by more than 2 pounds in 1 da y or 5 pounds in 1 week. This can be a sign that you are retaining more fluid than you should be. Clues to weight gain include checking your ankles for swelling, or noticing you are short of breath when you lie down -Please limit your sodium intake to less than 3 g/day. Here are tips: Limit canned, dried, packaged, and fast foods. Don't add salt to your food at the table. Season foods with herbs instead of salt when you cook. When you eat out, ask that the manager merchandising not add any salt to your dish. Don't eat fried or greasy foods. Be careful of bottled beverages. They can contain a lot of salt -Call 911 right away if you have: -Severe shortness of breath, such that you can't catch your breath even while resting -Severe chest pain that does not resolve with rest or nitroglycerin -[place], foamy mucus with cough and shortness of breath -An ongoing rapid or irregular heartbeat -Passing out or fainting -Stroke symptoms such as sudden numbness or weakness on one side of your face, arm, or leg or sudden confusion, trouble speaking or vision changes -Please call your primary care provider's office upon discharge to schedule a hospital follow up within 1 week. -For any concerning signs or symptoms please call 911 or proceed to the nearest emergency department Physical Exam Narrative General: Alert, oriented, no apparent distress HEENT: Atraumatic, normocephalic Eyes: Anicteric, normal conjunctiva, extraocular movements grossly intact Neck: Supple Respiratory: Somewhat diminished at the bases, normal respiratory effort Cardiovascular: Regular rate and irregular rhythm GI: Soft, nontender, nondistended Extremities: Bilateral lower extremities 1+ edema bilaterally Musculoskeletal: Moving all extremities Neuro: No overt focal neurological deficits Skin: No rashes appreciated Psych: Overall cooperative Weight / BMI Weight Weight: 57.4 kg Body Mass Index (BMI) 24.7 ABG / Lab / Microbiology Data 03/18/23 05:40 03/18/23 05:40 Laboratory: Laboratory Results - last 24 hr 03/15/23 03:27: Aldolase 18.5 H 03/18/23 05:40: WBC 10.1, RBC 3.39 L, Hgb 8.8 L, Hct 29.1 L, MCV 85.8, MCH 26.0 L, MCHC 30.2 L, RDW Std Deviation 57.6 H, RDW Coeff of Gypsy 18.4 H, Plt Count 140 L, MPV 11.3, Immature Gran % (Auto) 1.400 H, Neut % (Auto) 87.7 H, Lymph % (Auto) 5.9 L, [place] % (Auto) 4.8, Eos % (Auto) 0.1, Baso % (Auto) 0.1, Absolute Neuts (auto) 8.9 H, Absolute Lymphs (auto) 0.59 L, Nucleated RBC % 0, Diff erential Comment SCANNED, Sodium 138, Potassium 4.6, Chloride 111 H, Carbon Dioxide 20.0 L, Anion Gap 7, BUN 59 H, Creatinine 2.10 H, Estim Creat Clear Calc 14.58, Est GFR (MDRD) Af Amer 29 L, Est GFR (MDRD) Non-Af 24 L, BUN/Creatinine Ratio 28.1 H, Glucose 119 H, Calcium 8.6, Magnesium 2.2, Total Bilirubin 0.50, AST 41 H, ALT 122 H, Alkaline Phosphatase 96, Total Protein 6.3 L, Albumin 2.9 L , Globulin 3.4, Albumin/Globulin Ratio 0.9 Microbiology: Microbiology 03/14/23 20:35 Stool C. difficile DNA Amplification - Final 03/14/23 20:35 Stool Stool Occult Blood (KARLO) - Final D/C Instructions Discharge Diet: Renal Diet and - (-DASH diet, 3000 mg sodium restriction, 2 L fluid restriction) Meaningful Use Info Meaningful Use Diagnoses (Choose all that apply): CHF CHF RADHA/ARB ordered at discharge?: No Reason RADHA/ARB not ordered?: Worsening renal disease Documented LVEF (%): 55 Discharge Plan Admission Admit Date/Time: 03/14/23 14:12 Primary Reason for Your Visit: Concern for GI bleed Attending Provider: Pia Ray Primary Care Provider: Sg Brown Consulting Providers: Nyla Finney; Salma Finney Instructions Patient Instructions: GI Bleeding Causes and Tests, ED Lower GI Bleeding (Stable), ED Upper GI Bleeding (Stable) Additional Instructions / Restrictions: DISCHARGE INSTRUCTIONS PLEASE READ *Please take this with you to your next doctors appointment* -It is recommended you hold your Eliquis until you are able to discuss with your GI doctor or primary care physician given the inability to perform repeat endoscopy during this admission -Please follow-up with your environmental epidemiologist in 1-2 weeks and your liver and GI doctor upon discharge. Please call their office to schedule hospital follow-up appointment upon discharge. -We will discontinue your lisinopril per nephrology recommendations -Due to low blood pressure and heart rate your metoprolol dose was decreased to 50 mg twice daily and your cardizem was also decreased to 180mg. Please take these doses and do not combine these with your previous doses -Would recommend resuming your Lasix on Tuesday -Would recommend lab work (BMP) to check your kidney function in 4 to 5 days through your primary care physician's office. Please call their office upon discharge to obtain order for lab work. -Weigh yourself every day. A sudden weight gain can mean you are retaining fluid. Weigh yourself at the same time of day and in the same kind of clothes. Ideally, weigh yourself first thing in the morning after you empty your bladder, but before you eat breakfast. -Please call your physician if your weight goes up by more than 2 pounds in 1 day or 5 pounds in 1 week. This can be a sign that you are retaining more fluid than you should be. Clues to weight gain include checking your ankles for swelling, or noticing you are short of breath when you lie down -Please limit your sodium intake to less than 3 g/day. Here are tips: Limit canned, dried, packaged, and fast foods. Don't add salt to your food at the table. Season foods with herbs instead of salt when you cook. When you eat out, ask that the manager merchandising not add any salt to your dish. Don't eat fried or greasy foods. Be careful of bottled beverages. They can contain a lot of salt -Call 911 right away if you have: -Severe shortness of breath, such that you can't catch your breath even while resting -Severe chest pain that does not resolve with rest or nitroglycerin -[place], foamy mucus with cough and shortness of breath -An ongoing rapid or irregular heartbeat -Passing out or fainting -Stroke symptoms such as sudden numbness or weakness on one side of your face, arm, or leg or sudden confusion, trouble speaking or vision changes -Please call your primary care provider's office upon discharge to schedule a hospital follow up within 1 week. -For any concerning signs or symptoms please call 911 or proceed to the nearest emergency department Discharge Orders/Prescriptions Prescriptions: New diltiazem HCl 180 mg Capsule,Extended Release 24hr 180 mg PO DAILY 30 Days Qty: 30 0RF metoprolol tartrate 50 mg Tablet 50 mg PO BID 30 Days Qty: 60 0RF Continued atorvastatin 20 mg tablet 20 mg PO DAILY cholecalciferol (vitamin D3) 125 mcg (5,000 unit) capsule 125 mcg PO DAILY pantoprazole [Protonix] 40 mg tablet,delayed release (DR/EC) 40 mg PO BID Qty: 30 2RF sennosides-docusate sodium [2-in-1 Laxative] 8.6-50 mg tablet 1 tab-cap PO DAILY ferrous sulfate [Feosol] 325 mg (65 mg iron) tablet 325 mg PO DAILY pattionide 3 mg capsule,delayed,extend.release 3 mg PO BID potassium chloride 20 mEq tablet extended release 20 meq PO DAILY Qty: 90 3RF digoxin 125 mcg (0.125 mg) tablet 125 mcg PO DAILY Qty: 90 3RF Held furosemide 40 mg tablet 40 mg PO DAILY Qty: 90 3RF Hold Instructions: Resume on 03/20/23. Eliquis 2.5 mg tablet 2.5 mg PO BID Qty: 180 3RF Hold Instructions: Resume on 03/23/23. Until you discussed with your GI or primary care physician regarding next best steps Discontinued metoprolol tartrate 100 mg tablet 100 mg PO Q12H diltiazem HCl [Cardizem CD] 240 mg capsule,extended release 24hr 240 mg PO DAILY Qty: 90 3RF lisinopril 20 mg tablet 20 mg PO DAILY Qty: 90 3RF Hold Instructions: Hold for 7 days. Referrals / Follow Up: Salma Finney DO [Med Staff - Consulting] - Sg Brown MD [Primary Care Provider] - Within 1 Week Disposition Disposition (needs filled in before D/C Order can be placed): Home Health Service Charges/Coding Visit Charges Inpatient E&M: 09637 Disch Hosp >30min
[2023-03-18 14:31] VITALS: BP 143/65; PULSE 76; RESP 16; TEMP 36.4; O2SAT 98
--- NOTE | 2023-03-18 14:44 | CASEMGMT ---
LORENZO URRUTIA received update from [facility] that they are able to see patient tomorrow. LORENZO URRUTIA in to update patient regarding [facility] setup and start of care for tomorrow. Patient voiced understanding. Patient had no further questions or concerns at this time.
== END 2023-03-18 16:15 | disposition home health service (06) | DRG 377 ==
LOC: ED 14:25 → PCU 14:53
PROVIDERS: Internal Medicine Gastroenterology; Admitting Provider Internal Medicine; Emergency Provider Emergency Medicine; PCP Family Medicine; Visit Provider Internal Medicine
DX: K92.2 Gastrointestinal hemorrhage, unspecified (principal); I50.33 Acute on chronic diastolic (congestive) heart failure; N17.9 Acute kidney failure, unspecified; E87.20 Acidosis, unspecified; N18.4 Chronic kidney disease, stage 4 (severe); I13.0 Hypertensive heart and chronic kidney disease with heart failure and stage 1 through stage 4 chronic kidney disease, or unspecified chronic kidney disease; B18.9 Chronic viral hepatitis, unspecified; N18.32 Chronic kidney disease, stage 3b; I48.0 Paroxysmal atrial fibrillation; I08.1 Rheumatic disorders of both mitral and tricuspid valves; D64.9 Anemia, unspecified; D50.0 Iron deficiency anemia secondary to blood loss (chronic); E78.5 Hyperlipidemia, unspecified; I25.10 Atherosclerotic heart disease of native coronary artery without angina pectoris; E87.6 Hypokalemia; I87.8 Other specified disorders of veins; Z79.01 Long term (current) use of anticoagulants; R74.01 Elevation of levels of liver transaminase levels; Z66 Do not resuscitate; Z82.3 Family history of stroke; Z87.891 Personal history of nicotine dependence; R09.02 Hypoxemia; N26.1 Atrophy of kidney (terminal); Z79.2 Long term (current) use of antibiotics; Z79.51 Long term (current) use of inhaled steroids; Z85.3 Personal history of malignant neoplasm of breast; R29.6 Repeated falls
CPT/HCPCS: 36415; 71045; 80048; 80053; 80162; 82085; 82274; 82550; 83605; 83735; 83880; 84100; 85018; 85025; 85610; 85652; 85730; 86140; 86850; 86900; 86901; 86920; 86922; 87493; 93005; 94668; 97162; 97166; 97530; 97535; 97802; 99284; J7030; J7050; A4216; J1940; J3490

== ENCOUNTER 2023-03-31 12:59 | Outpatient (RCR) | payer MEDICARE, SELFPAY ==
[2023-03-31 13:48] LABS: Absolute Lymphocyte Count 0.82 X10^3/uL (0.83-4.51); Absolute Neutrophil Count 5.8 X10^3/uL (2.0-7.7); Basophil# 0.02 X10^3/uL; Basophil% 0.3 % (0-1); Eosinophil# 0.06 X10^3/uL; Eosinophils% 0.8 % (0-5); Hematocrit 28.6 % (37-47); Hemoglobin 8.9 g/dL (12.0-15.0); Lymphocyte # 0.82 X10^3/ul (0.83-4.51); Lymphocyte % 11.2 % (19-41); Mean Corp Hgb Conc 31.1 g/dL (32-36); Mean Corpuscular Hgb 26.2 pg (27.0-32.0); Mean Corpuscular Volume 84.1 fL (81-99); Mean Platelet Vol. 10.9 fl (6.2-12.0); Monocyte% 6.8 % (0-10); NRBC Flagged by Analyzer 0 % (0-5); Neutrophil # 5.84 X10^3/uL (2.7-7.7); Neutrophil % 80.1 % (47-70); POSITIVE COUNT YES; Platelet Count 80 K/mm3 (150-450); RBC Distribution Width CV 17.6 % (11.6-14.6); RBC Distribution Width SD 54.4 fl (35.1-43.9); White Blood Count 7.3 K/mm3 (4.4-11.0)
[2023-03-31 13:55] LABS: Differential Indicated SCAN CRITERIA MET
[2023-03-31 14:05] LABS: Anion Gap 5 (5-15); BUN 32 mg/dL (7-18); BUN/Creat Ratio 20.8 RATIO (10-20); Calcium,Total 7.9 mg/dL (8.5-10.1); Chloride 103 mmol/L (98-107); Creatinine, Serum 1.54 mg/dL (0.55-1.02); EST Glomerular Filtration Rate 34 mL/min (>60); Est Glom Filt Rate - Afr Amer 41 mL/min (>60); Glucose 85 mg/dL (74-106); Potassium 2.5 mmol/L (3.5-5.1); Sodium Level 141 mmol/L (136-145)
[2023-03-31 14:09] LABS: Differential Comment SCANNED
[2023-03-31 14:10] LABS: Platelet Estimate MOD DEC (ADEQ)
== END 2023-04-08 23:59 ==
LOC: LABSPEC 12:59
PROVIDERS: PCP Family Medicine
DX: K92.1 Melena (principal); D62 Acute posthemorrhagic anemia; N17.9 Acute kidney failure, unspecified
CPT/HCPCS: 80048; 85025

== ENCOUNTER 2023-03-31 15:51 | Emergency (ER) | payer MEDICARE, SELFPAY ==
[2023-03-31 15:52] VITALS: BP 151/51; PULSE 73; RESP 16; TEMP 35.5; O2SAT 100; BMI 23.4
--- NOTE | 2023-03-31 16:19 | EDS_ITS ---
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 Cholecystitis Chronic pain Cirrhosis Congestive heart failure (CHF) Coronary artery disease Diplopia Essential hypertension Former smoker GIB (gastrointestinal bleeding) Hepatitis History of breast cancer Hyperlipidemia Lower extremity edema Non-rheumatic mitral regurgitation Non-rheumatic tricuspid valve insufficiency Osteoporosis PAD (peripheral artery disease) Rheumatoid arthritis Sleep apnea Home Medications atorvastatin 20 mg tablet 20 mg PO DAILY cholesterol 04/30/22 [History Last Taken 03/12/23] pantoprazole 40 mg tablet,delayed release (Protonix) 40 mg PO BID GERD #30 tabs 11/13/22 [Rx Last Taken 03/12/23] budesonide 3 mg capsule,delayed,extended release 3 mg PO BID [facility] 11/17/22 [History Last Taken 03/12/23] cholecalciferol (vitamin D3) 125 mcg (5,000 unit) capsule 125 mcg PO DAILY SUPP 12/01/22 [History Last Taken 03/12/23] ferrous sulfate 325 mg (65 mg iron) tablet (Feosol) 325 mg PO DAILY SUPPLEMENT 12/22/22 [History Last Taken 03/12/23] sennosides 8.6 mg-docusate sodium 50 mg tablet (2-in-1 Laxative) 1 tab-cap PO DAILY laxative 12/22/22 [History Last Taken 03/12/23] apixaban 2.5 mg tablet (Eliquis) 2.5 mg PO BID blood thinner #180 tabs 03/02/23 [Rx Last Taken 03/13/23] furosemide 40 mg tablet 40 mg PO DAILY diuretic #90 tabs 03/02/23 [Rx Last Taken 03/12/23] potassium chloride 20 mEq tablet,extended release 20 meq PO DAILY SUPPLEMENT #90 tabs 03/02/23 [Rx Last Taken 03/12/23] digoxin 125 mcg (0.125 mg) tablet 125 mcg PO DAILY for heart #90 tabs 03/03/23 [Rx Last Taken 03/12/23] diltiazem HCl 180 mg capsule,extended release 24 hr 180 mg PO DAILY 30 days #30 caps 03/18/23 [Rx Last Taken Unknown] metoprolol tartrate 50 mg tablet 50 mg PO BID 30 days #60 tabs 03/18/23 [Rx Last Taken Unknown] potassium chloride 20 mEq/15 mL oral liquid 20 meq (15 mL) PO DAILY #473 mL 03/31/23 [Rx Last Taken Unknown] Allergy/AdvReac Type Severity Reaction Status Date / Time azathioprine Allergy Unknown PT UNSURE Verified 03/31/23 15:52 OF REACTION Sulfa (Sulfonamide Allergy Hives Verified 03/31/23 15:52 Antibiotics) Family History Father Prostate cancer Mother CVA (cerebral vascular accident) Breast cancer Heart disease Other Anemia Surgical History Bilateral carotid artery disease History of aortic valve replacement with bioprosthetic valve (~09/18/11) History of cholecystectomy History of coronary artery bypass surgery (~09/18/11) History of vascular surgery Peripheral vascular disease S/P anal fissurectomy S/P cholecystectomy S/P colonoscopy S/P lumpectomy, left breast Social History housing: apartment Smoking Status: Former smoker second hand exposure: No alcohol intake: current alcohol intake frequency: holidays/special occasions only substance use type: does not use caffeine: Yes what type of physical activity do you participate in: none frequency: does not exercise seatbelt use: always EXAM Physical Exam Const Vital Signs: 03/31/23 15:52 03/31/23 16:31 03/31/23 16:50 Temperature 96 F L Temperature Source Temporal Pulse Rate 73 52 L Respiratory Rate 16 19 H Respiratory Effort Normal Respiratory Pattern Normal Blood Pressure 151/51 H Blood Pressure Mean 84 Pulse Ox 100 99 Oxygen Delivery Method Room Air 03/31/23 18:35 03/31/23 21:05 Temperature Temperature Source Pulse Rate 70 60 Respiratory Rate 18 Respiratory Effort Respiratory Pattern Blood Pressure 157/54 H 178/54 H Blood Pressure Mean 88 95 Pulse Ox 97 Oxygen Delivery Method Room Air MDM MDM MDM Narrative Medical decision making narrative: HISTORY OF PRESENT ILLNESS: 82-year-old female here with concern for abnormal labs. Per the patient her primary doctor called and said that her potassium was 2.5. Told to come to the emergency department. She notes compliance with digoxin. She denies any lightheadedness, palpitations, nausea vomiting or new diarrhea. REVIEW OF SYSTEMS: Pertinent positives: Abnormal labs Pertinent negatives: Vomiting, diarrhea PHYSICAL EXAM: Nursing triage notes reviewed, Vital signs reviewed Constitutional: please see [facility] HENT: MMM Eyes: Pupils equal round and reactive to light, Extraocular muscles intact Neck: No stridor, no JVD, full neck ROM Lungs: Clear to auscultation, No wheezing or rales. No increased work of breathing, no conversational dyspnea, no accessory muscle use, no nasal flaring. No respiratory distress noted Heart: Regular rate and rhythm, No murmurs, No rubs and No gallops, 2+ distal pulses (radial, femoral, posterior tibial) in all extremities Abdomen: Soft, there is no tenderness, rigidity, rebound or guarding, no obvious peritoneal signs, no palpable pulsatile abdominal masses, no auscultated abdominal bruit : No CVAT Extremities: No edema Neuro: No focal neurological deficits, cranial nerves II through XII intact, 5/5 strength in all extremities. Intact sensation to light touch in all extremities, 2+ reflexes bilateral patella tendons. Normal gait. No ataxia. Skin: No rash or lesions noted MEDICAL DECISION MAKING: Chief Complaint: Hypokalemia External records reviewed: Lab studies reviewed: CBC from 03/31/2023 shows no significant leukocytosis shows baseline anemia, there is noted thrombocytopenia as well. BMP with hypokalemia, there is improved CKD no magnesium level was checked Factors affecting care: CKD, CAD, hypertension, hyperlipidemia, breast cancer, atrial fibrillation on Eliquis and digoxin Social determinants of health: Elderly History obtained from others: Patient's family Consults: none [facility] Narrative: Patient was hemodynamically stable, afebrile, nontoxic-appearing. Exam without focal cardiopulmonary maladies. Abdomen soft and nontender I considered the following differential diagnosis: Electrolyte disturbance, ALL IMAGES (IF OBTAINED) HAVE BEEN PERSONALLY REVIEWED AND INTERPRETED BY MYSELF. EKG with rate controlled A-fib, normal axis, normal intervals, no obvious STEMI Labs showed evidence of hypokalemia. Magnesium was low as well. BMP showed no other significant electrolyte abnormalities. Magnesium and potassium replaced both orally and through the IV. BMP was also notable for CKD. Patients digoxin level was elevated however she had no signs of digoxin toxicity including hyperkalemia, high degree heart block, arrhythmia, GI symptoms or visual changes. Patient was instructed to hold her digoxin for 48 hours. Patient was treated with oral potassium and this improved her potassium from 2.5-3.9. She is encouraged to eat a potassium rich diet, take her already prescribed potassium supplementation and to drink body armor as this provides approximately 8 mEq potassium per serving. The patient and/or family, caregivers express understanding. The patient and/or family, caregivers agrees with the plan. Shared decision making: I will have a discussion with the patient and or visitors regarding risk/benefits of further testing or admission. They will be made aware of of the risk/benefits inherent in this decision they will be given the opportunity to voice understanding. Total critical care time today provided was at least 0 minutes. This excludes separately billable procedures. Critical care time (if documented) is secondary to the patient having high probability of clinically significant/life threatening deterioration in the patient's condition which required my urgent intervention. Impression: 1. Hypokalemia 2. Hypomagnesemia 3. Elevated digoxin level Dispo: Discharge Lab Data Attestation: I reviewed the patient's lab results. Labs: Laboratory Results - last 24 hr 03/31/23 03/31/23 16:45 20:45 WBC 7.7 RBC 3.54 L Hgb 9.5 L Hct 30.4 L MCV 85.9 MCH 26.8 L MCHC 31.3 L RDW Std Deviation 54.1 H RDW Coeff of Gypsy 17.5 H Plt Count 76 L MPV 10.6 Immature Gran % (Auto) 1.000 H Neut % (Auto) 79.8 H Lymph % (Auto) 11.2 L [place] % (Auto) 6.7 Eos % (Auto) 0.8 Baso % (Auto) 0.5 Absolute Neuts (auto) 6.2 Absolute Lymphs (auto) 0.87 Nucleated RBC % 0 Differential Comment SCANNED Sodium 141 141 Potassium 2.6 L* 3.9 Chloride 103 105 Carbon Dioxide 31.0 30.0 Anion Gap 7 6 BUN 34 H 32 H Creatinine 1.68 H 1.75 H Estim Creat Clear Calc 18.22 17.50 Est GFR (MDRD) Af Amer 37 L 36 L Est GFR (MDRD) Non-Af 31 L 30 L BUN/Creatinine Ratio 20.2 H 18.3 Glucose 100 118 H Calcium 8.2 L 8.4 L Magnesium 1.5 L Digoxin 2.67 H* Discharge Plan Triage Chief Complaint: Abn Labs ED Provider: Ag Mcdonald Dx/Rx/DC Orders Instructions: ED Hypokalemia, ED Potassium-Rich Foods Prescriptions: New potassium chloride 20 mEq/15 mL liquid 20 meq PO DAILY Qty: 473 0RF Continued potassium chloride 20 mEq tablet extended release 20 meq PO DAILY Qty: 90 3RF No Action atorvastatin 20 mg tablet 20 mg PO DAILY cholecalciferol (vitamin D3) 125 mcg (5,000 unit) capsule 125 mcg PO DAILY pantoprazole [Protonix] 40 mg tablet,delayed release (DR/EC) 40 mg PO BID Qty: 30 2RF sennosides-docusate sodium [2-in-1 Laxative] 8.6-50 mg tablet 1 tab-cap PO DAILY ferrous sulfate [Feosol] 325 mg (65 mg iron) tablet 325 mg PO DAILY diltiazem HCl 180 mg Capsule,Extended Release 24hr 180 mg PO DAILY 30 Days Qty: 30 0RF metoprolol tartrate 50 mg Tablet 50 mg PO BID 30 Days Qty: 60 0RF budesonide 3 mg capsule,delayed,extend.release 3 mg PO BID furosemide 40 mg tablet 40 mg PO DAILY Qty: 90 3RF Hold Instructions: Resume on 03/20/23. Eliquis 2.5 mg tablet 2.5 mg PO BID Qty: 180 3RF Hold Instructions: Resume on 03/23/23. Until you discussed with your GI or primary care physician regarding next best steps digoxin 125 mcg (0.125 mg) tablet 125 mcg PO DAILY Qty: 90 3RF Primary Care Provider: Sg Brown Referrals: Sg Brown MD [Primary Care Provider] - Activity Restrictions/Additional Instructions: Thank you for trusting us with your care today! Please take oral potassium solution as prescribed. Please eat potassium rich diet which includes cantaloupe, spinach, kale. You may add body armor to your diet. Body armor contains approximately 9 mEq potassium per serving. Your digoxin level was elevated today. Please hold digoxin for the next 2 days. Please continue taking digoxin as prescribed on 04/03/2023. Please return to the emergency department if your symptoms change or worsen. Please follow with your primary care physician for further outpatient evaluation and management. Disposition Disposition: Home, Self Care Discharge Date/Time: 03/31/23 21:50
--- NOTE | 2023-03-31 16:22 | EKG12_ITS ---
Test Reason : ABN LABS Blood Pressure : / mmHG Vent. Rate : 059 BPM Atrial Rate : 000 BPM P-R Int : 000 ms QRS Dur : 096 ms QT Int : 394 ms P-R-T Axes : 000 -07 099 degrees QTc Int : 390 ms Atrial fibrillation with slow ventricular response Minimal voltage criteria for LVH, may be normal variant ( R in aVL ) Marked ST abnormality, possible lateral subendocardial injury Abnormal ECG Confirmed by NYASIA NOWAK, FERNANDA ([id number]), newspaper copy editor IAIN EASLEY ([id number]) on 04/05/2023 7:57:35 AM Referred By: Confirmed By:FERNANDA MURRELL MD
[2023-03-31 16:50] VITALS: PULSE 52; RESP 19; O2SAT 99
[2023-03-31 17:15] LABS: Anion Gap 7 (5-15); BUN 34 mg/dL (7-18); BUN/Creat Ratio 20.2 RATIO (10-20); Calcium,Total 8.2 mg/dL (8.5-10.1); Chloride 103 mmol/L (98-107); Creatinine, Serum 1.68 mg/dL (0.55-1.02); EST Glomerular Filtration Rate 31 mL/min (>60); Est Glom Filt Rate - Afr Amer 37 mL/min (>60); Estimated Creatinine Clearance 18.22 ml/min; Glucose 100 mg/dL (74-106); Magnesium 1.5 mg/dL (1.6-2.6); Potassium 2.6 mmol/L (3.5-5.1); Sodium Level 141 mmol/L (136-145)
[2023-03-31 17:19] LABS: Absolute Lymphocyte Count 0.87 X10^3/uL (0.83-4.51); Absolute Neutrophil Count 6.2 X10^3/uL (2.0-7.7); Basophil# 0.04 X10^3/uL; Basophil% 0.5 % (0-1); Eosinophil# 0.06 X10^3/uL; Eosinophils% 0.8 % (0-5); Hematocrit 30.4 % (37-47); Hemoglobin 9.5 g/dL (12.0-15.0); Lymphocyte # 0.87 X10^3/ul (0.83-4.51); Lymphocyte % 11.2 % (19-41); Mean Corp Hgb Conc 31.3 g/dL (32-36); Mean Corpuscular Hgb 26.8 pg (27.0-32.0); Mean Corpuscular Volume 85.9 fL (81-99); Mean Platelet Vol. 10.6 fl (6.2-12.0); Monocyte# 0.52 X10^3/uL; Monocyte% 6.7 % (0-10); NRBC Flagged by Analyzer 0 % (0-5); Neutrophil # 6.17 X10^3/uL (2.7-7.7); Neutrophil % 79.8 % (47-70); POSITIVE COUNT YES; Platelet Count 76 K/mm3 (150-450); RBC Distribution Width CV 17.5 % (11.6-14.6); RBC Distribution Width SD 54.1 fl (35.1-43.9); Red Blood Count 3.54 M/mm3 (4.2-5.4); White Blood Count 7.7 K/mm3 (4.4-11.0)
[2023-03-31 17:22] LABS: Differential Indicated SCAN CRITERIA MET
[2023-03-31 17:51] LABS: Differential Comment SCANNED
[2023-03-31] MEDS: Potassium Chloride Oral Soln 20 MEQ/15 ML UDC 40 MEQ PO ×2 (17:56→19:43)
[2023-03-31] MEDS: Magnesium Sulfate 2 GM in Dextrose 5%-Water (100mL Bag) 100 ML IV (17:56)
[2023-03-31 18:06] LABS: Digoxin Level 2.67 ng/mL (0.80-2.00)
[2023-03-31 18:35] VITALS: BP 157/54; PULSE 70; RESP 18; O2SAT 97
[2023-03-31 21:05] VITALS: BP 178/54; PULSE 60
[2023-03-31 21:15] LABS: Anion Gap 6 (5-15); BUN 32 mg/dL (7-18); BUN/Creat Ratio 18.3 RATIO (10-20); Calcium,Total 8.4 mg/dL (8.5-10.1); Chloride 105 mmol/L (98-107); Creatinine, Serum 1.75 mg/dL (0.55-1.02); EST Glomerular Filtration Rate 30 mL/min (>60); Est Glom Filt Rate - Afr Amer 36 mL/min (>60); Glucose 118 mg/dL (74-106); Potassium 3.9 mmol/L (3.5-5.1); Sodium Level 141 mmol/L (136-145)
== END 2023-03-31 21:50 | disposition home or self-care (01) ==
PROVIDERS: Emergency Provider Emergency Medicine; PCP Family Medicine; Visit Provider Emergency Medicine
DX: E87.6 Hypokalemia (principal); N17.9 Acute kidney failure, unspecified; I13.0 Hypertensive heart and chronic kidney disease with heart failure and stage 1 through stage 4 chronic kidney disease, or unspecified chronic kidney disease; I50.9 Heart failure, unspecified; I48.91 Unspecified atrial fibrillation; I25.10 Atherosclerotic heart disease of native coronary artery without angina pectoris; Z87.891 Personal history of nicotine dependence; E78.5 Hyperlipidemia, unspecified; N18.9 Chronic kidney disease, unspecified; E83.42 Hypomagnesemia; R79.89 Other specified abnormal findings of blood chemistry; Z85.3 Personal history of malignant neoplasm of breast; Z79.899 Other long term (current) drug therapy; Z79.01 Long term (current) use of anticoagulants; Z95.3 Presence of xenogenic heart valve; Z90.49 Acquired absence of other specified parts of digestive tract; D62 Acute posthemorrhagic anemia; K92.1 Melena
CPT/HCPCS: 80048; 80162; 83735; 85025; 93005; 96365; 96366; 99283; J7030; A4216

== ENCOUNTER 2023-04-06 12:43 | Inpatient (IN) | payer MEDICARE, SELFPAY ==
[2023-04-06] VITALS (8 sets, daily range): BP systolic 160–190; BP diastolic 53–65; PULSE 63–99; RESP 16–27; TEMP 36.6–36.9; O2SAT 92–97; BMI 22.1; BMI 20.9
--- NOTE | 2023-04-06 13:03 | EKG12_ITS ---
Test Reason : Blood Pressure : / mmHG Vent. Rate : 066 BPM Atrial Rate : 000 BPM P-R Int : 000 ms QRS Dur : 082 ms QT Int : 364 ms P-R-T Axes : 000 006 129 degrees QTc Int : 381 ms Atrial fibrillation Nonspecific ST and T wave abnormality Abnormal ECG Confirmed by ABRIL NOWAK, JULES ([id number]), associate editor ROB GRUBBS ([id number]) on 04/08/2023 7:10:32 AM Referred By: Ag Mcdonald Confirmed By:DANDY SAMUELS MD
--- NOTE | 2023-04-06 13:03 | EDS_ITS ---
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 Cholecystitis Chronic pain Cirrhosis Congestive heart failure (CHF) Coronary artery disease Diplopia Essential hypertension Former smoker GIB (gastrointestinal bleeding) Hepatitis History of breast cancer Hyperlipidemia Lower extremity edema Non-rheumatic mitral regurgitation Non-rheumatic tricuspid valve insufficiency Osteoporosis PAD (peripheral artery disease) Rheumatoid arthritis Sleep apnea Home Medications atorvastatin 20 mg tablet 20 mg PO DAILY cholesterol 04/30/22 [History Last Taken 03/12/23] pantoprazole 40 mg tablet,delayed release (Protonix) 40 mg PO BID GERD #30 tabs 11/13/22 [Rx Last Taken 03/12/23] budesonide 3 mg capsule,delayed,extended release 3 mg PO BID ordered by [place] specialist for liver issues 11/17/22 [History Last Taken 03/12/23] cholecalciferol (vitamin D3) 125 mcg (5,000 unit) capsule 125 mcg PO DAILY SUPP 12/01/22 [History Last Taken 03/12/23] ferrous sulfate 325 mg (65 mg iron) tablet (Feosol) 325 mg PO DAILY SUPPLEMENT 0 12/22/22 [History Last Taken 03/12/23] sennosides 8.6 mg-docusate sodium 50 mg tablet (2-in-1 Laxative) 1 tab-cap PO DAILY laxative 12/22/22 [History Last Taken 03/12/23] apixaban 2.5 mg tablet (Eliquis) 2.5 mg PO BID blood thinner #180 tabs 03/02/23 [Rx Last Taken 03/13/23] furosemide 40 mg tablet 40 mg PO DAILY diuretic #90 tabs 03/02/23 [Rx Last Taken 03/12/23] potassium chloride 20 mEq tablet,extended release 20 meq PO DAILY SUPPLEMENT #90 tabs 03/02/23 [Rx Last Taken 03/12/23] digoxin 125 mcg (0.125 mg) tablet 125 mcg PO DAILY for heart #90 tabs 03/03/23 [Rx Last Taken 03/12/23] diltiazem HCl 180 mg capsule,extended release 24 hr 180 mg PO DAILY 30 days #30 caps 03/18/23 [Rx Last Taken Unknown] metoprolol tartrate 50 mg tablet 50 mg PO BID 30 days #60 tabs 03/18/23 [Rx Last Taken Unknown] potassium chloride 20 mEq/15 mL oral liquid 20 meq (15 mL) PO DAILY #473 mL 03/31/23 [Rx Last Taken Unknown] Allergy/AdvReac Type Severity Reaction Status Date / Time azathioprine Allergy Unknown PT UNSURE Verified 04/06/23 12:46 OF REACTION Sulfa (Sulfonamide Allergy Hives Verified 04/06/23 12:46 Antibiotics) Family History Father Prostate cancer Mother CVA (cerebral vascular accident) Breast cancer Heart disease Other Anemia Surgical History Bilateral carotid artery disease History of aortic valve replacement with bioprosthetic valve (~09/18/11) History of cholecystectomy History of coronary artery bypass surgery (~09/18/11) History of vascular surgery Peripheral vascular disease S/P anal fissurectomy S/P cholecystectomy S/P colonoscopy S/P lumpectomy, left breast Social History housing: apartment Smoking Status: Former smoker second hand exposure: No alcohol intake: current alcohol intake frequency: holidays/special occasions only substance use type: does not use caffeine: Yes what type of physical activity do you participate in: none frequency: does not exercise seatbelt use: always EXAM Physical Exam Const Vital Signs: 04/06/23 12:43 04/06/23 14:00 04/06/23 15:00 Temperature 97.8 F Temperature Source Temporal Pulse Rate 73 63 71 Respiratory Rate 18 25 H 20 H Blood Pressure 160/57 H Blood Pressure Mean 91 Pulse Ox 97 Oxygen Delivery Method Room Air MDM MDM MDM Narrative Medical decision making narrative: HISTORY OF PRESENT ILLNESS: 82-year-old female here with concern for abnormal labs. Patient says she was told by her primary care physician to come to the emergency department. They are concerned about elevated digoxin level. She denies any chest pain, palpitations, loss of conscious, visual changes from her baseline, abdominal pain nausea or vomiting. States her last dose of digoxin was last night. REVIEW OF SYSTEMS: Pertinent positives: Nausea Pertinent negatives: Chest pain, shortness of breath, palpitations, syncope, vomiting, visual disturbances PHYSICAL EXAM: Nursing triage notes reviewed, Vital signs reviewed Constitutional: please see mdm HENT: MMM Eyes: Pupils equal round and reactive to light, Extraocular muscles intact Neck: No stridor, no JVD, full neck ROM Lungs: Clear to auscultation, No wheezing or rales. No increased work of breathing, no conversational dyspnea, no accessory muscle use, no nasal flaring. No respiratory distress noted Heart: Regular rate and rhythm, No murmurs, No rubs and No gallops, 2+ distal pulses (radial, femoral, posterior tibial) in all extremities Abdomen: Soft, there is no tenderness, rigidity, rebound or guarding, no obvious peritoneal signs, no palpable pulsatile abdominal masses, no auscultated abdominal bruit : No CVAT Extremities: No edema Neuro: No focal neurological deficits, cranial nerves II through XII intact, 5/5 strength in all extremities. Intact sensation to light touch in all extremities, 2+ reflexes bilateral patella tendons. Normal gait. No ataxia. Skin: No rash or lesions noted MEDICAL DECISION MAKING: Chief Complaint: Abnormal lab External records reviewed: Recent ED visit for hypokalemia. This was repleted in the ED. Digoxin level was elevated instructed hold Doxil 48 hours at that time Factors affecting care: CHF on digoxin, A-fib on Eliquis, history of Social determinants of health: Elderly History obtained from others: The patient's family Consults: The patient's PCP MDM Narrative: Patient was hemodynamically stable, afebrile, nontoxic-appearing I considered the following differential diagnosis: Arrhythmia, digoxin toxicity Patient was hemodynamically stable, afebrile, nontoxic-appearing. Exam without focal cardiopulmonary normalities. Patient essentially asymptomatic. Suspicion for clinical digoxin toxicity. Will obtain labs and EKG to further assess. ALL IMAGES (IF OBTAINED) HAVE BEEN PERSONALLY REVIEWED AND INTERPRETED BY MYSELF. EKG had rate controlled A-fib, normal axis, normal intervals, no obvious STEMI, no high degree heart blocks, no new arrhythmias Digoxin level 2.72 essentially the same as 6 days ago. CBC without leukocytosis, mild anemia stable from baseline, noted thrombocytopenia BMP without significant electrolyte normalities, there is hypokalemia, there is improving kidney function The synthesis the patient's labs images were suggestive of elevated ox level however there is no evidence of significant digoxin toxicity based on the patient's history and physical exam. There are no evidence of SVT, frequent PVCs, bradycardia, ventricular tachycardia or any bidirectional V. tach. While the patient have nausea she had no anorexia, diarrhea, blurred vision, yellow- green discoloration, halos, palpitations, syncope, dyspnea, confusion dizziness delirium or fatigue. Had a discussion with the patient about further ED evaluation about giving Digibind. Given the patient had difficult IV access she did not want to continue to be poked to undergo further treatment. Risk and benefits of further hospitalization and more invasive IV access methods (i.e. central line were discussed with the patient). She was alert and oriented x3 and had capacity to make her medical decision and chose to be discharged home. She agreed to return if symptoms change worsen or developed. She states she like to go home and hold her digoxin. I recommended her holding for the next 72 hours. I recommended outpatient follow-up for repeat lab testing and to return if symptoms change or worsen specifically if she develop palpitations, syncope, chest pain, visual disturbances, vomiting. I reached out to the patient's PCP to discuss case with him and to alert him of the patient's condition and plan. The patient and/or family, caregivers express understanding. The patient and/or family, caregivers agrees with the plan. Shared decision making: I will have a discussion with the patient and or visitors regarding risk/benefits of further testing or admission. They will be made aware of of the risk/benefits inherent in this decision they will be given the opportunity to voice understanding. Total critical care time today provided was at least 0 minutes. This excludes separately billable procedures. Critical care time (if documented) is secondary to the patient having high probability of clinically significant/life threatening deterioration in the patient's condition which required my urgent intervention. Impression: 1. Elevated digoxin level 2. History of CKD 3. Anemia 4. Hypokalemia 5. Thrombocytopenia Dispo: Discharge Lab Data Labs: Laboratory Results - last 24 hr 04/06/23 15:08 WBC 6.1 RBC 3.40 L Hgb 9.0 L Hct 28.6 L MCV 84.1 MCH 26.5 L MCHC 31.5 L RDW Std Deviation 54.4 H RDW Coeff of Gypsy 17.6 H Plt Count 79 L MPV 9.9 Sodium 141 Potassium 3.2 L Chloride 104 Carbon Dioxide 33.0 H Anion Gap 4 L BUN 25 H Creatinine 1.31 H Estim Creat Clear Calc 23.37 Est GFR (MDRD) Af Amer 50 L Est GFR (MDRD) Non-Af 41 L BUN/Creatinine Ratio 19.1 Glucose 93 Calcium 8.5 Digoxin 2.72 H* Discharge Plan Triage Chief Complaint: Abn Labs ED Provider: Ag Mcdonald Dx/Rx/DC Orders Prescriptions: No Action atorvastatin 20 mg tablet 20 mg PO DAILY cholecalciferol (vitamin D3) 125 mcg (5,000 unit) capsule 125 mcg PO DAILY pantoprazole [Protonix] 40 mg tablet,delayed release (DR/EC) 40 mg PO BID Qty: 30 2RF sennosides-docusate sodium [2-in-1 Laxative] 8.6-50 mg tablet 1 tab-cap PO DAILY ferrous sulfate [Feosol] 325 mg (65 mg iron) tablet 325 mg PO DAILY potassium chloride 20 mEq/15 mL liquid 20 meq PO DAILY Qty: 473 0RF diltiazem HCl 180 mg Capsule,Extended Release 24hr 180 mg PO DAILY 30 Days Qty: 30 0RF metoprolol tartrate 50 mg Tablet 50 mg PO BID 30 Days Qty: 60 0RF budesonide 3 mg capsule,delayed,extend.release 3 mg PO BID furosemide 40 mg tablet 40 mg PO DAILY Qty: 90 3RF Hold Instructions: Resume on 03/20/23. Eliquis 2.5 mg tablet 2.5 mg PO BID Qty: 180 3RF Hold Instructions: Resume on 03/23/23. Until you discussed with your GI or primary care physician regarding next best steps potassium chloride 20 mEq tablet extended release 20 meq PO DAILY Qty: 90 3RF digoxin 125 mcg (0.125 mg) tablet 125 mcg PO DAILY Qty: 90 3RF Primary Care Provider: Sg Brown Referrals: Sg Brown MD [Primary Care Provider] -
[2023-04-06 15:28] LABS: Hematocrit 28.6 % (37-47); Mean Corp Hgb Conc 31.5 g/dL (32-36); Mean Corpuscular Hgb 26.5 pg (27.0-32.0); Mean Corpuscular Volume 84.1 fL (81-99); Mean Platelet Vol. 9.9 fl (6.2-12.0); POSITIVE COUNT YES; Platelet Count 79 K/mm3 (150-450); RBC Distribution Width CV 17.6 % (11.6-14.6); RBC Distribution Width SD 54.4 fl (35.1-43.9); White Blood Count 6.1 K/mm3 (4.4-11.0)
[2023-04-06 15:29] LABS: Scan Indicated on CBC? Y/N NO
[2023-04-06 15:34] LABS: Anion Gap 4 (5-15); BUN 25 mg/dL (7-18); BUN/Creat Ratio 19.1 RATIO (10-20); Calcium,Total 8.5 mg/dL (8.5-10.1); Chloride 104 mmol/L (98-107); Creatinine, Serum 1.31 mg/dL (0.55-1.02); EST Glomerular Filtration Rate 41 mL/min (>60); Est Glom Filt Rate - Afr Amer 50 mL/min (>60); Estimated Creatinine Clearance 23.37 ml/min; Glucose 93 mg/dL (74-106); Potassium 3.2 mmol/L (3.5-5.1); Sodium Level 141 mmol/L (136-145)
[2023-04-06 15:54] LABS: Digoxin Level 2.72 ng/mL (0.80-2.00)
--- NOTE | 2023-04-06 16:03 | PCM.HP.STD ---
HPI - General General Date of Admission: 04/06/23 Date of Service: 04/06/23 Chief Complaint: Confusion, fatigue, malaise, elevated digoxin level. 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, PAF, Chronic normocytic anemia/iron deficiency anemia, Rheumatoid arthritis, CHRISTOPHER, CAD s/p CABG, PAD w/ peripheral unclear intervention, Valvular Heart Disease s/p Bioprosthetic AV, Carotid disease, Hx Breast CA unclear type, Former tobacco use, Hx GI bleed, Chronic Diplopia with CN injury who presents to the [facility] ED on 04/06/23 with history of recent ED evaluation 03/31/2023 secondary to hypokalemia on outpatient labs with repletion and at that time digoxin level obtained but not resulted eventually returning elevated as noted at 2.67 with recommendation for hold at that time however patient with reassessment per primary care physician with concern for increasing levels prompting ED referral with patient and family noting increased fatigue, lethargy, confusion over the last several days which is more pronounced per family reports and reportedly she did have a level with her PCP which had decreased potentially prior to the now rising level. Work-up in the ED included T97.8, heart rate 73, BP 160/57, respiratory rate ranging 18-25, 97% on room air, CBC with WBC 6.1, hemoglobin 9.0, MCV 84.1, platelets 79 without differential performed, BMP with potassium 3.2, carbon oxide 33, BUN/creatinine 25/1.13, digoxin level 03/31/2023 2.67 with repeat digoxin level today 2.72. In the ED access placed and patient administered digibind 40 mg IV x1. [facility] Medical History (Updated 04/06/23 @ 18:[address] 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 Anemia Aortic valve stenosis Atrial fibrillation, new onset Autoimmune hepatitis Carotid art occ w/o infarc Cholecystitis Chronic pain Cirrhosis Congestive heart failure (CHF) Coronary artery disease Diplopia Essential hypertension Former smoker GIB (gastrointestinal bleeding) Hepatitis History of breast cancer Hyperlipidemia Lower extremity edema Non-rheumatic mitral regurgitation Non-rheumatic tricuspid valve insufficiency Osteoporosis PAD (peripheral artery disease) Rheumatoid arthritis Sleep apnea Home Medications atorvastatin 20 mg tablet 20 mg PO DAILY cholesterol 04/30/22 [History Last Taken 03/12/23] pantoprazole 40 mg tablet,delayed release (Protonix) 40 mg PO BID GERD #30 tabs 11/13/22 [Rx Last Taken 03/12/23] budesonide 3 mg capsule,delayed,extended release 3 mg PO BID [facility] 11/17/22 [History Last Taken 03/12/23] cholecalciferol (vitamin D3) 125 mcg (5,000 unit) capsule 125 mcg PO DAILY SUPP 12/01/22 [History Last Taken 03/12/23] ferrous sulfate 325 mg (65 mg iron) tablet (Feosol) 325 mg PO .every other day SUPPLEMENT 12/22/22 [History Last Taken 03/12/23] sennosides 8.6 mg-docusate sodium 50 mg tablet (2-in-1 Laxative) 1 tab-cap PO DAILY laxative 12/22/22 [History Last Taken 03/12/23] apixaban 2.5 mg tablet (Eliquis) 2.5 mg PO BID blood thinner #180 tabs 03/02/23 [Rx Last Taken 03/13/23] furosemide 40 mg tablet 40 mg PO DAILY diuretic #90 tabs 03/02/23 [Rx Last Taken 03/12/23] potassium chloride 20 mEq tablet,extended release 20 meq PO DAILY SUPPLEMENT #90 tabs 03/02/23 [Rx Last Taken 03/12/23] digoxin 125 mcg (0.125 mg) tablet 125 mcg PO DAILY for heart #90 tabs 03/03/23 [Rx Last Taken 03/12/23] diltiazem HCl 180 mg capsule,extended release 24 hr 180 mg PO DAILY heart 30 days #30 caps 03/18/23 [Rx Last Taken Unknown] metoprolol tartrate 50 mg tablet 50 mg PO BID bp 30 days #60 tabs 03/18/23 [Rx Last Taken Unknown] Allergy/AdvReac Type Severity Reaction Status Date / Time azathioprine Allergy Unknown PT UNSURE Verified 04/06/23 12:46 OF REACTION Sulfa (Sulfonamide Allergy Hives Verified 04/06/23 12:46 Antibiotics) Family History Father Prostate cancer Mother CVA (cerebral vascular accident) Breast cancer Heart disease Other Anemia Surgical History Bilateral carotid artery disease History of aortic valve replacement with bioprosthetic valve (~09/18/11) History of cholecystectomy History of coronary artery bypass surgery (~09/18/11) History of vascular surgery Peripheral vascular disease S/P anal fissurectomy S/P cholecystectomy S/P colonoscopy S/P lumpectomy, left breast Social History housing: apartment Smoking Status: Former smoker second hand exposure: No alcohol intake: current alcohol intake frequency: holidays/special occasions only substance use type: does not use caffeine: Yes what type of physical activity do you participate in: none frequency: does not exercise seatbelt use: always ROS ROS Narrative Admission Review of Systems: CONSTITUTIONAL: No weight loss, fever, chills, + weakness or fatigue. HEENT: Eyes: No visual loss, blurred vision, double vision or yellow sclerae. Ears, Nose, Throat: No hearing loss, sneezing, congestion, runny nose or sore throat. SKIN: No rash or itching, lesions, wounds. CARDIOVASCULAR: No chest pain, chest pressure or chest discomfort, palpitations, edema, orthopnea, syncopal events. RESPIRATORY: No shortness of breath, cough or sputum, wheezing, hemoptysis. GASTROINTESTINAL: + anorexia. No nausea, vomiting or diarrhea, abdominal pain, melena, BRBPR. GENITOURINARY: No dysuria, frequency, urgency or retention. NEUROLOGICAL: + Confusion. No headache, dizziness, syncope, paralysis, ataxia, numbness or tingling in the extremities, focal weakness, change in bowel or bladder control, seizure. MUSCULOSKELETAL: + muscle, back pain, joint pain or stiffness. HEMATOLOGIC: + anemia. + easy bleeding and bruising. LYMPHATICS: No enlarged nodes. No history of splenectomy. PSYCHIATRIC: + history of depression or anxiety. ENDOCRINOLOGIC: No reports of sweating, cold or heat intolerance. No polyuria or polydipsia. ALLERGIES: + history of hives. Vital Signs Vital Signs Vital Signs: 04/06/23 12:43 04/06/23 14:00 04/06/23 15:00 Temperature 97.8 F Temperature Source Temporal Pulse Rate 73 63 71 Respiratory Rate 18 25 H 20 H Blood Pressure 160/57 H Blood Pressure Mean 91 Pulse Ox 97 Oxygen Delivery Method Room Air Weight Weight: 113 lb 8.609 oz Body Mass Index (BMI) 22.1 Physical Exam Narrative Physical Examination: General: Awake, alert, oriented x 3 and cooperative, seated upright in the ED bed in no apparent distress, fatigued, daughter reports she has not been herself, more tired. Skin: Normal color, normal turgor, no icterus, no cyanosis. HEENT: AT/NC, EOMI, PERRLA, mildly dry MM, no carotid bruits or JVD noted. Lungs: CTA bilaterally, moderate effort, mild decrease BL bases, no rales, ronchi or wheezing. Heart: Regular rate and rhythm; no gallop, rub audible, + SM. Abdomen: Soft, NTTP, ND, normal BS, no HSM. Extremities: No cyanosis, no clubbing, BL LE pedal to distal alba 1-2+ pitting edema. Neurological: Patient awake, alert, oriented as noted, cognitive function seems intact but daughter notes that she has seemed more confused; pupils equally reactive to light and accommodation, cranial nerves grossly normal, moving all 4 extremities, no focal deficits, strength moderately globally decreased. Psychiatric: Affect appears fatigued, no acute evidence of depressive or anxiety feelings but does have underlying history. Results Lab / Micro Data 04/06/23 15:08 04/06/23 15:08 Labs: Laboratory Results - last 24 hr 04/06/23 15:08: WBC 6.1, RBC 3.40 L, Hgb 9.0 L, Hct 28.6 L, MCV 84.1, MCH 26.5 L, MCHC 31.5 L, RDW Std Deviation 54.4 H, RDW Coeff of Gypsy 17.6 H, Plt Count 79 L, MPV 9.9, Sodium 141, Potassium 3.2 L, Chloride 104, Carbon Dioxide 33.0 H, Anion Gap 4 L, BUN 25 H, Creatinine 1.31 H, Estim Creat Clear Calc 23.37, Est GFR (MDRD) Af Amer 50 L, Est GFR (MDRD) Non-Af 41 L, BUN/Creatinine Ratio 19.1, Glucose 93, Calcium 8.5, Digoxin 2.72 H* Assessment & Plan Assessment/Plan (1) Elevated digoxin level: PLAN: Plan The patient is an 82 y/o F w/ PMHx: 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, PAF, Chronic normocytic anemia/iron deficiency anemia, Rheumatoid arthritis, CHRISTOPHER, CAD s/p CABG, PAD w/ peripheral unclear intervention, Valvular Heart Disease s/p Bioprosthetic AV, Carotid disease, Hx Breast CA unclear type, Former tobacco use, Hx GI bleed, Chronic Diplopia with CN injury who presents to the [facility] ED on 04/06/23 with history of recent ED evaluation 03/31/2023 secondary to hypokalemia on outpatient labs with repletion and at that time digoxin level obtained but not resulted eventually returning elevated as noted at 2.67 with recommendation for hold at that time however patient with reassessment per primary care physician with concern for increasing levels prompting ED referral. #1. Supratherapeutic Digoxin Level w/ confusion/lethargy/fatigue: We will admit to PCU, digibind initiated in the ED, will continue to trend digoxin levels, maintain on telemetry monitoring, will also hold beta-sergey as well as diltiazem to be cautious with pulse dosing if appropriate, will supplement electrolyte deficiencies, will repeat EKGs as needed, maintain on fall precautions, if necessary may involve cardiology for medication adjustments pending further trending. #2. Hypokalemia: Admission K+ 3.2, magnesium level requested, supplementation given, repeat level in AM. #3. HFpEF: Appears compensated, given presentation we will temporarily hold patient metoprolol as well as diltiazem and digoxin to be cautious with resumption of agents once her level has improved, can certainly pulse dose with beta-sergey or diltiazem if necessary, continue Lasix as well as low-dose statin. #4. PAF: As noted temporarily holding patient digoxin given elevated level in addition holding beta-sergey and diltiazem to be cautious given supratherapeutic digoxin level, may certainly pulse dose if necessary, will continue chronic apixaban regimen. #5. 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 #6. Chronic normocytic anemia/iron deficiency anemia: Admission hemoglobin 9.0, MCV 84.1, baseline 9, stable, continue to trend, continue iron supplementation. #7. Chronic Kidney Disease Stage IV: Admission BUN/Cr 25/1.31, baseline renal function primarily appears 1.5-2.3 although most recently prior to this presentation 03/31/2023 creatinine 1.75, repeat BMP in AM. #8. CAD, PAD: Status post angioplasty peripherally and CABG, will continue apixaban, statin, temporally holding metoprolol given supratherapeutic digoxin level to be cautious but certainly may pulse dose and add back once appropriate, not on RADHA inhibitor/ARB likely secondary to underlying significant renal disease. #9. Valvular heart disease: Status post bioprosthetic AV, echocardiogram with LVEF 55%, at least grade 2 diastolic dysfunction, #10. GERD with history GI bleed: We will continue patient on PPI. #11. Rheumatoid arthritis: From current list not on any chronic steroids or chronic medication, encourage continued outpatient follow-up with rheumatology as previously arranged. #12. History of breast cancer: Unclear specific type status post previous lumpectomy, considered in remission. #13. Former tobacco use: Encourage continued tobacco cessation. #14. CHRISTOPHER: Unable to tolerate PAP therapy. Does not use HS oxygen either. #15. DVT prophylaxis: Continue patient home apixaban regimen. #16. CODE status: Patient TOMASZ is her daughter and living will is currently in place. Discussed CODE status at length including difference between FULL code, DNR-CCA and DNR-CC status. Following discussions about the differences in these status, requested DNR-CCA, no intubation status. Advanced Care Planning Face to Face Time: 16 minutes. Charges/Coding Visit Charges Inpatient E&M: 24100 Init Hosp L3 Procedures Hospitalists Procedures: 79625 Advncd Care Plan 30 Min
--- NOTE | 2023-04-06 17:09 | NURSING ---
PCU WHITE SUPRATHERAPEUTIC DIG LEVEL
--- NOTE | 2023-04-06 17:15 | RAD_ITS ---
STUDY: X-RAY CHEST REASON FOR EXAM: Female, 82 years old. line placement TECHNIQUE: AP portable COMPARISON: March 14, 2023 FINDINGS: Mild pulmonary interstitial edema. Small bilateral pleural effusions and bibasilar atelectasis.. Postop change status post median sternotomy and CABG Heart is enlarged. Normal mediastinum and dulce. Normal visualized pulmonary arteries. Mildly calcified aortic arch and descending thoracic aorta. Central line placement noted on the right with tip at the atrial caval junction Dorsal spine and shoulders demonstrate degenerative change. Normal visualized ribs, and clavicles. There is no demonstrated abnormality of the visualized soft tissue structures of the upper abdomen. RAD/CXR for Line Placement IMPRESSION: Central line placement on the right with tip at the atrial caval junction. No evidence for pneumothorax Probable mild congestive failure with small pleural effusions Electronically Signed: Tj Brannon MD at 18:06 EDT ,
[2023-04-06] MEDS: Potassium Chloride Oral Soln 20 MEQ/15 ML UDC 40 MEQ PO (18:04)
[2023-04-06 18:21] LABS: Mucous, Urine 0 SEEN /hpf (<or=2+); Red Blood Cells-Urine 0 SEEN /hpf (0-5)
[2023-04-06 18:30] LABS: Color, Urine Yellow (Yellow); Glucose, Dipstick Normal (Normal); Ketone-Dipstick Negative (Negative); Leukocyte Esterase-Dipstick 500 /ul (Negative); Nitrite-Dipstick Negative (Negative); Occult Blood-Urine 10 /ul (Negative); Protein-Dipstick 30 mg/dl (Negative); Urine Bilirubin Dipstick Negative (Negative); Urine Clarity Clear (Clear); Urine Urobilinogen Normal (Normal)
[2023-04-06 18:54] LABS: Bacteria 1+ /hpf (None Seen); Squamous Epithelial Cells - UA 0-5 SEEN /hpf (5-10); White Blood Cells 5-10 SEEN /hpf (0-5)
[2023-04-06 19:00] LABS: Magnesium 1.9 mg/dL (1.6-2.6)
[2023-04-06 19:54] LABS: Troponin-I HS 160 pg/mL (3.0-54.0)
[2023-04-06] MEDS: 0.9% Normal Saline (1000mL) 1,000 ML 75 ML IV (20:00)
--- NOTE | 2023-04-06 20:10 | ECHOD_ITS ---
Reason For Study: Elevated Troponins Procedure This was a 2D Doppler, Color Flow transthoracic echocardiogram. Exam performed portable in patient room. Left Ventricle Normal LV size. The estimated ejection fraction is 65 %. Unable to assess diastolic dysfunction. No regional wall motion abnormalities noted. Right Ventricle Normal RV size. Normal systolic function. Atria The left atrium is severely enlarged. The right atrium is mildly enlarged. No doppler evidence for ASD. Mitral Valve There is severe mitral annular calcification. There is no mitral valve stenosis. Moderate (2+) mitral valve insufficiency. Tricuspid Valve There is no tricuspid stenosis. Moderate (2+) tricuspid valve insufficiency. Pulmonary artery systolic pressure is 80 mmHg. Aortic Valve There is no aortic stenosis. Mild (1+) aortic valve insufficiency. Stable appearing bioprosthetic aortic valve apparatus. Pulmonic Valve There is no pulmonic valvular stenosis. No pulmonic valve insufficiency. Great Vessels Normal aortic root. Pericardium/Pleural No pericardial effusion. MMode/2D Measurements & Calculations LVIDd: 3.6 cm IVSd: 1.2 cm LVOT diam: 1.8 cm LVIDs: 2.7 cm LVPWd: 1.2 cm LVOT area: 2.6 cm2 RVDd: 3.1 cm FS: 26.4 % LA dimension: 5.4 cm LAV(MOD-bp): 72.4 ml LA A4 area: 24.1 cm2 LAV(MOD-bp) Indexed: 50.6 ml/m2 LAV(MOD-sp2): 64.0 ml LAV(MOD-sp4): 75.3 ml TAPSE: 1.2 cm RA A4 area: 15.9 cm2 Time Measurements MV dec time: 0.13 sec Doppler Measurements & Calculations MV E max placido: 163.2 cm/sec Lat Peak E' Placido: 11.2 cm/sec Med Peak E' Placido: 5.6 cm/sec MV A max placido: 31.6 cm/sec E/E' lat: 14.5 E/E' med: 29.3 MV E/A: 5.2 MV V2 max: 185.7 cm/sec MV P1/2t max placido: 186.7 cm/sec Ao V2 max: 252.8 cm/sec MV max P.8 mmHg MV P1/2t: 48.2 msec Ao max P.6 mmHg MV V2 mean: 78.0 cm/sec MV dec slope: 1134 cm/sec2 Ao V2 mean: 170.2 cm/sec MV mean P.4 mmHg Ao mean P.2 mmHg MV V2 VTI: 34.6 cm MVA(P1/2t): 4.6 cm2 Ao V2 VTI: 48.9 cm MVA(VTI): 1.4 cm2 AV (velocity ratio): 0.37 ALEJANDRO(I,D): 0.98 cm2 ALEJANDRO(V,D): 0.85 cm2 AI max placido: 399.4 cm/sec LV V1 max: 82.2 cm/sec MR max placido: 697.5 cm/sec AI max P.8 mmHg LV V1 max P.7 mmHg MR max P.6 mmHg LV V1 mean P.6 mmHg MR mean placido: 555.8 cm/sec AI dec slope: 288.6 cm/sec2 LV V1 mean: 60.6 cm/sec MR mean P.3 mmHg AI P1/2t: 405.4 msec LV V1 VTI: 18.3 cm MR VTI: 218.1 cm SV(LVOT): 47.8 ml PA V2 max: 86.4 cm/sec TR max placido: 453.2 cm/sec TR max P.2 mmHg ECHO/Echo Complete Interpretation Summary The estimated ejection fraction is 65 %. Unable to assess diastolic dysfunction. The left atrium is severely enlarged. The right atrium is mildly enlarged. Moderate (2+) mitral valve insufficiency. Mild (1+) aortic valve insufficiency. Ordering Physician: Eliza Herrmann Referring Physician: Ag Mcdonald Performed By: Presley Gresham RCS
[2023-04-06] MEDS: proCHLORPERazine 10 MG/2 ML Vial 5 MG IV (20:30)
[2023-04-06 21:30] LABS: Troponin-I HS 144 pg/mL (3.0-54.0)
[2023-04-06 21:38] LABS: Digoxin Level 0.31 ng/mL (0.80-2.00)
[2023-04-06] MEDS: Pantoprazole Sodium 40 MG Tablet PO (22:46)
[2023-04-06] MEDS: APIXABAN 2.5 MG TABLET (WCH) PO (22:46)
[2023-04-06] MEDS: Budesonide 3 MG CAPSULE.EC PO (22:46)
[2023-04-06] MEDS: Aspirin 325 MG Tablet PO (22:46)
[2023-04-07] VITALS (28 sets, daily range): BP systolic 109–230; BP diastolic 47–74; PULSE 55–117; RESP 16–99; TEMP 36.5–37.1; O2SAT 90–100; BMI 21.5
--- NOTE | 2023-04-07 01:01 | CT_ITS ---
STUDY: CT ABDOMEN AND PELVIS WITH CONTRAST REASON FOR EXAM: Female, 82 years old. Abdominal pain RADIATION DOSAGE (If Supplied By Facility): CTDIvol = ( 6.04 ) mGy, DLP = ( 286.91 ) mGycm TECHNIQUE: Spiral CT imaging of the abdomen and pelvis was performed with intravenous contrast material ( / ), followed by coronal and sagittal reformatting. Individualized dose optimization techniques were used for this CT. COMPARISON: No relevant priors. FINDINGS: LOWER CHEST: Moderate-sized bilateral pleural effusions. Patchy airspace opacities throughout bilateral lower lobes. LIVER: Normal GALLBLADDER AND BILIARY TREE: Gallbladder surgically absent. Biliary ducts are normal.. SPLEEN: Normal PANCREAS: Normal ADRENAL GLANDS: Normal KIDNEYS AND URETERS: Hypoattenuated lesion in the posterior lateral left lower renal pole measuring near water density. BOWEL: Normal stomach. Normal small bowel. Normal appendix. Mild to moderate diverticular disease of the sigmoid colon without localized inflammation. PERITONEUM: No free intraperitoneal air or fluid. No intra-abdominal fluid collection. LYMPH NODES: No mesenteric, retroperitoneal, or pelvic lymphadenopathy. VESSELS: Moderate atherosclerotic plaque of the abdominal vasculature. URINARY BLADDER: Normal REPRODUCTIVE ORGANS: Normal ABDOMINAL WALL: Normal. The femoral-femoral bypass graft noted. BONES: Mild to moderate multilevel degenerative change of the spine. CT/Abdomen/Pelvis without Cont IMPRESSION: 1. Moderate size bilateral pleural effusions with bibasilar atelectasis. 2. Sigmoid colonic diverticulosis without evidence of acute diverticulitis. Paraseptal 3. Lower renal pole cyst. No further follow-up is necessary. Electronically Signed: Cody Martinez MD at 3:16 EDT ,
[2023-04-07] MEDS: hydrALAZINE 20 MG/ML Vial 10 MG IV (01:11)
--- NOTE | 2023-04-07 01:19 | NURSING ---
pt c/o her abd hurting, no prn meds ordered, pt also having runs of vta, dr hudson notified, talked to the pt and then came and assessed her, ordered a ct scan, pain meds and labs.
--- NOTE | 2023-04-07 01:24 | PN.HOSP_ITS ---
Hospitalist Note The nurse called me to evaluate the patient. Patient apparently admitted for elevated digoxin level. History of chronic A- fib on digoxin Patient stated she is having abdominal pain for last 2 days. Denies chronic abdominal pain or at least not similar pain in the past. Her pain is 10/10, diffuse but predominantly in the epigastric region associated with nausea but no vomiting. She has history of autoimmune related cirrhosis along with multiple other comorbidities which includes CAD/status post CABG, carotid artery disease, peripheral arterial disease valvular heart disease status post bioprosthetic AV valve, chronic A-fib on Eliquis. Her last abdominal imaging was ultrasound in December 2021 which shows heterogenous echotexture of liver with bile ducts within normal limit. No demonstrated mass lesion. Status postcholecystectomy CBD 5.6 mm. Normal signs of head body and tail of pancreas. She also had an arterial study in February 2020 which shows moderately severe RLE occlusive disease. Mild left lower extremity occlusive disease. On exam Tenderness present in epigastric and upper abdomen. Bowel sound hypoactive. No palpable mass. Differential diagnosis: Epigastric pain possible acute gastritis/PUD but in view of significant atherosclerotic heart disease, peripheral arterial disease, there is concern of mesenteric vasculature atherosclerosis, acute mesenteric ischemia. Patient also has CKD stage IV therefore cannot have IV contrast. Management CT abdomen and pelvis without IV contrast. 40 mg oral Protonix was changed to 40 mg IV Protonix. Morphine empirically for pain control. Further management as per CT abdomen. Patient also had constipation and good bowel movement about 2 days ago on a stool softener. Denies GI bleed or rectal bleed. Patient also has NSVT 7-8 beats, pulses bigeminy with high digoxin level. Patient has chronic A-fib on Eliquis 2.5 mg twice daily. We will repeat CMP, phosphorus ordered. Patient had hypokalemia on admission potassium was replaced. Serum magnesium normal. Troponins are elevated but on decreasing trend. 160, 144. Patient does not have chest pain pressure or anginal quality chest pain or shortness of breath. Elevated troponin, acute myocardial injury most likely due to arrhythmia, ACS unlikely. Visit Charges Inpatient E&M: 03113 Subs Hosp L2
[2023-04-07] MEDS: Ondansetron 4 MG/2 ML Vial IV ×2 (01:33→17:38)
[2023-04-07] MEDS: Morphine 2 MG/ML Syringe IV (01:33)
[2023-04-07] MEDS: Pantoprazole Sodium 40 MG in 0.9% Normal Saline (100mL MB+) 100 ML 330 MG IV ×3 (01:36→22:05)
[2023-04-07 01:38] LABS: Troponin-I HS 140 pg/mL (3.0-54.0)
[2023-04-07 01:51] LABS: Absolute Lymphocyte Count 0.55 X10^3/uL (0.83-4.51); Absolute Neutrophil Count 6.9 X10^3/uL (2.0-7.7); Basophil# 0.02 X10^3/uL; Basophil% 0.2 % (0-1); Eosinophil# 0.02 X10^3/uL; Eosinophils% 0.2 % (0-5); Hemoglobin 8.9 g/dL (12.0-15.0); Lymphocyte # 0.55 X10^3/ul (0.83-4.51); Lymphocyte % 6.7 % (19-41); Mean Corp Hgb Conc 31.8 g/dL (32-36); Mean Corpuscular Volume 84.8 fL (81-99); Mean Platelet Vol. 10.1 fl (6.2-12.0); Monocyte# 0.63 X10^3/uL; Monocyte% 7.7 % (0-10); NRBC Flagged by Analyzer 0 % (0-5); Neutrophil # 6.88 X10^3/uL (2.7-7.7); Neutrophil % 84.1 % (47-70); POSITIVE COUNT YES; POSITIVE DIFFERENTIAL YES; Platelet Count 98 K/mm3 (150-450); RBC Distribution Width SD 55.3 fl (35.1-43.9); White Blood Count 8.2 K/mm3 (4.4-11.0)
[2023-04-07 01:52] LABS: Differential Indicated SCAN CRITERIA MET
[2023-04-07 02:01] LABS: ALB/GLOB Ratio 0.8 RATIO (0.9-2.4); AST(SGOT) 26 U/L (15-37); Alanine Aminotransfer ALT/SGPT 26 U/L (13-56); Albumin, Serum 2.6 g/dL (3.2-5.0); Alkaline Phosphatase 91 U/L (45-117); Anion Gap 6 (5-15); BUN 25 mg/dL (7-18); BUN/Creat Ratio 18.4 RATIO (10-20); Calcium,Total 8.2 mg/dL (8.5-10.1); Chloride 105 mmol/L (98-107); Creatinine, Serum 1.36 mg/dL (0.55-1.02); EST Glomerular Filtration Rate 39 mL/min (>60); Est Glom Filt Rate - Afr Amer 48 mL/min (>60); Estimated Creatinine Clearance 22.51 ml/min; Globulin 3.3 g/dL (2.2-4.2); Glucose 139 mg/dL (74-106); Potassium 3.8 mmol/L (3.5-5.1); Protein, Total 5.9 g/dL (6.4-8.2); Sodium Level 141 mmol/L (136-145)
[2023-04-07 03:27] LABS: Anisocytosis 1+
[2023-04-07 03:28] LABS: Platelet Estimate MOD DEC (ADEQ)
[2023-04-07] MEDS: HYDROmorphone 0.5 MG/0.5 ML SYRINGE IV ×4 (03:58→20:38)
[2023-04-07] MEDS: Na Biphos/Potassium Phosphate PACKET 1 PACKET PO ×2 (03:58→10:17)
--- NOTE | 2023-04-07 05:55 | EKG12_ITS ---
Test Reason : AM EKG Blood Pressure : / mmHG Vent. Rate : 095 BPM Atrial Rate : 000 BPM P-R Int : 000 ms QRS Dur : 098 ms QT Int : 356 ms P-R-T Axes : 000 -03 132 degrees QTc Int : 447 ms Atrial fibrillation with premature ventricular or aberrantly conducted complexes Confirmed by NYASIA NOWAK, FERNANDA ([id number]), editor dictionary ROB GRUBBS ([id number]) on 04/07/2023 1:40:10 PM Referred By: Ag Mcdonald Confirmed By:FERNANDA MURRELL MD
[2023-04-07 06:12] LABS: Absolute Neutrophil Count 7.7 X10^3/uL (2.0-7.7); Basophil# 0.03 X10^3/uL; Basophil% 0.3 % (0-1); Eosinophil# 0.01 X10^3/uL; Eosinophils% 0.1 % (0-5); Hematocrit 29.2 % (37-47); Hemoglobin 9.2 g/dL (12.0-15.0); Lymphocyte % 5.6 % (19-41); Mean Corp Hgb Conc 31.5 g/dL (32-36); Mean Corpuscular Hgb 26.8 pg (27.0-32.0); Mean Corpuscular Volume 85.1 fL (81-99); Monocyte# 0.54 X10^3/uL; Monocyte% 6.1 % (0-10); NRBC Flagged by Analyzer 0 % (0-5); Neutrophil # 7.69 X10^3/uL (2.7-7.7); Neutrophil % 86.4 % (47-70); POSITIVE DIFFERENTIAL YES; Platelet Count 104 K/mm3 (150-450); RBC Distribution Width CV 18.2 % (11.6-14.6); RBC Distribution Width SD 55.8 fl (35.1-43.9); Red Blood Count 3.43 M/mm3 (4.2-5.4); White Blood Count 8.9 K/mm3 (4.4-11.0)
[2023-04-07 06:19] LABS: Differential Indicated SCAN CRITERIA MET
[2023-04-07 06:45] LABS: Anisocytosis 1+; Platelet Estimate SLT DEC (ADEQ)
[2023-04-07 06:46] LABS: ALB/GLOB Ratio 0.7 RATIO (0.9-2.4); AST(SGOT) 26 U/L (15-37); Alanine Aminotransfer ALT/SGPT 26 U/L (13-56); Albumin, Serum 2.7 g/dL (3.2-5.0); Alkaline Phosphatase 89 U/L (45-117); Anion Gap 6 (5-15); BUN 26 mg/dL (7-18); BUN/Creat Ratio 19.4 RATIO (10-20); Calcium,Total 8.2 mg/dL (8.5-10.1); Chloride 105 mmol/L (98-107); Creatinine, Serum 1.34 mg/dL (0.55-1.02); EST Glomerular Filtration Rate 40 mL/min (>60); Est Glom Filt Rate - Afr Amer 49 mL/min (>60); Estimated Creatinine Clearance 22.85 ml/min; Globulin 3.7 g/dL (2.2-4.2); Glucose 184 mg/dL (74-106); Potassium 3.8 mmol/L (3.5-5.1); Protein, Total 6.4 g/dL (6.4-8.2); Sodium Level 140 mmol/L (136-145)
[2023-04-07] MEDS: 0.9% Saline Lock 10 ML Syringe IV ×6 (07:56→20:41)
[2023-04-07] MEDS: Ferrous Sulfate 325 MG Tablet PO (07:58)
[2023-04-07] MEDS: Aspirin 81 MG TAB.CHEW PO (07:58)
[2023-04-07] MEDS: Labetalol (Prefilled) 20 MG/4 ML IV (08:27)
[2023-04-07 08:39] LABS: Digoxin Level 3.35 ng/mL (0.80-2.00)
[2023-04-07] MEDS: Potassium Chloride Oral Tablet 20 MEQ PO (10:17)
[2023-04-07] MEDS: Senna/Docusate Sodium 1 Tablet PO (10:17)
[2023-04-07] MEDS: Atorvastatin Calcium 20 MG Tablet PO (10:17)
[2023-04-07] MEDS: Budesonide 3 MG CAPSULE.EC PO (10:17)
[2023-04-07] MEDS: Furosemide 40 MG Tablet PO (10:17)
[2023-04-07] MEDS: APIXABAN 2.5 MG TABLET (WCH) PO (10:18)
[2023-04-07] MEDS: Metoprolol(XL)Succ 50 MG Tablet PO (11:25)
[2023-04-07] MEDS: Amiodarone 150 MG in Dextrose 5%-Water (100mL Bag) 100 ML 600 MG IV BOLUS (14:04)
[2023-04-07] MEDS: Amiodarone 360 MG in Dextrose 5% Viaflo Bag 192.8 ML 33.3 MG CONT INF (14:18)
--- NOTE | 2023-04-07 14:46 | CASEMGMT ---
RN CM in to discuss readmission and discharge needs with patient. Nephew at bedside, patient agitated and does not want to participate at this time. RN CM will attempt again at later time.
[2023-04-07] MEDS: proCHLORPERazine 10 MG/2 ML Vial 5 MG IV ×2 (15:07→20:40)
--- NOTE | 2023-04-07 15:42 | NURSING ---
Telephone order from quality inspector to stop Amiodorone gtt and begin Cardizem gtt at 5mg/hr. Orders placed and communication given to primary RN.
[2023-04-07] MEDS: Diltiazem 125 MG in Dextrose 5%-Water (100mL Bag) 100 ML CONT INF (16:25)
--- NOTE | 2023-04-07 16:27 | CON.PCM.CA_ITS ---
Assessment & Plan Assessment/Plan (1) Atrial fibrillation: QUALIFIERS: Atrial fibrillation type: unspecified Qualified Code(s): I48.91 - Unspecified atrial fibrillation PLAN: When patient was on metoprolol and Cardizem her heart rate was still unco ntrolled and she was started on digoxin. I think it will be reasonable to restart her on p.o. Cardizem and continue her metoprolol. We will also add IV Cardizem overnight. Continue telemetry monitoring. The wide QRS rhythm appears to be A-fib with aberrant conduction. HPI Consult Data Date of Consult: 04/07/23 HPI Narrative Reason for Consultation: Digoxin toxicity, wide-complex tachycardia on telemetry HPI Narrative: MIKE MENDOZA, is a 82 F who presents with fatigue, malaise, confusion, nausea. Patient was found to have elevated digoxin level and Digibind was given. She was admitted to the PCU for monitoring. She had episodes of rapid rate on telemetry with wide QRS. Patient had Holter monitoring in January of this year where she appears to have had similar events. It was read as V. tach versus A- fib with aberrant conduction. Upon review of telemetry strips from this admission it appears to be more likely to be A-fib with aberrancy. Patient was started on amiodarone for rate control. She was having nausea when I saw her. She had not complained to the nurse about nausea earlier in the day. Looks like patient's home Cardizem is on hold. She has history of atrial fibrillation, coronary artery disease status post CABG in 2011 with a GANDHI to the obtuse marginal and an SVG to the right coronary art beau. Intact left ventricular systolic function and stage II diastolic dysfunction. She had a subsequent hospitalization for TIA and anemia. Review of systems: All systems reviewed. All system negative except in HPI [facility] Medical History (Updated 04/07/23 @ 16:[address] 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 Cholecystitis Chronic pain Cirrhosis Congestive heart failure (CHF) Coronary artery disease Diplopia Essential hypertension Former smoker GIB (gastrointestinal bleeding) Hepatitis History of breast cancer Hyperlipidemia Lower extremity edema Non-rheumatic mitral regurgitation Non-rheumatic tricuspid valve insufficiency Osteoporosis PAD (peripheral artery disease) Rheumatoid arthritis Sleep apnea Home Medications atorvastatin 20 mg tablet 20 mg PO DAILY cholesterol 04/30/22 [History Last Taken 03/12/23] pantoprazole 40 mg tablet,delayed release (Protonix) 40 mg PO BID GERD #30 tabs 11/13/22 [Rx Last Taken 03/12/23] budesonide 3 mg capsule,delayed,extended release 3 mg PO BID [facility] 11/17/22 [History Last Taken 03/12/23] cholecalciferol (vitamin D3) 125 mcg (5,000 unit) capsule 125 mcg PO DAILY SUPP 12/01/22 [History Last Taken 03/12/23] ferrous sulfate 325 mg (65 mg iron) tablet (Feosol) 325 mg PO .every other day SUPPLEMENT 12/22/22 [History Last Taken 03/12/23] sennosides 8.6 mg-docusate sodium 50 mg tablet (2-in-1 Laxative) 1 tab-cap PO DAILY laxative 12/22/22 [History Last Taken 03/12/23] apixaban 2.5 mg tablet (Eliquis) 2.5 mg PO BID blood thinner #180 tabs 03/02/23 [Rx Last Taken 03/13/23] furosemide 40 mg tablet 40 mg PO DAILY diuretic #90 tabs 03/02/23 [Rx Last Taken 03/12/23] potassium chloride 20 mEq tablet,extended release 20 meq PO DAILY SUPPLEMENT #90 tabs 03/02/23 [Rx Last Taken 03/12/23] digoxin 125 mcg (0.125 mg) tablet 125 mcg PO DAILY for heart #90 tabs 03/03/23 [Rx Last Taken 03/12/23] diltiazem HCl 180 mg capsule,extended release 24 hr 180 mg PO DAILY heart 30 days #30 caps 03/18/23 [Rx Last Taken Unknown] metoprolol tartrate 50 mg tablet 50 mg PO BID bp 30 days #60 tabs 03/18/23 [Rx Last Taken Unknown] metoprolol succinate 100 mg tablet,extended release 24 hr 50 mg PO Q12H blood pressure 04/07/23 [History Last Taken Unknown] Allergy/AdvReac Type Severity Reaction Status Date / Time azathioprine Allergy Unknown PT UNSURE Verified 04/06/23 12:46 OF REACTION Sulfa (Sulfonamide Allergy Hives Verified 04/06/23 12:46 Antibiotics) Family History Father Prostate cancer Mother CVA (cerebral vascular accident) Breast cancer Heart disease Other Anemia Surgical History Bilateral carotid artery disease History of aortic valve replacement with bioprosthetic valve (~09/18/11) History of cholecystectomy History of coronary artery bypass surgery (~09/18/11) History of vascular surgery Peripheral vascular disease S/P anal fissurectomy S/P cholecystectomy S/P colonoscopy S/P lumpectomy, left breast Social History housing: apartment Smoking Status: Former smoker second hand exposure: No alcohol intake: current alcohol intake frequency: holidays/special occasions only substance use type: does not use caffeine: Yes what type of physical activity do you participate in: none frequency: does not exercise seatbelt use: always Physical Exam Const alert and oriented x3 HEENT normocephalic Eyes no scleral icterus Resp normal respiratory effort and clear to auscultation bilaterally Cardio Cardio Narrative: Irregular rhythm Skin no rashes or lesions noted Psych mental status grossly normal Risk Stratification Risk Stratification Applicable: No Charges/Coding Visit Charges Inpatient E&M: 35109 Init Hosp L2 Objective Data Vital Signs: Vital Signs Temp Pulse Resp BP Pulse Ox O2 Del Method O2 Flow Rate 98.4 F 100 24 H 165/60 H 97 Nasal Cannula 2 04/07/23 12:00 04/07/23 16:00 04/07/23 16:00 04/07/23 16:00 04/07/23 16:00 04/07/23 16:00 04/07/23 16:00 Oxygen Flow Rate (L/min) 2 Oxygen Delivery Method Nasal Cannula Weight: 110 lb 7.225 oz Body Mass Index (BMI) 21.5 Intake & Output: Intake and Output for Last 24 Hours 04/05/23 04/06/23 04/07/23 23:59 23:59 23:59 Intake Total 50 / 50 1237.13 / 1237.13 Balance 50 / 50 1237.13 / 1237.13 Lab / Micro Data 04/07/23 05:36 04/07/23 05:36 Labs: Laboratory Results - last 24 hr 04/06/23 15:08: Magnesium 1.9 04/06/23 18:17: Urine Color Yellow, Urine Clarity Clear, Urine pH 6.0, Ur Specific [place] 1.020, Urine Protein 30 H, Urine Glucose (UA) Normal, Urine Ketones Negative, Urine Occult Blood 10 H, Urine Nitrite Negative, Urine Bilirubin Negative, Urine Urobilinogen Normal, Ur Leukocyte Esterase 500 H, Urine RBC 0 SEEN, Urine WBC 5-10 SEEN, Ur Squamous Epith Cells 0-5 SEEN, Urine Bacteria 1+, Urine Mucus 0 SEEN 04/06/23 19:16: Troponin I High Sens 160 H* 04/06/23 20:55: Troponin I High Sens 144 H*, Digoxin 0.31 L 04/07/23 01:05: WBC 8.2, RBC 3.30 L, Hgb 8.9 L, Hct 28.0 L, MCV 84.8, MCH 27.0, MCHC 31.8 L, RDW Std Deviation 55.3 H, RDW Coeff of Gypsy 18.0 H, Plt Count 98 L, MPV 10.1, Immature Gran % (Auto) 1.100 H, Neut % (Auto) 84.1 H, Lymph % (Auto) 6.7 L, Dickinson % (Auto) 7.7, Eos % (Auto) 0.2, Baso % (Auto) 0.2, Absolute Neuts (auto) 6.9, Absolute Lymphs (auto) 0.55 L, Nucleated RBC % 0, Platelet Estimate MOD DEC, Anisocytosis 1+, Sodium 141, Potassium 3.8, Chloride 105, Carbon Dioxide 30.0, Anion Gap 6, BUN 25 H, Creatinine 1.36 H, Estim Creat Clear Calc 22.51, Est GFR (MDRD) Af Amer 48 L, Est GFR (MDRD) Non-Af 39 L, BUN/Creatinine Ratio 18.4, Glucose 139 H, Calcium 8.2 L, Phosphorus 2.0 L, Total Bilirubin 0.80, AST 26, ALT 26, Alkaline Phosphatase 91, Troponin I High Sens 140 H*, Total Protein 5.9 L, Albumin 2.6 L, Globulin 3.3, Albumin/Globulin Ratio 0.8 L 04/07/23 05:36: WBC 8.9, RBC 3.43 L, Hgb 9.2 L, Hct 29.2 L, MCV 85.1, MCH 26.8 L , MCHC 31.5 L, RDW Std Deviation 55.8 H, RDW Coeff of Gypsy 18.2 H, Plt Count 104 L, MPV 10.0, Immature Gran % (Auto) 1.500 H, Neut % (Auto) 86.4 H, Lymph % (Auto) 5.6 L, Dickinson % (Auto) 6.1, Eos % (Auto) 0.1, Baso % (Auto) 0.3, Absolute Neuts (auto) 7.7, Absolute Lymphs (auto) 0.50 L, Nucleated RBC % 0, Platelet Estimate SLT DEC, Anisocytosis 1+, Sodium 140, Potassium 3.8, Chloride 105, Carbon Dioxide 29.0, Anion Gap 6, BUN 26 H, Creatinine 1.34 H, Estim Creat Clear Calc 22.85, Est GFR (MDRD) Af Amer 49 L, Est GFR (MDRD) Non-Af 40 L, BUN/Creatinine Ratio 19.4, Glucose 184 H, Calcium 8.2 L, Total Bilirubin 1.00, AST 26, ALT 26, Alkaline Phosphatase 89, Total Protein 6.4, Albumin 2.7 L, Globulin 3.7, Albumin/Globulin Ratio 0.7 L, Digoxin 3.35 H* Cardiology Labs/Tests 04/06/23 15:08: Magnesium 1.9 04/06/23 18:17: Urine Color Yellow, Urine Clarity Clear, Urine pH 6.0, Ur Specific [place] 1.020, Urine Protein 30 H, Urine Glucose (UA) Normal, Urine Ketones Negative, Urine Occult Blood 10 H, Urine Nitrite Negative, Urine Bilirubin Negative, Urine Urobilinogen Normal, Ur Leukocyte Esterase 500 H, Urine RBC 0 SEEN, Urine WBC 5-10 SEEN 04/06/23 20:55: Digoxin 0.31 L 04/07/23 01:05: WBC 8.2, RBC 3.30 L, Hgb 8.9 L, Hct 28.0 L, MCV 84.8, MCH 27.0, MCHC 31.8 L, Plt Count 98 L, MPV 10.1, Immature Gran % (Auto) 1.100 H, Neut % (Auto) 84.1 H, Lymph % (Auto) 6.7 L, Dickinson % (Auto) 7.7, Eos % (Auto) 0.2, Baso % (Auto) 0.2, Absolute Neuts (auto) 6.9, Nucleated RBC % 0, Sodium 141, Potassium 3.8, Chloride 105, Carbon Dioxide 30.0, Anion Gap 6, BUN 25 H, Creatinine 1.36 H , Est GFR (MDRD) Af Amer 48 L, Est GFR (MDRD) Non-Af 39 L, BUN/Creatinine Ratio 18.4, Glucose 139 H, Calcium 8.2 L, Phosphorus 2.0 L, Total Bilirubin 0.80 04/07/23 05:36: WBC 8.9, RBC 3.43 L, Hgb 9.2 L, Hct 29.2 L, MCV 85.1, MCH 26.8 L , MCHC 31.5 L, Plt Count 104 L, MPV 10.0, Immature Gran % (Auto) 1.500 H, Neut % (Auto) 86.4 H, Lymph % (Auto) 5.6 L, Dickinson % (Auto) 6.1, Eos % (Auto) 0.1, Baso % (Auto) 0.3, Absolute Neuts (auto) 7.7, Nucleated RBC % 0, Sodium 140, Potassium 3.8, Chloride 105, Carbon Dioxide 29.0, Anion Gap 6, BUN 26 H, Creatinine 1.34 H , Est GFR (MDRD) Af Amer 49 L, Est GFR (MDRD) Non-Af 40 L, BUN/Creatinine Ratio 19.4, Glucose 184 H, Calcium 8.2 L, Total Bilirubin 1.00, Digoxin 3.35 H* Rhythm: EKG: ECHO: Stress Test: Cardiac Cath: PCI: CT Surgery: Holter monitor: EPS: PPM: CXR: Chest CT Scan: Radiography Diagnostic Testing: Radiology Impression Chest X-Ray 04/06/23 17:15 IMPRESSION: Central line placement on the right with tip at the atrial caval junction. No evidence for pneumothorax Probable mild congestive failure with small pleural effusions Electronically Signed: Tj Brannon MD at 18:06 EDT , Echocardiogram 04/06/23 20:10 Interpretation Summary The estimated ejection fraction is 65 %. Unable to assess diastolic dysfunction. The left atrium is severely enlarged. The right atrium is mildly enlarged. Moderate (2+) mitral valve insufficiency. Mild (1+) aortic valve insufficiency. Ordering Physician: Eliza Herrmann Referring Physician: Ag Mcdonald Performed By: Presley Gresham RCS Abdomen/Pelvis CT 04/07/23 01:01 IMPRESSION: 1. Moderate size bilateral pleural effusions with bibasilar atelectasis. 2. Sigmoid colonic diverticulosis without evidence of acute diverticulitis. Paraseptal 3. Lower renal pole cyst. No further follow-up is necessary. Electronically Signed: Cody Martinez MD at 3:16 EDT ,
--- NOTE | 2023-04-07 16:33 | PN.HOSP_ITS ---
Reason for Visit Reason for Visit: Diagnoses Finding of other specified substances, not normally found in blood (04/06/23) Subjective Subjective Patient seen at bedside this morning, niece present. Patient laying back in bed, conversing normally. She does report moderate abdominal pain and appears to be mildly uncomfortable. States she has been staying fairly still due to the pain. Pain has been worsening over the past few days. She also reports some visual disturbances that have remained the same since yesterday. Does report some nausea, no episodes of vomiting this morning. She denies any fevers or chills. Denies any chest pain or shortness of breath. No other acute concerns morning. Objective Data Objective Data Vital Signs: Vital Signs Temp Pulse Resp BP Pulse Ox O2 Del Method O2 Flow Rate 98.4 F 106 H 27 H 186/63 H 99 Nasal Cannula 2 04/07/23 12:00 04/07/23 16:25 04/07/23 16:25 04/07/23 16:25 04/07/23 16:25 04/07/23 16:25 04/07/23 16:25 Oxygen Flow Rate (L/min) 2 Oxygen Delivery Method Nasal Cannula Weight: 50.1 kg Body Mass Index (BMI) 21.5 Intake & Output: Intake and Output for Last 24 Hours 04/05/23 04/06/23 04/07/23 23:59 23:59 23:59 Intake Total 50 / 50 1237.13 / 1237.13 Balance 50 / 50 1237.13 / 1237.13 Medical Nutrition Assessment Dietitian: Malnutrition Criteria Met Start: 04/07/23 11:29 Freq: Status: Active Protocol: Document 04/07/23 11:29 AG (Rec: 04/07/23 11:29 [id number]) Nutrition Malnutrition Evidence of Malnutrition Exists Yes Malnutrition (severe): Chronic Evidenced By Suboptimal Energy Intake ( Severe),Weight Loss (Severe), Physical Changes (Severe) Clinical Problem Chronic Disease or Condition Related Malnutrition Etiology severe, chronic malnutrition related to inadequate energy intake w/ decreased appetite Signs/Symptoms as evidenced by unintentional 21% wt loss x 5 months, severe muscle wasting/fat loss per physical exam, estimated PO intake meeting <75% of estimated energy needs > 3 months Status Active Problem Recommendation Dietitian Recommendations/Changes will adjust diet to regular/no added salt given poor PO intake, evidence of malnutrition; will adjust ONS from ensure clear to glucerna per pt preference Lab / Micro Data 04/07/23 05:36 04/07/23 05:36 Labs: Laboratory Results - last 24 hr 04/06/23 15:08: Magnesium 1.9 04/06/23 18:17: Urine Color Yellow, Urine Clarity Clear, Urine pH 6.0, Ur Specific [place] 1.020, Urine Protein 30 H, Urine Glucose (UA) Normal, Urine Ketones Negative, Urine Occult Blood 10 H, Urine Nitrite Negative, Urine Bilirubin Negative, Urine Urobilinogen Normal, Ur Leukocyte Esterase 500 H, Urine RBC 0 SEEN, Urine WBC 5-10 SEEN, Ur Squamous Epith Cells 0-5 SEEN, Urine Bacteria 1+, Urine Mucus 0 SEEN 04/06/23 19:16: Troponin I High Sens 160 H* 04/06/23 20:55: Troponin I High Sens 144 H*, Digoxin 0.31 L 04/07/23 01:05: WBC 8.2, RBC 3.30 L, Hgb 8.9 L, Hct 28.0 L, MCV 84.8, MCH 27.0, MCHC 31.8 L, RDW Std Deviation 55.3 H, RDW Coeff of Gypsy 18.0 H, Plt Count 98 L, MPV 10.1, Immature Gran % (Auto) 1.100 H, Neut % (Auto) 84.1 H, Lymph % (Auto) 6.7 L, [place] % (Auto) 7.7, Eos % (Auto) 0.2, Baso % (Auto) 0.2, Absolute Neuts (auto) 6.9, Absolute Lymphs (auto) 0.55 L, Nucleated RBC % 0, Platelet Estimate MOD DEC, Anisocytosis 1+, Sodium 141, Potassium 3.8, Chloride 105, Carbon Dioxide 30.0, Anion Gap 6, BUN 25 H, Creatinine 1.36 H, Estim Creat Clear Calc 22.51, Est GFR (MDRD) Af Amer 48 L, Est GFR (MDRD) Non-Af 39 L, BUN/Creatinine Ratio 18.4, Glucose 139 H, Calcium 8.2 L, Phosphorus 2.0 L, Total Bilirubin 0.80, AST 26, ALT 26, Alkaline Phosphatase 91, Troponin I High Sens 140 H*, Total Protein 5.9 L, Albumin 2.6 L, Globulin 3.3, Albumin/Globulin Ratio 0.8 L 04/07/23 05:36: WBC 8.9, RBC 3.43 L, Hgb 9.2 L, Hct 29.2 L, MCV 85.1, MCH 26.8 L , MCHC 31.5 L, RDW Std Deviation 55.8 H, RDW Coeff of Gypsy 18.2 H, Plt Count 104 L, MPV 10.0, Immature Gran % (Auto) 1.500 H, Neut % (Auto) 86.4 H, Lymph % (Aut o) 5.6 L, [place] % (Auto) 6.1, Eos % (Auto) 0.1, Baso % (Auto) 0.3, Absolute Neuts (auto) 7.7, Absolute Lymphs (auto) 0.50 L, Nucleated RBC % 0, Platelet Estimate SLT DEC, Anisocytosis 1+, Sodium 140, Potassium 3.8, Chloride 105, Carbon Dioxide 29.0, Anion Gap 6, BUN 26 H, Creatinine 1.34 H, Estim Creat Clear Calc 22.85, Est GFR (MDRD) Af Amer 49 L, Est GFR (MDRD) Non-Af 40 L, BUN/Creatinine Ratio 19.4, Glucose 184 H, Calcium 8.2 L, Total Bilirubin 1.00, AST 26, ALT 26, Alkaline Phosphatase 89, Total Protein 6.4, Albumin 2.7 L, Globulin 3.7, Albumin/Globulin Ratio 0.7 L, Digoxin 3.35 H* Radiography Diagnostic Testing: Radiology Impression Chest X-Ray 04/06/23 17:15 IMPRESSION: Central line placement on the right with tip at the atrial caval junction. No evidence for pneumothorax Probable mild congestive failure with small pleural effusions Electronically Signed: Tj Brannon MD at 18:06 EDT , Echocardiogram 04/06/23 20:10 Interpretation Summary The estimated ejection fraction is 65 %. Unable to assess diastolic dysfunction. The left atrium is severely enlarged. The right atrium is mildly enlarged. Moderate (2+) mitral valve insufficiency. Mild (1+) aortic valve insufficiency. Ordering Physician: Eliza Herrmann Referring Physician: Ag Mcdonald Performed By: Presley Gresham RCS Abdomen/Pelvis CT 04/07/23 01:01 IMPRESSION: 1. Moderate size bilateral pleural effusions with bibasilar atelectasis. 2. Sigmoid colonic diverticulosis without evidence of acute diverticulitis. Paraseptal 3. Lower renal pole cyst. No further follow-up is necessary. Electronically Signed: Cody Martinez MD at 3:16 EDT , Physical Exam Const alert and oriented x3 Constitutional Narrative: Pleasant elderly female, thin appearing, laying in bed, conversing normally, mild distress due to abdominal pain. General Appearance: cooperative HEENT normocephalic, head/scalp atraumatic, hearing grossly normal bilaterally, nasal mucous membranes and turbinates normal and moist oral mucous membranes Eyes PERRL, EOMs intact bilaterally and conjunctivae normal Neck full ROM, no lymphadenopathy and supple Lymph Lymphatic: no lymphadenopathy noted Chest inspection of chest normal Resp normal respiratory effort, normal air movement, no use of accessory muscles and clear to auscultation bilaterally Cardio regular rate, regular rhythm, no murmurs and peripheral pulses 2+ throughout GI GI Narrative: Mildly distended on exam, moderately tender to palpation diffusely. Patient does appear to be guarding with palpation. Still does feel soft on palpation. Back/Spine normal ROM Extremity normal to inspection, full ROM and no pedal edema Skin no rashes or lesions noted Psych mental status grossly normal Assessment & Plan Assessment/Plan (1) Digoxin toxicity: PLAN: Plan Patient is a 82-year-old female with history of cirrhosis secondary to autoimmune hepatitis, paroxysmal atrial fibrillation on digoxin, anemia, CAD s/p CABG, PAD, aortic valve replacement and rheumatoid arthritis who presented to [facility] ED on 04/06/2023 at the request of her PCP for abnormal labs. 1. Digoxin toxicity, paroxysmal A-fib with RVR Patient follows with cardiology, was started on digoxin in 12/2022 because her heart rate was still uncontrolled on metoprolol and Cardizem. Was found to have hypokalemia on outpatient labs on 03/31, had digoxin level taken at that time and resulted at 2.67 on day of admission. Reports symptoms of increased fatigue, lethargy, confusion and worsening abdominal pain over the last few days. Had central line placed in ED and administered Digibind 40 mg IV x1 on 04/06. Repeat digoxin level on 04/07 of 3.35. Patient also noted to have apparent runs of V. tach on telemetry on 04/07, was bolused with amiodarone and initiated on amiodarone drip. ? Cardiology consulted. Reviewed telemetry on this admission and state rapid rate with wide QRS appears to be more likely A-fib with aberrancy. Restarted her home p.o. Cardizem and continued metoprolol. Also added IV Cardizem overnight. Amiodarone discontinued. Continue telemetry. Continue to monitor d igoxin levels. Continue home Eliquis. 2. Abdominal pain Unclear etiology at this time, may be secondary to digoxin toxicity. Patient noted to have worsening abdominal pain overnight on 04/06. CT abdomen pelvis without IV contrast showed sigmoid colonic diverticulosis without evidence of diverticulitis, was otherwise benign. Notably did not give IV contrast with CT due to her history of kidney disease. Patient notably does have a history of GI bleed recently as noted below, no concern for GI bleed at this time. ? Gastroenterology consulted. Continue pain management for now. Appreciate gastroenterology recommendations. Continue IV PPI that was started on 04/06. Chronic medical conditions: ? CKD stage IV: Baseline creatinine appears to be around 1.5-2.3, however creatinine was 1.31 on admit. Monitor. ? Cirrhosis: No concern for acute decompensation. Continue oral budesonide re gimen. Continue outpatient follow-up with [place] [facility]. ? HFpEF: Appears compensated. Continue beta-sergey with Cardizem per cardiology recommendations as noted above. Echo 04/07 with EF 65%, no acute changes from previous. ? Chronic anemia: Admission hemoglobin 9.0, at baseline. Continue iron supplementation. DVT prophylaxis: Eliquis CODE STATUS: DNR CCA, DO NOT INTUBATE Expected disposition: Home, TBD Total clinical time spent by myself addressing the patient's medical issues, reviewing all the data, and collaborating with patient's care team: 35 minutes. Charges/Coding Visit Charges Inpatient E&M: 00010 Subs Hosp L2
[2023-04-08] VITALS (18 sets, daily range): BP systolic 67–177; BP diastolic 31–107; PULSE 67–96; RESP 14–28; TEMP 36.4; O2SAT 76–100; BMI 21.4
[2023-04-08] MEDS: Ondansetron 4 MG/2 ML Vial IV (02:57)
[2023-04-08] MEDS: 0.9% Saline Lock 10 ML Syringe IV ×2 (02:57→07:57)
[2023-04-08] MEDS: HYDROmorphone 0.5 MG/0.5 ML SYRINGE IV ×2 (03:03→07:54)
[2023-04-08] MEDS: proCHLORPERazine 10 MG/2 ML Vial 5 MG IV (07:54)
[2023-04-08] MEDS: Pantoprazole Sodium 40 MG in 0.9% Normal Saline (100mL MB+) 100 ML 330 MG IV (09:04)
--- NOTE | 2023-04-08 09:05 | RAD_ITS ---
STUDY: X-RAY CHEST REASON FOR EXAM: Female, 82 years old. Worsening hypoxia. TECHNIQUE: Single frontal view of the chest. COMPARISON: April 06, 2023. FINDINGS: Stable right internal jugular catheter with tip projected over the lower SVC. Cardiomegaly with sternotomy wires and aortic tortuosity with calcification, relatively unchanged. Substantial decrease in bilateral diffuse interstitial opacities and bilateral effusions, right greater than left. No abnormality of the visualized soft tissue structures of the upper abdomen. RAD/Chest 1 View (Portable) IMPRESSION: Radiographic improvement with no acute or emergent finding. Electronically Signed: Anatoly Calvo MD at 9:32 EDT ,
[2023-04-08 09:40] LABS: Base Excess 5 mmol/L (-2 to +2); Bicarbonate 27.7 mmol/L (22-26); Blood Gas Specimen Type ART; Mode Not entered; O2 Delivery Device HFNC; PO2 79 mmHG (75-100); SITE L Brach; SO2 97 % (95-99); Total Carbon Dioxide 29 mmol/L; pCO2 32.7 mmHg (35-45); pH 7.54 (7.35-7.45)
[2023-04-08 11:00] LABS: Anion Gap 7 (5-15); BUN 48 mg/dL (7-18); BUN/Creat Ratio 25.5 RATIO (10-20); Chloride 106 mmol/L (98-107); Creatinine, Serum 1.88 mg/dL (0.55-1.02); EST Glomerular Filtration Rate 27 mL/min (>60); Est Glom Filt Rate - Afr Amer 33 mL/min (>60); Estimated Creatinine Clearance 16.29 ml/min; Glucose 93 mg/dL (74-106); Potassium 4.1 mmol/L (3.5-5.1); Sodium Level 142 mmol/L (136-145)
[2023-04-08 13:21] LABS: Phosphorus 3.4 mg/dL (2.5-4.9)
--- NOTE | 2023-04-08 14:10 | CASEMGMT ---
SW responded to staff assist call. Patient's nieces and nephew were present. Per RN patient . SW provided emotional support. Family declined to have a scalp specialist visit as the other day patient said she did not want a scalp specialist. SW let family know SW is available should they need support. Mackenzie Sheldon [employer] LAURA
--- NOTE | 2023-04-08 14:52 | NURSING ---
This RN noticed pts bp dropped at 1400 to 61/31 and went to pts room to stop cardizem. technology sales representative notified and came to bedside with this RN, pt became esme down to 21. Noted pt not breathing. Pt time of 1405. Two RN verification of absent lung and heart sounds. MD notified and to bedside to talk to family.
--- NOTE | 2023-04-10 07:05 | PCM.DEATH ---
Preliminary Cause of Preliminary Cause of Preliminary Cause of : Cardiopulmonary arrest secondary to digoxin toxicity Date of Admission: 04/06/23 Date of : 04/08/23 Principle Diagnosis Digoxin toxicity Problem List: Active and Suspected Problems (Updated 04/07/23 @ 16:[address] Buddy Anguiano, DO) Digoxin toxicity (Acute) Atrial fibrillation (Acute) Elevated digoxin level (Acute) Hospital Course Patient was a 82-year-old female with history of cirrhosis secondary to autoimmune hepatitis, paroxysmal atrial fibrillation on digoxin, anemia, CAD s/p CABG, PAD, aortic valve replacement and rheumatoid arthritis who presented to [facility] ED on 04/06/2023 at the request of her PCP for abnormal labs. Patient's hospital course as noted below. Patient initially presented to the ED due to elevated digoxin level noted on outpatient labs. Patient followed with cardiology, was started on digoxin in 12/2022 because her heart rate was still uncontrolled metoprolol and Cardizem. Was found to have hypokalemia on outpatient labs on 03/31, had digoxin level taken at that time and resulted at 2.67 on day of admission. She reported symptoms of increased fatigue, lethargy, confusion and worsening abdominal pain for several days prior to admission. Had central line placed in ED and administered Digibind 40 mg IV x1 on 04/06. Unfortunately, repeat digoxin level on 04/07 of 3.35. Cardiology followed for digoxin toxicity and concern for V. tach on telemetry. They further reviewed telemetry during the admission and noted that patient's rapid heart rate with wide QRS complexes appear to be more likely A-fib with aberrancy as opposed to V. tach. They restarted her home p.o. Cardizem and metoprolol, and also started an IV Cardizem 5 mg drip. Notably, due to her severe abdominal pain as noted below, patient was only able to take IV medications and thus was not taking the p.o. Cardizem or metoprolol. On telemetry, it appeared that her heart rate was well controlled on the IV Cardizem drip and she had less frequent episodes of A-fib with aberrancy. Patient's hospital course was complicated by severe abdominal pain. CT abdomen pelvis without IV contrast showed sigmoid colonic diverticulosis without evidence of diverticulitis, was otherwise benign. Notably, IV contrast was not given with CT due to history of kidney disease with mild ARIAN. Gastroenterology followed and suspected her abdominal pain was largely secondary to digoxin toxicity. Did not think that an EGD or colonoscopy for further work-up would be helpful at that time. Discussed with pharmacy on 04/08 if any further action can be taken for patient's digoxin toxicity. Unfortunately, it was noted that digoxin is a large molecule that is essentially not dialyzable, so clearing digoxin with Digibind through renal clearance was the only way to clear the medication. Patient was noted on the afternoon of 04/08 to have significant bradycardia and drop in her blood pressure. Nursing staff responded to the bedside at that time and noted that patient was nonresponsive. On pulse check, patient did not have a peripheral pulse. Patient was noted to be DNR CCA, DO NOT INTUBATE CODE STATUS. Time of was called at 1405. Two RN verification of absent lung and heart sounds. Discharge diagnoses: ? Digoxin toxicity ? Cardiopulmonary arrest ? A-fib with RVR, with aberrancy ? Severe abdominal pain ? ARIAN on CKD stage IV ? Cirrhosis without acute decompensation ? HFpEF ? Chronic anemia Total clinical time spent by myself addressing the patient's discharge needs: 38 minutes. Assessment & Plan Assessment/Plan (1) Digoxin toxicity: (2) Acute on chronic kidney failure: (3) Abdominal pain: (4) Atrial fibrillation: QUALIFIERS: Atrial fibrillation type: unspecified Qualified Code(s): I48.91 - Unspecified atrial fibrillation Visit Charges Inpatient E&M: 95611 Disch Hosp >30min
== END 2023-04-08 15:26 | DRG 918 ==
LOC: ED 17:10 → PCU 17:42
PROVIDERS: Internal Medicine; Admitting Provider Family Medicine; Emergency Provider Emergency Medicine; PCP Family Medicine; Referring Provider Emergency Medicine; Visit Provider Hospitalist
DX: T46.0X1A Poisoning by cardiac-stimulant glycosides and drugs of similar action, accidental (unintentional), initial encounter (principal); E46 Unspecified protein-calorie malnutrition; N17.9 Acute kidney failure, unspecified; I13.0 Hypertensive heart and chronic kidney disease with heart failure and stage 1 through stage 4 chronic kidney disease, or unspecified chronic kidney disease; N18.4 Chronic kidney disease, stage 4 (severe); I50.32 Chronic diastolic (congestive) heart failure; D69.6 Thrombocytopenia, unspecified; D63.8 Anemia in other chronic diseases classified elsewhere; K74.60 Unspecified cirrhosis of liver; I73.9 Peripheral vascular disease, unspecified; I48.0 Paroxysmal atrial fibrillation; I46.9 Cardiac arrest, cause unspecified; M06.9 Rheumatoid arthritis, unspecified; D50.9 Iron deficiency anemia, unspecified; I25.10 Atherosclerotic heart disease of native coronary artery without angina pectoris; E87.6 Hypokalemia; G47.33 Obstructive sleep apnea (adult) (pediatric); E78.5 Hyperlipidemia, unspecified; K21.9 Gastro-esophageal reflux disease without esophagitis; K57.30 Diverticulosis of large intestine without perforation or abscess without bleeding; R74.9 Abnormal serum enzyme level, unspecified; Z66 Do not resuscitate; Z79.01 Long term (current) use of anticoagulants; Z80.3 Family history of malignant neoplasm of breast; Z87.891 Personal history of nicotine dependence; Z51.5 Encounter for palliative care; Z82.3 Family history of stroke; Z80.42 Family history of malignant neoplasm of prostate; Z90.2 Acquired absence of lung [part of]; Z68.22 Body mass index [BMI] 22.0-22.9, adult
CPT/HCPCS: 36415; 36600; 71045; 74176; 80048; 80053; 80162; 81001; 82803; 83735; 84100; 84484; 85025; 85027; 93005; 93306; 99284; J7030; Q9957; A4216; J1162; J2405; J3490